=== PATIENT | male | born 1935 | race Caucasian/White ===

== ENCOUNTER 2016-03-08 18:01 | Inpatient (IN) | payer MEDICARE, OTHER ==
[~2016-03-08] VITALS: Ht 170.2 cm; Wt 86.7 kg
[~2016-03-08 18:01] MED LIST: CALC0.255 PO; PHE30 PO; PHEN300C2 PO; ZOC20 PO
--- NOTE | 2016-03-08 18:41 | RADRPT ---
PROCEDURE: XR Chest 1 View. CLINICAL INDICATION: Shortness of breath and sepsis TECHNIQUE: AP view of the chest were obtained. COMPARISON: September 27, 2014 FINDINGS: The heart size is within normal limits. Calcified atherosclerosis is noted in the aorta. Patchy inf iltrates are identified in the bilateral lower lungs. Osseous structures are osteopenic, but grossly intact. Degenerative changes are seen in the left shoulder. IMPRESSION: Calcified atherosclerosis in the aorta. Patchy infiltrates in the bilateral lower lungs. RPTAT: AA .Rubio Costello MD, MD Date Time Electronically viewed and signed by .Rubio Costello MD, on 03/08/2016 18:40 .P/
[2016-03-08 19:00] LABS: HEMATOCRIT 28.7 % (42.0-52.0); HEMOGLOBIN 9.4 g/dl (14.0-18.0); MEAN CORPUSCULAR HEMOGLOBIN 25.7 pg (29.0-33.0); MEAN CORPUSCULAR HGB CONC 32.6 g/dl (32.0-37.0); MEAN CORPUSCULAR VOLUME 78.8 fl (82.0-101.0); MEAN PLATELET VOLUME 7.6 fl (7.4-10.4); PLATELET COUNT 442 10^3/UL (140-440); RED BLOOD COUNT 3.65 10^6/ul (4.70-6.10); RED CELL DISTRIBUTION WIDTH 16.9 % (11.5-14.5)
[2016-03-08] MEDS ORDERED: SODIUM CHLORIDE 0.9% 1L BAG IV* STA (19:04)
[2016-03-08 19:08] LABS: CONDITION 1; LH ANALYZER COMMENTS 1
[2016-03-08 19:10] LABS: INR 1.16; PROTIME 14.8 Sec (12.2-14.2); PT RATIO 1.2
[2016-03-08 19:11] LABS: PARTIAL THROMBOPLASTIN TIME 27.1 Sec (25.0-35.0)
[2016-03-08 19:14] LABS: ALBUMIN 3.1 g/dl (3.3-4.9)
[2016-03-08 19:15] LABS: POTASSIUM 3.9 mmol/L (3.5-5.1)
[2016-03-08] MEDS ORDERED: ASPI-664 PO (19:15)
[2016-03-08 19:17] LABS: BILIRUBIN,INDIRECT 0.4 mg/dl (0-1.1); BILIRUBIN,TOTAL 0.4 mg/dl (0.2-1.3); CREATININE 1.13 mg/dl (0.61-1.24)
[2016-03-08 19:18] LABS: ALBUMIN/GLOBULIN RATIO 0.81; TOTAL PROTEIN 6.9 g/dl (6.1-8.1)
[2016-03-08 19:29] LABS: TROPONIN-I 0.013 ng/ml (0.00-0.12)
[2016-03-08 19:36] LABS: LYMPHOCYTES # 0.4 10^3/ul (0.8-2.9); MONOCYTE # 0.7 10^3/ul (0.3-0.9); NEUTROPHIL # 9.7 10^3/ul (1.6-7.5)
[2016-03-08] MEDS ORDERED: DILTIAZEM 25 MG INJ IV ONE ×2 (20:00→21:00)
[2016-03-08 20:16] LABS: ADD UMIC YES; URINE BILIRUBIN (Dip) 1+ (NEGATIVE); URINE BLOOD (Dip) 2+ (NEGATIVE); URINE COLOR YELLOW (YELLOW); URINE GLUCOSE (Dip) NEGATIVE (NEGATIVE); URINE KETONES (Dip) NEGATIVE (NEGATIVE); URINE LEUKOCYTE ESTERASE (Dip) NEGATIVE (NEGATIVE); URINE NITRITE (Dip) NEGATIVE (NEGATIVE); URINE TOTAL PROTEIN (Dip) 2+ (NEGATIVE); URINE UROBILINOGEN (Dip) 4.0 E.U./dL (0.1-1.0)
[2016-03-08 20:37] LABS: ICTOTEST NEGATIVE (NEGATIVE)
[2016-03-08 20:38] LABS: MUCUS,URINE MODERATE; SQUAMOUS EPITHELIAL CELL,UR FEW
[2016-03-08 20:39] LABS: BACTERIA,URINE OCCASIONAL
[2016-03-08] MEDS ORDERED: CEFEPIME 2GM/50 ML (PMX) 50 ML IVPB ONE (21:15)
[2016-03-08] MEDS ORDERED: VANCOMYCIN 1 GM (PMX) 250 ML IVPB ONE (21:15)
[2016-03-08] MEDS ORDERED: SOD CHLORIDE 0.9% 1,000 ML IV SCH (21:22)
[2016-03-08] MEDS ORDERED: DIGOXIN 0.125 MG TAB PO ONE (21:30)
[2016-03-08] MEDS ORDERED: ONDANSETRON 4 MG INJ IV PRN (21:30)
[2016-03-08] MEDS ORDERED: ACETAMINOPHEN 325 MG TAB PO PRN (21:30)
--- NOTE | 2016-03-08 21:31 | ERA ---
ER Documentation Chief Complaint Date/Time DATE: 03/08/16 TIME: 21:24 Chief Complaint BIB RA FROM HOME FOR EVAL OF DIFFICULTY BREATHING. NON REBREATHER ON ARRIVA HPI This is an 81-year-old male who presents to the emergency room after being brought in by ambulance for evaluation of difficulty in breathing, and congestion. This patient was coming from home and his family member called 911 because the patient was complaining of difficulty breathing. When the patient arrived he was on a nonrebreather, according to EMS this patient had a pulse ox of 91% on room air and did have a productive cough. When I evaluated this patient is complaining of mild shortness of breath however he states that with oxygen mask it has improved slightly. ROS All systems reviewed and are negative except as per history of present illness. Medications Home Meds Reported Medications Aspirin (Low Dose Aspirin) 81 Mg Tablet.dr, 81 MG PO DAILY, #30 TAB 03/08/16 Simvastatin (Simvastatin) 20 Mg Tablet, 20 MG PO HS, TAB 09/16/14 Calcitriol* (Rocaltrol*) 0.25 Mcg Capsule, 0.25 MCG PO QAM, CAP 09/16/14 Phenytoin* Sodium Extended (Dilantin*) 300 Mg Capsule, 300 MG PO BID, CAP 09/16/14 Phenobarbital* (Phenobarbital*) 32.4 Mg Tab, 64.8 MG PO BID, TAB 09/16/14 Allergies Allergies: Coded Allergies: No Known Allergy (Unverified , 03/08/16) PMhx/Soc History of Surgery: No Anesthesia Reaction: No Hx Neurological Disorder: Yes (hx of seizures) Hx Respiratory Disorders: No Hx Cardiac Disorders: Yes (syncope) Hx Psychiatric Problems: No Hx Miscellaneous Medical Probl: Yes Hx Alcohol Use: Yes (long time ago occasionally) Hx Substance Use: No Hx Tobacco Use: No Smoking Status: Never smoker Physical Exam Vitals Vital Signs Date Time Temp Pulse Resp B/P Pulse Ox O2 Delivery O2 Flow Rate FiO2 03/08/16 21:00 118 17 138/78 96 Nasal Cannula 2.0 03/08/16 20:05 99.5 110 27 138/78 98 Nasal Cannula 3.0 03/08/16 19:04 Nasal Cannula 2.0 03/08/16 18:50 101.4 147 35 134/76 97 Nasal Cannula 4.0 03/08/16 18:49 Nasal Cannula 4 1/5/17 18:19 101.1 141 22 112/66 100 Physical Exam INITIAL VITAL SIGNS: Reviewed by me GENERAL: The patient is well developed, pleasant affect, no acute distress HEENT: Pupils equal, round, and reactive to light. EOMI. There is no scleral icterus. NECK: C-spine is soft and supple, there is no meningismus. There is no cervical lymphadenopathy. LUNGS: Coarse breath sounds bilaterally with rales auscultated in the bilateral lower lobes HEART: Irregularly irregular rhythm, no murmurs, clicks, rubs or gallops. ABDOMEN: Soft, non-tender, non-distended. There are bowel sounds in all four quadrants. No rebound or guarding. EXTREMITIES: There is no peripheral cyanosis or edema. No focal swelling or erythema. NEUROLOGICAL: The patient moves all four extremities with 5/5 strength. Cranial nerves II - XII are intact. Normal gait. Alert and oriented SKIN: There is no apparent rash or petechiae. HEME/LYMPHATIC: There is no evidence of excessive bruising or lymphedema. PSYCHIATRIC: The patient does not appear anxious or depressed. Result Diagram: 03/08/16183903/08/161839 Results 24 hrs Laboratory Tests Test 03/08/16 18:40 03/08/16 20:00 Activated Partial Thromboplast Time 27.1Sec Alanine Aminotransferase (ALT/SGPT) 64IU/L Albumin 3.1g/dl Albumin/Globulin Ratio 0.81 Alkaline Phosphatase 124IU/L Anion Gap 18 Aspartate Amino Transf (AST/SGOT) 80IU/L Basophils # 10^3/ul Basophils % % Blood Morphology Comment Blood Urea Nitrogen 22mg/dl Calcium Level 8.0mg/dl Carbon Dioxide Level 26mmol/L Chloride Level 98mmol/L Creatinine 1.13mg/dl Direct Bilirubin 0.00mg/dl Eosinophils # 10^3/ul Eosinophils % % Globulin 3.80g/dl Glucose Level 139mg/dl Hematocrit 28.7% Hemoglobin 9.4g/dl INR International Normalized Ratio 1.16 Indirect Bilirubin 0.4mg/dl Lactic Acid Level 2.2mmol/L Lymphocytes # 0.410^3/ul Lymphocytes % 3.0% Mean Corpuscular Hemoglobin 25.7pg Mean Corpuscular Hemoglobin Concent 32.6g/dl Mean Corpuscular Volume 78.8fl Mean Platelet Volume 7.6fl Monocytes # 0.710^3/ul Monocytes % 5.0% Neutrophils # 9.710^3/ul Neutrophils % 69.0% Nucleated Red Blood Cells # 10^3/ul Nucleated Red Blood Cells % 0.0/100WBC Platelet Count 71243^3/UL Potassium Level 3.9mmol/L Prothrombin Time 14.8Sec Prothrombin Time Ratio 1.2 Red Blood Count 3.6510^6/ul Red Cell Distribution Width 16.9% Sodium Level 138mmol/L Total Bilirubin 0.4mg/dl Total Protein 6.9g/dl Troponin I 0.013ng/ml White Blood Count 14.010^3/ul Urine Amorphous Urates FEW Urine Bacteria OCCASIONAL Urine Bilirubin 1+ Urine Clarity SL HAZY Urine Color YELLOW Urine Glucose NEGATIVE% Urine Hemoglobin 2+ Urine Ictotest NEGATIVE Urine Ketones NEGATIVE Urine Leukocyte Esterase NEGATIVE Urine Microscopic RBC 2-5/HPF Urine Microscopic WBC NONE SEEN/HPF Urine Mucus MODERATE Urine Nitrite NEGATIVE Urine Specific [place] 1.020 Urine Squamous Epithelial Cells FEW Urine Total Protein 2+ Urine Urobilinogen 4.0 E.U./dL Urine pH 6.0 Current Medications Medications (Trade) Dose Ordered Sig/Steve Route PRN Reason Start Time Stop Time Status Last Admin Dose Admin Sodium Chloride (NS) 2,790 ml BOLUS OVER 2 HOURS STAT IV* 03/08/16 19:04 03/08/16 19:05 DC 03/08/16 19:06 Diltiazem HCl (Cardizem Iv) 10 mg ONCE ONCE IV 03/08/16 20:00 03/08/16 20:01 DC 03/08/16 19:50 Diltiazem HCl 10 mg 10 mg ONCE ONCE IV 03/08/16 21:00 03/08/16 21:01 DC 03/08/16 20:50 Vancomycin HCl 250 ml @ 125 mls/hr ONCE ONCE IVPB 03/08/16 21:15 03/08/16 23:14 Cefepime HCl (Maxipime 2gm/50 ml (Pmx)) 50 ml @ 100 mls/hr ONCE ONCE IVPB 03/08/16 21:15 03/08/16 21:44 Procedures/MDM EKG: Rate/Rhythm: A. fib with RVR QRS, ST, T-waves: [No changes consistent w/ acute ischemia] Impression: A. fib with RVR Chest X-ray 1V Interpreted by me: Soft Tissue: Bilateral lower lobe infiltrates Bones: No acute abnormalities Mediastinum/Cardiac Silhouette/Lungs: [No acute abnormalities] This is an 81-year-old male presents to the ER for evaluation of cough, and mild shortness of breath. When I evaluated this patient he was febrile, tachycardic, and did appear to be in atrial fibrillation with a rapid ventricular response. A sepsis workup was started on this patient, and he was given greater than 30 cc/kg of IV normal saline. This patient's heart rate remained elevated and he was given 10 mg of Cardizem with only mild relief of his uncontrolled tachycardia. A second 10 mg dose was given and this patient's heart rate is 108 bpm at this time. This patient was found to have bilateral infiltrates consistent with pneumonia. He does have a leukocytosis as well. He was started on vancomycin and cefepime for hospital-acquired coverage as I am unable to ascertain whether or not this patient has been admitted in the past 60 days. This patient does meet sepsis criteria however he does not need vasopressors as his mean arterial pressures greater than 65. I spoken with the admitting physician, Dr. Baird who is in agreement with the plan of care at this time for admission. He did recommend 0.125 mill grams of digoxin p.o. Cardiac Critical Care: Excluding all billable procedures Time: 46 minutes Treatments/Evaluations: Close monitoring for dangerous arrhythmia and cardiovascular collapse, while treating with advance cardiac medications and techniques, multiple bedside evaluations, administration of Cardizem.. Departure Diagnosis: Primary Impression: Sepsis Additional Impressions: Bilateral pneumonia Atrial fibrillation with RVR Microcytic anemia Condition: Stable JOSÉ MIGUEL BARDALES DO Mar 08, 2016 21:31
[2016-03-09] VITALS (9 sets, daily range): BP systolic 110–111; BP diastolic 56–59; PULSE 116–151; RESP 18–20; TEMP 99.5; Ht 170.2 cm; Wt 86.7 kg
[2016-03-09] MEDS ORDERED: ALBUTEROL 0.5% (NEB) 2.5 MG/0.5 ML AMP HHN PRN (13:00)
[2016-03-09] MEDS ORDERED: IPRATROPIUM (NEB) 0.5 MG/2.5 ML AMP HHN PRN (13:00)
[2016-03-09] MEDS ORDERED: ONDANSETRON 4 MG INJ IV PRN (14:00)
[2016-03-09] MEDS ORDERED: NACL 0.9% 3 ML SYG IV SCH (14:00)
[2016-03-09] MEDS: GUAIFENESIN/CODEINE 5ML CUP PO PRN (15:34)
[2016-03-09] MEDS: LEVOFLOXACIN 500MG/D5W (PMX) 100 ML IVPB SCH (15:35)
[2016-03-09] MEDS: ASPIRIN (EC) 81 MG TAB PO SCH (15:54)
[2016-03-09] MEDS: CALCITRIOL 0.25 MCG CAP PO SCH (15:55)
[2016-03-09] MEDS: SOD CHLORIDE 0.9% 1,000 ML IV SCH (16:13)
[2016-03-09] MEDS ORDERED: SOD CHLORIDE 0.9% 500 ML IV ONE (16:30)
[2016-03-09] MEDS: ALBUTEROL/IPRATROPIUM (NEB) 3 ML AMP HHN PRN (16:38)
--- NOTE | 2016-03-09 17:08 | CONS ---
Date/Time of Note Date/Time of Note DATE: 03/09/16 TIME: 16:54 Consult Date/Type/Reason Admit Date/Time Mar 08, 2016 at 21:23 Initial Consult Date Subjective SUBJECTIVE: Mr. Elias appears comfortable today. No nausea, no vomiting, no diarrhea, no chest pain, decreased cough, no productive sputum. He is alert and interactive at this time. PHYSICAL EXAMINATION: HEAD: Normocephalic, atraumatic. NECK: Supple, no JVD. LUNGS: Clear to auscultation. HEART: Has regular rate and rhythm. No murmurs, rubs, or gallops. ABDOMEN: Soft, nontender, nondistended. Positive bowel sounds. EXTREMITIES: Show no cyanosis, clubbing or edema. 1. Sepsis- likely pneumonia. cont abx. 2. Seizure disorder. Phenobarbital continues. Follow up per Neurology. 3. Atrial fibrillation, rapid rate. previously rate controlled on metoprolol. not a candidate for full anticoagulation at this time. cont with volume resuscitation. cards consult. 4. Hyperlipidemia continues on Lipitor. 5. History of syncope. 6. anemia. Hemoglobin decreased. iron stores and stool ob. Objective Vital Signs Date Time Temp Pulse Resp B/P Pulse Ox O2 Delivery O2 Flow Rate FiO2 03/09/16 16:45 93 3.0 03/09/16 16:43 126 20 Nasal Cannula 03/09/16 11:32 99.5 110/59 Intake and Output 03/08/16 03/08/16 03/09/16 15:00 23:00 07:00 Intake Total 50 ml 320 ml Output Total 300 ml Balance 50 ml 20 ml Results/Medications Result Diagram: 03/08/16 1840 03/08/16 1840 Results 24 hrs Laboratory Tests Test 03/08/16 18:40 03/08/16 20:00 03/08/16 20:50 03/08/16 21:15 Activated Partial Thromboplast Time 27.1 Alanine Aminotransferase (ALT/SGPT) 64 Albumin 3.1 L Albumin/Globulin Ratio 0.81 Alkaline Phosphatase 124 H Anion Gap 18 H Aspartate Amino Transf (AST/SGOT) 80 H Basophils # Basophils % Blood Morphology Comment Blood Urea Nitrogen 22 H Calcium Level 8.0 L Carbon Dioxide Level 26 Chloride Level 98 Creatinine 1.13 Direct Bilirubin 0.00 Eosinophils # Eosinophils % Globulin 3.80 H Glucose Level 139 Hematocrit 28.7 #L Hemoglobin 9.4 #L INR International Normalized Ratio 1.16 Indirect Bilirubin 0.4 Lactic Acid Level 2.2 1.6 Lymphocytes # 0.4 L Lymphocytes % 3.0 L Mean Corpuscular Hemoglobin 25.7 #L Mean Corpuscular Hemoglobin Concent 32.6 Mean Corpuscular Volume 78.8 L Mean Platelet Volume 7.6 Monocytes # 0.7 Monocytes % 5.0 Neutrophils # 9.7 H Neutrophils % 69.0 Nucleated Red Blood Cells # Nucleated Red Blood Cells % 0.0 Platelet Count 442 #H Potassium Level 3.9 Prothrombin Time 14.8 H Prothrombin Time Ratio 1.2 Red Blood Count 3.65 L Red Cell Distribution Width 16.9 #H Sodium Level 138 Total Bilirubin 0.4 Total Protein 6.9 Troponin I 0.013 White Blood Count 14.0 #H Urine Amorphous Urates FEW Urine Bacteria OCCASIONAL Urine Bilirubin 1+ H Urine Clarity SL HAZY Urine Color YELLOW Urine Glucose NEGATIVE Urine Hemoglobin 2+ H Urine Ictotest NEGATIVE Urine Ketones NEGATIVE Urine Leukocyte Esterase NEGATIVE Urine Microscopic RBC 2-5 Urine Microscopic WBC NONE SEEN Urine Mucus MODERATE Urine Nitrite NEGATIVE Urine Specific [place] 1.020 Urine Squamous Epithelial Cells FEW Urine Total Protein 2+ H Urine Urobilinogen 4.0 E.U./dL H Urine pH 6.0 Digoxin Level < 0.4 L Test 03/08/16 23:30 Lactic Acid Level 1.5 Medications Current Medications Levofloxacin/ Dextrose (Levaquin 500mg/ D5W 100 ml (Pmx)) 100 ml @ 100 mls/hr Q24H IVPB Last administered on 03/09/16 15:35; Admin Dose 100 MLS/HR; Start 03/09/16 at 13:00 Guaifenesin/ Codeine Phosphate (Robitussin Ac Liquid Cup) 5 ml Q6H PRN PO COUGH Last administered on 03/09/16 15:34; Admin Dose 5 ML; Start 03/09/16 at 13: 00 Ondansetron HCl (Zofran Inj) 4 mg Q6H PRN IV NAUSEA AND/OR VOMITING; Start 03/09 at 14:00 Aspirin (Halfprin) 81 mg DAILY PO Last administered on 03/09/16 15:54; Admin Dose 81 MG; Start 03/09/16 at 14:00 Calcitriol (Rocaltrol) 0.25 mcg QAM PO Last administered on 03/09/16 15:55; Admin Dose 0.25 MCG; Start 03/09/16 at 14:00 Phenobarbital (Luminal) 64.8 mg BID PO ; Start 03/09/16 at 21:00 Phenytoin (Dilantin) 300 mg BID PO ; Start 03/09/16 at 21:00 Atorvastatin Calcium 10 mg 10 mg DAILY@21 PO ; Start 03/09/16 at 21:00 Sodium Chloride 500 ml @ 500 mls/hr Q1H ONCE IV Last administered on 03/09/16 16:13; Admin Dose 500 MLS/HR; Start 03/09/16 at 16:30; Stop 03/09/16 at 17:29 Sodium Chloride (NS) 1,000 ml @ 75 mls/hr [id number] IV Last administered on 16:13; Admin Dose 75 MLS/HR; Start 03/09/16 at 16:30 ANTHONY MCDONALD MD Mar 09, 2016 17:05
--- NOTE | 2016-03-09 18:00 | CONS ---
DATE OF ADMISSION: 03/08/2016 DATE OF CONSULTATION: 03/08/2016 HISTORY OF PRESENT ILLNESS: The patient is an 81-year-old gentleman with past medical history of se izure disorder, atrial fibrillation. The patient presented after noticing shortness of breath. The patient was in a facility and other people with flu-like illness. This patient is having occasiona l cough, not too bad. No productive sputum. Denies dysuria, hematuria. ____ his medications. PAST MEDICAL HISTORY: Significant for seizure disorder, hyperlipidemia, atrial fibrillation, mild c ognitive impairment. MEDICATIONS: From home include: 1. Aspirin. 2. Zocor. 3. Rocaltrol. 4. Phenytoin. 5. Phenobarbital. ALLERGIES: THE PATIENT HAS NO KNOWN ALLERGIES. SOCIAL HISTORY: Does not smoke, drink, or use drugs. FAMILY HISTORY: ____ kidney disease. REVIEW OF SYSTEMS: A 14-point review of systems is attempted and negative unless stated. PHYSICAL EXAMINATION: VITAL SIGNS: Temperature 101.4, blood pressure 134/76. HEENT: Normocephalic, atraumatic. Pupils equal, round, reactive to light and accommodation. NECK: Supple. HEART: Irregularly irregular. LUNGS: Coarse breath sounds bilaterally with rales. ABDOMEN: Soft, nontender. Bowel sounds present. LABORATORY EVALUATION: White count 14, hemoglobin 9.4, hematocrit 29. Sodium 130, potassium 3.9, B UN 22, creatinine 1.1. UA is reviewed on microscopy. Chest x-ray was reviewed with radiologist. IMPRESSION: 1. Sepsis, likely pneumonia. Continue antibiotics. Infectious disease consultation will be obtain ed. 2. Atrial fibrillation with rapid ventricular rate, probably related to sepsis, possibly related to bronchodilator treatment. Continue metoprolol as outpatient. If blood pressure can tolerate, can manage it, we will try volume challenge first. 3. Seizure disorder. Continue phenobarbital and Dilantin and follow up with neurology if necessary . 4. Hyperlipidemia. Continue on statin. 5. Anemia. Hemoglobin has decreased. Will check iron stores and stool occult blood. 6. History of syncope. Medication optimized. Dictated By: ANTHONY MCDONALD MD DF/NTS Conf#: [id number] DID#: [id number] CC: JESSICA ZUNIGA DO;*EndCC*
--- NOTE | 2016-03-09 18:41 | CONS ---
DATE OF ADMISSION: 03/08/2016 DATE OF CONSULTATION: 03/09/2016 TYPE OF CONSULTATION: Infectious disease. REASON FOR CONSULTATION: Antibiotic management. HISTORY OF PRESENT ILLNESS: Rogelio Elias is an 81-year-old male who was brought into the emergency room with difficulty breathing and congestion. The patient called 911 and was placed on a nonbreath ing mask, according to EMS, with a pulse ox of 91%. The patient complained of a cough with shortnes s of breath. His past problems include: 1. Hyperlipidemia, I believe. 2. Hypocalcemia. 3. History of seizures. 4. Syncope. 5. History of alcohol abuse in the past. On admission, his white count was 14,000; H and H 9.4 and 28.7, platelet count 442,000. BUN and cre atinine 22/.13. PAST MEDICAL HISTORY: Operations as outlined. FAMILY HISTORY: Noncontributory. SOCIAL HISTORY: As outlined. He does not smoke. He drinks rarely. Does not abuse drugs. MEDICATIONS: Per chart. REVIEW OF SYSTEMS: Noncontributory. PHYSICAL EXAMINATION: GENERAL: The patient is a well-developed, well-nourished male who is alert, responsive, in no acute distress. VITAL SIGNS: Stable. He is afebrile. SKIN: Without generalized rash. HEENT: Within normal limits. NECK: Supple. LYMPH NODES: None palpable. CHEST: Decreased breath sounds at the bases with coarse rhonchi at the bases. HEART: Irregularly irregular rhythm without murmur or gallop. ABDOMEN: Soft, nontender without organosplenomegaly or masses. EXTREMITIES: Without cyanosis, clubbing, or edema. RECTAL AND GENITAL: Deferred. NEUROLOGIC: No focal neurological abnormalities. IMPRESSION AND PLAN: The patient was seen by Dr. Vargas. Urine culture was negative. Influe nza A and B was negative. The patient is on Levaquin. Chest x-ray shows patchy infiltrates in bila teral lower lungs. Dr. Vargas felt he was in sepsis, likely pneumonia. Continue antibiotic t herapy. He has seizure disorders, atrial fibrillation, hyperlipidemia, syncope, and so on. We will continue him on Levaquin for the time being. I will dictate my findings to Dr. Vargas. Dictated By: MIESHA NATARAJAN MD, JD/ZECHARIAH Conf#: [id number] DID#: [id number] CC: JESSICA ZUNIGA DO;*[place]*
[2016-03-09] MEDS ORDERED: NON-FORMULARY/PATIENT OWN MED (Simvastatin 20 MG) PO SCH (21:00)
[2016-03-09] MEDS: PHENYTOIN 100 MG CAP PO SCH (21:10)
[2016-03-09] MEDS: ATORVASTATIN 10 MG TAB PO SCH (21:10)
[2016-03-09] MEDS: PHENOBARBITAL 32.4 MG TAB PO SCH (21:10)
[2016-03-10] VITALS (12 sets, daily range): BP systolic 104–144; BP diastolic 55–77; PULSE 87–126; RESP 17–22
[2016-03-10] MEDS: SOD CHLORIDE 0.9% 1,000 ML IV SCH ×2 (01:30→21:00)
[2016-03-10 06:22] LABS: EOSINOPHILS # 0.2 10^3/ul (0.0-0.5); EOSINOPHILS % 1.2 % (0.0-7.0); HEMATOCRIT 25.4 % (42.0-52.0); HEMOGLOBIN 8.5 g/dl (14.0-18.0); LYMPHOCYTES # 1.2 10^3/ul (0.8-2.9); LYMPHOCYTES % 8.8 % (15.0-51.0); MEAN CORPUSCULAR HEMOGLOBIN 26.3 pg (29.0-33.0); MEAN CORPUSCULAR HGB CONC 33.4 g/dl (32.0-37.0); MEAN CORPUSCULAR VOLUME 78.8 fl (82.0-101.0); MEAN PLATELET VOLUME 7.3 fl (7.4-10.4); MONOCYTE # 0.9 10^3/ul (0.3-0.9); MONOCYTES % 6.8 % (0.0-11.0); NEUTROPHIL # 11.5 10^3/ul (1.6-7.5); NEUTROPHILS % 83.2 % (39.0-77.0); PLATELET COUNT 412 10^3/UL (140-440); RED BLOOD COUNT 3.22 10^6/ul (4.70-6.10); UNCORRECTED WBC 13.8 10^3/ul (4.8-10.8); WHITE BLOOD COUNT 13.8 10^3/ul (4.8-10.8)
--- NOTE | 2016-03-10 06:35 | CONS ---
Date/Time of Note Date/Time of Note DATE: 03/10/16 TIME: 06:32 Assessment/Plan Assessment/Plan Additional Assessment/Plan 1. Sepsis, likely pneumonia Continue antibiotics. Infectious disease involved 2. Atrial fibrillation with rapid ventricular rate, probably related to sepsis Resume metoprolol as bp stable (but on the low end) and rx digoxin if need be. No antiocagulation for now unless deemed safe for the patient 3. Seizure disorder. Continue phenobarbital and Dilantin and follow up with neurology if necessary. 4. Hyperlipidemia. Continue on statin. 5. Anemia. Consultation Date/Type/Reason Admit Date/Time Mar 08, 2016 at 21:23 Hx of Present Illness This is an 81-year-old male who presents to the emergency room after being brought in by ambulance for evaluation of difficulty in breathing, and congestion. This patient was coming from home and his family member called 911 because the patient was complaining of difficulty breathing. When the patient arrived he was on a nonrebreather, according to EMS this patient had a pulse ox of 91% on room air and did have a productive cough. When I evaluated this patient is complaining of mild shortness of breath however he states that with oxygen mask it has improved slightly. Social History Smoking Status: Never smoker Exam/Review of Systems Vital Signs Vitals Vital Signs Date Time Temp Pulse Resp B/P Pulse Ox O2 Delivery O2 Flow Rate FiO2 03/10/16 04:54 98.0 113 19 107/57 95 03/09/16 20:26 2.0 03/09/16 16:43 Nasal Cannula Intake and Output 03/09/16 03/09/16 03/10/16 15:00 23:00 07:00 Intake Total 720 ml 350 ml Output Total 600 ml Balance 120 ml 350 ml Results Result Diagram: 03/08/16 1840 03/08/16 1840 Medications Medications Current Medications Levofloxacin/ Dextrose (Levaquin 500mg/ D5W 100 ml (Pmx)) 100 ml @ 100 mls/hr Q24H IVPB Last administered on 03/09/16 15:35; Admin Dose 100 MLS/HR; Start 03/09/16 at 13:00 Guaifenesin/ Codeine Phosphate (Robitussin Ac Liquid Cup) 5 ml Q6H PRN PO COUGH Last administered on 03/09/16 15:34; Admin Dose 5 ML; Start 03/09/16 at 13: 00 Ondansetron HCl (Zofran Inj) 4 mg Q6H PRN IV NAUSEA AND/OR VOMITING; Start 03/09 at 14:00 Aspirin (Halfprin) 81 mg DAILY PO Last administered on 03/09/16 15:54; Admin Dose 81 MG; Start 03/09/16 at 14:00 Calcitriol (Rocaltrol) 0.25 mcg QAM PO Last administered on 03/09/16 15:55; Admin Dose 0.25 MCG; Start 03/09/16 at 14:00 Phenobarbital (Luminal) 64.8 mg BID PO Last administered on 03/09/16 21:10; Admin Dose 64.8 MG; Start 03/09/16 at 21:00 Phenytoin (Dilantin) 300 mg BID PO Last administered on 03/09/16 21:10; Admin Dose 300 MG; Start 03/09/16 at 21:00 Atorvastatin Calcium 10 mg 10 mg DAILY@21 PO Last administered on 03/09/16 21: 10; Admin Dose 10 MG; Start 03/09/16 at 21:00 Sodium Chloride (NS) 1,000 ml @ 75 mls/hr [id number] IV Last administered on 01:30; Admin Dose 75 MLS/HR; Start 03/09/16 at 16:30 HUSSAIN ALVAREZ MD Mar 10, 2016 06:35
[2016-03-10 06:37] LABS: CONDITION 1; LH ANALYZER COMMENTS 1
[2016-03-10 06:44] LABS: IRON 16 ug/dl (35-150)
[2016-03-10 06:46] LABS: ALBUMIN 2.3 g/dl (3.3-4.9)
[2016-03-10 06:47] LABS: POTASSIUM 3.6 mmol/L (3.5-5.1)
[2016-03-10 06:49] LABS: ALBUMIN/GLOBULIN RATIO 0.67; BILIRUBIN,INDIRECT 0.1 mg/dl (0-1.1); BILIRUBIN,TOTAL 0.1 mg/dl (0.2-1.3); CREATININE 0.78 mg/dl (0.61-1.24); PHOSPHORUS 3.1 mg/dl (2.5-4.9); TOTAL PROTEIN 5.7 g/dl (6.1-8.1)
[2016-03-10 06:50] LABS: CALCIUM 7.3 mg/dl (8.4-10.2); MAGNESIUM 1.8 mg/dl (1.7-2.5)
[2016-03-10 06:57] LABS: TOTAL IRON BINDING CAPACITY 185 ug/dl (241-421)
[2016-03-10] MEDS ORDERED: DIGOXIN 500 MCG INJ IV ONE (07:00)
[2016-03-10 07:02] LABS: T3 UPTAKE 50.9 % (23.5-40.5)
--- NOTE | 2016-03-10 08:05 | CONS ---
Date/Time of Note Date/Time of Note DATE: 03/10/16 TIME: 08:02 Consult Date/Type/Reason Admit Date/Time Mar 08, 2016 at 21:23 Subjective SUBJECTIVE: Mr. Elias appears comfortable today. No nausea, no vomiting, no diarrhea, no chest pain, decreased cough, no productive sputum. He is alert and interactive at this time. PHYSICAL EXAMINATION: HEAD: Normocephalic, atraumatic. NECK: Supple, no JVD. LUNGS: Clear to auscultation. HEART: Has regular rate and rhythm. No murmurs, rubs, or gallops. ABDOMEN: Soft, nontender, nondistended. Positive bowel sounds. EXTREMITIES: Show no cyanosis, clubbing or edema. Objective Vital Signs Date Time Temp Pulse Resp B/P Pulse Ox O2 Delivery O2 Flow Rate FiO2 03/10/16 04:54 98.0 113 19 107/57 95 03/09/16 20:26 2.0 03/09/16 16:43 Nasal Cannula Intake and Output 03/09/16 03/09/16 03/10/16 15:00 23:00 07:00 Intake Total 720 ml 350 ml Output Total 600 ml Balance 120 ml 350 ml Results/Medications Result Diagram: 03/10/16 0540 03/10/16 0545 Results 24 hrs Laboratory Tests Test 03/10/16 05:40 03/10/16 05:45 Basophils # 0.0 Basophils % 0.0 Blood Morphology Comment Eosinophils # 0.2 Eosinophils % 1.2 Hematocrit 25.4 L Hemoglobin 8.5 L Lymphocytes # 1.2 Lymphocytes % 8.8 L Mean Corpuscular Hemoglobin 26.3 L Mean Corpuscular Hemoglobin Concent 33.4 Mean Corpuscular Volume 78.8 L Mean Platelet Volume 7.3 L Monocytes # 0.9 Monocytes % 6.8 Neutrophils # 11.5 H Neutrophils % 83.2 H Nucleated Red Blood Cells # 0.0 Nucleated Red Blood Cells % 0.0 Platelet Count 412 Red Blood Count 3.22 L Red Cell Distribution Width 17.0 H White Blood Count 13.8 H Alanine Aminotransferase (ALT/SGPT) 64 Albumin 2.3 L Albumin/Globulin Ratio 0.67 Alkaline Phosphatase 104 Anion Gap 16 Aspartate Amino Transf (AST/SGOT) 99 H Blood Urea Nitrogen 20 Calcium Level 7.3 L Carbon Dioxide Level 23 Chloride Level 102 Creatinine 0.78 Direct Bilirubin 0.00 Free Thyroxine Index 3.21 Globulin 3.40 H Glucose Level 128 Indirect Bilirubin 0.1 Iron Level 16 L Magnesium Level 1.8 Percent Iron Saturation 9 L Phosphorus Level 3.1 Potassium Level 3.6 Sodium Level 137 Thyroxine (T4) 6.3 Total Bilirubin 0.1 L Total Iron Binding Capacity 185 L Total Protein 5.7 #L Triiodothyronine (T3) Uptake 50.9 H Medications Current Medications Levofloxacin/ Dextrose (Levaquin 500mg/ D5W 100 ml (Pmx)) 100 ml @ 100 mls/hr Q24H IVPB Last administered on 03/09/16 15:35; Admin Dose 100 MLS/HR; Start 03/09/16 at 13:00 Guaifenesin/ Codeine Phosphate (Robitussin Ac Liquid Cup) 5 ml Q6H PRN PO COUGH Last administered on 03/09/16 15:34; Admin Dose 5 ML; Start 03/09/16 at 13: 00 Ondansetron HCl (Zofran Inj) 4 mg Q6H PRN IV NAUSEA AND/OR VOMITING; Start 03/09 at 14:00 Aspirin (Halfprin) 81 mg DAILY PO Last administered on 03/09/16 15:54; Admin Dose 81 MG; Start 03/09/16 at 14:00 Calcitriol (Rocaltrol) 0.25 mcg QAM PO Last administered on 03/09/16 15:55; Admin Dose 0.25 MCG; Start 03/09/16 at 14:00 Phenobarbital (Luminal) 64.8 mg BID PO Last administered on 03/09/16 21:10; Admin Dose 64.8 MG; Start 03/09/16 at 21:00 Phenytoin (Dilantin) 300 mg BID PO Last administered on 03/09/16 21:10; Admin Dose 300 MG; Start 03/09/16 at 21:00 Atorvastatin Calcium 10 mg 10 mg DAILY@21 PO Last administered on 03/09/16 21: 10; Admin Dose 10 MG; Start 03/09/16 at 21:00 Sodium Chloride (NS) 1,000 ml @ 75 mls/hr [id number] IV Last administered on 01:30; Admin Dose 75 MLS/HR; Start 03/09/16 at 16:30 Metoprolol Tartrate (Lopressor) 25 mg BID PO ; Start 03/10/16 at 09:00 Digoxin (Digoxin) 0.125 mg DAILY@13 PO ; Start 03/10/16 at 13:00 Assessment/Plan Chief Complaint/Hosp Course 1. Sepsis- likely pneumonia. cont abx. 2. Seizure disorder. Phenobarbital continues. Follow up per Neurology. 3. Atrial fibrillation, rapid rate. previously rate controlled on metoprolol. not a candidate for full anticoagulation at this time. cont with volume resuscitation. cards consult noted. resuming metoprolol 4. Hyperlipidemia continues on Lipitor. 5. History of syncope. 6. anemia. Hemoglobin decreased further. iron stores suggest iron deficiency. pending stool ob. start with iron infusion. gi workup if ob pos. Problems: ANTHONY MCDONALD MD Mar 10, 2016 08:05
[2016-03-10] MEDS: METOPROLOL 25 MG TAB PO SCH ×2 (10:23→21:02)
[2016-03-10] MEDS: PHENYTOIN 100 MG CAP PO SCH ×2 (10:24→21:01)
[2016-03-10] MEDS: ASPIRIN (EC) 81 MG TAB PO SCH (10:24)
[2016-03-10] MEDS: CALCITRIOL 0.25 MCG CAP PO SCH (10:24)
[2016-03-10] MEDS: PHENOBARBITAL 32.4 MG TAB PO SCH ×2 (10:28→21:01)
[2016-03-10] MEDS: GUAIFENESIN/CODEINE 5ML CUP PO PRN (10:28)
[2016-03-10] MEDS: LEVOFLOXACIN 500MG/D5W (PMX) 100 ML IVPB SCH (14:13)
[2016-03-10] MEDS: DIGOXIN 0.125 MG TAB PO SCH (14:14)
[2016-03-10] MEDS ORDERED: PNEUMOCOCCAL VACCINE 0.5 ML INJ IM* ONE (16:00)
--- NOTE | 2016-03-10 19:09 | PN ---
DATE: 03/10/2016 SUBJECTIVE: Patient is alert, denies pain, discomfort. He has a productive greenish cough. He is in no distress. No shortness of breath. Temperature 99.4, pulse 115, respirations 20, blood pressu re 119/77, saturation 94 on 3 L. WBC 13.8, H and H 8.5 and 25.4, platelets 412, neutrophils 83.2, n o bands. BUN 20, creatinine 0.78. MICROBIOLOGY: Blood culture, urine culture negative. Influenza swab negative. ANTIMICROBIALS: The patient is on Levaquin. DIAGNOSTICS: Chest x-ray on admission revealed patchy infiltrates in bilateral lower lobes. PHYSICAL EXAMINATION GENERAL: Well-nourished, well-developed, elderly man who is alert, in no distress. HEENT: Head atraumatic, normocephalic. Sclerae are anicteric. Buccal mucosa pink. NECK: Supple, trachea midline. CHEST: Rise symmetrical. Breath sounds diminished to bases. HEART: S1, S2. ABDOMEN: Soft, bowel tones present. EXTREMITIES: Without cyanosis. Trace edema. ASSESSMENT 1. Community-acquired pneumonia, remains on Levaquin. 2. Atrial fibrillation status post rapid ventricular response. 3. Anemia 4. History of seizures. 5. History of EtOH in the past. PLAN: The patient remains stable on appropriate antimicrobials. No fevers. We are going to order sputum culture and swab his nares for MRSA. Follow chest x-ray in a.m. Follow cardiology recommend ations. Dictated By: STEPHANIE SMITH COLLET MAKER for MIESHA PUENTES/ZECHARIAH Conf#: [id number] DID#: [id number]
[2016-03-10] MEDS: ALBUTEROL/IPRATROPIUM (NEB) 3 ML AMP HHN PRN (20:39)
[2016-03-10] MEDS: ATORVASTATIN 10 MG TAB PO SCH (21:01)
[2016-03-11] VITALS (11 sets, daily range): BP systolic 102–131; BP diastolic 52–71; PULSE 96–122; RESP 16–20
[2016-03-11] MEDS: ALBUTEROL/IPRATROPIUM (NEB) 3 ML AMP HHN PRN (02:31)
[2016-03-11] MEDS ORDERED: ACETAMINOPHEN 325 MG TAB PO PRN (06:30)
[2016-03-11] MEDS: ASPIRIN (EC) 81 MG TAB PO SCH (08:21)
[2016-03-11] MEDS: PHENYTOIN 100 MG CAP PO SCH ×2 (08:21→20:13)
[2016-03-11] MEDS: CALCITRIOL 0.25 MCG CAP PO SCH (08:21)
[2016-03-11] MEDS: SOD CHLORIDE 0.9% 1,000 ML IV SCH ×2 (08:21→17:36)
[2016-03-11] MEDS: METOPROLOL 25 MG TAB PO SCH ×2 (08:22→20:16)
[2016-03-11] MEDS: PHENOBARBITAL 32.4 MG TAB PO SCH ×2 (08:22→20:14)
--- NOTE | 2016-03-11 10:42 | RADRPT ---
PROCEDURE: XR Chest 1 view. CLINICAL INDICATION: Shortness of breath, pneumonia TECHNIQUE: AP views of the chest were obtained. COMPARISON: August 06, 2016 FINDINGS: The heart is large. Calcified atherosclerosis is noted in the aorta. Bilateral mid and lower lung i nfiltrates have increased. Associated small to moderate pleural effusions have also increased. Oss eous structures are intact. IMPRESSION: Cardiomegaly with calcified atherosclerosis in the aorta. Interval increase in bilateral mid and lower lung infiltrates combined with small to moderate pleura l effusions. RPTAT: AA .Rubio Costello MD, Date Time Electronically viewed and signed by .Rubio Costello MD, MD on 03/11/2016 10:42 .P/
[2016-03-11] MEDS: LEVOFLOXACIN 500MG/D5W (PMX) 100 ML IVPB SCH (11:37)
[2016-03-11] MEDS: DIGOXIN 0.125 MG TAB PO SCH (11:37)
--- NOTE | 2016-03-11 12:30 | CONS ---
Date/Time of Note Date/Time of Note DATE: 03/11/16 TIME: 12:25 Consult Date/Type/Reason Admit Date/Time Mar 08, 2016 at 21:23 Subjective SUBJECTIVE: Mr. Elias appears comfortable today. No nausea, no vomiting, no diarrhea, no chest pain, decreased cough, no productive sputum. He is alert and interactive at this time. PHYSICAL EXAMINATION: HEAD: Normocephalic, atraumatic. NECK: Supple, no JVD. LUNGS: Clear to auscultation. HEART: Has regular rate and rhythm. No murmurs, rubs, or gallops. ABDOMEN: Soft, nontender, nondistended. Positive bowel sounds. EXTREMITIES: Show no cyanosis, clubbing or edema. Objective Vital Signs Date Time Temp Pulse Resp B/P Pulse Ox O2 Delivery O2 Flow Rate FiO2 03/11/16 12:20 Nasal Cannula 3.0 03/11/16 12:12 98.4 79 18 102/52 95 03/11/16 04:33 31 Intake and Output 03/10/16 03/10/16 03/11/16 14:59 22:59 06:59 Intake Total 1100 ml 350 ml Balance 1100 ml 350 ml Results/Medications Result Diagram: 03/10/16 0540 03/10/16 0545 Medications Current Medications Levofloxacin/ Dextrose (Levaquin 500mg/ D5W 100 ml (Pmx)) 100 ml @ 100 mls/hr Q24H IVPB Last administered on 03/11/16 11:37; Admin Dose 100 MLS/HR; Start 03/09/16 at 13:00 Guaifenesin/ Codeine Phosphate (Robitussin Ac Liquid Cup) 5 ml Q6H PRN PO COUGH Last administered on 03/10/16 10:28; Admin Dose 5 ML; Start 03/09/16 at 13: 00 Ondansetron HCl (Zofran Inj) 4 mg Q6H PRN IV NAUSEA AND/OR VOMITING; Start 03/09 at 14:00 Aspirin (Halfprin) 81 mg DAILY PO Last administered on 03/11/16 08:21; Admin Dose 81 MG; Start 03/09/16 at 14:00 Calcitriol (Rocaltrol) 0.25 mcg QAM PO Last administered on 03/11/16 08:21; Admin Dose 0.25 MCG; Start 03/09/16 at 14:00 Phenobarbital (Luminal) 64.8 mg BID PO Last administered on 03/11/16 08:22; Admin Dose 64.8 MG; Start 03/09/16 at 21:00 Phenytoin (Dilantin) 300 mg BID PO Last administered on 03/11/16 08:21; Admin Dose 300 MG; Start 03/09/16 at 21:00 Atorvastatin Calcium 10 mg 10 mg DAILY@21 PO Last administered on 03/10/16 21: 01; Admin Dose 10 MG; Start 03/09/16 at 21:00 Sodium Chloride (NS) 1,000 ml @ 75 mls/hr [id number] IV Last administered on 08:21; Admin Dose 75 MLS/HR; Start 03/09/16 at 16:30 Metoprolol Tartrate (Lopressor) 25 mg BID PO Last administered on 03/11/16 08: 22; Admin Dose 25 MG; Start 03/10/16 at 09:00 Digoxin (Digoxin) 0.125 mg DAILY@13 PO Last administered on 03/11/16 11:37; Admin Dose 0.125 MG; Start 03/10/16 at 13:00 Acetaminophen (Tylenol Tab) 650 mg Q4H PRN PO PAIN AND OR ELEVATED TEMP Last administered on 03/11/16 08:21; Admin Dose 650 MG; Start 03/11/16 at 06:30 Assessment/Plan Chief Complaint/Hosp Course 1. Sepsis- likely pneumonia. cont abx. 2. Seizure disorder. Phenobarbital continues. Follow up per Neurology. 3. Atrial fibrillation, rapid rate. previously rate controlled on metoprolol. not a candidate for full anticoagulation at this time. cont with volume resuscitation. cards consult noted. resuming metoprolol 4. Hyperlipidemia continues on Lipitor. 5. History of syncope. 6. anemia. Hemoglobin decreased further. iron stores suggest iron deficiency. pending stool ob. start with iron infusion. gi workup if ob pos. Problems: ANTHONY MCDONALD MD Mar 11, 2016 12:30
--- NOTE | 2016-03-11 14:18 | CONS ---
Date/Time of Note Date/Time of Note DATE: 03/11/16 TIME: 14:16 Consult Date/Type/Reason Admit Date/Time Mar 08, 2016 at 21:23 Initial Consult Date Type of Consultation: ID Ordering Provider: ANTHONY MCDONALD MD Subjective no events, awake, looks comfortable, no fevers Objective Vital Signs Date Time Temp Pulse Resp B/P Pulse Ox O2 Delivery O2 Flow Rate FiO2 03/11/16 12:26 96 03/11/16 12:20 Nasal Cannula 3.0 03/11/16 12:12 98.4 18 102/52 95 03/11/16 04:33 31 Intake and Output 03/10/16 03/10/16 03/11/16 15:00 23:00 07:00 Intake Total 1100 ml 350 ml Balance 1100 ml 350 ml Results/Medications Result Diagram: 03/10/16 0540 03/10/16 0545 Medications Current Medications Levofloxacin/ Dextrose (Levaquin 500mg/ D5W 100 ml (Pmx)) 100 ml @ 100 mls/hr Q24H IVPB Last administered on 03/11/16 11:37; Admin Dose 100 MLS/HR; Start 03/09/16 at 13:00 Guaifenesin/ Codeine Phosphate (Robitussin Ac Liquid Cup) 5 ml Q6H PRN PO COUGH Last administered on 03/10/16 10:28; Admin Dose 5 ML; Start 03/09/16 at 13: 00 Ondansetron HCl (Zofran Inj) 4 mg Q6H PRN IV NAUSEA AND/OR VOMITING; Start 03/09 at 14:00 Aspirin (Halfprin) 81 mg DAILY PO Last administered on 03/11/16 08:21; Admin Dose 81 MG; Start 03/09/16 at 14:00 Calcitriol (Rocaltrol) 0.25 mcg QAM PO Last administered on 03/11/16 08:21; Admin Dose 0.25 MCG; Start 03/09/16 at 14:00 Phenobarbital (Luminal) 64.8 mg BID PO Last administered on 03/11/16 08:22; Admin Dose 64.8 MG; Start 03/09/16 at 21:00 Phenytoin (Dilantin) 300 mg BID PO Last administered on 03/11/16 08:21; Admin Dose 300 MG; Start 03/09/16 at 21:00 Atorvastatin Calcium 10 mg 10 mg DAILY@21 PO Last administered on 03/10/16 21: 01; Admin Dose 10 MG; Start 03/09/16 at 21:00 Sodium Chloride (NS) 1,000 ml @ 75 mls/hr [id number] IV Last administered on 08:21; Admin Dose 75 MLS/HR; Start 03/09/16 at 16:30 Metoprolol Tartrate (Lopressor) 25 mg BID PO Last administered on 03/11/16 08: 22; Admin Dose 25 MG; Start 03/10/16 at 09:00 Digoxin (Digoxin) 0.125 mg DAILY@13 PO Last administered on 03/11/16 11:37; Admin Dose 0.125 MG; Start 03/10/16 at 13:00 Acetaminophen (Tylenol Tab) 650 mg Q4H PRN PO PAIN AND OR ELEVATED TEMP Last administered on 03/11/16 08:21; Admin Dose 650 MG; Start 03/11/16 at 06:30 Assessment/Plan Chief Complaint/Hosp Course MICROBIOLOGY: Blood culture, urine culture negative. Influenza swab negative. ANTIMICROBIALS: The patient is on Levaquin. DIAGNOSTICS: Chest x-ray + patchy infiltrates. Abx: Levaquin PHYSICAL EXAMINATION GENERAL: Well-nourished, well-developed, elderly man who is alert, in no distress. HEENT: Head atraumatic, normocephalic. Sclerae are anicteric. Buccal mucosa pink. NECK: Supple, trachea midline. CHEST: Rise symmetrical. Breath sounds diminished to bases. HEART: S1, S2. ABDOMEN: Soft, bowel tones present. EXTREMITIES: Without cyanosis. Trace edema. ASSESSMENT 1. Community-acquired pneumonia. 2. Atrial fibrillation status post rapid ventricular response. 3. Anemia 4. History of seizures. 5. History of EtOH in the past. PLAN: The patient remains stable, pending sputum cx, continue abx. Follow cardiology recommendations [facility] staff Problems: STEPHANIE SMITH NP Mar 11, 2016 14:18
[2016-03-11 14:27] LABS: BASOPHILS % 0.4 % (0.0-2.0); EOSINOPHILS # 0.2 10^3/ul (0.0-0.5); EOSINOPHILS % 1.9 % (0.0-7.0); HEMATOCRIT 27.9 % (42.0-52.0); HEMOGLOBIN 9.1 g/dl (14.0-18.0); LYMPHOCYTES # 1.2 10^3/ul (0.8-2.9); LYMPHOCYTES % 12.9 % (15.0-51.0); MEAN CORPUSCULAR HEMOGLOBIN 25.7 pg (29.0-33.0); MEAN CORPUSCULAR HGB CONC 32.5 g/dl (32.0-37.0); MEAN CORPUSCULAR VOLUME 79.3 fl (82.0-101.0); MEAN PLATELET VOLUME 7.2 fl (7.4-10.4); MONOCYTES % 10.2 % (0.0-11.0); NEUTROPHIL # 7.2 10^3/ul (1.6-7.5); NEUTROPHILS % 74.6 % (39.0-77.0); PLATELET COUNT 443 10^3/UL (140-440); RED BLOOD COUNT 3.52 10^6/ul (4.70-6.10); RED CELL DISTRIBUTION WIDTH 16.8 % (11.5-14.5); UNCORRECTED WBC 9.7 10^3/ul (4.8-10.8); WHITE BLOOD COUNT 9.7 10^3/ul (4.8-10.8)
[2016-03-11 14:33] LABS: CONDITION 1; LH ANALYZER COMMENTS 1
[2016-03-11 14:39] LABS: ALBUMIN 2.2 g/dl (3.3-4.9)
[2016-03-11 14:40] LABS: POTASSIUM 3.7 mmol/L (3.5-5.1)
[2016-03-11 14:42] LABS: ALBUMIN/GLOBULIN RATIO 0.62; BILIRUBIN,INDIRECT 0.1 mg/dl (0-1.1); BILIRUBIN,TOTAL 0.1 mg/dl (0.2-1.3); CREATININE 0.66 mg/dl (0.61-1.24); TOTAL PROTEIN 5.7 g/dl (6.1-8.1)
[2016-03-11 14:43] LABS: CALCIUM 7.5 mg/dl (8.4-10.2)
--- NOTE | 2016-03-11 15:44 | PN ---
DATE: 03/11/2016 ASSESSMENT: Sepsis with possible pneumonia, on antibiotics atrial fibrillation, rate control, impro jason, likely exacerbated by infection, consider anticoagulation after acute infection, improved. Seizure disorder. Continue current medications. OBJECTIVE: VITAL SIGNS: Temperature 100.1, pulse 103, blood pressure 116/65, oxygen saturation 95% on nasal ca nnula. CARDIAC: Irregular rhythm scattered rhonchi. ABDOMEN: Soft. EXTREMITIES: Reveal no edema. LABORATORY RESULTS: Reviewed. White count was improving yesterday, hematocrit 25.4. Labs from [facility] are pending. CURRENT MEDICATIONS: 1. Digoxin. 2. Metoprolol. 3. Lantus. 4. Lipitor. 5. Levaquin. We will continue current management at this time. Dictated By: DARI KESSLER/ZECHARIAH Conf#: [id number] DID#: [id number]
[2016-03-11] MEDS: ATORVASTATIN 10 MG TAB PO SCH (20:16)
[2016-03-12] VITALS (14 sets, daily range): BP systolic 101–123; BP diastolic 54–76; PULSE 97–118; RESP 18–20
[2016-03-12 06:32] LABS: BASOPHILS % 0.1 % (0.0-2.0); EOSINOPHILS # 0.1 10^3/ul (0.0-0.5); EOSINOPHILS % 1.2 % (0.0-7.0); HEMATOCRIT 29.5 % (42.0-52.0); HEMOGLOBIN 9.8 g/dl (14.0-18.0); LYMPHOCYTES # 1.3 10^3/ul (0.8-2.9); LYMPHOCYTES % 12.1 % (15.0-51.0); MEAN CORPUSCULAR HGB CONC 33.1 g/dl (32.0-37.0); MEAN CORPUSCULAR VOLUME 78.6 fl (82.0-101.0); MEAN PLATELET VOLUME 7.2 fl (7.4-10.4); MONOCYTE # 1.1 10^3/ul (0.3-0.9); MONOCYTES % 10.1 % (0.0-11.0); NEUTROPHIL # 8.1 10^3/ul (1.6-7.5); NEUTROPHILS % 76.5 % (39.0-77.0); PLATELET COUNT 475 10^3/UL (140-440); RED BLOOD COUNT 3.75 10^6/ul (4.70-6.10); RED CELL DISTRIBUTION WIDTH 16.8 % (11.5-14.5); UNCORRECTED WBC 10.6 10^3/ul (4.8-10.8); WHITE BLOOD COUNT 10.6 10^3/ul (4.8-10.8)
[2016-03-12 06:35] LABS: CONDITION 1; LH ANALYZER COMMENTS 1
[2016-03-12] MEDS: SOD CHLORIDE 0.9% 1,000 ML IV SCH (06:35)
[2016-03-12 06:37] LABS: ALBUMIN 2.3 g/dl (3.3-4.9); POTASSIUM 3.7 mmol/L (3.5-5.1)
[2016-03-12 06:39] LABS: CREATININE 0.67 mg/dl (0.61-1.24)
[2016-03-12 06:40] LABS: ALBUMIN/GLOBULIN RATIO 0.67; BILIRUBIN,INDIRECT 0.1 mg/dl (0-1.1); BILIRUBIN,TOTAL 0.1 mg/dl (0.2-1.3); CALCIUM 7.3 mg/dl (8.4-10.2); TOTAL PROTEIN 5.7 g/dl (6.1-8.1)
[2016-03-12 06:41] LABS: IRON 31 ug/dl (35-150)
[2016-03-12 06:51] LABS: TOTAL IRON BINDING CAPACITY 173 ug/dl (241-421)
[2016-03-12] MEDS: CALCITRIOL 0.25 MCG CAP PO SCH (08:52)
[2016-03-12] MEDS: ASPIRIN (EC) 81 MG TAB PO SCH (08:52)
[2016-03-12] MEDS: PHENYTOIN 100 MG CAP PO SCH (08:53)
[2016-03-12] MEDS: METOPROLOL 25 MG TAB PO SCH ×2 (08:53→21:47)
[2016-03-12] MEDS: ENOXAPARIN 30 MG/0.3 ML SYG SC SCH (08:57)
[2016-03-12] MEDS: PANTOPRAZOLE (EC) 40 MG TAB PO SCH (09:06)
[2016-03-12] MEDS: GUAIFENESIN/CODEINE 5ML CUP PO PRN (09:06)
[2016-03-12] MEDS: PHENOBARBITAL 32.4 MG TAB PO SCH ×2 (09:06→21:46)
[2016-03-12] MEDS: ALBUTEROL/IPRATROPIUM (NEB) 3 ML AMP HHN PRN (11:31)
--- NOTE | 2016-03-12 11:50 | PN ---
DATE: 03/12/2016 SUBJECTIVE: The patient is stable, no acute events overnight. No fevers, chills, nausea, vomiting. No shortness of breath. OBJECTIVE: VITAL SIGNS: Blood pressure 119/63, respirations 20, pulse 119, temperature 98.7. HEENT: Head is normocephalic. NECK: Supple. HEART: Irregularly irregular. LUNGS: Show diminished breath sounds at the base. Positive rhonchi. ABDOMEN: Soft, nontender to palpation. No rebound or guarding. EXTREMITIES: Negative for clubbing, cyanosis. No edema. DERMATOLOGIC: No rashes. MUSCULOSKELETAL: No joint effusions. NEUROLOGIC: No change in exam. MEDICATIONS: The patient's medications have been reviewed. LABORATORY DATA: Shows a BMP within normal limits. Iron saturation of 18. White count 10.6, hemogl obin 9.9, hematocrit 29.5, platelet count is 475. IMAGING: Chest x-ray has been reviewed. Patient's cultures have been negative. ASSESSMENT AND PLAN: 1. Sepsis secondary to healthcare-associated pneumonia. Continue current antibiotic regimen. Foll ow up with infectious disease. Cultures have been reviewed and negative. 2. Seizure disorder. The patient currently is on Dilantin and Phenobarbital. Dilantin levels were subtherapeutic. Dose has been increased to 300 mg b.i.d. We will follow up with neurology. 3. Atrial fibrillation with rapid rate. Rate remains elevated. Continue current medical managemen t with metoprolol and digoxin. We will follow up with Cardiology. The patient is not an anticoagul ation candidate due to high risk of fall. 4. Dyslipidemia. Continue Lipitor. 5. Syncope The patient is currently stable. 6. Anemia with iron deficiency. We will start the patient on IV iron. We will follow up stools fo r OB. 7. Gastrointestinal and deep venous thrombosis prophylaxis. Continue proton pump inhibitor, sequen tial leg squeezers, low dose Lovenox. 8. General debility. Place a PT evaluation for acute rehabilitation. Dictated By: JULISA DOSS/ZECHARIAH Conf#: [id number] DID#: [id number]
[2016-03-12] MEDS ORDERED: LEVALBUTEROL (NEB) 0.63 MG/3 ML AMP HHN PRN (12:00)
[2016-03-12] MEDS: SOD FERRIC GLUC COMPLX 125 MG in SOD CHLORIDE 0.9% 100 ML IVPB SCH (12:05)
[2016-03-12] MEDS: DIGOXIN 0.125 MG TAB PO SCH (13:32)
--- NOTE | 2016-03-12 13:53 | PN ---
DATE: 03/12/2016 INFECTIOUS DISEASE PROGRESS NOTE SUBJECTIVE: No changes overnight. The patient is awake, looks comfortable, denies pain, discomfort . He is on 5 liters nasal cannula, satting 93%. LABORATORY DATA: WBC today 10.6 with platelets 475, no shift, no bands. BUN 11, creatinine 0.67. MICROBIOLOGY: Sputum culture growing normal respiratory desi. Blood culture negative. Nares swab pending. ANTIMICROBIALS: The patient remains on Levaquin. PHYSICAL EXAMINATION: GENERAL: This is a fragile and well-nourished elderly man who is awake, in no distress. HEENT: Head atraumatic, normocephalic. Sclerae anicteric. Buccal mucosa dry. NECK: Supple, trachea midline. CHEST: Rise symmetrical. Breath sounds with scattered crackles. HEART: S1, S2. ABDOMEN: Soft, bowel tones present. EXTREMITIES: Without cyanosis. Bilateral lower extremities, trace edema. ASSESSMENT: 1. Sepsis secondary to healthcare-associated pneumonia. 2. Acute hypoxemic respiratory failure, patient remains on 5 liters nasal cannula. 3. Atrial fibrillation status post rapid ventricular response. 4. Anemia. 5. History of seizure disorder. PLAN: The patient remains stable, followed by cardiology. He is still on 5 liters nasal cannula. C hest x-ray from yesterday showed worsening infiltrates combined with small to moderate pleural effus ions. We will add cefepime to the regimen. Continue Levaquin. Consider pulmonary evaluation. Foll ow chest x-ray in a.m. Dictated By: STEPHANIE SMITH WATCH REPAIRER for MIESHA PUENTES/ZECHARIAH Conf#: [id number] DID#: [id number]
--- NOTE | 2016-03-12 15:13 | SP ---
DATE OF PROCEDURE: 03/12/2016 REFERRING PHYSICIAN: Dr. Gillis Thank you for asking me to see the patient with you. HISTORY OF PRESENT ILLNESS: The patient is an 81-year-old male. He has a past medical history of s eizure disorder. The patient was followed in my clinic last week and they called an ambulance for t he patient because he had difficulty with breathing. The patient upon admission shows infiltration of his lung with the possibility of underlying pneumonia for which the patient gets IV antibiotics. He is admitted for more evaluation and treatment in which I got a call about him for more evaluatio n for his seizure activity. CURRENT MEDICATIONS: Includes: 1. Levaquin 500 mg once a day. 2. Ceftriaxone every 12 hours as needed. 3. Cefepime q.12h. IV piggyback. 4. Protonix 40 mg once a day. 5. Tylenol 650 mg as needed. 6. Digoxin 0.125 mg once a day. 7. Metoprolol 25 mg once a day. 8. Phenobarbital 64 mg twice a day. 9. Dilantin 300 mg twice a day. 10. Lipitor 10 mg once a day. 11. Aspirin 81 mg once a day. PAST MEDICAL HISTORY: As above includes seizure disorder, hypertension, alcohol use in the past and hyperlipidemia. MEDICATIONS: Upon admission include: 1. Aspirin 81 mg once a day. 2. Zocor 40 mg once a day. 3. Phenobarbital 64 mg twice a day. 4. Dilantin as needed. SOCIAL HISTORY: Does not smoke, stopped drinking. Does not use any alcohol. On exam today, the pa tient is alert, awake, oriented for time, place, and person. Normal speech and normal language. CRANIAL NERVES: Cranial nerve: Pupils equal, round. Conjunctivae both sides, reactive to light. Cranial nerves III, IV and : Extraocular muscles. No nystagmus. Cranial nerve V: Equal sensati on to face. Cranial nerve VII: Symmetrical face. Cranial nerve VIII: Decreased hearing bilateral ly. Cranial nerve X-XI: Elevates shoulder 5/5. Cranial nerve XII: With straight tongue. MOTOR: Decreased right hand digital solutions architect, 4+/5. Sensation decreased for glove and sock area for light touc h and temperature. COORDINATION: [id number] test intact. HEART: Regular rate and rhythm. LUNGS: Equal breath sounds. ABDOMEN: Soft, relaxed, nondistended. No tenderness with some crepitation bilateral base of his fabiano ngs. ASSESSMENT AND PLAN: 1. The patient is an 81-year-old with underlying seizure disorder. I am going to change his Dilant in to fosphenytoin. The patient has a history of cardiac disease in which the fosphenytoin is less toxic. We will follow up the patient in outpatient clinic for more evaluation and treatment. Adju st his medication and to keep for now on phenobarbital 64 mg twice a day and follow up the patient w ith seizure precaution and aspiration precaution. 2. Status post pneumonia which could worsen his seizure. Patient already on IV antibiotics. Follow up the patient with chest x-ray. 3. History of atrial fibrillation in which the patient was in ventricular response. We will follow up the patient with elementary science teacher for more evaluation and treatment. Right now, we will keep him on aspirin and reevaluate for possibly anticoagulation as the patient does not have contraindication l josh[place] falls. 4. History of hyperlipidemia. Follow up the patient with his statin and maximize his dose. 5. History of syncope, probably secondary to #1 and #2. Again, thank you for asking me to see the patient with you. Dictated By: MARC METZ/ZECHARIAH Conf#: [id number] DID#: [id number]
[2016-03-12] MEDS: NS IV SCH (16:25)
[2016-03-12] MEDS: FOSPHENYTOIN IV SCH (16:25)
[2016-03-12] MEDS: LEVALBUTEROL (NEB) 0.63 MG/3 ML AMP HHN SCH ×2 (17:19→20:55)
--- NOTE | 2016-03-12 19:31 | PN ---
DATE: 03/12/2016 CARDIOLOGY FOLLOWUP SUBJECTIVE: Discussed with the staff. Strip was reviewed. The patient remains in atrial fibrillat ion. Heart rate has been on the high side. Denies any chest pain. His shortness of breath has sig nificantly improved. MEDICATIONS: Reviewed. PHYSICAL EXAMINATION: VITAL SIGNS: Temperature 98.1, heart rate of 104, blood pressure 102/58, respiration rate of 20, sa turating 94% to 95%. HEENT: Normocephalic, atraumatic. No acute distress. Pupils are equal. CARDIOVASCULAR: Irregularly irregular. PULMONARY: With no wheezes now. Mild rhonchi at the base. GASTROINTESTINAL: Soft, nontender. EXTREMITIES: Trivial edema. NEUROLOGIC: Awake, responds appropriately. PSYCHIATRIC: Appears to be calm and pleasant. LABORATORY: WBC of 10.6, hemoglobin 9.8, platelets of 475. Sodium 136, potassium 3.7, BUN of 11, c reatinine 0.67, glucose 120. ALT of 72. Albumin is 2.3. ASSESSMENT AND PLAN: 1. Atrial fibrillation, chronic. 2. Pneumonia and possible sepsis. 3. History of seizure disorder. 4. Dyslipidemia. 5. Mildly abnormal LFTs. 6. History of syncope. 7. Anemia. RECOMMENDATIONS: We will continue with the aspirin. The patient is not anticoagulated due to cesar rn about his seizures, anemia, and possible fall risk. Continue with the beta-orin and digoxin. Check a digoxin level and, if digoxin level is not elevated, we will give an additional digoxin as needed. Antibiotic as per internal medicine. Follow with neurology recommendations as well. Dictated By: CHARLOTTE ADAME/ZECHARIAH Conf#: [id number] DID#: [id number] CC: JESSICA ZUNIGA DO; JULISA CONN DO;*EndCC*
[2016-03-12] MEDS: ATORVASTATIN 10 MG TAB PO SCH (21:46)
[2016-03-12] MEDS: CEFEPIME 1GM/50 ML (PMX) 50 ML IVPB SCH (22:25)
[2016-03-13] VITALS (9 sets, daily range): BP systolic 109–123; BP diastolic 60–75; PULSE 86–117; RESP 16–20
[2016-03-13] MEDS: LEVALBUTEROL (NEB) 0.63 MG/3 ML AMP HHN SCH ×3 (01:58→14:57)
[2016-03-13] MEDS: NS IV SCH ×2 (02:26→15:09)
[2016-03-13] MEDS: FOSPHENYTOIN IV SCH ×2 (02:26→15:09)
[2016-03-13] MEDS: PANTOPRAZOLE (EC) 40 MG TAB PO SCH (05:42)
[2016-03-13] MEDS ORDERED: LEVOFLOXACIN 500 MG TAB NGT SCH (06:00)
[2016-03-13 06:55] LABS: BASOPHILS % 0.4 % (0.0-2.0); EOSINOPHILS # 0.2 10^3/ul (0.0-0.5); EOSINOPHILS % 1.7 % (0.0-7.0); HEMATOCRIT 29.3 % (42.0-52.0); HEMOGLOBIN 9.6 g/dl (14.0-18.0); LYMPHOCYTES # 1.6 10^3/ul (0.8-2.9); LYMPHOCYTES % 16.4 % (15.0-51.0); MEAN CORPUSCULAR HEMOGLOBIN 25.9 pg (29.0-33.0); MEAN CORPUSCULAR HGB CONC 32.9 g/dl (32.0-37.0); MEAN CORPUSCULAR VOLUME 78.8 fl (82.0-101.0); MEAN PLATELET VOLUME 7.3 fl (7.4-10.4); MONOCYTES % 10.9 % (0.0-11.0); NEUTROPHIL # 6.8 10^3/ul (1.6-7.5); NEUTROPHILS % 70.6 % (39.0-77.0); PLATELET COUNT 496 10^3/UL (140-440); RED BLOOD COUNT 3.71 10^6/ul (4.70-6.10); RED CELL DISTRIBUTION WIDTH 16.8 % (11.5-14.5); UNCORRECTED WBC 9.6 10^3/ul (4.8-10.8); WHITE BLOOD COUNT 9.6 10^3/ul (4.8-10.8)
[2016-03-13 06:57] LABS: CONDITION 1; LH ANALYZER COMMENTS 1
[2016-03-13 07:23] LABS: ALBUMIN 2.3 g/dl (3.3-4.9)
[2016-03-13 07:26] LABS: ALBUMIN/GLOBULIN RATIO 0.62; BILIRUBIN,INDIRECT 0.1 mg/dl (0-1.1); BILIRUBIN,TOTAL 0.1 mg/dl (0.2-1.3); CREATININE 0.68 mg/dl (0.61-1.24)
[2016-03-13 07:27] LABS: CALCIUM 7.6 mg/dl (8.4-10.2)
[2016-03-13 08:02] LABS: POTASSIUM 4.4 mmol/L (3.5-5.1)
[2016-03-13 08:05] LABS: CREATININE 0.66 mg/dl (0.61-1.24)
[2016-03-13 08:06] LABS: CALCIUM 7.6 mg/dl (8.4-10.2); MAGNESIUM 1.6 mg/dl (1.7-2.5); PHOSPHORUS 3.9 mg/dl (2.5-4.9)
[2016-03-13 08:50] LABS: THYROID STIMULATING HORMONE 2.96 MIU/L (0.465-4.680)
[2016-03-13] MEDS ORDERED: FOSPHENYTOIN 100 MG PE/2ML INJ IV SCH (09:00)
[2016-03-13] MEDS: ASPIRIN (EC) 81 MG TAB PO SCH (09:47)
[2016-03-13] MEDS: CALCITRIOL 0.25 MCG CAP PO SCH (09:47)
[2016-03-13] MEDS: METOPROLOL 25 MG TAB PO SCH (09:47)
[2016-03-13] MEDS: CEFEPIME 1GM/50 ML (PMX) 50 ML IVPB SCH (09:48)
[2016-03-13] MEDS: ENOXAPARIN 30 MG/0.3 ML SYG SC SCH (09:49)
[2016-03-13] MEDS: PHENOBARBITAL 32.4 MG TAB PO SCH (09:57)
--- NOTE | 2016-03-13 10:12 | RADRPT ---
Echocardiogram Report Patient Name: JAIME YOUNG Gender: Male Date: 1935 Study Date: 13-Mar-2016 Measurement Psychologist: Tanya Pozo [facility] Location: 510 Ref. Physician: CHARLOTTE EAST Quality: Adequate Procedures: Transthoracic echocardiogram with complete 2D, M-Mode, and doppler examination. Indications: Atrial Fibrillation. 2D/M Mode Doppler Measurement Value Normal Ranges Measurement Value Normal Ranges LVIDd 2D 4.1 3.5 - 5.6 cm AV Peak Elliott 1.3 m/sec LVIDs 2D 1.9 2.1 - 4.1 cm AV Peak PG 6.9 mmHg LVPWd 2D 0.8 0.6 - 1.1 cm LVOT Peak Elliott 1.0 m/sec IVSd 2D 1.0 0.6 - 1.1 cm LVOT Peak PG 3.7 mmHg AoR Diam 2D 2.7 2.0 - 3.7 cm TR Peak Elliott 2.7 m/sec EDV 2D 74.2 cm3 TR Peak PG 28.3 mmHg ESV 2D 7.2 cm3 RVSP 31.0 mmHg LA Dimen 2D 3.6 2.3 - 4.0 cm Findings Left Ventricle: Normal left ventricular systolic function. Normal left ventricular cavity size. Normal left ventricular wall thickness. Ejection fraction is visually estimated at 55 %. Tissue Doppler/Mitral Doppler indices are indeterminate in this study due to the presence of atrial fibrillation. Right Ventricle: Normal right ventricular size. Normal right ventricular systolic function. Left Atrium: The left atrium is normal in size. Right Atrium: The right atrium is normal in size. Mitral Valve: Normal appearance and function of the mitral valve with trace physiologic regurgitation. Aortic Valve: No significant aortic stenosis or insufficiency. Aortic cusps appear mildly calcified. Tricuspid Valve: Normal appearance of the tricuspid valve. Estimated peak PA systolic pressure 31 mmHg. There is trace tricuspid regurgitation. Pericardium: Normal pericardium with no significant pericardial effusion. Aorta: Normal aortic root. IVC: Normal size and normal respiratory collapse consistent with normal right atrial pressure. Conclusions 1.Normal left ventricular systolic function. Normal left ventricular cavity size. Normal left ventricular wall thickness. Ejection fraction is visually estimated at 55 %. Tissue Doppler/Mitral Doppler indices are indeterminate in this study due to the presence of atrial fibrillation. 2.The left atrium is normal in size. 3.Normal appearance and function of the mitral valve with trace physiologic regurgitation. 4.No significant aortic stenosis or insufficiency. Aortic cusps appear mildly calcified. 5.Normal appearance of the tricuspid valve. Estimated peak PA systolic pressure 31 mmHg. There is trace tricuspid regurgitation. 6.Normal size and normal respiratory collapse consistent with normal right atrial pressure. Electronically Signed By: Charlotte East 13-Mar-2016 10:12:01 -0800 Patient Name: JAIME YOUNG Study Date: 13-Mar-[id number]
[2016-03-13] MEDS: SOD FERRIC GLUC COMPLX 125 MG in SOD CHLORIDE 0.9% 100 ML IVPB SCH (12:51)
[2016-03-13] MEDS: DIGOXIN 0.125 MG TAB PO SCH (13:52)
--- NOTE | 2016-03-13 14:00 | PN ---
DATE: 03/13/2016 CARDIOLOGY FOLLOWUP NOTE: SUBJECTIVE: Discussed with the staff. Rhythm strip was reviewed. The patient remains in atrial fi brillation. Heart rate far too high. No chest pain or pressure. No palpitation. Breathing much bet ter. MEDICATIONS: Reviewed as per medication reconciliation, personally reviewed. PHYSICAL EXAMINATION: VITAL SIGNS: Temperature 97.9, heart rate of 98, blood pressure 109/65, respiratory rate of 20. HEENT: Normocephalic, atraumatic. Pupils are equal. CARDIOVASCULAR: Irregularly irregular. Systolic murmur. PULMONARY: With no wheezes now and no rhonchi. GASTROINTESTINAL: Soft, nontender. EXTREMITIES: With trivial edema. NEUROLOGIC: Awake and alert. PSYCHIATRIC: Calm, pleasant. LABORATORY: WBC of 9.6, hemoglobin 9.2, platelet 496. Sodium 138, potassium 4, BUN of 11, creatini ne 0.68, glucose of 109. Free T4 is 1.64. IMAGING: Echocardiogram was also personally reviewed, which showed normal LV size and systolic funct ion. ASSESSMENT AND PLAN: 1. Atrial fibrillation, chronic. 2. Pneumonia, possible sepsis, currently improved. 3. History of seizure disorder. 4. Dyslipidemia. 5. Mildly abnormal liver function tests. 6. History of syncope. 7. Anemia. RECOMMENDATIONS: Awaiting a digoxin level to come back. For now, we will continue with the metopro lol 25 b.i.d. as well as digoxin. Follow with neuro recommendations. tolerated will be maisha nued as well. Rehab evaluation is pending. Dictated By: CHARLOTTE ADAME/ZECHARIAH Conf#: [id number] DID#: [id number] CC: JULISA CONN DO;*EndCC*
[2016-03-13] MEDS ORDERED: MAGNESIUM HYDROXIDE 30ML CUP PO PRN (14:30)
[2016-03-13] MEDS ORDERED: DOCUSATE SODIUM 100 MG CAP PO SCH (14:30)
[2016-03-13] MEDS ORDERED: POLYETHYLENE GLYCOL 17 GM PACKET NGT SCH (14:30)
--- NOTE | 2016-03-13 16:36 | PN ---
DATE: SUBJECTIVE: The patient is doing better today. He is alert, awake, comfortable on 3 liters nasal c annula. No fevers. Denies pain. Denies nausea, vomiting, diarrhea. WBC today 9.6, no shift, no bands. BUN 11, creatinine 0.68. ANTIMICROBIALS: 1. Cefepime. 2. Levaquin. PHYSICAL EXAMINATION: GENERAL: This is a well-developed elderly man who is alert, in no distress. HEENT: Head atraumatic, normocephalic. Sclerae anicteric. Buccal mucosa pink. NECK: Supple. CHEST: Rise symmetrical. Breath sounds diminished at bases. HEART: S1, S2. ABDOMEN: Soft, bowel sounds present. EXTREMITIES: Without cyanosis. ASSESSMENT: 1. Resolving sepsis. 2. Status post rapid atrial fibrillation. 3. Pneumonia. 4. Anemia. 5. History of seizure disorder. PLAN: The patient remains stable, doing better today. We will continue him on current antimicrobia ls. Follow recommendations of consultants. Repeat chest x-ray in a.m. Dictated By: STEPHANIE SMITH COMPLAINTS COORDINATOR for MIESHA PUENTES/ZECHARIAH Conf#: [id number] DID#: [id number]
--- NOTE | 2016-03-13 17:47 | DS ---
DATE OF ADMISSION: 03/08/2016 DATE OF DISCHARGE: HOSPITAL COURSE: This is an 81-year-old male with a past medical history of seizure disorder, histo ry of dyslipidemia who presented to [facility] with shortness of breath. The you ent lives at assisted living facility and was noted to have flu-like symptoms over the past several days. As a result, came to the emergency room. Upon arrival, patient was diagnosed with sepsis sec ondary to pneumonia and AFib with rapid rate. The patient was admitted to telemetry, where he was p laced on IV antibiotic therapy. He was evaluated by infectious disease, Dr. Jaramillo. The patient hoffman s had good clinical response to antibiotics, although continues to have productive sputum. In terms of his AFib, the patient was seen by set staff fitter, ____. The patient was placed on digoxin and metoprolol. The patient's rate remains rapid, but improving clinically. The patient is not an ant icoagulation candidate and was not placed on long-term anticoagulation. The patient also was seen b y neurologist, Dr. Lemons, and the patient's seizure medications were adjusted, as he was placed on fosphenytoin and phenobarbital. The patient, otherwise, has been clinically stable. No other ac mariia events noted. At this point, will be transferred to [facility] acute rehab to continue physical therapy. FINAL DIAGNOSES: 1. Sepsis secondary to healthcare-associated pneumonia. 2. Seizure disorder. 3. Atrial fibrillation with rapid rate. 4. Dyslipidemia. 5. Syncope. 6. Anemia. 7. General debility. 8. Acute respiratory failure secondary to pneumonia. The patient is stable on nasal cannula. FINAL MEDICATIONS: See reconciliation list. At time of discharge, the patient is stable, in no acute distress. Please note I spent over 40 minutes of time preparing the patient's discharge. Dictated By: JULISA CONN DO NR/NTS Conf#: [id number] DID#: [id number] CC: JESSICA ZUNIGA DO;*EndCC*
== END 2016-03-13 17:56 | DRG 871 ==
LOC: E/R 18:01 → TEL 21:23
PROVIDERS: ADMIT Internal Medicine Nephrology; ATTEND Internal Medicine Nephrology
DX: A41.9 Sepsis, unspecified organism (principal); J18.9 Pneumonia, unspecified organism; J96.01 Acute respiratory failure with hypoxia; G40.909 Epilepsy, unspecified, not intractable, without status epilepticus; I48.2 Chronic atrial fibrillation; Y95 Nosocomial condition; E78.5 Hyperlipidemia, unspecified; R53.81 Other malaise; R94.5 Abnormal results of liver function studies; D50.9 Iron deficiency anemia, unspecified; Z86.59 Personal history of other mental and behavioral disorders
CPT/HCPCS: 36415; 71010; 80048; 80053; 80162; 80185; 81001; 81003; 82728; 83540; 83605; 83735; 84100; 84436; 84439; 84443; 84479; 84484; 85025; 85610; 85730; 87040; 87070; 87081; 87086; 87400; 90732; 93005; 93306; 94640; 96374; 96375; 96376; 97110; 97116; 97162; 97530; J0692; J1650; J1956; J2916; J3370; J7030; J7040; Q2009

== ENCOUNTER 2016-03-13 14:16 | Inpatient (IN) | payer MEDICARE, OTHER ==
[~2016-03-13] VITALS: Ht 170.2 cm; Wt 86.7 kg
[~2016-03-13 14:16] MED LIST changes: +ASPI-664 PO
[2016-03-13 18:25] VITALS: BP 133/61; PULSE 118; RESP 24
[2016-03-13] MEDS ORDERED: MAGNESIUM HYDROXIDE 30ML CUP PO PRN (19:00)
[2016-03-13] MEDS ORDERED: SOD CHLORIDE 0.9% 1,000 ML IV SCH (19:00)
[2016-03-13] MEDS ORDERED: ONDANSETRON 4 MG INJ IV PRN (19:00)
[2016-03-13] MEDS ORDERED: LEVALBUTEROL (NEB) 0.63 MG/3 ML AMP INH PRN (19:30)
[2016-03-13] MEDS ORDERED: GUAIFENESIN/CODEINE 5ML CUP PO PRN (19:30)
[2016-03-13] MEDS ORDERED: ACETAMINOPHEN 325 MG TAB PO PRN (20:00)
[2016-03-13] MEDS ORDERED: LEVALBUTEROL (NEB) 0.63 MG/3 ML AMP INH SCH (20:00)
[2016-03-13] MEDS ORDERED: FOSPHENYTOIN IV SCH (21:00)
[2016-03-13] MEDS ORDERED: PHENOBARBITAL 32.4 MG TAB PO SCH (21:00)
[2016-03-13] MEDS ORDERED: NS IV SCH (21:00)
[2016-03-13] MEDS ORDERED: METOPROLOL 25 MG TAB PO SCH (21:00)
[2016-03-13] MEDS ORDERED: ATORVASTATIN 10 MG TAB PO SCH (21:00)
[2016-03-13] MEDS ORDERED: NACL 0.9% 3 ML SYG IV SCH (22:00)
[2016-03-14] MEDS ORDERED: LEVOFLOXACIN 500 MG TAB NGT SCH (06:00)
[2016-03-14] MEDS ORDERED: PANTOPRAZOLE (EC) 40 MG TAB PO SCH (06:00)
[2016-03-14] MEDS ORDERED: ASPIRIN (EC) 81 MG TAB PO SCH (09:00)
[2016-03-14] MEDS ORDERED: POLYETHYLENE GLYCOL 17 GM PACKET PO SCH (09:00)
[2016-03-14] MEDS ORDERED: ENOXAPARIN 30 MG/0.3 ML SYG SC SCH (09:00)
[2016-03-14] MEDS ORDERED: DOCUSATE SODIUM 100 MG CAP PO SCH (09:00)
[2016-03-14] MEDS ORDERED: CALCITRIOL 0.25 MCG CAP PO SCH (09:00)
[2016-03-14] MEDS ORDERED: DIGOXIN 0.125 MG TAB PO SCH (13:00)
== END 2016-03-13 19:44 | disposition short-term general hospital (02) | DRG 948 ==
LOC: VRC 17:59
PROVIDERS: ADMIT Physical Medicine & Rehabilitation; ATTEND Internal Medicine Nephrology
DX: R53.81 Other malaise (principal)
CPT/HCPCS: J7030; Q2009

== ENCOUNTER 2016-03-13 19:50 | Inpatient (IN) | payer MEDICARE, OTHER ==
[~2016-03-13] VITALS: Ht 170.2 cm; Wt 84.6 kg
[2016-03-13 21:00] VITALS: BP 130/64; PULSE 110; RESP 16
[2016-03-13 21:02] VITALS: PULSE 121
[2016-03-13] MEDS ORDERED: FUROSEMIDE 40 MG INJ IV ONE (23:00)
[2016-03-13] MEDS ORDERED: ACETAMINOPHEN 325 MG TAB PO PRN (23:30)
[2016-03-13] MEDS ORDERED: LEVALBUTEROL (NEB) 0.63 MG/3 ML AMP HHN PRN (23:30)
[2016-03-13] MEDS: SOD FERRIC GLUC COMPLX 125 MG in SOD CHLORIDE 0.9% 100 ML IVPB SCH (23:30)
[2016-03-13] MEDS ORDERED: ONDANSETRON 4 MG INJ IV PRN (23:30)
[2016-03-13] MEDS ORDERED: GUAIFENESIN/CODEINE 5ML CUP PO PRN (23:30)
[2016-03-14] VITALS (14 sets, daily range): BP systolic 102–121; BP diastolic 56–63; PULSE 105–121; RESP 16–20
[2016-03-14] MEDS: LEVALBUTEROL (NEB) 0.63 MG/3 ML AMP HHN SCH ×4 (02:40→19:55)
[2016-03-14] MEDS: PANTOPRAZOLE (EC) 40 MG TAB PO SCH (06:50)
[2016-03-14] MEDS: LEVOFLOXACIN 500 MG TAB PO SCH (06:50)
[2016-03-14 06:52] LABS: BASOPHILS % 0.3 % (0.0-2.0); EOSINOPHILS # 0.1 10^3/ul (0.0-0.5); EOSINOPHILS % 1.1 % (0.0-7.0); HEMATOCRIT 30.7 % (42.0-52.0); HEMOGLOBIN 10.1 g/dl (14.0-18.0); LYMPHOCYTES # 1.1 10^3/ul (0.8-2.9); LYMPHOCYTES % 11.7 % (15.0-51.0); MEAN CORPUSCULAR HEMOGLOBIN 26.3 pg (29.0-33.0); MEAN CORPUSCULAR VOLUME 79.6 fl (82.0-101.0); MONOCYTE # 0.9 10^3/ul (0.3-0.9); MONOCYTES % 9.6 % (0.0-11.0); NEUTROPHIL # 7.4 10^3/ul (1.6-7.5); NEUTROPHILS % 77.3 % (39.0-77.0); PLATELET COUNT 524 10^3/UL (140-440); RED BLOOD COUNT 3.85 10^6/ul (4.70-6.10); RED CELL DISTRIBUTION WIDTH 17.5 % (11.5-14.5); UNCORRECTED WBC 9.6 10^3/ul (4.8-10.8); WHITE BLOOD COUNT 9.6 10^3/ul (4.8-10.8)
[2016-03-14 06:54] LABS: CONDITION 1; LH ANALYZER COMMENTS 1
[2016-03-14 07:11] LABS: POTASSIUM 4.1 mmol/L (3.5-5.1)
[2016-03-14 07:13] LABS: CREATININE 0.76 mg/dl (0.61-1.24)
[2016-03-14 07:14] LABS: CALCIUM 7.8 mg/dl (8.4-10.2)
[2016-03-14] MEDS: DOCUSATE SODIUM 100 MG CAP PO SCH (08:52)
[2016-03-14] MEDS: ASPIRIN 81 MG TAB PO SCH (08:52)
[2016-03-14] MEDS: CALCITRIOL 0.25 MCG CAP PO SCH (08:53)
[2016-03-14] MEDS: POLYETHYLENE GLYCOL 17 GM PACKET PO SCH (08:54)
[2016-03-14] MEDS: ENOXAPARIN 30 MG/0.3 ML SYG SC SCH (08:56)
[2016-03-14] MEDS: METOPROLOL 25 MG TAB PO SCH ×2 (08:58→20:48)
[2016-03-14] MEDS: PHENOBARBITAL 32.4 MG TAB PO SCH ×2 (09:00→23:05)
[2016-03-14] MEDS ORDERED: CEFEPIME 1GM/50 ML (PMX) 50 ML IVPB SCH (09:00)
[2016-03-14 09:14] LABS: ALBUMIN 2.6 g/dl (3.3-4.9)
[2016-03-14 09:16] LABS: BILIRUBIN,INDIRECT 0.1 mg/dl (0-1.1); BILIRUBIN,TOTAL 0.1 mg/dl (0.2-1.3)
[2016-03-14 09:17] LABS: TOTAL PROTEIN 6.5 g/dl (6.1-8.1)
[2016-03-14 09:53] LABS: AADO2 Arterial 292.1 mmHg (7.0-24.0); Allen Test ACCEPTAB; Arterial Base Excess 4.6 mmol/L (-3.0-3); Arterial COHb 0.3 % (0.0-3.0); Arterial HCO3 28.5 mmol/L (22.0-26.0); Arterial MetHb 0.1 % (0.0-1.5); Arterial Total Hemglobin 11.3 g/dl (12.0-18.0); MODE MASK - SIMPLE
[2016-03-14] MEDS: FUROSEMIDE 40 MG INJ IV SCH ×2 (09:53→18:59)
[2016-03-14] MEDS ORDERED: DIGOXIN 500 MCG INJ IV ONE (10:00)
[2016-03-14] MEDS: FOSPHENYTOIN (PE) 200 MG in SOD CHLORIDE 0.9% 50 ML IVPB SCH ×2 (11:37→20:48)
--- NOTE | 2016-03-14 11:45 | HP ---
DATE OF ADMISSION: 03/13/2016 CHIEF COMPLAINT: Respiratory failure. HISTORY OF PRESENT ILLNESS: This is an 81-year-old male with a past medical history of seizure disorder, history of dyslipidemia, who presented to [facility] with shortness of breath on 03/09/2016. The patient was initially admitted to telemetry, where he was diagnosed with pneumonia and atrial fibrillation with rapid rate. The patient was seen by infectious disease specialist, Dr. Jaramillo, was placed on IV antibiotics, also being followed by air quality engineer, Dr. East. The patient during the hospital course clinically improved. The patient was stabilized initially on about 3 liters nasal cannula and was subsequently transferred to [facility] for continued care and rehabilitation. The patient upon arriving to acute rehab, however, had a clinical decline, became more tachypneic, short of breath and was placed on a nonrebreather and transferred back to telemetry. While on telemetry, the patient has been placed on a face mask, is currently tachypneic but stable. There were no reports of hemoptysis, hematemesis or hematochezia noted. PAST MEDICAL HISTORY: As stated above, history of seizure disorder, syncope, dyslipidemia, history of atrial fibrillation. PAST SURGICAL HISTORY: None. ALLERGIES: NO KNOWN DRUG ALLERGIES. FAMILY HISTORY: No family history of kidney disease or heart disease. SOCIAL HISTORY: The patient lives at assisted living facility and does not drink, smoke or do drugs. MEDICATIONS: Patient medications have been reviewed and reconciled. REVIEW OF SYSTEMS: A 14-point review of systems was conducted. Pertinent positives stated in HPI, otherwise negative. PHYSICAL EXAMINATION: VITAL SIGNS: Blood pressure is currently 103/57, respirations 18, pulse 113, temperature 99.0. HEENT: Head is normocephalic. NECK: Supple. HEART: Irregularly irregular. LUNGS: Show diminished breath sounds at the base. Positive crackles. ABDOMEN: Soft, nontender to palpation. No rebound or guarding. EXTREMITIES: Negative for clubbing, cyanosis. Positive edema. DERMATOLOGIC: No rashes. MUSCULOSKELETAL: No joint effusions. NEUROLOGIC: No focal deficits. MEDICATION: Patient's medications have been reviewed. LABORATORY DATA: Shows sodium 136, potassium 4.1, BUN 14, creatinine 0.76. White count 9.6, hemoglobin 10.1, hematocrit 30.7, platelet count is 524. ASSESSMENT AND PLAN: This is an 81-year-old male who presents with: 1. Acute hypoxemic respiratory failure. Etiology is multifactorial secondary to probable congestive heart failure exacerbation and pneumonia. The patient is currently on a face mask at 15 liters. Plan is to check an ABG. We will start the patient on diuretic therapy, Lasix 40 mg IV b.i.d. We will also followup a chest x-ray. We will consult leak detector, Dr. Osman, and air quality engineer, Dr. East, for recommendations. The patient will be continued on IV antibiotic therapy to treat underlying pneumonia. We will monitor closely. 2. Acute diastolic possible systolic heart failure. Patient appears to decompensated on clinical exam. Plan is to continue diuretic therapy as stated above. We will follow up with Cardiology and monitor closely. 3. Atrial fibrillation with rapid rate. Continue current medical management with digoxin and metoprolol. The patient is not an anticoagulation candidate. We will monitor closely. 4. Sepsis secondary to pneumonia. The patient is completing antibiotic course. We will continue. Follow up with infectious disease. 5. Anemia with iron deficiency. Continue Ferrlecit. 6. Seizure disorder. The patient is currently on Cerebyx and phenobarbital. We will continue. Follow up with neurology. 7. Gastrointestinal and deep venous thrombosis prophylaxis. Continue proton pump inhibitor and Lovenox. 8. Encephalopathy etiology toxic/metabolic. Cont treatment plan, supportive care 8. General debility. Continue physical therapy. Dictated By: JULISA DOSS/ZECHARIAH Conf#: [id number] DID#: [id number] MTDAngel
--- NOTE | 2016-03-14 13:25 | PN ---
DATE: 03/14/2016 CARDIOLOGY FOLLOWUP PROGRESS NOTE Discussed with Dr. Gillis, discussed with the staff. Rhythm strip was reviewed. The patient becam e more and more hypoxemic and required to be transferred back to telemetry from the rehab. Denies a ny chest pain or pressure to me. Remains in atrial fibrillation. Heart rate has been elevated inter mittently. MEDICATIONS: Reviewed, which include: 1. Lipitor. 2. Digoxin 0.125. 3. Aspirin. 4. Colace. 5. Lovenox 30. 6. Lasix. 7. Levaquin. PHYSICAL EXAMINATION: VITAL SIGNS: Temperature 97.8, heart rate of 111, blood pressure 103/57, respiration rate of 24, sa turating 98%. HEENT: Normocephalic, atraumatic. Pupils are equal. CARDIOVASCULAR: Irregularly irregular. Tachycardic. PULMONARY: With mild rhonchi, diffuse. GASTROINTESTINAL: Soft, nontender. EXTREMITIES: With trivial edema. NEUROLOGIC: Awake, responds appropriately. LABORATORY: Shows was 0.4 yesterday, sodium 136, potassium 4.1, BUN of 14, creatinine 0.73, glucose 102. ASSESSMENT AND PLAN: 1. Hypoxemic respiratory failure. 2. Pneumonia. 3. Atrial fibrillation with rapid ventricular response. 4. Possible fluid overload, congestive heart failure. 5. History of seizure disorder. 6. Dyslipidemia. 7. Abnormal LFTs. 8. History of syncope in the past. 9. Anemia. RECOMMENDATIONS: I will give extra dose of digoxin today. We will continue the rest of his cardiac care. Electrolytes will be corrected and adjusted as needed, monitor on telemetry. Dictated By: CHARLOTTE ADAME/ZECHARIAH Conf#: [id number] DID#: [id number] CC: JULISA GILLIS DO;*EndCC*
[2016-03-14] MEDS: DIGOXIN 0.125 MG TAB PO SCH (13:34)
--- NOTE | 2016-03-14 13:38 | RADRPT ---
PROCEDURE: XR Chest. CLINICAL INDICATION: Shortness of breath. TECHNIQUE: Single frontal view. COMPARISON: 03/11/2016. FINDINGS: There is air space disease bilaterally in the mid and lower lung zones consistent with pulmonary dianna ma, slightly worse than seen previously. The heart is enlarged. There are moderate bilateral pleural effusions, larger than seen previously. There is no pneumothorax. IMPRESSION: 1. Worse appearance of the lungs and larger bilateral pleural effusions. RPTAT: QQ .Virgil Joseph MD, Date Time Electronically viewed and signed by .Virgil Joseph MD, on 03/14/2016 13:38 .R/
--- NOTE | 2016-03-14 16:00 | PN ---
DATE: 03/14/2016 INFECTIOUS DISEASE PROGRESS NOTE SUBJECTIVE: The patient was transferred from acute rehab center with tachypnea back to telemetry [facility], currently awake, getting breathing treatment. He does not have any fevers. Heart rate is 111. WBC 9.6, H and H 10.8 and 30.7, platelets 524, neutrophils 77.3. BUN 14, creatinine 0.76. ANTIMICROBIALS: The patient is on oral Levaquin status post cefepime. DIAGNOSTICS: No x-ray was done this morning. OBJECTIVE: GENERAL: This is a well-nourished, well-developed, fragile, elderly man who is awake, in no distres s. HEENT: Head atraumatic, normocephalic. Sclerae anicteric. Buccal mucosa dry. NECK: Supple. CHEST: Rise symmetrical. Breath sounds with scattered crackles. HEART: S1, S2. ABDOMEN: Soft. Bowel tones present. EXTREMITIES: With trace edema. ASSESSMENT: 1. Acute hypoxemic respiratory failure, likely combination of congestive heart failure and pneumoni a. The patient had been on antibiotics since 03/08/2015, day #7 today. 2. Atrial fibrillation status post rapid ventricular response. 3. Anemia 4. Seizure disorder. PLAN: The patient remains stable, afebrile, awake. We will continue him on current antimicrobials, follow chest x-ray, and follow cardiology recommendations. Dictated By: STEPHANIE SMITH SIMPLEX PRINTER INSTALLER for MIESHA PUENTES/NTS Conf#: [id number] DID#: [id number]
--- NOTE | 2016-03-14 18:03 | CONS ---
DATE OF ADMISSION: 03/13/2016 DATE OF CONSULTATION: 03/14/2016 TYPE OF CONSULTATION: Pulmonary. REASON FOR CONSULTATION: Shortness of breath. Thank you, Dr. Gillis, for this consultation. HISTORY OF PRESENT ILLNESS: This is a pleasant 81-year-old gentleman admitted with a several-day hi story of increased shortness of breath, orthopnea, PND, found to have moderate hypoxemia with atrial fibrillation, rapid ventricular rate, worsening shortness of breath over the past few days. The pa wilber is unable to give me further details, although he does communicate without evidence of respira tory distress. PAST MEDICAL HISTORY: Seizure disorder, syncope, atrial fibrillation. MEDICATIONS: Per chart. ALLERGIES: NONE. SOCIAL HISTORY: Nonsmoker. No alcohol. No history of drug use. FAMILY HISTORY: Noncontributory. SYSTEMS REVIEW: A 12-point review of systems negative other than that mentioned above. PHYSICAL EXAMINATION: GENERAL: Chronically ill-appearing gentleman, appears comfortable at rest. No acute distress. VITAL SIGNS: Currently afebrile, pulse is 108, blood pressure 109/61, O2 saturation 95% on 10 L [place] tim[place]. NECK: Supple. No JVD. CARDIAC: S1, S2. II/ systolic ejection murmur. CHEST: Diminished air entry, both lung bases. ABDOMEN: Soft, nontender. No guarding or rebound. EXTREMITIES: No cyanosis, clubbing, edema. NEUROLOGICAL: Generalized weakness. LABORATORY DATA: ABG: pH 7.47, pCO2 of 39, pO2 of 99 on simple mask. White count 9.6, hemoglobin 10.1, platelets of 526. BNP 898. IMAGING: Chest x-ray was reviewed, shows moderate bilateral pleural effusions. IMPRESSION AND PLAN: Hypoxemic respiratory failure, likely secondary to worsening congestive cardia c failure with increasing pleural effusions. The patient will require: 1. Increasing diuretics. 2. Supplemental O2. 3. Pulmonary toilet. 4. DVT and GI prophylaxis. 5. Aspiration precautions. Dictated By: ANTHONY CONNELLY/ZECHARIAH Conf#: [id number] DID#: [id number]
[2016-03-14] MEDS: MAGNESIUM HYDROXIDE 30ML CUP PO PRN (19:11)
[2016-03-14] MEDS: ATORVASTATIN 10 MG TAB PO SCH (20:48)
[2016-03-14] MEDS: SOD FERRIC GLUC COMPLX 125 MG in SOD CHLORIDE 0.9% 100 ML IVPB SCH (23:05)
[2016-03-14 23:53] LABS: ADD UMIC NO; URINE BILIRUBIN (Dip) NEGATIVE (NEGATIVE); URINE BLOOD (Dip) NEGATIVE (NEGATIVE); URINE COLOR LT. YELLOW (YELLOW); URINE GLUCOSE (Dip) NEGATIVE (NEGATIVE); URINE KETONES (Dip) NEGATIVE (NEGATIVE); URINE LEUKOCYTE ESTERASE (Dip) NEGATIVE (NEGATIVE); URINE NITRITE (Dip) NEGATIVE (NEGATIVE); URINE TOTAL PROTEIN (Dip) NEGATIVE (NEGATIVE); URINE UROBILINOGEN (Dip) 0.2 E.U./dL (0.1-1.0)
[2016-03-15] VITALS (11 sets, daily range): BP systolic 91–127; BP diastolic 51–60; PULSE 92–150; RESP 20–21
[2016-03-15] MEDS: LEVALBUTEROL (NEB) 0.63 MG/3 ML AMP HHN SCH ×4 (01:20→19:37)
[2016-03-15] MEDS: PANTOPRAZOLE (EC) 40 MG TAB PO SCH (05:43)
[2016-03-15] MEDS: LEVOFLOXACIN 500 MG TAB PO SCH (05:43)
[2016-03-15] MEDS: FUROSEMIDE 40 MG INJ IV SCH ×2 (05:44→16:41)
[2016-03-15 08:05] LABS: BASOPHILS % 0.3 % (0.0-2.0); EOSINOPHILS # 0.1 10^3/ul (0.0-0.5); EOSINOPHILS % 1.2 % (0.0-7.0); HEMATOCRIT 34.1 % (42.0-52.0); HEMOGLOBIN 11.1 g/dl (14.0-18.0); LYMPHOCYTES % 11.5 % (15.0-51.0); MEAN CORPUSCULAR HEMOGLOBIN 25.8 pg (29.0-33.0); MEAN CORPUSCULAR HGB CONC 32.4 g/dl (32.0-37.0); MEAN CORPUSCULAR VOLUME 79.6 fl (82.0-101.0); MEAN PLATELET VOLUME 7.1 fl (7.4-10.4); MONOCYTE # 0.9 10^3/ul (0.3-0.9); MONOCYTES % 9.8 % (0.0-11.0); NEUTROPHIL # 6.9 10^3/ul (1.6-7.5); NEUTROPHILS % 77.2 % (39.0-77.0); PLATELET COUNT 517 10^3/UL (140-440); RED BLOOD COUNT 4.28 10^6/ul (4.70-6.10); RED CELL DISTRIBUTION WIDTH 16.7 % (11.5-14.5)
[2016-03-15 08:10] LABS: ALBUMIN 2.8 g/dl (3.3-4.9)
[2016-03-15 08:12] LABS: CREATININE 0.83 mg/dl (0.61-1.24)
[2016-03-15 08:13] LABS: ALBUMIN/GLOBULIN RATIO 0.63; BILIRUBIN,INDIRECT 0.2 mg/dl (0-1.1); BILIRUBIN,TOTAL 0.2 mg/dl (0.2-1.3); CALCIUM 7.9 mg/dl (8.4-10.2); TOTAL PROTEIN 7.2 g/dl (6.1-8.1)
[2016-03-15 08:23] LABS: POTASSIUM 3.6 mmol/L (3.5-5.1)
[2016-03-15 08:28] LABS: CONDITION 1; LH ANALYZER COMMENTS 1
[2016-03-15] MEDS: CALCITRIOL 0.25 MCG CAP PO SCH (08:37)
[2016-03-15] MEDS: MAGNESIUM HYDROXIDE 30ML CUP PO PRN (08:37)
[2016-03-15] MEDS: POLYETHYLENE GLYCOL 17 GM PACKET PO SCH (08:37)
[2016-03-15] MEDS: ASPIRIN 81 MG TAB PO SCH (08:38)
[2016-03-15] MEDS: DOCUSATE SODIUM 100 MG CAP PO SCH (08:38)
[2016-03-15] MEDS: PHENOBARBITAL 32.4 MG TAB PO SCH ×2 (08:38→20:50)
[2016-03-15] MEDS: METOPROLOL 25 MG TAB PO SCH ×2 (08:38→20:50)
[2016-03-15 08:40] LABS: THYROID STIMULATING HORMONE 2.88 MIU/L (0.465-4.680)
[2016-03-15] MEDS: ENOXAPARIN 30 MG/0.3 ML SYG SC SCH (08:42)
[2016-03-15 08:56] LABS: MAGNESIUM 2.2 mg/dl (1.7-2.5); PHOSPHORUS 3.9 mg/dl (2.5-4.9)
[2016-03-15] MEDS: FOSPHENYTOIN (PE) 200 MG in SOD CHLORIDE 0.9% 50 ML IVPB SCH ×2 (10:26→20:59)
--- NOTE | 2016-03-15 10:40 | RADRPT ---
PROCEDURE: XR Chest. CLINICAL INDICATION: Shortness of breath TECHNIQUE: An AP view of the chest was obtained. COMPARISON: Chest x-ray dated 03/14/2016 FINDINGS: There is prominence of the interstitial and central pulmonary vascular markings. There are moderat e bilateral pleural effusions. No focal airspace opacification or pneumothorax is seen. The cardiom ediastinal silhouette is mildly enlarged . Calcifications are seen within the aortic arch. The oss eous structures demonstrate senescent changes. IMPRESSION: 1. Findings suggestive of pulmonary vascular congestion with moderate bilateral pleural effusions. Lung aeration is significantly improved when compared to the prior examination. 2. Mild cardiomegaly and aortic atherosclerosis. RPTAT: HH .Judy Forbes MD, MD Date Time Electronically viewed and signed by .Judy Forbes MD, on 03/15/2016 10:39 .G/
--- NOTE | 2016-03-15 11:36 | PN ---
DATE: 03/15/2016 SUBJECTIVE: The patient is stable, remains on simple facemask a 7 L. The patient, however, denies any chest pain, nausea, vomiting. OBJECTIVE: VITAL SIGNS: Blood pressure is 91/51, respirations 20, pulse was 104, temperature 97.6. HEENT: Head is normocephalic. NECK: Supple. HEART: Regular rate. LUNGS: Show diminished breath sounds at the base. ABDOMEN: Soft, nontender to palpation. No rebound or guarding. EXTREMITIES: Negative for clubbing, cyanosis. Trace edema. DERMATOLOGIC: No rashes. MUSCULOSKELETAL: No joint effusions. NEUROLOGIC: No change in exam. MEDICATIONS: Reviewed. LABORATORY DATA: White count 9.0, hemoglobin 11.1, hematocrit 34.1. Platelet count is 517. Sodium 138, potassium 3.6, chloride 93, bicarbonate 32, BUN 16, creatinine 0.83. ASSESSMENT AND PLAN: 1. Acute diastolic, possible systolic, congestive heart failure exacerbation. The patient remains decompensated, although clinically improving. Repeat chest x-ray shows decreased congestion. We will continue current diuretic regimen. Attempt to wean off the face mask. Follow up with cardiology closely and monitor. 2. Acute hypoxemic respiratory failure, etiology is multifactorial, secondary to congestive heart failure exacerbation and pneumonia. The patient is clinically improving. Continue current treatment plan. Appreciate corporate statistical financial analyst's evaluation. Will follow up recommendations. 3. Atrial fibrillation with rapid rate. Continue current medical management. Digoxin, metoprolol. The patient is not an anticoagulation candidate. 4. Sepsis secondary to pneumonia. The patient is completing antibiotic course. 5. Anemia of iron deficiency. Continue Prilosec. 6. Seizure disorder. Continue and phenobarbital. Follow up with neurology. 7. Gastrointestinal and deep venous thrombosis prophylaxis. Continue proton pump inhibitor and Lovenox. 8. encephalopathy, improving. Monitor 8. General debility. Continue physical therapy. Dictated By: JULISA DOSS/ZECHARIAH Conf#: [id number] DID#: [id number] MTDD
--- NOTE | 2016-03-15 12:29 | CONS ---
Date/Time of Note Date/Time of Note DATE: 03/15/16 TIME: 12:26 Consult Date/Type/Reason Admit Date/Time Mar 13, 2016 at 19:50 Initial Consult Date Type of Consultation: pulmonary Subjective Patient looks more alert today Comfortable at rest on facemask oxygen No respiratory distress Objective Vital Signs Date Time Temp Pulse Resp B/P Pulse Ox O2 Delivery O2 Flow Rate FiO2 03/15/16 09:58 Simple Mask 6.0 03/15/16 08:26 116 03/15/16 08:24 20 95 03/15/16 08:18 97.6 91/51 03/14/16 02:40 100 Intake and Output 03/14/16 03/14/16 03/15/16 15:00 23:00 07:00 Intake Total 300 ml 720 ml 420 ml Output Total 1900 ml 1600 ml 1800 ml Balance -1600 ml -880 ml -1380 ml PHYSICAL EXAMINATION: GENERAL: Chronically ill-appearing gentleman, appears comfortable at rest. No acute distress. VITAL SIGNS: NECK: Supple. No JVD. CARDIAC: S1, S2. II/ systolic ejection murmur. CHEST: Diminished air entry, both lung bases. ABDOMEN: Soft, nontender. No guarding or rebound. EXTREMITIES: No cyanosis, clubbing, edema. NEUROLOGICAL: Generalized weakness. Results/Medications Result Diagram: 03/15/1618 03/15/1618 Results 24 hrs Laboratory Tests Test 03/14/16 18:15 03/15/16 07:18 Urine Bilirubin NEGATIVE Urine Clarity CLEAR Urine Color LT. YELLOW Urine Glucose NEGATIVE Urine Hemoglobin NEGATIVE Urine Ketones NEGATIVE Urine Leukocyte Esterase NEGATIVE Urine Nitrite NEGATIVE Urine Random Creatinine 49.86 Urine Random Sodium 89 Urine Specific [place] 1.010 Urine Total Protein Urine Urobilinogen 0.2 E.U./dL Urine pH 7.0 Alanine Aminotransferase (ALT/SGPT) 60 Albumin 2.8 L Albumin/Globulin Ratio 0.63 Alkaline Phosphatase 138 H Anion Gap 17 H Aspartate Amino Transf (AST/SGOT) 77 H B-Type Natriuretic Peptide 567 H Basophils # 0.0 Basophils % 0.3 Blood Morphology Comment Blood Urea Nitrogen 16 Calcium Level 7.9 L Carbon Dioxide Level 32 H Chloride Level 93 L Creatinine 0.83 Digoxin Level 0.6 L Direct Bilirubin 0.00 Eosinophils # 0.1 Eosinophils % 1.2 Free Thyroxine 1.57 Globulin 4.40 H Glucose Level 111 Hematocrit 34.1 L Hemoglobin 11.1 L Indirect Bilirubin 0.2 Lymphocytes # 1.0 Lymphocytes % 11.5 L Magnesium Level 2.2 Mean Corpuscular Hemoglobin 25.8 L Mean Corpuscular Hemoglobin Concent 32.4 Mean Corpuscular Volume 79.6 L Mean Platelet Volume 7.1 L Monocytes # 0.9 Monocytes % 9.8 Neutrophils # 6.9 Neutrophils % 77.2 H Nucleated Red Blood Cells # 0.0 Nucleated Red Blood Cells % 0.0 Phosphorus Level 3.9 Platelet Count 517 H Potassium Level 3.6 Red Blood Count 4.28 L Red Cell Distribution Width 16.7 H Sodium Level 138 Thyroid Stimulating Hormone (TSH) 2.880 Total Bilirubin 0.2 Total Protein 7.2 White Blood Count 9.0 Medications Current Medications Fosphenytoin Sodium 200 mg/ Sodium Chloride 54 ml @ 210.667 mls/hr Q12 IVPB Last administered on 03/15/16 10:26; Admin Dose 210.667 MLS/HR; Start 03/14/16 at 09:00 Ferric Sodium Gluconate Complex/ Sodium Chloride (Ferrlecit/NS) 110 ml @ 100 mls/hr Q24H IVPB Last administered on 03/14/16 23:05; Admin Dose 100 MLS/HR; Start 03/13/16 at 23:30; Stop 03/16/16 at 00:35 Acetaminophen (Tylenol Tab) 650 mg Q4H PRN PO PAIN AND OR ELEVATED TEMP; Start 03/13/16 at 23:30 Aspirin (Aspirin) 81 mg DAILY PO Last administered on 03/15/16 08:38; Admin Dose 81 MG; Start 03/14/16 at 09:00 Atorvastatin Calcium (Lipitor) 10 mg HS PO Last administered on 03/14/16 20:48 ; Admin Dose 10 MG; Start 03/14/16 at 21:00 Calcitriol (Rocaltrol) 0.25 mcg QAM PO Last administered on 03/15/16 08:37; Admin Dose 0.25 MCG; Start 03/14/16 at 09:00 Digoxin (Digoxin) 0.125 mg DAILY@13 PO Last administered on 03/14/16 13:34; Admin Dose 0.125 MG; Start 03/14/16 at 13:00 Docusate Sodium (Colace) 100 mg DAILY PO Last administered on 03/15/16 08:38; Admin Dose 100 MG; Start 03/14/16 at 09:00 Enoxaparin Sodium (Lovenox) 30 mg DAILY SC Last administered on 03/15/16 08:42 ; Admin Dose 30 MG; Start 03/14/16 at 09:00 Guaifenesin/ Codeine Phosphate (Robitussin Ac Liquid Cup) 5 ml Q6 PRN PO Cough ; Start 03/13/16 at 23:30 Levofloxacin (Levaquin) 500 mg DAILY@06 PO Last administered on 03/15/16 05:43 ; Admin Dose 500 MG; Start 03/14/16 at 06:00 Magnesium Hydroxide (Milk Of Mag) 30 ml BID PRN PO CONSTIPATION Last administered on 03/15/16 08:37; Admin Dose 30 ML; Start 03/13/16 at 23:30 Metoprolol Tartrate (Lopressor) 25 mg BID PO Last administered on 03/15/16 08: 38; Admin Dose 25 MG; Start 03/14/16 at 09:00 Ondansetron HCl (Zofran Inj) 4 mg Q6H PRN IV NAUSEA AND/OR VOMITING; Start 12/18 at 23:30 Pantoprazole (Protonix Tab) 40 mg DAILY@06 PO Last administered on 03/15/16 05 :43; Admin Dose 40 MG; Start 03/14/16 at 06:00 Phenobarbital (Luminal) 64.8 mg BID PO Last administered on 03/15/16 08:38; Admin Dose 64.8 MG; Start 03/14/16 at 09:00 Polyethylene Glycol (Miralax) 17 gm DAILY PO Last administered on 03/15/16 08: 37; Admin Dose 17 GM; Start 03/14/16 at 09:00 Assessment/Plan Chief Complaint/Hosp Course Impression 1. Hypoxemic respiratory failure 2. Congestive cardiac failure 3. Possible component of aspiration pneumonia Recommendations 1. Diuretics 2. Supplemental O2. 3. Pulmonary toilet. 4. DVT and GI prophylaxis. 5. Aspiration precautions. Problems: ANTHONY BARGER MD, [facility] Mar 15, 2016 12:29
[2016-03-15] MEDS: DIGOXIN 0.125 MG TAB PO SCH (13:34)
--- NOTE | 2016-03-15 15:35 | CONS ---
Date/Time of Note Date/Time of Note DATE: 03/15/16 TIME: 15:33 Consult Date/Type/Reason Admit Date/Time Mar 13, 2016 at 19:50 Initial Consult Date Type of Consultation: ID Subjective no fevers, comfortable on nc Objective Vital Signs Date Time Temp Pulse Resp B/P Pulse Ox O2 Delivery O2 Flow Rate FiO2 03/15/16 14:48 96 20 94 Nasal Cannula 4.0 03/15/16 08:18 97.6 91/51 03/14/16 02:40 100 Intake and Output 03/14/16 03/14/16 03/15/16 15:00 23:00 07:00 Intake Total 300 ml 720 ml 420 ml Output Total 1900 ml 1600 ml 1800 ml Balance -1600 ml -880 ml -1380 ml Results/Medications Result Diagram: 03/15/1618 03/15/1618 Results 24 hrs Laboratory Tests Test 03/14/16 18:15 03/15/16 07:18 Urine Bilirubin NEGATIVE Urine Clarity CLEAR Urine Color LT. YELLOW Urine Glucose NEGATIVE Urine Hemoglobin NEGATIVE Urine Ketones NEGATIVE Urine Leukocyte Esterase NEGATIVE Urine Nitrite NEGATIVE Urine Random Creatinine 49.86 Urine Random Sodium 89 Urine Specific [place] 1.010 Urine Total Protein Urine Urobilinogen 0.2 E.U./dL Urine pH 7.0 Alanine Aminotransferase (ALT/SGPT) 60 Albumin 2.8 L Albumin/Globulin Ratio 0.63 Alkaline Phosphatase 138 H Anion Gap 17 H Aspartate Amino Transf (AST/SGOT) 77 H B-Type Natriuretic Peptide 567 H Basophils # 0.0 Basophils % 0.3 Blood Morphology Comment Blood Urea Nitrogen 16 Calcium Level 7.9 L Carbon Dioxide Level 32 H Chloride Level 93 L Creatinine 0.83 Digoxin Level 0.6 L Direct Bilirubin 0.00 Eosinophils # 0.1 Eosinophils % 1.2 Free Thyroxine 1.57 Globulin 4.40 H Glucose Level 111 Hematocrit 34.1 L Hemoglobin 11.1 L Indirect Bilirubin 0.2 Lymphocytes # 1.0 Lymphocytes % 11.5 L Magnesium Level 2.2 Mean Corpuscular Hemoglobin 25.8 L Mean Corpuscular Hemoglobin Concent 32.4 Mean Corpuscular Volume 79.6 L Mean Platelet Volume 7.1 L Monocytes # 0.9 Monocytes % 9.8 Neutrophils # 6.9 Neutrophils % 77.2 H Nucleated Red Blood Cells # 0.0 Nucleated Red Blood Cells % 0.0 Phosphorus Level 3.9 Platelet Count 517 H Potassium Level 3.6 Red Blood Count 4.28 L Red Cell Distribution Width 16.7 H Sodium Level 138 Thyroid Stimulating Hormone (TSH) 2.880 Total Bilirubin 0.2 Total Protein 7.2 White Blood Count 9.0 Medications Current Medications Fosphenytoin Sodium 200 mg/ Sodium Chloride 54 ml @ 210.667 mls/hr Q12 IVPB Last administered on 03/15/16 10:26; Admin Dose 210.667 MLS/HR; Start 03/14/16 at 09:00 Ferric Sodium Gluconate Complex/ Sodium Chloride (Ferrlecit/NS) 110 ml @ 100 mls/hr Q24H IVPB Last administered on 03/14/16 23:05; Admin Dose 100 MLS/HR; Start 03/13/16 at 23:30; Stop 03/16/16 at 00:35 Acetaminophen (Tylenol Tab) 650 mg Q4H PRN PO PAIN AND OR ELEVATED TEMP; Start 03/13/16 at 23:30 Aspirin (Aspirin) 81 mg DAILY PO Last administered on 03/15/16 08:38; Admin Dose 81 MG; Start 03/14/16 at 09:00 Atorvastatin Calcium (Lipitor) 10 mg HS PO Last administered on 03/14/16 20:48 ; Admin Dose 10 MG; Start 03/14/16 at 21:00 Calcitriol (Rocaltrol) 0.25 mcg QAM PO Last administered on 03/15/16 08:37; Admin Dose 0.25 MCG; Start 03/14/16 at 09:00 Digoxin (Digoxin) 0.125 mg DAILY@13 PO Last administered on 03/15/16 13:34; Admin Dose 0.125 MG; Start 03/14/16 at 13:00 Docusate Sodium (Colace) 100 mg DAILY PO Last administered on 03/15/16 08:38; Admin Dose 100 MG; Start 03/14/16 at 09:00 Enoxaparin Sodium (Lovenox) 30 mg DAILY SC Last administered on 03/15/16 08:42 ; Admin Dose 30 MG; Start 03/14/16 at 09:00 Guaifenesin/ Codeine Phosphate (Robitussin Ac Liquid Cup) 5 ml Q6 PRN PO Cough ; Start 03/13/16 at 23:30 Levofloxacin (Levaquin) 500 mg DAILY@06 PO Last administered on 03/15/16 05:43 ; Admin Dose 500 MG; Start 03/14/16 at 06:00 Magnesium Hydroxide (Milk Of Mag) 30 ml BID PRN PO CONSTIPATION Last administered on 03/15/16 08:37; Admin Dose 30 ML; Start 03/13/16 at 23:30 Metoprolol Tartrate (Lopressor) 25 mg BID PO Last administered on 03/15/16 08: 38; Admin Dose 25 MG; Start 03/14/16 at 09:00 Ondansetron HCl (Zofran Inj) 4 mg Q6H PRN IV NAUSEA AND/OR VOMITING; Start 12/18 at 23:30 Pantoprazole (Protonix Tab) 40 mg DAILY@06 PO Last administered on 03/15/16 05 :43; Admin Dose 40 MG; Start 03/14/16 at 06:00 Phenobarbital (Luminal) 64.8 mg BID PO Last administered on 03/15/16 08:38; Admin Dose 64.8 MG; Start 03/14/16 at 09:00 Polyethylene Glycol (Miralax) 17 gm DAILY PO Last administered on 03/15/16 08: 37; Admin Dose 17 GM; Start 03/14/16 at 09:00 Assessment/Plan Chief Complaint/Hosp Course ANTIMICROBIALS: Levaquin #8. OBJECTIVE: GENERAL: This is a well-nourished, well-developed, fragile, elderly man who is awake, in no distress. HEENT: Head atraumatic, normocephalic. Sclerae anicteric. Buccal mucosa dry. NECK: Supple. CHEST: Rise symmetrical. Breath sounds with scattered crackles. HEART: S1, S2. ABDOMEN: Soft. Bowel tones present. EXTREMITIES: With trace edema. ASSESSMENT: 1. Acute hypoxemic respiratory failure, likely combination of congestive heart failure and pneumonia. The patient had been on antibiotics since 03/08/2015, day #8 today. 2. Atrial fibrillation status post rapid ventricular response. 3. Anemia 4. Seizure disorder. PLAN: The patient remains stable, afebrile, continue abx for couple more days, cardiology/pulmonary recommendations. [facility] staff Problems: STEPHANIE SMITH NP Mar 15, 2016 15:35
[2016-03-15] MEDS: ATORVASTATIN 10 MG TAB PO SCH (20:50)
[2016-03-15] MEDS ORDERED: DIGOXIN 500 MCG INJ IV ONE (21:30)
--- NOTE | 2016-03-15 21:30 | PN ---
DATE: 03/15/2016 CARDIOLOGY FOLLOWUP SUBJECTIVE: The patient had adequate urine output. His breathing has improved. He is still on 4 liters oxygen though, but satting much better. He has remained in atrial fibrillat ion and still intermittently with rapid ventricular response. No chest pain or pressure. No palpit ation reported. MEDICATIONS: Reviewed as per medication reconciliation, personally reviewed. PHYSICAL EXAMINATION: VITAL SIGNS: Temperature 98.3, heart rate of 110 to 120, blood pressure 127/60, respiration rate of 24, saturating 94% on 4 liters. HEENT: Normocephalic, atraumatic. No acute distress. Pupils are equal. CARDIOVASCULAR: Regular rate and rhythm. Systolic murmur. PULMONARY: With mild rhonchi, diffuse. GASTROINTESTINAL: Soft, nontender. EXTREMITIES: With positive edema. NEUROLOGIC: Awake, responds appropriately. PSYCHIATRIC: Appeared to be calm and pleasant. DIAGNOSTIC DATA: Chest x-ray shows findings suggestive of pulmonary vascular congestion with modera te bilateral pleural effusions, ____ is significantly improved, though. Lungs cardiomegaly. LABORATORY: Shows digoxin level was 0.6 this morning. Sodium 138, potassium 3.6, BUN of 16, creati nine of 0.83, glucose of 111, ALT of 60, AST of 77. TSH 2.88. ASSESSMENT AND PLAN: 1. Congestive heart failure/fluid overload. 2. Hypoxemic respiratory failure. 3. Pneumonia. 4. Atrial fibrillation with rapid ventricular response. 5. History of seizure disorder. 6. Dyslipidemia. 7. Abnormal LFTs. 8. History of syncope in the past. 9. Anemia. RECOMMENDATIONS: I will give extra dose of IV digoxin now, again. We will continue with aspirin. His p.o. digoxin will be continued. Beta-orin as tolerated. We will continue with the pulmonary care as per Dr. Gillis. Diuresis will be continued as well. Continue to monitor on telemetry. Dictated By: CHARLOTTE SCHUMACHER MD AV/ZECHARIAH Conf#: [id number] DID#: [id number] CC: JULISA GILLIS DO; NINFA MONTELONGO MD;*EndCC*
[2016-03-15] MEDS: SOD FERRIC GLUC COMPLX 125 MG in SOD CHLORIDE 0.9% 100 ML IVPB SCH (23:03)
[2016-03-16] VITALS (12 sets, daily range): BP systolic 98–114; BP diastolic 52–58; PULSE 88–98; RESP 16–19
[2016-03-16] MEDS: LEVALBUTEROL (NEB) 0.63 MG/3 ML AMP HHN SCH ×4 (02:09→20:28)
[2016-03-16] MEDS: LEVOFLOXACIN 500 MG TAB PO SCH (05:43)
[2016-03-16] MEDS: PANTOPRAZOLE (EC) 40 MG TAB PO SCH (05:43)
[2016-03-16] MEDS: FUROSEMIDE 40 MG INJ IV SCH (05:43)
[2016-03-16 08:07] LABS: BASOPHIL # 0.1 10^3/ul (0.0-0.1); BASOPHILS % 0.6 % (0.0-2.0); EOSINOPHILS # 0.1 10^3/ul (0.0-0.5); EOSINOPHILS % 0.9 % (0.0-7.0); HEMATOCRIT 35.3 % (42.0-52.0); HEMOGLOBIN 11.5 g/dl (14.0-18.0); LYMPHOCYTES # 1.5 10^3/ul (0.8-2.9); MEAN CORPUSCULAR HEMOGLOBIN 26.4 pg (29.0-33.0); MEAN CORPUSCULAR HGB CONC 32.6 g/dl (32.0-37.0); MEAN CORPUSCULAR VOLUME 80.9 fl (82.0-101.0); MEAN PLATELET VOLUME 7.3 fl (7.4-10.4); MONOCYTE # 0.9 10^3/ul (0.3-0.9); MONOCYTES % 9.7 % (0.0-11.0); NEUTROPHIL # 6.8 10^3/ul (1.6-7.5); NEUTROPHILS % 72.8 % (39.0-77.0); PLATELET COUNT 526 10^3/UL (140-440); RED BLOOD COUNT 4.36 10^6/ul (4.70-6.10); RED CELL DISTRIBUTION WIDTH 17.6 % (11.5-14.5); UNCORRECTED WBC 9.4 10^3/ul (4.8-10.8); WHITE BLOOD COUNT 9.4 10^3/ul (4.8-10.8)
[2016-03-16 08:15] LABS: POTASSIUM 3.8 mmol/L (3.5-5.1)
[2016-03-16 08:17] LABS: CREATININE 1.04 mg/dl (0.61-1.24)
[2016-03-16 08:18] LABS: CALCIUM 7.9 mg/dl (8.4-10.2); MAGNESIUM 2.7 mg/dl (1.7-2.5); PHOSPHORUS 3.2 mg/dl (2.5-4.9)
[2016-03-16 08:19] LABS: CONDITION 1; LH ANALYZER COMMENTS 1
[2016-03-16] MEDS: POLYETHYLENE GLYCOL 17 GM PACKET PO SCH (10:20)
[2016-03-16] MEDS: CALCITRIOL 0.25 MCG CAP PO SCH (10:21)
[2016-03-16] MEDS: FOSPHENYTOIN (PE) 200 MG in SOD CHLORIDE 0.9% 50 ML IVPB SCH ×2 (10:21→21:10)
[2016-03-16] MEDS: DOCUSATE SODIUM 100 MG CAP PO SCH (10:22)
[2016-03-16] MEDS: METOPROLOL 25 MG TAB PO SCH ×2 (10:22→21:00)
[2016-03-16] MEDS: ASPIRIN 81 MG TAB PO SCH (10:22)
[2016-03-16] MEDS: PHENOBARBITAL 32.4 MG TAB PO SCH ×2 (10:23→21:11)
[2016-03-16] MEDS: ENOXAPARIN 30 MG/0.3 ML SYG SC SCH (10:24)
--- NOTE | 2016-03-16 12:04 | PN ---
DATE: 03/16/2016 SUBJECTIVE: The patient is stable, no acute events overnight. No fevers, chills, nausea, vomiting. The patient is more comfortable, currently on nasal cannula 4 L. No other events noted. OBJECTIVE: VITAL SIGNS: Blood pressure is 154, respirations 18, pulse 100, temperature 98.4. HEENT: Head is normocephalic. NECK: Supple. HEART: Regular rate. LUNGS: Show diminished breath sounds at the base. ABDOMEN: Soft, nontender to palpation. No rebound or guarding. EXTREMITIES: Negative for clubbing, cyanosis, or edema. DERMATOLOGIC: No rashes. MUSCULOSKELETAL: No joint effusions. NEUROLOGIC: No change in exam. MEDICATIONS: The patient's medications have been reviewed. LABORATORY DATA: Shows a white count 9.4, hemoglobin 11.5, hematocrit 35.3, platelet count is 526. Sodium 136, potassium 3.8, chloride 93, bicarbonate 35, BUN 21, creatinine 1.04, magnesium 2.7. IMAGING: Chest x-ray from January 13 shows improved aeration, bilateral pleural effusions. ASSESSMENT AND PLAN: 1. Acute systolic heart failure. The patient is clinically improving. Continue diuretic therapy. Will Lasix 20 mg b.i.d. 2. Acute hypoxemic respiratory failure secondary to congestive heart failure, pneumonia. The patie nt is clinically improving, currently on 4 liters nasal cannula. Continue current treatment plan. Follow up with cardiology, pulmonary. 3. Atrial fibrillation with rapid rate. Heart rate is better controlled. Continue current treatme nt medications with digoxin and metoprolol. The patient is not an anticoagulation candidate. 4. Sepsis secondary to pneumonia. Continue current antibiotic course. 5. Anemia with iron deficiency. Continue Ferrlecit. 6. Seizure disorder. Continue phenobarbital. Follow up with neurology. 7. Gastrointestinal and deep venous thrombosis prophylaxis. Continue proton pump inhibitor and Lisa enox. 8. General debility. Continue physical therapy. Dictated By: JULISA DOSS/ZECHARIAH Conf#: [id number] DID#: [id number]
--- NOTE | 2016-03-16 13:09 | CONS ---
Date/Time of Note Date/Time of Note DATE: 03/16/16 TIME: 13:07 Consult Date/Type/Reason Admit Date/Time Mar 13, 2016 at 19:50 Type of Consultation: ID Subjective awake, looks comfortable on nc, no fevers Objective Vital Signs Date Time Temp Pulse Resp B/P Pulse Ox O2 Delivery O2 Flow Rate FiO2 03/16/16 12:13 97.7 107 18 113/56 98 03/16/16 08:05 Nasal Cannula 4.0 03/14/16 02:40 100 Intake and Output 03/15/16 03/15/16 03/16/16 15:00 23:00 07:00 Intake Total 700 ml 500 ml Output Total 1250 ml 1100 ml Balance -550 ml -600 ml Results/Medications Result Diagram: 03/16/16 0545 03/16/16 0545 Results 24 hrs Laboratory Tests Test 03/16/16 05:45 Anion Gap 13 Basophils # 0.1 Basophils % 0.6 Blood Morphology Comment Blood Urea Nitrogen 21 H Calcium Level 7.9 L Carbon Dioxide Level 35 H Chloride Level 93 L Creatinine 1.04 Digoxin Level 1.2 # Eosinophils # 0.1 Eosinophils % 0.9 Glucose Level 110 Hematocrit 35.3 L Hemoglobin 11.5 L Lymphocytes # 1.5 Lymphocytes % 16.0 Magnesium Level 2.7 H Mean Corpuscular Hemoglobin 26.4 L Mean Corpuscular Hemoglobin Concent 32.6 Mean Corpuscular Volume 80.9 L Mean Platelet Volume 7.3 L Monocytes # 0.9 Monocytes % 9.7 Neutrophils # 6.8 Neutrophils % 72.8 Nucleated Red Blood Cells # 0.0 Nucleated Red Blood Cells % 0.0 Phosphorus Level 3.2 Platelet Count 526 H Potassium Level 3.8 Red Blood Count 4.36 L Red Cell Distribution Width 17.6 H Sodium Level 137 White Blood Count 9.4 Medications Current Medications Fosphenytoin Sodium/Sodium Chloride (Cerebyx/NS) 54 ml @ 210.667 mls/hr Q12 IVPB Last administered on 03/16/16 10:21; Admin Dose 210.667 MLS/HR; Start 01/18 at 09:00 Acetaminophen (Tylenol Tab) 650 mg Q4H PRN PO PAIN AND OR ELEVATED TEMP; Start 03/13/16 at 23:30 Aspirin (Aspirin) 81 mg DAILY PO Last administered on 03/16/16 10:22; Admin Dose 81 MG; Start 03/14/16 at 09:00 Atorvastatin Calcium (Lipitor) 10 mg HS PO Last administered on 03/15/16 20:50 ; Admin Dose 10 MG; Start 03/14/16 at 21:00 Calcitriol (Rocaltrol) 0.25 mcg QAM PO Last administered on 03/16/16 10:21; Admin Dose 0.25 MCG; Start 03/14/16 at 09:00 Digoxin (Digoxin) 0.125 mg DAILY@13 PO Last administered on 03/15/16 13:34; Admin Dose 0.125 MG; Start 03/14/16 at 13:00 Docusate Sodium (Colace) 100 mg DAILY PO Last administered on 03/16/16 10:22; Admin Dose 100 MG; Start 03/14/16 at 09:00 Enoxaparin Sodium (Lovenox) 30 mg DAILY SC Last administered on 03/16/16 10:24 ; Admin Dose 30 MG; Start 03/14/16 at 09:00 Guaifenesin/ Codeine Phosphate (Robitussin Ac Liquid Cup) 5 ml Q6 PRN PO Cough ; Start 03/13/16 at 23:30 Levofloxacin (Levaquin) 500 mg DAILY@06 PO Last administered on 03/16/16 05:43 ; Admin Dose 500 MG; Start 03/14/16 at 06:00 Magnesium Hydroxide (Milk Of Mag) 30 ml BID PRN PO CONSTIPATION Last administered on 03/15/16 08:37; Admin Dose 30 ML; Start 03/13/16 at 23:30 Metoprolol Tartrate (Lopressor) 25 mg BID PO Last administered on 03/16/16 10: 22; Admin Dose 25 MG; Start 03/14/16 at 09:00 Ondansetron HCl (Zofran Inj) 4 mg Q6H PRN IV NAUSEA AND/OR VOMITING; Start 12/18 at 23:30 Pantoprazole (Protonix Tab) 40 mg DAILY@06 PO Last administered on 03/16/16 05 :43; Admin Dose 40 MG; Start 03/14/16 at 06:00 Phenobarbital (Luminal) 64.8 mg BID PO Last administered on 03/16/16 10:23; Admin Dose 64.8 MG; Start 03/14/16 at 09:00 Polyethylene Glycol (Miralax) 17 gm DAILY PO Last administered on 03/16/16t 10: 20; Admin Dose 17 GM; Start 03/14/16 at 09:00 Assessment/Plan Chief Complaint/Hosp Course ANTIMICROBIALS: Levaquin #9. OBJECTIVE: GENERAL: This is a well-nourished, well-developed, fragile, elderly man who is awake, in no distress. HEENT: Head atraumatic, normocephalic. Sclerae anicteric. Buccal mucosa dry. NECK: Supple. CHEST: Rise symmetrical. Breath sounds with scattered crackles. HEART: S1, S2. ABDOMEN: Soft. Bowel tones present. EXTREMITIES: With trace edema. ASSESSMENT: 1. Acute hypoxemic respiratory failure, likely combination of congestive heart failure and pneumonia. The patient had been on antibiotics since 03/08/2015, day #8 today. 2. Atrial fibrillation status post rapid ventricular response. 3. Anemia 4. Seizure disorder. PLAN: The patient remains stable, cardiology/pulmonary recommendations noted, dc abx in am. [facility] staff Problems: STEPHANIE SMITH NP Mar 16, 2016 13:08
[2016-03-16] MEDS: DIGOXIN 0.125 MG TAB PO SCH (14:55)
--- NOTE | 2016-03-16 16:43 | PN ---
DATE: 03/16/2016 REASON FOR FOLLOWUP: Hypoxemia. SUBJECTIVE: Patient remains relatively stable this morning. No new events. PHYSICAL EXAMINATION: VITAL SIGNS: Temperature 98, pulse is 82, blood pressure 113/56, O2 saturation 98% on 4 L nasal can nula. NECK: Supple, no JVD or lymphadenopathy. CARDIAC: S1, S2, no added sounds or murmurs. CHEST: Diminished air entry bilaterally. ABDOMEN: Soft, nontender. No guarding or rebound. EXTREMITIES: No cyanosis, clubbing, edema. NEUROLOGIC: Generalized weakness. LABORATORY DATA: White count 9.4, hemoglobin 11.5, platelets of 526. BUN 21, creatinine 1.02. IMAGING: Chest x-ray as of yesterday showed ongoing vascular congestion, small bilateral pleural ef fusions. IMPRESSION AND PLAN: 1. Congestive cardiac failure. 2. Hypoxemia with respiratory failure. 3. Bilateral pleural effusions. 4. Atrial fibrillation with rapid ventricular response. PLAN: Patient will need: 1. Continue diuresis. 2. Continue rate control. 3. Continue supplemental O2. 4. Repeat chest x-ray and labs in a.m. Dictated By: ANTHONY CONNELLY/ZECHARIAH Conf#: [id number] DID#: [id number]
[2016-03-16 17:18] LABS: CREATININE, RANDOM URINE 56 mg/dL (20-370); MICROALBUMIN <0.2 mg/dL; MICROALBUMIN/CREATININE RATIO NOTE (<30)
[2016-03-16] MEDS: FUROSEMIDE 20 MG INJ IV SCH (18:36)
--- NOTE | 2016-03-16 18:53 | PN ---
DATE: 03/16/2016 CARDIOLOGY FOLLOWUP SUBJECTIVE: The patient remains in atrial fibrillation. Heart rate is better controlled. Remains in sinus rhythm. No chest pain or pressure. No palpitation. He is still on oxygen, but improved. MEDICATIONS: Reviewed. PHYSICAL EXAMINATION: VITAL SIGNS: Temperature 98.2, heart rate of 89, blood pressure 90/50, respiratory rate of 90. HEENT: Normocephalic, atraumatic. Pupils are equal. CARDIOVASCULAR: Irregularly irregular. Systolic murmur. PULMONARY: With mild rhonchi. GASTROINTESTINAL: Soft, nontender. EXTREMITIES: Positive edema. NEUROLOGIC: Awake, responds appropriately. LABORATORY: WBC of 9.4, hemoglobin 11.5, platelets of 526, sodium 137, potassium 3.8, BUN of 21, cr eatinine 1.04, glucose 110. I's and O's shows 1200 in and 2350 out. ASSESSMENT AND PLAN: 1. Hypoxemic respiratory failure. 2. Atrial fibrillation. 3. Congestive heart failure, acute on chronic, possibly secondary to diastolic dysfunction. 4. Status post sepsis and pneumonia. 5. Pneumonia. 6. Anemia. 7. Seizure disorder. RECOMMENDATIONS: We will continue with the aspirin. Diuresis as per renal. Heart rate is currentl y under better control. We will continue with the IV____ and p.o. digoxin as well. We will check t he digoxin level intermittently and adjust the dosage of digoxin as needed. Dictated By: CHARLOTTE ADAME/ZECHARIAH Conf#: [id number] DID#: [id number] CC: JULISA CONN DO;*End*
[2016-03-16] MEDS: ATORVASTATIN 10 MG TAB PO SCH (21:10)
[2016-03-17] VITALS (11 sets, daily range): BP systolic 97–109; BP diastolic 50–59; PULSE 77–108; RESP 18–22
[2016-03-17] MEDS: LEVALBUTEROL (NEB) 0.63 MG/3 ML AMP HHN SCH ×4 (01:26→21:35)
[2016-03-17] MEDS: LEVOFLOXACIN 500 MG TAB PO SCH (06:46)
[2016-03-17] MEDS: PANTOPRAZOLE (EC) 40 MG TAB PO SCH (06:46)
[2016-03-17] MEDS: FUROSEMIDE 20 MG INJ IV SCH ×2 (06:46→18:28)
[2016-03-17 08:19] LABS: BASOPHILS % 0.4 % (0.0-2.0); EOSINOPHILS # 0.1 10^3/ul (0.0-0.5); EOSINOPHILS % 1.7 % (0.0-7.0); HEMATOCRIT 33.5 % (42.0-52.0); LYMPHOCYTES # 1.2 10^3/ul (0.8-2.9); LYMPHOCYTES % 15.2 % (15.0-51.0); MEAN CORPUSCULAR HEMOGLOBIN 26.5 pg (29.0-33.0); MEAN CORPUSCULAR HGB CONC 32.9 g/dl (32.0-37.0); MEAN CORPUSCULAR VOLUME 80.7 fl (82.0-101.0); MEAN PLATELET VOLUME 7.3 fl (7.4-10.4); MONOCYTE # 0.9 10^3/ul (0.3-0.9); MONOCYTES % 10.6 % (0.0-11.0); NEUTROPHIL # 5.9 10^3/ul (1.6-7.5); NEUTROPHILS % 72.1 % (39.0-77.0); PLATELET COUNT 485 10^3/UL (140-440); RED BLOOD COUNT 4.15 10^6/ul (4.70-6.10); RED CELL DISTRIBUTION WIDTH 17.5 % (11.5-14.5); UNCORRECTED WBC 8.1 10^3/ul (4.8-10.8); WHITE BLOOD COUNT 8.1 10^3/ul (4.8-10.8)
[2016-03-17 08:25] LABS: CONDITION 1; LH ANALYZER COMMENTS 1; SUSPECT 1
[2016-03-17 08:34] LABS: POTASSIUM 4.1 mmol/L (3.5-5.1)
[2016-03-17 08:37] LABS: CREATININE 0.9 mg/dl (0.61-1.24); PHOSPHORUS 3.8 mg/dl (2.5-4.9)
[2016-03-17 08:38] LABS: CALCIUM 7.9 mg/dl (8.4-10.2); MAGNESIUM 2.4 mg/dl (1.7-2.5)
[2016-03-17] MEDS: POLYETHYLENE GLYCOL 17 GM PACKET PO SCH (09:00)
[2016-03-17] MEDS: ASPIRIN 81 MG TAB PO SCH (09:39)
[2016-03-17] MEDS: CALCITRIOL 0.25 MCG CAP PO SCH (09:39)
[2016-03-17] MEDS: DOCUSATE SODIUM 100 MG CAP PO SCH (09:40)
[2016-03-17] MEDS: METOPROLOL 25 MG TAB PO SCH ×2 (09:40→21:18)
[2016-03-17] MEDS: PHENOBARBITAL 32.4 MG TAB PO SCH ×2 (09:40→21:17)
--- NOTE | 2016-03-17 09:50 | PN ---
DATE: 03/17/2016 SUBJECTIVE: The patient is stable. No acute events overnight. No fevers, chills, nausea or vomiti ng. OBJECTIVE: VITAL SIGNS: Blood pressure is 107/59, respirations 18, pulse 108, temperature 98.4. HEENT: Head is normocephalic. NECK: Supple. HEART: Irregular rhythm. LUNGS: Showed diminished breath sounds at the base. ABDOMEN: Soft, nontender to palpation. No rebound or guarding. EXTREMITIES: Negative for clubbing or cyanosis. No edema. DERMATOLOGIC: No rashes. MUSCULOSKELETAL: Have no joint effusion. NEUROLOGIC: No change in exam. MEDICATIONS: The patient's medication were reviewed. LABORATORY DATA: CBC shows a white count of 8.1, hemoglobin 9.0, hematocrit 33.5, platelet count is 485. BMP is currently pending. ASSESSMENT AND PLAN: 1. Acute systolic heart failure. The patient is clinically improving. Continue the current diuret ic regimen. Will anticipate changing from IV to p.o. Lasix in the next 24 hours. 2. Acute hypoxemic respiratory failure secondary to congestive heart failure and pneumonia. The pa tient is clinically improving. Will continue to titrate down nasal cannula. 3. Atrial fibrillation. Heart rate is better controlled. Continue the current medical management. Follow up with cardiology. 4. Sepsis secondary to pneumonia. The patient is completing an antibiotic course. 5. Anemia with iron deficiency. The patient is completing a course of Ferrlecit. 6. Seizure disorder. Continue phenobarbital and follow up with neurology. 7. General debility. Continue physical therapy. 8. Gastrointestinal and deep venous thrombosis prophylaxis. Continue proton pump inhibitor and Lisa enox. Dictated By: JULISA DOSS/ZECHARIAH Conf#: [id number] DID#: [id number]
[2016-03-17] MEDS: ENOXAPARIN 30 MG/0.3 ML SYG SC SCH (09:57)
--- NOTE | 2016-03-17 10:20 | RADRPT ---
PROCEDURE: XR Chest. CLINICAL INDICATION: Shortness of breath. TECHNIQUE: Single frontal view. COMPARISON: 03/15/2016. FINDINGS: There is air space disease at both lung bases consistent with atelectasis, unchanged. Mild pulmonar y edema is slightly improved. The heart size is normal. There are small bilateral pleural effusions. There is no pneumothorax. IMPRESSION: 1. Slightly improved pulmonary edema. 2. No other change from 03/15/2016. RPTAT: QQ .Virgil Joseph MD, MD Date Time Electronically viewed and signed by .Virgil Joseph MD, MD on 03/17/2016 10:19 .R/
[2016-03-17] MEDS: FOSPHENYTOIN (PE) 200 MG in SOD CHLORIDE 0.9% 50 ML IVPB SCH ×2 (12:21→21:18)
[2016-03-17] MEDS: DIGOXIN 0.125 MG TAB PO SCH (13:28)
[2016-03-17] MEDS: ATORVASTATIN 10 MG TAB PO SCH (21:18)
[2016-03-18] VITALS (10 sets, daily range): BP systolic 90–118; BP diastolic 54–59; PULSE 76–100; RESP 18–20
[2016-03-18] MEDS: LEVALBUTEROL (NEB) 0.63 MG/3 ML AMP HHN SCH ×4 (01:00→20:23)
[2016-03-18] MEDS: PANTOPRAZOLE (EC) 40 MG TAB PO SCH (05:44)
[2016-03-18] MEDS: FUROSEMIDE 20 MG INJ IV SCH ×2 (05:44→17:54)
[2016-03-18 07:49] LABS: BASOPHILS % 0.6 % (0.0-2.0); EOSINOPHILS # 0.1 10^3/ul (0.0-0.5); EOSINOPHILS % 1.8 % (0.0-7.0); HEMATOCRIT 33.7 % (42.0-52.0); LYMPHOCYTES # 1.2 10^3/ul (0.8-2.9); LYMPHOCYTES % 15.2 % (15.0-51.0); MEAN CORPUSCULAR HEMOGLOBIN 26.6 pg (29.0-33.0); MEAN CORPUSCULAR HGB CONC 32.7 g/dl (32.0-37.0); MEAN CORPUSCULAR VOLUME 81.1 fl (82.0-101.0); MEAN PLATELET VOLUME 7.5 fl (7.4-10.4); MONOCYTE # 0.8 10^3/ul (0.3-0.9); MONOCYTES % 10.4 % (0.0-11.0); NEUTROPHIL # 5.6 10^3/ul (1.6-7.5); PLATELET COUNT 451 10^3/UL (140-440); RED BLOOD COUNT 4.15 10^6/ul (4.70-6.10); RED CELL DISTRIBUTION WIDTH 18.2 % (11.5-14.5); UNCORRECTED WBC 7.7 10^3/ul (4.8-10.8); WHITE BLOOD COUNT 7.7 10^3/ul (4.8-10.8)
[2016-03-18 07:57] LABS: POTASSIUM 3.8 mmol/L (3.5-5.1)
[2016-03-18 07:59] LABS: CONDITION 1; CREATININE 0.82 mg/dl (0.61-1.24); LH ANALYZER COMMENTS 1
[2016-03-18 08:00] LABS: CALCIUM 7.8 mg/dl (8.4-10.2); PHOSPHORUS 3.9 mg/dl (2.5-4.9)
[2016-03-18 08:01] LABS: MAGNESIUM 2.4 mg/dl (1.7-2.5)
[2016-03-18] MEDS: POLYETHYLENE GLYCOL 17 GM PACKET PO SCH (09:01)
[2016-03-18] MEDS: CALCITRIOL 0.25 MCG CAP PO SCH (09:01)
[2016-03-18] MEDS: PHENOBARBITAL 32.4 MG TAB PO SCH ×2 (09:01→21:48)
[2016-03-18] MEDS: DOCUSATE SODIUM 100 MG CAP PO SCH (09:01)
[2016-03-18] MEDS: ASPIRIN 81 MG TAB PO SCH (09:02)
[2016-03-18] MEDS: METOPROLOL 25 MG TAB PO SCH ×2 (09:02→21:47)
[2016-03-18] MEDS: ENOXAPARIN 30 MG/0.3 ML SYG SC SCH (09:09)
[2016-03-18] MEDS: FOSPHENYTOIN (PE) 200 MG in SOD CHLORIDE 0.9% 50 ML IVPB SCH ×2 (09:10→21:54)
[2016-03-18] MEDS: DIGOXIN 0.125 MG TAB PO SCH (13:11)
--- NOTE | 2016-03-18 16:12 | PN ---
DATE: 03/18/2016 SUBJECTIVE: The patient is clinically improving. No acute events overnight. No hemoptysis, hemate mesis, or hematochezia. OBJECTIVE: VITAL SIGNS: Blood pressure 99/55, respirations 18, pulse 72, temperature is 98.7. HEENT: Head is normocephalic. NECK: Supple. HEART: Regular rate. LUNGS: Show diminished breath sounds at base. ABDOMEN: Soft, nontender to palpation. No rebound or guarding. EXTREMITIES: Negative for clubbing, cyanosis, edema. DERMATOLOGIC: No rashes. MUSCULOSKELETAL: No joint effusions. NEUROLOGIC: No change in exam. MEDICATIONS: The patient's medications have been reviewed. LABORATORY DATA: Shows sodium 133, potassium 2.8, BUN 16, creatinine 0.82. White count 7.7, hemogl obin 11.0, hematocrit 33.7, platelet count is 450. ASSESSMENT AND PLAN: 1. Acute diastolic heart failure. The patient is clinically improving. Continue current medical m anagement. Continue diuretic therapy. Follow up with cardiology for further recommendations. 2. Acute hypoxemic respiratory failure secondary to congestive heart failure exacerbation and pneum onia. The patient is clinically improving. Continue current medical management. 3. Atrial fibrillation, currently rate controlled. Continue current treatment plan. Follow crdiol ogy recommendations. 4. Sepsis secondary to pneumonia, improving. Continue current antibiotic course. Follow up with i nfectious disease. 5. Anemia. Hemoglobin levels are improving. The patient is status post IV Ferrlecit. 6. Seizure disorder. Continue current medical management. Follow up with neurology. 7. General debility. Continue physical therapy. 8. Gastrointestinal and deep venous thrombosis prophylaxis. Continue proton pump inhibitor and Lisa enox. Dictated By: JULISA DOSS/ZECHARIAH Conf#: [id number] DID#: [id number]
--- NOTE | 2016-03-18 18:47 | PN ---
DATE: REASON FOR FOLLOWUP: Respiratory failure. The patient Mr. Elias continues to slowly improve with diuretics. VITAL SIGNS: Temperature 98, pulse 85, blood pressure 107/55, O2 saturation 96% on 2 L nasal cannul a. NECK: Supple. No JVD or lymphadenopathy. CARDIAC: S1, S2, no added sounds or murmurs. CHEST: Diminished air entry bilaterally with rhonchi. ABDOMEN: Soft, nontender. No guarding or rebound. EXTREMITIES: No cyanosis, clubbing, edema. NEUROLOGIC: Grossly intact. No focal deficits. LABORATORY DATA: White count 7.7, hemoglobin 11, platelets 451. BUN 16, creatinine 0.86. IMPRESSION AND PLAN: 1. Congestive cardiac failure with acute systolic dysfunction, improved with diuretics. 2. Hypoxemic respiratory failure secondary to pneumonia and pulmonary edema, improved. 3. Atrial fibrillation, rate controlled. 4. Seizure disorder, currently stable. From pulmonary standpoint the patient can likely go home julita n. Will initiate discharge planning. Dictated By: ANTHONY CONNELLY/ZECHARIAH Conf#: [id number] DID#: [id number]
[2016-03-18] MEDS: ATORVASTATIN 10 MG TAB PO SCH (21:47)
[2016-03-19] VITALS (11 sets, daily range): BP systolic 91–128; BP diastolic 50–68; PULSE 80–100; RESP 17–20
[2016-03-19] MEDS: LEVALBUTEROL (NEB) 0.63 MG/3 ML AMP HHN SCH ×5 (01:28→20:31)
[2016-03-19] MEDS: FUROSEMIDE 20 MG INJ IV SCH ×2 (06:24→17:36)
[2016-03-19] MEDS: PANTOPRAZOLE (EC) 40 MG TAB PO SCH (06:24)
[2016-03-19 07:33] LABS: POTASSIUM 4.1 mmol/L (3.5-5.1)
[2016-03-19 07:35] LABS: CREATININE 0.78 mg/dl (0.61-1.24)
[2016-03-19 07:36] LABS: CALCIUM 7.8 mg/dl (8.4-10.2)
[2016-03-19 07:37] LABS: MAGNESIUM 2.4 mg/dl (1.7-2.5)
[2016-03-19] MEDS: PHENOBARBITAL 32.4 MG TAB PO SCH ×2 (08:20→21:32)
[2016-03-19] MEDS: ASPIRIN 81 MG TAB PO SCH (08:20)
[2016-03-19] MEDS: DOCUSATE SODIUM 100 MG CAP PO SCH (08:20)
[2016-03-19] MEDS: CALCITRIOL 0.25 MCG CAP PO SCH (08:20)
[2016-03-19] MEDS: POLYETHYLENE GLYCOL 17 GM PACKET PO SCH (08:21)
[2016-03-19] MEDS: FOSPHENYTOIN (PE) 200 MG in SOD CHLORIDE 0.9% 50 ML IVPB SCH (08:21)
[2016-03-19] MEDS: METOPROLOL 25 MG TAB PO SCH ×2 (08:21→21:38)
[2016-03-19] MEDS: ENOXAPARIN 30 MG/0.3 ML SYG SC SCH (08:22)
[2016-03-19] MEDS: DIGOXIN 0.125 MG TAB PO SCH (12:44)
--- NOTE | 2016-03-19 13:57 | PN ---
DATE: SUBJECTIVE: The patient is stable, no acute events overnight. No fevers, chills, nausea, no shortness of breath. OBJECTIVE: VITAL SIGNS: Blood pressure 105/53, respiration 18, pulse 88, temperature 98.3. I'S AND O'S: The patient had 1.2 liters in, 2.7 liters out. HEENT: Head is normocephalic. NECK: Supple. HEART: Regular rate. LUNGS: Show diminished breath sounds at the base. ABDOMEN: Soft, nontender to palpation. No rebound, guarding. EXTREMITIES: Negative for clubbing, cyanosis, no edema. DERMATOLOGIC: No rashes. MUSCULOSKELETAL: No joint effusions. NEUROLOGIC: No change in exam. MEDICATIONS: Reviewed. LABORATORY DATA: Shows a white count 7.7, hemoglobin 11.0, hematocrit 33.7, platelet count 451. Sodium 136, potassium 4.1, chloride 96, BUN 17, creatinine 0.78. ASSESSMENT AND PLAN 1. Acute diastolic heart failure. The patient is clinically improving. Continue medical management and follow up with cardiology. 2. Acute hypoxemic respiratory failure secondary to CHF, pneumonia, clinically improving. Continue current treatment plan. 3. Atrial fibrillation, rate control. Current medical management. 4. Sepsis secondary to pneumonia. Continue current treatment plan. Continue current antibiotic course. 5. Anemia. Continue to monitor hemoglobin and hematocrit levels. 6. Seizure disorder. Continue current medical management. 7. General debility. Continue physical therapy. 8. Encephalopathy. Improving, continue to monitor 8. GI and deep vein thrombosis prophylaxis. Continue proton pump inhibitor and Lovenox. Dictated By: JULISA DOSS/ZECHARIAH Conf#: [id number] DID#: [id number] MTDD
[2016-03-19] MEDS: LEVETIRACETAM 500 MG TAB PO SCH (21:32)
[2016-03-19] MEDS: ATORVASTATIN 10 MG TAB PO SCH (21:32)
--- NOTE | 2016-03-19 22:28 | PN ---
DATE: 03/19/2016 CARDIOLOGY FOLLOWUP SUBJECTIVE: The patient ____ still on oxygen, but ____ chest pain or pressure. No palpitation. Rh ythm strip was reviewed. He remains in atrial fibrillation. Heart rate under good control now. MEDICATIONS: Reviewed as per medication reconciliation, personally reviewed. PHYSICAL EXAMINATION: VITAL SIGNS: Temperature 98.9, heart rate of 86, blood pressure 106/69, respiratory rate of 17, sat urating 96%. HEENT: Normocephalic, atraumatic. No acute distress. Pupils are equal. CARDIOVASCULAR: Irregularly irregular. Systolic murmur. PULMONARY: With mild rhonchi. GASTROINTESTINAL: Soft, nontender. EXTREMITIES: Positive lower extremity edema. NEUROLOGIC: Awake and alert. Responds appropriately. PSYCHIATRIC: Appears to be calm and pleasant. LABORATORY: I and O show 1288 in and 2750 out. Laboratory showed digoxin level is 2.9. Sodium 136 , potassium 4.1, BUN of 17, creatinine 0.78, glucose of 100. ASSESSMENT AND PLAN: 1. Atrial fibrillation, chronic. Heart rate controlled. On aspirin. 2. Hypoxemic respiratory failure. 3. Congestive heart failure, acute on chronic, possibly secondary to systolic dysfunction. 4. Status post sepsis and pneumonia. 5. Anemia. 6. Seizure disorder. RECOMMENDATIONS: I will continue with the current cardiac care. Aspirin will be continued. Lasix will be continued. Digoxin will continue at the current dose and adjust it as needed. Beta-orin will be continued with the metoprolol for now. Dictated By: CHARLOTTE SCHUMACHER MD AV/ZECHARIAH Conf#: [id number] DID#: [id number] CC: NINFA MONTELONGO MD;*EndCC*
[2016-03-20] VITALS (13 sets, daily range): BP systolic 89–128; BP diastolic 50–79; PULSE 67–100; RESP 17–20
[2016-03-20] MEDS: LEVALBUTEROL (NEB) 0.63 MG/3 ML AMP HHN SCH ×4 (01:20→19:45)
[2016-03-20] MEDS: FUROSEMIDE 20 MG INJ IV SCH ×2 (05:00→17:26)
[2016-03-20] MEDS: PANTOPRAZOLE (EC) 40 MG TAB PO SCH (05:00)
[2016-03-20 07:24] LABS: POTASSIUM 3.9 mmol/L (3.5-5.1)
[2016-03-20 07:26] LABS: CREATININE 0.81 mg/dl (0.61-1.24)
[2016-03-20 07:27] LABS: CALCIUM 7.9 mg/dl (8.4-10.2)
[2016-03-20] MEDS: ASPIRIN 81 MG TAB PO SCH (09:01)
[2016-03-20] MEDS: DOCUSATE SODIUM 100 MG CAP PO SCH (09:02)
[2016-03-20] MEDS: LEVETIRACETAM 500 MG TAB PO SCH ×2 (09:02→21:27)
[2016-03-20] MEDS: PHENOBARBITAL 32.4 MG TAB PO SCH ×2 (09:02→21:28)
[2016-03-20] MEDS: CALCITRIOL 0.25 MCG CAP PO SCH (09:02)
[2016-03-20] MEDS: POLYETHYLENE GLYCOL 17 GM PACKET PO SCH (09:03)
[2016-03-20] MEDS: ENOXAPARIN 30 MG/0.3 ML SYG SC SCH (09:06)
[2016-03-20] MEDS: METOPROLOL 25 MG TAB PO SCH ×2 (09:12→21:28)
--- NOTE | 2016-03-20 10:58 | PN ---
DATE: 03/20/2016 SUBJECTIVE: The patient is stable, no acute events overnight. No fevers, chills, nausea, vomiting, no shortness of breath. OBJECTIVE: VITAL SIGNS: Blood pressure is 89/51, respiration 18, pulse 100, temperature 98.4. HEENT: Head is normocephalic. NECK: Supple. HEART: Regular rate. LUNGS: Show diminished breath sounds at base. ABDOMEN: Soft, nontender to palpation. No rebound or guarding. EXTREMITIES: Negative for clubbing, cyanosis, no edema. DERMATOLOGIC: No rashes. MUSCULOSKELETAL: No joint effusions. NEUROLOGIC: No change in exam. MEDICATIONS: The patient's medications have been reviewed. LABORATORY DATA: Shows a sodium of 136, potassium 3.9, BUN 18, creatinine 0.81. CBC was reviewed. ASSESSMENT AND PLAN 1. Acute diastolic heart failure. The patient clinically improving. Continue current medical management. Continue diuretic regimen. 2. Acute hypoxemic respiratory failure secondary to congestive heart failure, pneumonia. The patient is clinically improving. Continue current treatment plan. 3. Atrial fibrillation, rate controlled. Continue medical management. 4. Sepsis secondary to pneumonia. Patient is completing antibiotic course. 5. Anemia. Hemoglobin level stable, continue to monitor. 6. Seizure disorder. Continue current medical management. 7. General debility. Continue physical therapy. 8. Encephalopathy, improving. Monitor 9. Gastrointestinal and deep venous thrombosis prophylaxis. Continue proton pump inhibitor and Lovenox. Dictated By: JULISA DOSS/ZECHARIAH Conf#: [id number] DID#: [id number] MTDAngel
[2016-03-20] MEDS: DIGOXIN 0.125 MG TAB PO SCH (12:31)
--- NOTE | 2016-03-20 15:03 | PN ---
DATE: 03/20/2016 CARDIOLOGY FOLLOWUP PROGRESS NOTE SUBJECTIVE: Discussed with the staff . Heart rate has remained stable, mostly around the 80s. He is still on oxygen, but saturation has been stable overall. No history of reported chest pain or pressure. MEDICATIONS: Reviewed. PHYSICAL EXAMINATION: VITAL SIGNS: Temperature 97.4, heart rate of 80, blood pressure 106/52, respiratory rate of 17. Sa turating 93% on 2 L. HEENT: Normocephalic, atraumatic. Pupils are equal. CARDIOVASCULAR: Regular rate, rhythm. No systolic murmur. PULMONARY: With no wheezes, minimal rhonchi at the base. GASTROINTESTINAL: Soft, nontender. EXTREMITIES: With trivial edema. NEUROLOGIC: Comfortably sleeping. LABORATORY: Sodium 136, potassium 3.9, BUN of 18, creatinine 0.81, glucose of 118. ASSESSMENT AND PLAN: 1. Atrial fibrillation, chronic. Heart rate under good control. Continue with aspirin. 2. congestive heart failure, acute on chronic, secondary to systolic and diastolic dysfunctio n. 3. Status post sepsis and pneumonia. 4. Anemia. 5. History of seizure disorder. RECOMMENDATIONS: Continue with the Lasix and digoxin. Aspirin will be continued. Beta orin as tolerated will be continued as well. Will repeat a chest x-ray today. Dictated By: CHARLOTTE ADAME/ZECHARIAH Conf#: [id number] DID#: [id number] CC: JULISA CONN DO;*EndCC*
--- NOTE | 2016-03-20 17:54 | RADRPT ---
PROCEDURE: XR Chest. CLINICAL INDICATION: Shortness of breath. TECHNIQUE: Single frontal view. COMPARISON: 03/17/2016. FINDINGS: There is air space disease at the lung bases consistent with atelectasis, unchanged. Mild pulmonary edema is also unchanged. The heart size is normal. There are small bilateral pleural effusions. There is no pneumothorax. IMPRESSION: 1. Mild atelectasis at the lung bases. 2. Mild pulmonary edema. 3. Small bilateral pleural effusions. 4. Otherwise normal chest x-ray. 5. No change from 03/17/2016. RPTAT: QQ .Virgil Joseph MD, MD Date Time Electronically viewed and signed by .Virgil Joseph MD, MD on 03/20/2016 17:54 .R/
[2016-03-20] MEDS: ATORVASTATIN 10 MG TAB PO SCH (21:28)
[2016-03-21] VITALS (9 sets, daily range): BP systolic 93–103; BP diastolic 51–56; PULSE 83–92; RESP 17–19
[2016-03-21] MEDS: LEVALBUTEROL (NEB) 0.63 MG/3 ML AMP HHN SCH ×3 (01:40→14:11)
[2016-03-21] MEDS: PANTOPRAZOLE (EC) 40 MG TAB PO SCH (05:35)
[2016-03-21] MEDS: FUROSEMIDE 20 MG INJ IV SCH (05:58)
[2016-03-21 08:27] LABS: BASOPHILS % 0.3 % (0.0-2.0); EOSINOPHILS # 0.4 10^3/ul (0.0-0.5); EOSINOPHILS % 5.5 % (0.0-7.0); HEMATOCRIT 33.7 % (42.0-52.0); HEMOGLOBIN 10.9 g/dl (14.0-18.0); LYMPHOCYTES # 1.3 10^3/ul (0.8-2.9); LYMPHOCYTES % 17.8 % (15.0-51.0); MEAN CORPUSCULAR HEMOGLOBIN 26.7 pg (29.0-33.0); MEAN CORPUSCULAR HGB CONC 32.4 g/dl (32.0-37.0); MEAN CORPUSCULAR VOLUME 82.5 fl (82.0-101.0); MEAN PLATELET VOLUME 7.7 fl (7.4-10.4); MONOCYTE # 0.7 10^3/ul (0.3-0.9); MONOCYTES % 9.1 % (0.0-11.0); NEUTROPHIL # 5.1 10^3/ul (1.6-7.5); NEUTROPHILS % 67.3 % (39.0-77.0); PLATELET COUNT 438 10^3/UL (140-440); RED BLOOD COUNT 4.09 10^6/ul (4.70-6.10); UNCORRECTED WBC 7.6 10^3/ul (4.8-10.8); WHITE BLOOD COUNT 7.6 10^3/ul (4.8-10.8)
[2016-03-21 08:28] LABS: POTASSIUM 3.7 mmol/L (3.5-5.1)
[2016-03-21 08:31] LABS: CREATININE 0.81 mg/dl (0.61-1.24)
[2016-03-21] MEDS: METOPROLOL 25 MG TAB PO SCH (09:00)
[2016-03-21] MEDS: ASPIRIN 81 MG TAB PO SCH (09:02)
[2016-03-21] MEDS: CALCITRIOL 0.25 MCG CAP PO SCH (09:02)
[2016-03-21] MEDS: DOCUSATE SODIUM 100 MG CAP PO SCH (09:03)
[2016-03-21] MEDS: PHENOBARBITAL 32.4 MG TAB PO SCH (09:03)
[2016-03-21] MEDS: POLYETHYLENE GLYCOL 17 GM PACKET PO SCH (09:03)
[2016-03-21] MEDS: LEVETIRACETAM 500 MG TAB PO SCH (09:03)
[2016-03-21] MEDS: ENOXAPARIN 30 MG/0.3 ML SYG SC SCH (09:04)
[2016-03-21 09:08] LABS: CONDITION 1; LH ANALYZER COMMENTS 1
[2016-03-21] MEDS: DIGOXIN 0.125 MG TAB PO SCH (13:07)
--- NOTE | 2016-03-21 14:04 | PN ---
DATE: 03/21/2016 CARDIOLOGY FOLLOWUP SUBJECTIVE: Discussed with the staff. The patient denies chest pain or pressure to me. Denies any palpitations to me. Rhythm strip was reviewed. He has remained in atrial fibrillation, however, o verall has been stable. He is still on oxygen though. MEDICATIONS: Reviewed as per medication reconciliation, personally reviewed. PHYSICAL EXAMINATION: VITAL SIGNS: Temperature 98, heart rate of 92, blood pressure 96/56, respiration rate of 19, satura ting 96%. HEENT: Normocephalic, atraumatic Elderly gentleman. Pupils are equal. CARDIOVASCULAR: Irregularly irregular. Systolic murmur. PULMONARY: Anteriorly with no wheezes, minimal rhonchi at the base. GASTROINTESTINAL: Soft, nontender. EXTREMITIES: With trivial edema. NEUROLOGIC: Awake, responds appropriately. PSYCHIATRIC: Appears to be calm. Chest x-ray shows mild atelectasis at the lung base, mild pulmonary edema, small otherwise nor mal chest x-ray. I's and O's show in, output has not been well recorded. ASSESSMENT AND PLAN: 1. Hypoxic respiratory failure. 2. Congestive heart failure secondary to fluid overload/ diastolic dysfunction. 3. Status post sepsis and pneumonia. 4. Anemia. 5. History of seizure disorder. 6. Atrial fibrillation. Heart rate is currently under good control. RECOMMENDATIONS: We will continue with the current care. Antibiotic as per internal medicine recom mendations. We will continue with digoxin. Lasix will be continued. Can be switched probably to p .o. at this point. Physical therapy will be continued. Dictated By: CHARLOTTE ADAME/ZECHARIAH Conf#: [id number] DID#: [id number] CC: JULISA CONN DO;*EndCC*
--- NOTE | 2016-03-21 22:08 | DS ---
DATE OF ADMISSION: 03/13/2016 DATE OF DISCHARGE: 03/21/2016 HOSPITAL COURSE: This is an 81-year-old male with past medical history of seizure disorder, dyslipi demia, who initially presented to [facility] on 03/09/2016. The patient at that t devora was diagnosed with pneumonia and CHF. He was seen by Dr. Riley and Dr. East. The patient was on antibiotic therapy and diuretic therapy. The patient clinically improved as he was stabilized o n 3 liters nasal cannula. He was subsequently transferred to [facility] acute rehab, [facility], the patient had an acute decompensation and was transferred back to telemetry. While on telemet ry, the patient was diagnosed noted to have worsening respiratory failure due to acute exacerbation of CHF from underlying atrial fibrillation. Patient was also noted to have acute encephalopathy. T he patient was placed on an aggressive diuretic therapy and diuresed over 9 liters during the hospit al course. The patient was weaned and titrated off the simple face mask to nasal cannula and he has been stable on 2 liters during the hospital course. The patient's acute encephalopathy was also cli nically improved during the hospital course. The patient's other medical problems including anemia and seizure disorder have been stable. The patient has completed his course of antibiotics for his underlying sepsis. The patient also was seen by neurologist, Dr. Lemons and patient's seizure me dications were adjusted as he is now on Keppra and phenobarbital. There have been no seizures during the hospital course. Currently at this time, the patient will be discharged to [facility] acute rehab for continued care. At the time of transfer, the patient is stable, in no acute distre ss. FINAL DIAGNOSES 1. Acute hypoxemic respiratory failure. 2. Acute diastolic heart failure, clinically improving. 3. Atrial fibrillation. 4. Sepsis secondary to pneumonia. 5. Encephalopathy. Etiology is toxic metabolic, improving. 6. Anemia. 7. Seizure disorder. 8. General debility. 9. Hypertension. At time of discharge, the patient is stable, in no acute distress. FINAL MEDICATIONS: See reconciliation list. Dictated By: JULISA DOSS/NTS Conf#: [id number] DID#: [id number]
== END 2016-03-21 15:27 | DRG 871 ==
LOC: MS4 19:50
PROVIDERS: ADMIT Internal Medicine; ATTEND Internal Medicine
DX: A41.9 Sepsis, unspecified organism (principal); J96.01 Acute respiratory failure with hypoxia; I50.43 Acute on chronic combined systolic (congestive) and diastolic (congestive) heart failure; J18.9 Pneumonia, unspecified organism; G92 Toxic encephalopathy; I48.91 Unspecified atrial fibrillation; G40.909 Epilepsy, unspecified, not intractable, without status epilepticus; I11.0 Hypertensive heart disease with heart failure; D50.9 Iron deficiency anemia, unspecified; Z66 Do not resuscitate
CPT/HCPCS: 36600; 71010; 80048; 80053; 80076; 80162; 81003; 82043; 82803; 83735; 83880; 84100; 84155; 84300; 84439; 84443; 85025; 94640; 94664; 97116; 97163; 97530; J1940; J0692; J1650; J2916; Q2009

== ENCOUNTER 2016-03-21 10:00 | Inpatient (IN) | payer MEDICARE, OTHER ==
[~2016-03-21] VITALS: Ht 170.2 cm; Wt 84.6 kg
[2016-03-21 15:28] VITALS: BP 99/58; PULSE 86; RESP 18
[2016-03-21] MEDS ORDERED: ACETAMINOPHEN 325 MG TAB PO PRN (16:00)
[2016-03-21] MEDS ORDERED: LEVALBUTEROL (NEB) 0.63 MG/3 ML AMP HHN PRN (16:00)
[2016-03-21] MEDS ORDERED: MAGNESIUM HYDROXIDE 30ML CUP PO PRN (16:00)
[2016-03-21] MEDS ORDERED: GUAIFENESIN/CODEINE 5ML CUP PO PRN (16:00)
[2016-03-21] MEDS ORDERED: ONDANSETRON 4 MG INJ IV PRN (16:30)
[2016-03-21] MEDS ORDERED: BISACODYL 10 MG SUPP PR PRN (17:30)
[2016-03-21] MEDS ORDERED: LACTULOSE 30ML CUP PO PRN (17:30)
[2016-03-21] MEDS: FUROSEMIDE 20 MG INJ IV SCH (17:47)
[2016-03-21 18:22] LABS: ADD UMIC YES; URINE BILIRUBIN (Dip) NEGATIVE (NEGATIVE); URINE BLOOD (Dip) TRACE (NEGATIVE); URINE COLOR LT. YELLOW (YELLOW); URINE GLUCOSE (Dip) NEGATIVE (NEGATIVE); URINE KETONES (Dip) NEGATIVE (NEGATIVE); URINE LEUKOCYTE ESTERASE (Dip) NEGATIVE (NEGATIVE); URINE NITRITE (Dip) NEGATIVE (NEGATIVE); URINE TOTAL PROTEIN (Dip) NEGATIVE (NEGATIVE); URINE UROBILINOGEN (Dip) 0.2 E.U./dL (0.1-1.0)
[2016-03-21 18:29] LABS: URINE RBCS 0-2 /HPF (0)
[2016-03-21 19:30] VITALS: BP 95/52; PULSE 84; RESP 18
[2016-03-21] MEDS: SENNA TAB PO SCH (20:30)
[2016-03-21] MEDS: LEVETIRACETAM 500 MG TAB PO SCH (20:30)
[2016-03-21] MEDS: ATORVASTATIN 10 MG TAB PO SCH (20:30)
[2016-03-21] MEDS: METOPROLOL 25 MG TAB PO SCH (20:31)
[2016-03-21] MEDS: LEVALBUTEROL (NEB) 0.63 MG/3 ML AMP HHN SCH (20:39)
[2016-03-21] MEDS: PHENOBARBITAL 32.4 MG TAB PO SCH (21:52)
[2016-03-21 22:11] VITALS: BP 99/59; RESP 18
[2016-03-22] MEDS: LEVALBUTEROL (NEB) 0.63 MG/3 ML AMP HHN SCH ×4 (01:43→20:50)
[2016-03-22] MEDS: FUROSEMIDE 20 MG INJ IV SCH ×2 (06:05→17:27)
[2016-03-22] MEDS: PANTOPRAZOLE (EC) 40 MG TAB PO SCH (06:05)
[2016-03-22 07:44] LABS: ALBUMIN 2.9 g/dl (3.3-4.9); POTASSIUM 3.9 mmol/L (3.5-5.1)
[2016-03-22 07:46] LABS: BILIRUBIN,INDIRECT 0.1 mg/dl (0-1.1); BILIRUBIN,TOTAL 0.1 mg/dl (0.2-1.3); CREATININE 0.78 mg/dl (0.61-1.24)
[2016-03-22 07:47] LABS: ALBUMIN/GLOBULIN RATIO 0.64; TOTAL PROTEIN 7.4 g/dl (6.1-8.1)
[2016-03-22 07:48] LABS: BASOPHIL # 0.1 10^3/ul (0.0-0.1); BASOPHILS % 0.9 % (0.0-2.0); CONDITION 1; EOSINOPHILS # 0.5 10^3/ul (0.0-0.5); EOSINOPHILS % 7.2 % (0.0-7.0); HEMATOCRIT 33.9 % (42.0-52.0); HEMOGLOBIN 11.1 g/dl (14.0-18.0); LH ANALYZER COMMENTS 1; LYMPHOCYTES # 1.2 10^3/ul (0.8-2.9); LYMPHOCYTES % 17.8 % (15.0-51.0); MEAN CORPUSCULAR HEMOGLOBIN 26.9 pg (29.0-33.0); MEAN CORPUSCULAR HGB CONC 32.8 g/dl (32.0-37.0); MEAN CORPUSCULAR VOLUME 81.9 fl (82.0-101.0); MEAN PLATELET VOLUME 7.6 fl (7.4-10.4); MONOCYTE # 0.5 10^3/ul (0.3-0.9); NEUTROPHIL # 4.6 10^3/ul (1.6-7.5); NEUTROPHILS % 67.1 % (39.0-77.0); PLATELET COUNT 457 10^3/UL (140-440); RED BLOOD COUNT 4.14 10^6/ul (4.70-6.10); RED CELL DISTRIBUTION WIDTH 21.9 % (11.5-14.5); UNCORRECTED WBC 6.9 10^3/ul (4.8-10.8); WHITE BLOOD COUNT 6.9 10^3/ul (4.8-10.8)
[2016-03-22 08:00] VITALS: BP 99/55; PULSE 93; RESP 18
[2016-03-22 09:00] VITALS: BP 110/60; RESP 18
[2016-03-22] MEDS: METOPROLOL 25 MG TAB PO SCH ×2 (09:00→20:50)
[2016-03-22 09:03] VITALS: BP 95/52; RESP 20
--- NOTE | 2016-03-22 09:10 | PN ---
DATE: 03/22/2016 CARDIOLOGY FOLLOWUP SUBJECTIVE: Patient has been sent to rehabilitation. No reported chest pain or pressure. MEDICATIONS: Pain medication was reviewed. PHYSICAL EXAMINATION: VITAL SIGNS: Temperature 98, heart rate of 91, blood pressure /59, respiratory rate of 22. HEENT: Normocephalic, atraumatic. Pupils are equal. CARDIOVASCULAR: Irregularly irregular. PULMONARY: No wheezes. GASTROINTESTINAL: Soft, nontender. NEUROLOGIC: He is awake. ASSESSMENT AND PLAN: 1. Congestive heart failure secondary to fluid overload/diastolic dysfunction. 2. Atrial fibrillation. 3. Pneumonia. 4. Debility. RECOMMENDATIONS: Will continue with the current cardiac care. Digoxin and aspirin will be continue d. Physical therapy as tolerated. Beta orin as tolerated. Dictated By: CHARLOTTE SCHUMACHER MD AV/ZECHARIAH Conf#: [id number] DID#: [id number] CC: JULISA CONN DO;*EndCC*
[2016-03-22] MEDS: ASPIRIN 81 MG TAB PO SCH (09:41)
[2016-03-22] MEDS: POLYETHYLENE GLYCOL 17 GM PACKET PO SCH (09:41)
[2016-03-22] MEDS: PHENOBARBITAL 32.4 MG TAB PO SCH ×2 (09:41→20:47)
[2016-03-22] MEDS: LEVETIRACETAM 500 MG TAB PO SCH ×2 (09:41→20:47)
[2016-03-22] MEDS: CALCITRIOL 0.25 MCG CAP PO SCH (09:41)
[2016-03-22] MEDS: DOCUSATE SODIUM 100 MG CAP PO SCH (09:41)
[2016-03-22] MEDS: ENOXAPARIN 30 MG/0.3 ML SYG SC SCH (09:44)
--- NOTE | 2016-03-22 12:13 | HP ---
DATE OF ADMISSION: 03/21/2016 CHIEF COMPLAINT: Respiratory failure, debility. HISTORY OF PRESENT ILLNESS: This is an 81-year-old male with a past medical history of seizure diso rder, dyslipidemia who initially presented to [facility] on 03/09/2016 at that damon e with a diagnosis of pneumonia and congestive heart failure. The patient was admitted to the [facility] floor was seen by specialist, Dr. Jaramillo and Dr. East. The patient was on antibiotic therapy and IV diuretic therapy. During his hospital course, the patient showed initial clinical improvemen t; however, he went into atrial fibrillation with rapid rate and was decompensated again and went in to worsening congestive heart failure. The patient's diuretic therapy was augmented with clinical i mprovement. The patient was also seen by yarn sizer, Dr. Osman for his acute respiratory failu re. The patient after being stabilized, was transferred over to [facility] acute rehab for continued care. Upon my evaluation of the patient at this time, he is currently stable. Denies any nausea, vomiting , any fevers, chills. The patient is not complaining of any shortness of breath. No other events n oted. PAST MEDICAL HISTORY: As stated above, history of seizure disorder, dyslipidemia, AFib, debility, h istory of syncope. PAST SURGICAL HISTORY: None. ALLERGIES: NO KNOWN DRUG ALLERGIES. FAMILY HISTORY: No family history of kidney disease, heart disease. SOCIAL HISTORY: The patient lives at an assisted living facility. MEDICATIONS: Have been reviewed and reconciled. REVIEW OF SYSTEMS: A 14-point review of systems was conducted. Pertinent positives as stated in HP I, otherwise negative. PHYSICAL EXAMINATION: VITAL SIGNS: Blood pressure is 92/52, respirations 20, pulse 99, temperature 98.2. HEENT: Head is normocephalic. NECK: Supple. HEART: irregular. LUNGS: Show diminished breath sounds at base. ABDOMEN: Soft, nontender to palpation. No rebound or guarding. EXTREMITIES: Negative for clubbing, cyanosis, no edema. DERMATOLOGIC: No rashes. MUSCULOSKELETAL: No joint effusions. NEUROLOGIC: No change in exam. MEDICATIONS: The patient's medications have been reviewed. LABORATORY DATA: Sodium 137, potassium 3.9, chloride 96, bicarbonate 32, BUN 17, creatinine 0.08. White count 6.9, hemoglobin 11.1, hematocrit 33.9, platelet count is 457. ASSESSMENT AND PLAN: 1. Acute diastolic heart failure. The patient is clinically improving. Continue current medical m anagement. Continue diuretic therapy. 2. Acute hypoxemic respiratory failure secondary to congestive heart failure, pneumonia. The patie nt is clinically improving, is stable on 2 liters nasal cannula. Continue current diuretic regimen. The patient has completed an antibiotic course. 3. Atrial fibrillation, is rate controlled. Continue current treatment plan. 4. Sepsis secondary to pneumonia, the patient has improved. 5. Acute encephalopathy secondary to sepsis, heart failure. The patient's mental status has return ed to baseline. Continue to monitor. 6. Seizure disorder. Continue current medical management. 7. Anemia, monitor H and H levels. 8. General debility, continue PT, OT. 9. Gastrointestinal and deep venous thrombosis prophylaxis. Continue proton pump inhibitor and Lisa enox. Dictated By: JULISA DOSS/ZECHARIAH Conf#: [id number] DID#: [id number]
--- NOTE | 2016-03-22 13:32 | CONS ---
DATE OF ADMISSION: 03/21/2016 DATE OF CONSULTATION: 03/22/2016 REHABILITATION IMPAIRMENT CATEGORY: Pulmonary debility secondary to acute respiratory failure. ACTIVE COMORBIDITIES: 1. Toxic metabolic encephalopathy. 2. Seizure disorder. 3. Congestive heart failure. 4. Atrial fibrillation. 5. Status post sepsis. 6. Status post pneumonia. 7. Hypertension. 8. Anemia. 9. Impairments in self-care, mobility and cognition. HISTORY OF PRESENT ILLNESS: The patient is a pleasant 81-year-old right-handed gentleman with a his tory of multiple medical comorbidities, who was admitted to [facility] with signif icant increased shortness of breath. The patient was noted to have pneumonia and atrial fibrillatio n and ultimately respiratory failure. The patient's hospital course was also complicated by toxic m etabolic encephalopathy. The patient's pulmonary status gradually improved. The patient has now be en cleared to transfer to the rehabilitation unit for comprehensive interdisciplinary rehab care. FUNCTIONAL HISTORY: Prior to recent events, he was independent in self-care tasks and mobility. Cu rrently, he requires moderate assist for self-care and mobility tasks. I have reviewed the preadmission screen and the patient's current functional status is consistent wi th the preadmission screen. SOCIAL HISTORY: The patient lives at home and hopes to return home upon discharge. PAST MEDICAL HISTORY: 1. Seizure disorder. 2. Dyslipidemia. 3. Syncope. 4. Atrial fibrillation. 5. Hypertension. CURRENT MEDICATIONS: 1. Lasix 20 mg daily. 2. Levalbuterol inhaler. 3. Keppra 500 mg b.i.d. 4. Lopressor 25 b.i.d. 5. Protonix 40 mg p.o. daily. 6. Aspirin 81 mg p.o. daily. 7. Lipitor 10 mg p.o. at bedtime. 8. Rocaltrol 0.25 mcg p.o. q.a.m. 9. Digoxin 0.125 mg p.o. daily. 10. Colace 100 mg daily. 11. Lovenox 30 mg subcutaneous daily. 12. Luminal 64.8 mg p.o. b.i.d. 13. MiraLax p.r.n. ALLERGIES: THE PATIENT WITH NO KNOWN DRUG ALLERGIES. PHYSICAL EXAMINATION: VITAL SIGNS: The patient is currently afebrile with stable vital signs. HEENT: The extraocular motions are intact. Oropharynx clear. NECK: Supple. LUNGS: Clear anteriorly. CARDIAC: S1, S2. ABDOMEN: Soft, nontender, positive bowel sounds. NEUROLOGIC: He is awake and alert. He has a notable delayed thought processing speed, but can foll ow simple 1-step commands. He demonstrates antigravity strength in bilateral upper extremities and lower extremities. He has impaired dynamic balance. PLAN: The patient has been admitted for comprehensive interdisciplinary acute rehab and is anticipa cl to tolerate 3 hours of daily therapy in divided doses for at least 5/7 days a week. The treatme nt plan will include: 1. Physical therapy to focus on bed mobility, transfers, and household ambulation with the goal of having the patient reach a standby assist level. 2. Occupational therapy to focus on hygiene, grooming, dressing, bathing, and toileting activities with the goal of having the patient reach a standby assist level. 3. Speech therapy for full cognitive assessment and retraining with the goal of having the patient return to baseline cognition. 4. Rehabilitation nursing for carryover of therapeutic interventions, the goal of continent of [place] l and bladder, and the goal of the patient and family education with regards to the aforementioned i ssues. REHABILITATION BARRIER: Cognition. INTERVENTION FOR BARRIER: Speech therapy. ESTIMATED LENGTH OF STAY: 14 days. DISPOSITION GOAL: Home. I acknowledge that I have performed a full physical examination on this patient within 24 hours of a dmission to the rehabilitation unit. I believe the patient is a good candidate for comprehensive in terdisciplinary rehab care and is anticipated to make reasonable goals in a reasonable period of damon e as outlined above. Dictated By: MONISHA FALK/ZECHARIAH Conf#: [id number] DID#: [id number]
[2016-03-22] MEDS: DIGOXIN 0.125 MG TAB PO SCH (13:35)
[2016-03-22 19:32] VITALS: BP 106/60; RESP 19
[2016-03-22] MEDS: SENNA TAB PO SCH (20:47)
[2016-03-22] MEDS: ATORVASTATIN 10 MG TAB PO SCH (20:48)
[2016-03-23] MEDS: LEVALBUTEROL (NEB) 0.63 MG/3 ML AMP HHN SCH ×4 (02:05→20:41)
[2016-03-23] MEDS: FUROSEMIDE 20 MG INJ IV SCH (06:00)
[2016-03-23] MEDS: PANTOPRAZOLE (EC) 40 MG TAB PO SCH (06:21)
[2016-03-23 06:59] LABS: BASOPHILS % 0.6 % (0.0-2.0); EOSINOPHILS # 0.6 10^3/ul (0.0-0.5); EOSINOPHILS % 7.5 % (0.0-7.0); HEMATOCRIT 32.5 % (42.0-52.0); HEMOGLOBIN 10.7 g/dl (14.0-18.0); LYMPHOCYTES # 1.2 10^3/ul (0.8-2.9); LYMPHOCYTES % 15.4 % (15.0-51.0); MEAN CORPUSCULAR HGB CONC 32.8 g/dl (32.0-37.0); MEAN CORPUSCULAR VOLUME 82.2 fl (82.0-101.0); MEAN PLATELET VOLUME 7.6 fl (7.4-10.4); MONOCYTE # 0.6 10^3/ul (0.3-0.9); MONOCYTES % 7.5 % (0.0-11.0); NEUTROPHIL # 5.3 10^3/ul (1.6-7.5); PLATELET COUNT 430 10^3/UL (140-440); RED BLOOD COUNT 3.96 10^6/ul (4.70-6.10); RED CELL DISTRIBUTION WIDTH 21.9 % (11.5-14.5); UNCORRECTED WBC 7.7 10^3/ul (4.8-10.8); WHITE BLOOD COUNT 7.7 10^3/ul (4.8-10.8)
[2016-03-23 07:08] LABS: CREATININE 0.7 mg/dl (0.61-1.24)
[2016-03-23 07:09] LABS: MAGNESIUM 2.3 mg/dl (1.7-2.5); PHOSPHORUS 3.8 mg/dl (2.5-4.9)
[2016-03-23 07:18] LABS: CONDITION 1; LH ANALYZER COMMENTS 1; SUSPECT 1
[2016-03-23 07:30] VITALS: BP 103/53; RESP 20
[2016-03-23] MEDS: DOCUSATE SODIUM 100 MG CAP PO SCH (08:19)
[2016-03-23] MEDS: ASPIRIN 81 MG TAB PO SCH (08:19)
[2016-03-23] MEDS: POLYETHYLENE GLYCOL 17 GM PACKET PO SCH (08:19)
[2016-03-23] MEDS: LEVETIRACETAM 500 MG TAB PO SCH ×2 (08:19→21:18)
[2016-03-23] MEDS: METOPROLOL 25 MG TAB PO SCH ×2 (08:20→21:19)
[2016-03-23] MEDS: CALCITRIOL 0.25 MCG CAP PO SCH (08:20)
[2016-03-23] MEDS: PHENOBARBITAL 32.4 MG TAB PO SCH ×2 (08:20→21:19)
[2016-03-23] MEDS: ENOXAPARIN 30 MG/0.3 ML SYG SC SCH (08:22)
--- NOTE | 2016-03-23 10:12 | PN ---
DATE: 03/23/2016 CARDIOLOGY FOLLOWUP SUBJECTIVE: Rhythm strip discussed with the staff. The patient is in rehabilitation. No chest armando n or pressure. Her breathing has remained stable. He is still on low oxygen though. Denies any ch est pain or pressure to me. His cough has improved. MEDICATIONS: Reviewed as per medication reconciliation, personally reviewed. PHYSICAL EXAMINATION: VITAL SIGNS: Temperature 98.3, heart rate of 90, blood pressure 106/60, respiration rate of 20, sat urating 92% on 3 liter. HEENT: Normocephalic, atraumatic, no acute distress. Pupils are equal. CARDIOVASCULAR: Irregularly irregular. Systolic murmur. PULMONARY: Mild rhonchi, diffuse. GASTROINTESTINAL: Soft, nontender. EXTREMITIES: With trivial edema. NEUROLOGIC: Awake, responds appropriately. LABORATORY: WBC of 7.7, hemoglobin 10.7, platelets 430. Sodium 135, potassium 4, BUN of 16, creati nine 0.7, glucose 110. Albumin is 2.9. ASSESSMENT AND PLAN: 1. Congestive heart failure. 2. Fluid overload and diastolic dysfunction, currently has improved. 3. Atrial fibrillation, heart rate control. 4. Pneumonia, status post antibiotic treatment. 5. Debility. 6. History of seizure disorder. 7. Status post sepsis and pneumonia, currently improved. 8. Encephalopathy. 9. Anemia. RECOMMENDATIONS: I will change the Lasix to p.o. We will check electrolytes again tomorrow, w ill be checked tomorrow as well. For now, we will continue with aspirin, digoxin and beta orin a s tolerated. Dictated By: CHARLOTTE ADAME/ZECHARIAH Conf#: [id number] DID#: [id number] CC: JULISA CONN DO;*EndCC*
--- NOTE | 2016-03-23 11:12 | PN ---
DATE: 03/23/2016 SUBJECTIVE: The patient is stable, no acute events overnight. The patient was lethargic, sleeping this morning, but arousable. No other events noted. No hemoptysis, hematemesis or hematochezia. OBJECTIVE: VITAL SIGNS: Blood pressure 103/53, respirations 20, pulse 71, temperature 98.6. HEENT: Head is normocephalic. NECK: Supple. HEART: Regular rate. LUNGS: Show diminished breath sounds at base. ABDOMEN: Soft, nontender to palpation. No rebound or guarding. EXTREMITIES: Negative for clubbing, cyanosis, no edema. DERMATOLOGIC: No rashes. MUSCULOSKELETAL: No joint effusions. NEUROLOGIC: No change in exam. MEDICATIONS: The patient's medications have been reviewed. LABORATORY DATA: Showed sodium 135, potassium 4.0, chloride 95, BUN 16, creatinine 0.70. White cou nt 7.7, hemoglobin 10.7, hematocrit 32.5, platelet count is 430. ASSESSMENT AND PLAN 1. Acute diastolic heart failure. The patient is clinically improving. Continue medical managemen t. Continue diuretic therapy. 2. Acute hypoxemic respiratory failure secondary to congestive heart failure pneumonia. The patien t is currently stable on 2 to 3 liters nasal cannula and will continue current diuretic regimen. 3. Atrial fibrillation, rate controlled. Continue current medical management. The patient is not an anticoagulation candidate due to fall risk. 4. Sepsis secondary to pneumonia. The patient is completing antibiotic course. Continue to monito r. 5. Acute encephalopathy, improving. The patient returned to baseline. 6. Seizure disorder. Continue phenobarbital. Continue Keppra. 7. Anemia. Continue to monitor hemoglobin and hematocrit levels. 8. General debility. Continue PT, OT. 9. Gastrointestinal and deep venous thrombosis prophylaxis. Continue proton pump inhibitor and Lisa enox. Dictated By: JULISA DOSS/ZECHARIAH Conf#: [id number] DID#: [id number]
[2016-03-23] MEDS: DIGOXIN 0.125 MG TAB PO SCH (12:16)
--- NOTE | 2016-03-23 12:27 | CONS ---
Date/Time of Note Date/Time of Note DATE: 03/23/16 TIME: 12:26 Consult Date/Type/Reason Admit Date/Time Mar 21, 2016 at 15:05 Initial Consult Date Subjective Up for activities Objective mod assist 10 feet Vital Signs Date Time Temp Pulse Resp B/P Pulse Ox O2 Delivery O2 Flow Rate FiO2 03/23/16 09:34 3.0 03/23/16 09:31 92 20 93 Nasal Cannula 03/23/16 07:30 98.6 103/53 03/22/16 01:47 28 Intake and Output 03/22/16 03/22/16 03/23/16 15:00 23:00 07:00 Intake Total 340 ml 100 ml 260 ml Output Total 300 ml 300 ml 1150 ml Balance 40 ml -200 ml -890 ml Results/Medications Result Diagram: 03/23/16 0605 03/23/16 0605 Results 24 hrs Laboratory Tests Test 03/23/16 06:05 Anion Gap 13 Basophils # 0.0 Basophils % 0.6 Blood Morphology Comment Blood Urea Nitrogen 16 Calcium Level 8.0 L Carbon Dioxide Level 31 Chloride Level 95 L Creatinine 0.70 Digoxin Level 0.7 L Eosinophils # 0.6 H Eosinophils % 7.5 H Glucose Level 110 Hematocrit 32.5 L Hemoglobin 10.7 L Lymphocytes # 1.2 Lymphocytes % 15.4 Magnesium Level 2.3 Mean Corpuscular Hemoglobin 27.0 L Mean Corpuscular Hemoglobin Concent 32.8 Mean Corpuscular Volume 82.2 Mean Platelet Volume 7.6 Monocytes # 0.6 Monocytes % 7.5 Neutrophils # 5.3 Neutrophils % 69.0 Nucleated Red Blood Cells # 0.0 Nucleated Red Blood Cells % 0.0 Phosphorus Level 3.8 Platelet Count 430 Potassium Level 4.0 Red Blood Count 3.96 L Red Cell Distribution Width 21.9 H Sodium Level 135 White Blood Count 7.7 Medications Current Medications Acetaminophen (Tylenol Tab) 650 mg Q4H PRN PO PAIN AND OR ELEVATED TEMP; Start 03/21/16 at 16:00 Aspirin (Aspirin) 81 mg DAILY PO Last administered on 03/23/16 08:19; Admin Dose 81 MG; Start 03/22/16 at 09:00 Atorvastatin Calcium (Lipitor) 10 mg HS PO Last administered on 03/22/16 20:48 ; Admin Dose 10 MG; Start 03/21/16 at 21:00 Calcitriol (Rocaltrol) 0.25 mcg QAM PO Last administered on 03/23/16 08:20; Admin Dose 0.25 MCG; Start 03/22/16 at 09:00 Digoxin (Digoxin) 0.125 mg DAILY@13 PO Last administered on 03/23/16 12:16; Admin Dose 0.125 MG; Start 03/22/16 at 13:00 Docusate Sodium (Colace) 100 mg DAILY PO Last administered on 03/23/16 08:19; Admin Dose 100 MG; Start 03/22/16 at 09:00 Enoxaparin Sodium (Lovenox) 30 mg DAILY SC Last administered on 03/23/16 08:22 ; Admin Dose 30 MG; Start 03/22/16 at 09:00 Guaifenesin/ Codeine Phosphate (Robitussin Ac Liquid Cup) 5 ml Q6H PRN PO Cough ; Start 03/21/16 at 16:00 Levetiracetam (Keppra) 500 mg BID PO Last administered on 03/23/16 08:19; Admin Dose 500 MG; Start 03/21/16 at 21:00 Magnesium Hydroxide (Milk Of Mag) 30 ml BID PRN PO CONSTIPATION Last administered on 03/22/16 06:28; Admin Dose 30 ML; Start 03/21/16 at 16:00 Metoprolol Tartrate (Lopressor) 25 mg BID PO Last administered on 03/22/16 20: 50; Admin Dose 25 MG; Start 03/21/16 at 21:00 Ondansetron HCl (Zofran Inj) 4 mg Q6H PRN IV NAUSEA AND/OR VOMITING; Start at 16:30 Pantoprazole (Protonix Tab) 40 mg DAILY@06 PO Last administered on 03/23/16 06 :21; Admin Dose 40 MG; Start 03/22/16 at 06:00 Phenobarbital (Luminal) 64.8 mg BID PO Last administered on 03/23/16 08:20; Admin Dose 64.8 MG; Start 03/21/16 at 21:00 Polyethylene Glycol (Miralax) 17 gm DAILY PO Last administered on 03/23/16 08: 19; Admin Dose 17 GM; Start 03/22/16 at 09:00 Senna (Senokot) 1 tab HS PO Last administered on 03/22/16t 20:47; Admin Dose 1 TAB; Start 03/21/16 at 21:00 Bisacodyl (Dulcolax Supp) 10 mg DAILY PRN [place] CONSTIPATION; Start 03/21/16 at 17 :30 Lactulose (Enulose) 20 gm DAILY PRN PO CONSTIPATION; Start 03/21/16 at 17:30 Assessment/Plan Additional Assessment/Plan Rehab- Pulmonary debility secondary to acute respiratory failure. Continue treatment Toxic metabolic encephalopathy. Seizure disorder. Congestive heart failure. Atrial fibrillation. Status post sepsis. Status post pneumonia. Hypertension. Anemia. MONISHA GALVIN MD Mar 23, 2016 12:27
[2016-03-23] MEDS: FUROSEMIDE 40 MG TAB PO SCH (17:30)
[2016-03-23 20:43] VITALS: BP 107/57; RESP 18
[2016-03-23] MEDS: SENNA TAB PO SCH (21:18)
[2016-03-23] MEDS: ATORVASTATIN 10 MG TAB PO SCH (21:18)
[2016-03-24] MEDS: LEVALBUTEROL (NEB) 0.63 MG/3 ML AMP HHN SCH ×4 (01:46→21:04)
[2016-03-24] MEDS: FUROSEMIDE 40 MG TAB PO SCH ×2 (06:00→17:39)
[2016-03-24] MEDS: PANTOPRAZOLE (EC) 40 MG TAB PO SCH (06:11)
[2016-03-24 08:14] LABS: BASOPHILS % 0.6 % (0.0-2.0); EOSINOPHILS # 0.6 10^3/ul (0.0-0.5); EOSINOPHILS % 10.5 % (0.0-7.0); HEMOGLOBIN 10.4 g/dl (14.0-18.0); LYMPHOCYTES # 1.4 10^3/ul (0.8-2.9); LYMPHOCYTES % 23.7 % (15.0-51.0); MEAN CORPUSCULAR HEMOGLOBIN 27.1 pg (29.0-33.0); MEAN CORPUSCULAR HGB CONC 32.4 g/dl (32.0-37.0); MEAN CORPUSCULAR VOLUME 83.4 fl (82.0-101.0); MEAN PLATELET VOLUME 7.8 fl (7.4-10.4); MONOCYTE # 0.6 10^3/ul (0.3-0.9); MONOCYTES % 9.9 % (0.0-11.0); NEUTROPHIL # 3.2 10^3/ul (1.6-7.5); NEUTROPHILS % 55.3 % (39.0-77.0); PLATELET COUNT 385 10^3/UL (140-440); RED BLOOD COUNT 3.84 10^6/ul (4.70-6.10); RED CELL DISTRIBUTION WIDTH 24.7 % (11.5-14.5); UNCORRECTED WBC 5.8 10^3/ul (4.8-10.8); WHITE BLOOD COUNT 5.8 10^3/ul (4.8-10.8)
[2016-03-24 08:25] LABS: ALBUMIN 2.8 g/dl (3.3-4.9); POTASSIUM 3.9 mmol/L (3.5-5.1)
[2016-03-24 08:27] LABS: CREATININE 0.69 mg/dl (0.61-1.24)
[2016-03-24 08:28] LABS: ALBUMIN/GLOBULIN RATIO 0.7; MAGNESIUM 2.3 mg/dl (1.7-2.5); TOTAL PROTEIN 6.8 g/dl (6.1-8.1)
[2016-03-24 08:35] LABS: CONDITION 1; LH ANALYZER COMMENTS 1
[2016-03-24] MEDS: LEVETIRACETAM 500 MG TAB PO SCH ×2 (08:36→20:39)
[2016-03-24] MEDS: POLYETHYLENE GLYCOL 17 GM PACKET PO SCH (08:36)
[2016-03-24] MEDS: CALCITRIOL 0.25 MCG CAP PO SCH (08:36)
[2016-03-24] MEDS: ENOXAPARIN 30 MG/0.3 ML SYG SC SCH (08:36)
[2016-03-24] MEDS: PHENOBARBITAL 32.4 MG TAB PO SCH ×2 (08:37→20:40)
[2016-03-24] MEDS: ASPIRIN 81 MG TAB PO SCH (08:37)
[2016-03-24] MEDS: DOCUSATE SODIUM 100 MG CAP PO SCH (08:37)
[2016-03-24] MEDS: METOPROLOL 25 MG TAB PO SCH ×2 (08:38→20:40)
[2016-03-24 08:58] VITALS: BP 98/57; RESP 18
[2016-03-24 09:00] VITALS: BP 98/52; PULSE 71; RESP 18
--- NOTE | 2016-03-24 09:40 | CONS ---
Date/Time of Note Date/Time of Note DATE: 03/24/16 TIME: 09:40 Consult Date/Type/Reason Admit Date/Time Mar 21, 2016 at 15:05 Initial Consult Date Subjective no new c/o d/w rn. Objective Vital Signs Date Time Temp Pulse Resp B/P Pulse Ox O2 Delivery O2 Flow Rate FiO2 03/24/16 08:58 98.0 71 18 98/57 97 03/24/16 01:47 3.0 03/24/16 01:47 Nasal Cannula 03/22/16 01:47 28 Intake and Output 03/23/16 03/23/16 03/24/16 15:00 23:00 07:00 Intake Total 240 ml 660 ml Output Total 1050 ml 1230 ml Balance -810 ml -570 ml HEENT: Head is normocephalic. NECK: Supple. HEART: Regular rate. LUNGS: Show diminished breath sounds at base. ABDOMEN: Soft, nontender to palpation. No rebound or guarding. EXTREMITIES: Negative for clubbing, cyanosis, no edema. DERMATOLOGIC: No rashes. MUSCULOSKELETAL: No joint effusions. NEUROLOGIC: No change in exam. Results/Medications Result Diagram: 03/24/16 0550 03/24/16 0550 Results 24 hrs Laboratory Tests Test 03/24/16 05:50 Alanine Aminotransferase (ALT/SGPT) 58 Albumin 2.8 L Albumin/Globulin Ratio 0.70 Alkaline Phosphatase 111 Anion Gap 12 Aspartate Amino Transf (AST/SGOT) 59 H B-Type Natriuretic Peptide 741 H Basophils # 0.0 Basophils % 0.6 Blood Morphology Comment Blood Urea Nitrogen 11 Calcium Level 8.0 L Carbon Dioxide Level 32 H Chloride Level 96 L Creatinine 0.69 Direct Bilirubin 0.00 Eosinophils # 0.6 H Eosinophils % 10.5 H Globulin 4.00 H Glucose Level 97 Hematocrit 32.0 L Hemoglobin 10.4 L Indirect Bilirubin 0.0 Lymphocytes # 1.4 Lymphocytes % 23.7 Magnesium Level 2.3 Mean Corpuscular Hemoglobin 27.1 L Mean Corpuscular Hemoglobin Concent 32.4 Mean Corpuscular Volume 83.4 Mean Platelet Volume 7.8 Monocytes # 0.6 Monocytes % 9.9 Neutrophils # 3.2 Neutrophils % 55.3 Nucleated Red Blood Cells # 0.0 Nucleated Red Blood Cells % 0.0 Platelet Count 385 Potassium Level 3.9 Red Blood Count 3.84 L Red Cell Distribution Width 24.7 H Sodium Level 136 Total Bilirubin 0.0 L Total Protein 6.8 White Blood Count 5.8 # Medications Current Medications Acetaminophen (Tylenol Tab) 650 mg Q4H PRN PO PAIN AND OR ELEVATED TEMP; Start 03/21/16 at 16:00 Aspirin (Aspirin) 81 mg DAILY PO Last administered on 03/24/16 08:37; Admin Dose 81 MG; Start 03/22/16 at 09:00 Atorvastatin Calcium (Lipitor) 10 mg HS PO Last administered on 03/23/16 21:18 ; Admin Dose 10 MG; Start 03/21/16 at 21:00 Calcitriol (Rocaltrol) 0.25 mcg QAM PO Last administered on 03/24/16 08:36; Admin Dose 0.25 MCG; Start 03/22/16 at 09:00 Digoxin (Digoxin) 0.125 mg DAILY@13 PO Last administered on 03/23/16 12:16; Admin Dose 0.125 MG; Start 03/22/16 at 13:00 Docusate Sodium (Colace) 100 mg DAILY PO Last administered on 03/24/16 08:37; Admin Dose 100 MG; Start 03/22/16 at 09:00 Enoxaparin Sodium (Lovenox) 30 mg DAILY SC Last administered on 03/24/16 08:36 ; Admin Dose 30 MG; Start 03/22/16 at 09:00 Guaifenesin/ Codeine Phosphate (Robitussin Ac Liquid Cup) 5 ml Q6H PRN PO Cough ; Start 03/21/16 at 16:00 Levetiracetam (Keppra) 500 mg BID PO Last administered on 03/24/16 08:36; Admin Dose 500 MG; Start 03/21/16 at 21:00 Magnesium Hydroxide (Milk Of Mag) 30 ml BID PRN PO CONSTIPATION Last administered on 03/22/16 06:28; Admin Dose 30 ML; Start 03/21/16 at 16:00 Metoprolol Tartrate (Lopressor) 25 mg BID PO Last administered on 03/23/16 21: 19; Admin Dose 25 MG; Start 03/21/16 at 21:00 Ondansetron HCl (Zofran Inj) 4 mg Q6H PRN IV NAUSEA AND/OR VOMITING; Start at 16:30 Pantoprazole (Protonix Tab) 40 mg DAILY@06 PO Last administered on 03/24/16 06 :11; Admin Dose 40 MG; Start 03/22/16 at 06:00 Phenobarbital (Luminal) 64.8 mg BID PO Last administered on 03/24/16 08:37; Admin Dose 64.8 MG; Start 03/21/16 at 21:00 Polyethylene Glycol (Miralax) 17 gm DAILY PO Last administered on 03/24/16 08: 36; Admin Dose 17 GM; Start 03/22/16 at 09:00 Senna (Senokot) 1 tab HS PO Last administered on 03/23/16 21:18; Admin Dose 1 TAB; Start 03/21/16 at 21:00 Bisacodyl (Dulcolax Supp) 10 mg DAILY PRN [place] CONSTIPATION; Start 03/21/16 at 17 :30 Lactulose (Enulose) 20 gm DAILY PRN PO CONSTIPATION; Start 03/21/16 at 17:30 Assessment/Plan Chief Complaint/Hosp Course 1. Acute diastolic heart failure. The patient is clinically improving. Continue medical management. Continue diuretic therapy. 2. Acute hypoxemic respiratory failure secondary to congestive heart failure pneumonia. The patient is currently stable on 2 to 3 liters nasal cannula and will continue current diuretic regimen. 3. Atrial fibrillation, rate controlled. Continue current medical management. The patient is not an anticoagulation candidate due to fall risk. 4. Sepsis secondary to pneumonia. The patient is completing antibiotic course. Continue to monitor. 5. Acute encephalopathy, improving. The patient returned to baseline. 6. Seizure disorder. Continue phenobarbital. Continue Keppra. 7. Anemia. Continue to monitor hemoglobin and hematocrit levels. 8. General debility. Continue PT, OT. 9. Gastrointestinal and deep venous thrombosis prophylaxis. Continue proton pump inhibitor and Lovenox. Problems: NINFA MONTELONGO MD Mar 24, 2016 09:40
--- NOTE | 2016-03-24 10:13 | CONS ---
Date/Time of Note Date/Time of Note DATE: 03/24/16 TIME: 10:13 Consult Date/Type/Reason Admit Date/Time Mar 21, 2016 at 15:05 Subjective No New complaints Objective pulm-cta mod assist 50 feet Vital Signs Date Time Temp Pulse Resp B/P Pulse Ox O2 Delivery O2 Flow Rate FiO2 03/24/16 09:30 80 17 94 Nasal Cannula 4.0 03/24/16 08:58 98.0 98/57 03/22/16 01:47 28 Intake and Output 03/23/16 03/23/16 03/24/16 15:00 23:00 07:00 Intake Total 240 ml 660 ml Output Total 1050 ml 1230 ml Balance -810 ml -570 ml Results/Medications Result Diagram: 03/24/16 0550 03/24/16 0550 Results 24 hrs Laboratory Tests Test 03/24/16 05:50 Alanine Aminotransferase (ALT/SGPT) 58 Albumin 2.8 L Albumin/Globulin Ratio 0.70 Alkaline Phosphatase 111 Anion Gap 12 Aspartate Amino Transf (AST/SGOT) 59 H B-Type Natriuretic Peptide 741 H Basophils # 0.0 Basophils % 0.6 Blood Morphology Comment Blood Urea Nitrogen 11 Calcium Level 8.0 L Carbon Dioxide Level 32 H Chloride Level 96 L Creatinine 0.69 Direct Bilirubin 0.00 Eosinophils # 0.6 H Eosinophils % 10.5 H Globulin 4.00 H Glucose Level 97 Hematocrit 32.0 L Hemoglobin 10.4 L Indirect Bilirubin 0.0 Lymphocytes # 1.4 Lymphocytes % 23.7 Magnesium Level 2.3 Mean Corpuscular Hemoglobin 27.1 L Mean Corpuscular Hemoglobin Concent 32.4 Mean Corpuscular Volume 83.4 Mean Platelet Volume 7.8 Monocytes # 0.6 Monocytes % 9.9 Neutrophils # 3.2 Neutrophils % 55.3 Nucleated Red Blood Cells # 0.0 Nucleated Red Blood Cells % 0.0 Platelet Count 385 Potassium Level 3.9 Red Blood Count 3.84 L Red Cell Distribution Width 24.7 H Sodium Level 136 Total Bilirubin 0.0 L Total Protein 6.8 White Blood Count 5.8 # Medications Current Medications Acetaminophen (Tylenol Tab) 650 mg Q4H PRN PO PAIN AND OR ELEVATED TEMP; Start 03/21/16 at 16:00 Aspirin (Aspirin) 81 mg DAILY PO Last administered on 03/24/16t 08:37; Admin Dose 81 MG; Start 03/22/16 at 09:00 Atorvastatin Calcium (Lipitor) 10 mg HS PO Last administered on 03/23/16 21:18 ; Admin Dose 10 MG; Start 03/21/16 at 21:00 Calcitriol (Rocaltrol) 0.25 mcg QAM PO Last administered on 03/24/16 08:36; Admin Dose 0.25 MCG; Start 03/22/16 at 09:00 Digoxin (Digoxin) 0.125 mg DAILY@13 PO Last administered on 03/23/16 12:16; Admin Dose 0.125 MG; Start 03/22/16 at 13:00 Docusate Sodium (Colace) 100 mg DAILY PO Last administered on 03/24/16 08:37; Admin Dose 100 MG; Start 03/22/16 at 09:00 Enoxaparin Sodium (Lovenox) 30 mg DAILY SC Last administered on 03/24/16 08:36 ; Admin Dose 30 MG; Start 03/22/16 at 09:00 Guaifenesin/ Codeine Phosphate (Robitussin Ac Liquid Cup) 5 ml Q6H PRN PO Cough ; Start 03/21/16 at 16:00 Levetiracetam (Keppra) 500 mg BID PO Last administered on 03/24/16 08:36; Admin Dose 500 MG; Start 03/21/16 at 21:00 Magnesium Hydroxide (Milk Of Mag) 30 ml BID PRN PO CONSTIPATION Last administered on 03/22/16 06:28; Admin Dose 30 ML; Start 03/21/16 at 16:00 Metoprolol Tartrate (Lopressor) 25 mg BID PO Last administered on 03/23/16 21: 19; Admin Dose 25 MG; Start 03/21/16 at 21:00 Ondansetron HCl (Zofran Inj) 4 mg Q6H PRN IV NAUSEA AND/OR VOMITING; Start at 16:30 Pantoprazole (Protonix Tab) 40 mg DAILY@06 PO Last administered on 03/24/16 06 :11; Admin Dose 40 MG; Start 03/22/16 at 06:00 Phenobarbital (Luminal) 64.8 mg BID PO Last administered on 03/24/16 08:37; Admin Dose 64.8 MG; Start 1/18/17 at 21:00 Polyethylene Glycol (Miralax) 17 gm DAILY PO Last administered on 03/24/16 08: 36; Admin Dose 17 GM; Start 03/22/16 at 09:00 Senna (Senokot) 1 tab HS PO Last administered on 03/23/16 21:18; Admin Dose 1 TAB; Start 03/21/16 at 21:00 Bisacodyl (Dulcolax Supp) 10 mg DAILY PRN [place] CONSTIPATION; Start 03/21/16 at 17 :30 Lactulose (Enulose) 20 gm DAILY PRN PO CONSTIPATION; Start 03/21/16 at 17:30 Assessment/Plan Additional Assessment/Plan Rehab- Pulmonary debility secondary to acute respiratory failure. Continue rehab program Toxic metabolic encephalopathy. Seizure disorder. Congestive heart failure. Atrial fibrillation. Status post sepsis. Status post pneumonia. Hypertension. Anemia. MONISHA GALVIN MD Mar 24, 2016 10:13
[2016-03-24] MEDS: DIGOXIN 0.125 MG TAB PO SCH (12:56)
[2016-03-24 20:33] VITALS: BP 98/50; RESP 18
[2016-03-24] MEDS: ATORVASTATIN 10 MG TAB PO SCH (20:39)
[2016-03-24] MEDS: SENNA TAB PO SCH (21:00)
[2016-03-25] MEDS: LEVALBUTEROL (NEB) 0.63 MG/3 ML AMP HHN SCH ×4 (01:57→20:05)
[2016-03-25] MEDS: FUROSEMIDE 40 MG TAB PO SCH ×2 (05:49→17:07)
[2016-03-25] MEDS: PANTOPRAZOLE (EC) 40 MG TAB PO SCH (05:50)
[2016-03-25 07:30] VITALS: BP 102/57; RESP 20
[2016-03-25] MEDS: METOPROLOL 25 MG TAB PO SCH ×2 (09:00→20:27)
[2016-03-25] MEDS: POLYETHYLENE GLYCOL 17 GM PACKET PO SCH (09:03)
[2016-03-25] MEDS: ENOXAPARIN 30 MG/0.3 ML SYG SC SCH (09:03)
[2016-03-25] MEDS: PHENOBARBITAL 32.4 MG TAB PO SCH ×2 (09:04→20:26)
[2016-03-25] MEDS: ASPIRIN 81 MG TAB PO SCH (09:04)
[2016-03-25] MEDS: CALCITRIOL 0.25 MCG CAP PO SCH (09:04)
[2016-03-25] MEDS: LEVETIRACETAM 500 MG TAB PO SCH ×2 (09:06→20:26)
[2016-03-25] MEDS: DOCUSATE SODIUM 100 MG CAP PO SCH (09:06)
--- NOTE | 2016-03-25 10:09 | CONS ---
Date/Time of Note Date/Time of Note DATE: 03/25/16 TIME: 10:08 Consult Date/Type/Reason Admit Date/Time Mar 21, 2016 at 15:05 Type of Consultation: nephrology Subjective all noted d/w rn no cp/sob/n/v/f/c. Objective Vital Signs Date Time Temp Pulse Resp B/P Pulse Ox O2 Delivery O2 Flow Rate FiO2 03/25/16 09:00 80 17 96 Nasal Cannula 3.0 03/24/16 20:33 98.4 98/50 03/22/16 01:47 28 Intake and Output 03/24/16 03/24/16 03/25/16 15:00 23:00 07:00 Intake Total 600 ml 840 ml 300 ml Output Total 100 ml 800 ml 1650 ml Balance 500 ml 40 ml -1350 ml HEENT: Head is normocephalic. NECK: Supple. HEART: Regular rate. LUNGS: Show diminished breath sounds at base. ABDOMEN: Soft, nontender to palpation. No rebound or guarding. EXTREMITIES: Negative for clubbing, cyanosis, no edema. DERMATOLOGIC: No rashes. MUSCULOSKELETAL: No joint effusions. NEUROLOGIC: No change in exam. Results/Medications Result Diagram: 03/24/16 0550 03/24/16 0550 Medications Current Medications Acetaminophen (Tylenol Tab) 650 mg Q4H PRN PO PAIN AND OR ELEVATED TEMP; Start 03/21/16 at 16:00 Aspirin (Aspirin) 81 mg DAILY PO Last administered on 03/25/16 09:04; Admin Dose 81 MG; Start 03/22/16 at 09:00 Atorvastatin Calcium (Lipitor) 10 mg HS PO Last administered on 03/24/16 20:39 ; Admin Dose 10 MG; Start 03/21/16 at 21:00 Calcitriol (Rocaltrol) 0.25 mcg QAM PO Last administered on 03/25/16 09:04; Admin Dose 0.25 MCG; Start 03/22/16 at 09:00 Digoxin (Digoxin) 0.125 mg DAILY@13 PO Last administered on 03/24/16 12:56; Admin Dose 0.125 MG; Start 03/22/16 at 13:00 Docusate Sodium (Colace) 100 mg DAILY PO Last administered on 03/25/16 09:06; Admin Dose 100 MG; Start 03/22/16 at 09:00 Enoxaparin Sodium (Lovenox) 30 mg DAILY SC Last administered on 03/25/16 09:03 ; Admin Dose 30 MG; Start 03/22/16 at 09:00 Guaifenesin/ Codeine Phosphate (Robitussin Ac Liquid Cup) 5 ml Q6H PRN PO Cough ; Start 03/21/16 at 16:00 Levetiracetam (Keppra) 500 mg BID PO Last administered on 03/25/16 09:06; Admin Dose 500 MG; Start 03/21/16 at 21:00 Magnesium Hydroxide (Milk Of Mag) 30 ml BID PRN PO CONSTIPATION Last administered on 03/22/16 06:28; Admin Dose 30 ML; Start 03/21/16 at 16:00 Metoprolol Tartrate (Lopressor) 25 mg BID PO Last administered on 03/23/16 21: 19; Admin Dose 25 MG; Start 03/21/16 at 21:00 Ondansetron HCl (Zofran Inj) 4 mg Q6H PRN IV NAUSEA AND/OR VOMITING; Start at 16:30 Pantoprazole (Protonix Tab) 40 mg DAILY@06 PO Last administered on 03/25/16 05 :50; Admin Dose 40 MG; Start 03/22/16 at 06:00 Phenobarbital (Luminal) 64.8 mg BID PO Last administered on 03/25/16 09:04; Admin Dose 64.8 MG; Start 03/21/16 at 21:00 Polyethylene Glycol (Miralax) 17 gm DAILY PO Last administered on 03/25/16 09: 03; Admin Dose 17 GM; Start 03/22/16 at 09:00 Senna (Senokot) 1 tab HS PO Last administered on 03/23/16 21:18; Admin Dose 1 TAB; Start 03/21/16 at 21:00 Bisacodyl (Dulcolax Supp) 10 mg DAILY PRN [place] CONSTIPATION; Start 03/21/16 at 17 :30 Lactulose (Enulose) 20 gm DAILY PRN PO CONSTIPATION; Start 03/21/16 at 17:30 Assessment/Plan Chief Complaint/Hosp Course 1. Acute diastolic heart failure. The patient is clinically improving. Continue medical management. Continue diuretic therapy. 2. Acute hypoxemic respiratory failure secondary to congestive heart failure pneumonia. The patient is currently stable on 2 to 3 liters nasal cannula and will continue current diuretic regimen. 3. Atrial fibrillation, rate controlled. Continue current medical management. The patient is not an anticoagulation candidate due to fall risk. 4. Sepsis secondary to pneumonia. The patient is completing antibiotic course. Continue to monitor. 5. Acute encephalopathy, improving. The patient returned to baseline. 6. Seizure disorder. Continue phenobarbital. Continue Keppra. 7. Anemia. Continue to monitor hemoglobin and hematocrit levels. 8. General debility. Continue PT, OT. 9. Gastrointestinal and deep venous thrombosis prophylaxis. Continue proton pump inhibitor and Lovenox. Problems: NINFA MONTELONGO MD Mar 25, 2016 10:09
[2016-03-25] MEDS: DIGOXIN 0.125 MG TAB PO SCH (12:42)
--- NOTE | 2016-03-25 18:40 | PN ---
DATE: 03/25/2016 CARDIOLOGY FOLLOWUP SUBJECTIVE: Discussed with the staff. ____ cardiac event. The patient with no chest pain or press ure. Still on oxygen, but remains stable. Heart rate has remained stable. MEDICATIONS: Reviewed. PHYSICAL EXAMINATION: VITAL SIGNS: Temperature 98.4, heart rate of 83, blood pressure 98/50, respiratory rate of 17. Sat urating 96%. HEENT: Normocephalic, atraumatic. Pupils are equal. CARDIOVASCULAR: Irregularly irregular. Systolic murmur. PULMONARY: With no wheezes. Now mild rhonchi at the base. GASTROINTESTINAL: Soft, nontender. EXTREMITIES: No edema. NEUROLOGIC: Awake, responds appropriately. LABORATORY: Not done today. ASSESSMENT AND PLAN: 1. Congestive heart failure. 2. Atrial fibrillation. 3. Pneumonia. 4. Debility. 5. History of seizure disorder. RECOMMENDATIONS: We will continue with the current cardiac care. Continue physical therapy and sabra abilitation. Dictated By: CHARLOTTE SCHUMACHER MD AV/NTS Conf#: [id number] DID#: [id number] CC: MONISHA GALVIN MD; NINFA MONTELONGO MD;*EndCC*
[2016-03-25 20:00] VITALS: BP 98/56; PULSE 96
[2016-03-25] MEDS: SENNA TAB PO SCH (20:26)
[2016-03-25] MEDS: ATORVASTATIN 10 MG TAB PO SCH (20:26)
[2016-03-25 22:06] VITALS: BP 106/51; RESP 20
[2016-03-26] MEDS: LEVALBUTEROL (NEB) 0.63 MG/3 ML AMP HHN SCH ×4 (02:00→19:37)
[2016-03-26] MEDS: PANTOPRAZOLE (EC) 40 MG TAB PO SCH (05:56)
[2016-03-26] MEDS: FUROSEMIDE 40 MG TAB PO SCH ×2 (05:57→17:34)
[2016-03-26 07:30] VITALS: BP 115/58; RESP 20
[2016-03-26 08:00] VITALS: BP 115/58; PULSE 75
[2016-03-26 08:03] LABS: POTASSIUM 4.1 mmol/L (3.5-5.1)
[2016-03-26 08:06] LABS: CREATININE 0.71 mg/dl (0.61-1.24)
[2016-03-26 08:07] LABS: CALCIUM 8.2 mg/dl (8.4-10.2); MAGNESIUM 2.2 mg/dl (1.7-2.5); PHOSPHORUS 3.9 mg/dl (2.5-4.9)
[2016-03-26 08:13] LABS: BASOPHILS % 0.6 % (0.0-2.0); EOSINOPHILS # 0.7 10^3/ul (0.0-0.5); EOSINOPHILS % 10.4 % (0.0-7.0); HEMATOCRIT 32.9 % (42.0-52.0); HEMOGLOBIN 10.8 g/dl (14.0-18.0); LYMPHOCYTES # 1.3 10^3/ul (0.8-2.9); LYMPHOCYTES % 18.4 % (15.0-51.0); MEAN CORPUSCULAR HEMOGLOBIN 27.6 pg (29.0-33.0); MEAN CORPUSCULAR HGB CONC 32.9 g/dl (32.0-37.0); MEAN CORPUSCULAR VOLUME 83.9 fl (82.0-101.0); MEAN PLATELET VOLUME 7.8 fl (7.4-10.4); MONOCYTE # 0.6 10^3/ul (0.3-0.9); MONOCYTES % 8.6 % (0.0-11.0); NEUTROPHIL # 4.3 10^3/ul (1.6-7.5); PLATELET COUNT 416 10^3/UL (140-440); RED BLOOD COUNT 3.92 10^6/ul (4.70-6.10); RED CELL DISTRIBUTION WIDTH 23.9 % (11.5-14.5)
[2016-03-26 08:28] LABS: CONDITION 1; LH ANALYZER COMMENTS 1
[2016-03-26] MEDS: POLYETHYLENE GLYCOL 17 GM PACKET PO SCH (08:38)
[2016-03-26] MEDS: ASPIRIN 81 MG TAB PO SCH (08:38)
[2016-03-26] MEDS: PHENOBARBITAL 32.4 MG TAB PO SCH ×2 (08:39→20:39)
[2016-03-26] MEDS: METOPROLOL 25 MG TAB PO SCH ×2 (08:39→20:39)
[2016-03-26] MEDS: CALCITRIOL 0.25 MCG CAP PO SCH (08:39)
[2016-03-26] MEDS: LEVETIRACETAM 500 MG TAB PO SCH ×2 (08:39→20:38)
[2016-03-26] MEDS: DOCUSATE SODIUM 100 MG CAP PO SCH (08:40)
[2016-03-26] MEDS: ENOXAPARIN 30 MG/0.3 ML SYG SC SCH (08:45)
--- NOTE | 2016-03-26 10:11 | PN ---
DATE: 03/26/2016 SUBJECTIVE: The patient is stable, no acute events overnight. No fevers, chills, nausea or vomitin g. No shortness of breath. OBJECTIVE: VITAL SIGNS: Blood pressure 106/51, respirations 20, pulse 80, temperature 98.1, the patient is sat urating 98% on 3 liters nasal cannula. HEENT: Head is normocephalic. HEART: Irregularly irregular. LUNGS: Show diminished breath sounds at base. ABDOMEN: Soft, nontender to palpation without rebound or guarding. EXTREMITIES: Negative for clubbing, cyanosis, edema. DERMATOLOGIC: No rashes. MUSCULOSKELETAL: No joint effusions. NEUROLOGIC: No change in exam. MEDICATIONS: Reviewed. LABORATORY DATA: Shows sodium 137, potassium 4.0, bicarbonate 35, BUN 11, creatinine 0.71. White c ount 7.0, hemoglobin 10.8, hematocrit 32.9, platelet count is 416. ASSESSMENT AND PLAN 1. Acute diastolic heart failure. The patient clinically improving. Continue medical management. Continue diuretic regimen. Follow up with Cardiology. 2. Acute hypoxemic respiratory failure, secondary to CHF, pneumonia. The patient is clinically imp roving. Continue to wean off oxygen. Continue medical management. 3. Atrial fibrillation, rate controlled. Continue current treatment plan. 4. Sepsis secondary to pneumonia. The patient has completed course. 5. Acute encephalopathy, improving. 6. Seizure disorder. Continue phenobarbital and Keppra 7. Anemia. Continue to monitor hemoglobin and hematocrit levels. 8. General debility. Continue PT, OT. 9. Gastrointestinal and deep venous thrombosis prophylaxis. Continue proton pump inhibitor and Lisa enox. 10. Alkalosis, likely from diuretic therapy and chloride deficiency. Will repeat a BMP. If alkalo sis worsens, consider given Diamox or deescalating Lasix. Dictated By: JULISA DOSS/ZECHARIAH Conf#: [id number] DID#: [id number]
--- NOTE | 2016-03-26 12:19 | CONS ---
Date/Time of Note Date/Time of Note DATE: 03/26/16 TIME: 12:18 Consult Date/Type/Reason Admit Date/Time Mar 21, 2016 at 15:05 Type of Consultation: nephrology Subjective Patient without new complaints Objective Vital Signs Date Time Temp Pulse Resp B/P Pulse Ox O2 Delivery O2 Flow Rate FiO2 03/26/16 08:43 88 18 98 Nasal Cannula 3.0 03/26/16 08:00 97.9 115/58 Intake and Output 03/25/16 03/25/16 03/26/16 15:00 23:00 07:00 Intake Total 1640 ml Output Total 1620 ml Balance 20 ml INTERDISCIPLINARY TEAM CONFERENCE BOWEL- Cont BLADDER-Cont, occasional incont SKIN- intact OT- DRESSING-min/mod BATHING-min/mod TOILETING-mod PT- BED MOBILITY-min TRANSFERS-min AMBULATION-min 80 feet SPEECH- COGNITION-min A/P- Interdisciplinary team conference held today. Please see interdisciplinary sheet. Working toward d.c. on 03/28 with post discharge follow up of physical therapy, occupational therapy. Results/Medications Result Diagram: 03/26/16 0629 03/26/16 0629 Results 24 hrs Laboratory Tests Test 03/26/16 06:29 Anion Gap 10 Basophils # 0.0 Basophils % 0.6 Blood Morphology Comment Blood Urea Nitrogen 11 Calcium Level 8.2 L Carbon Dioxide Level 35 H Chloride Level 96 L Creatinine 0.71 Eosinophils # 0.7 H Eosinophils % 10.4 H Glucose Level 107 Hematocrit 32.9 L Hemoglobin 10.8 L Lymphocytes # 1.3 Lymphocytes % 18.4 Magnesium Level 2.2 Mean Corpuscular Hemoglobin 27.6 L Mean Corpuscular Hemoglobin Concent 32.9 Mean Corpuscular Volume 83.9 Mean Platelet Volume 7.8 Monocytes # 0.6 Monocytes % 8.6 Neutrophils # 4.3 Neutrophils % 62.0 Nucleated Red Blood Cells # 0.0 Nucleated Red Blood Cells % 0.0 Phosphorus Level 3.9 Platelet Count 416 Potassium Level 4.1 Red Blood Count 3.92 L Red Cell Distribution Width 23.9 H Sodium Level 137 White Blood Count 7.0 # Medications Current Medications Acetaminophen (Tylenol Tab) 650 mg Q4H PRN PO PAIN AND OR ELEVATED TEMP; Start 03/21/16 at 16:00 Aspirin (Aspirin) 81 mg DAILY PO Last administered on 03/26/16 08:38; Admin Dose 81 MG; Start 03/22/16 at 09:00 Atorvastatin Calcium (Lipitor) 10 mg HS PO Last administered on 03/25/16 20:26 ; Admin Dose 10 MG; Start 03/21/16 at 21:00 Calcitriol (Rocaltrol) 0.25 mcg QAM PO Last administered on 03/26/16 08:39; Admin Dose 0.25 MCG; Start 03/22/16 at 09:00 Digoxin (Digoxin) 0.125 mg DAILY@13 PO Last administered on 03/25/16 12:42; Admin Dose 0.125 MG; Start 03/22/16 at 13:00 Docusate Sodium (Colace) 100 mg DAILY PO Last administered on 03/26/16 08:40; Admin Dose 100 MG; Start 03/22/16 at 09:00 Enoxaparin Sodium (Lovenox) 30 mg DAILY SC Last administered on 03/26/16 08:45 ; Admin Dose 30 MG; Start 03/22/16 at 09:00 Guaifenesin/ Codeine Phosphate (Robitussin Ac Liquid Cup) 5 ml Q6H PRN PO Cough ; Start 03/21/16 at 16:00 Levetiracetam (Keppra) 500 mg BID PO Last administered on 03/26/16 08:39; Admin Dose 500 MG; Start 03/21/16 at 21:00 Magnesium Hydroxide (Milk Of Mag) 30 ml BID PRN PO CONSTIPATION Last administered on 03/22/16 06:28; Admin Dose 30 ML; Start 03/21/16 at 16:00 Metoprolol Tartrate (Lopressor) 25 mg BID PO Last administered on 03/26/16 08: 39; Admin Dose 25 MG; Start 03/21/16 at 21:00 Ondansetron HCl (Zofran Inj) 4 mg Q6H PRN IV NAUSEA AND/OR VOMITING; Start at 16:30 Pantoprazole (Protonix Tab) 40 mg DAILY@06 PO Last administered on 03/26/16 05 :56; Admin Dose 40 MG; Start 03/22/16 at 06:00 Phenobarbital (Luminal) 64.8 mg BID PO Last administered on 03/26/16 08:39; Admin Dose 64.8 MG; Start 03/21/16 at 21:00 Polyethylene Glycol (Miralax) 17 gm DAILY PO Last administered on 03/26/16 08: 38; Admin Dose 17 GM; Start 03/22/16 at 09:00 Senna (Senokot) 1 tab HS PO Last administered on 03/25/16 20:26; Admin Dose 1 TAB; Start 03/21/16 at 21:00 Bisacodyl (Dulcolax Supp) 10 mg DAILY PRN [place] CONSTIPATION; Start 03/21/16 at 17 :30 Lactulose (Enulose) 20 gm DAILY PRN PO CONSTIPATION; Start 03/21/16 at 17:30 MONISHA GALVIN MD Mar 26, 2016 12:19
[2016-03-26] MEDS: DIGOXIN 0.125 MG TAB PO SCH (13:00)
[2016-03-26 20:00] VITALS: BP 118/60; RESP 20
[2016-03-26] MEDS: ATORVASTATIN 10 MG TAB PO SCH (20:38)
[2016-03-26] MEDS: SENNA TAB PO SCH (20:39)
[2016-03-27] MEDS: LEVALBUTEROL (NEB) 0.63 MG/3 ML AMP HHN SCH ×4 (01:21→19:27)
--- NOTE | 2016-03-27 03:27 | PN ---
DATE: 03/26/2016 CARDIOLOGY FOLLOWUP SUBJECTIVE: No new cardiac event. No chest pain or pressure. No palpitations. Discussed with the staff. MEDICATIONS: Reviewed. OBJECTIVE: VITAL SIGNS: Temperature 97.9, heart rate 85, blood pressure 115/58, respiration rate of 20, satura ting 95%. HEENT: Normocephalic, atraumatic. Elderly gentleman. Pupils are equal. CARDIOVASCULAR: Regular. PULMONARY: With no wheezes anteriorly, mild rhonchi. GASTROINTESTINAL: Soft, nontender. EXTREMITIES: Trivial edema. NEUROLOGIC: Awake, responds appropriately. LABORATORY: WBC of 7, hemoglobin 10.8, platelets of 416. Sodium 137, potassium 4.1, BUN of 11, cre atinine 0.71, glucose 107. ASSESSMENT AND PLAN: 1. Atrial fibrillation, chronic. 2. Congestive heart failure. 3. Pneumonia. 4. Debility 5. History of seizure disorder. RECOMMENDATIONS: We will continue with physical therapy and rehabilitation. Continue the Lasix at the current dose. Digoxin will be continued. Aspirin will be continued. The patient concern about the fall risk as well as seizures. Statin will be continued as well. Beta orin as tolera cl will be continued. Dictated By: CHARLOTTE ADAME/ZECHARIAH Conf#: [id number] DID#: [id number]
[2016-03-27] MEDS: FUROSEMIDE 40 MG TAB PO SCH ×2 (06:39→17:09)
[2016-03-27] MEDS: PANTOPRAZOLE (EC) 40 MG TAB PO SCH (06:39)
[2016-03-27] MEDS: POLYETHYLENE GLYCOL 17 GM PACKET PO SCH (08:17)
--- NOTE | 2016-03-27 08:17 | PN ---
DATE: 03/24/2016 CARDIOLOGY FOLLOWUP SUBJECTIVE: The patient was discussed with the staff. Rhythm strip was reviewed. No new cardiac e vent. No chest pain or pressure. Shortness of breath has remained stable. Denies any palpitations to me. MEDICATIONS: Reviewed as per medication reconciliation, personally reviewed. OBJECTIVE: VITAL SIGNS: Temperature 98.4, heart rate of 86, blood pressure of 98/50, respiration rate of 18, s aturating 95%. HEENT: Normocephalic, atraumatic. Pupils are equal. CARDIOVASCULAR: Irregularly irregular, systolic murmur. PULMONARY: Minimal rhonchi. GASTROINTESTINAL: Soft, nontender. EXTREMITIES: Positive lower extremity edema, trace to mild. NEUROLOGIC: Awake, responds appropriately. PSYCHIATRIC: Appears to be calm and pleasant. SKIN: Multiple ecchymoses. LABORATORY: WBC of 5.8, hemoglobin 10.4, platelets 385. Sodium 136, potassium 3.9, BUN of 11, crea tinine 0.69, glucose of 97. Digoxin level is 0.7. ASSESSMENT AND PLAN: 1. Congestive heart failure, currently stable. 2. . 3. Atrial fibrillation. 4. Status post pneumonia. 5. Debility. 6. History of seizure disorder. 7. . 8. Anemia. RECOMMENDATIONS: We will continue with the current cardiac care. Continue with the p.o. Lasix. C ontinue with physical therapy and rehabilitation. Continue with digoxin at the current level, curre ntly at a good therapeutic level. Dictated By: CHARLOTTE ADAME/ZECHARIAH Conf#: [id number] DID#: [id number] CC: JULISA CONN DO;*EndCC*
[2016-03-27] MEDS: ENOXAPARIN 30 MG/0.3 ML SYG SC SCH (08:18)
[2016-03-27] MEDS: LEVETIRACETAM 500 MG TAB PO SCH ×2 (08:18→20:29)
[2016-03-27] MEDS: METOPROLOL 25 MG TAB PO SCH ×2 (08:18→20:29)
[2016-03-27] MEDS: DOCUSATE SODIUM 100 MG CAP PO SCH (08:18)
[2016-03-27] MEDS: CALCITRIOL 0.25 MCG CAP PO SCH (08:18)
[2016-03-27] MEDS: PHENOBARBITAL 32.4 MG TAB PO SCH ×2 (08:19→20:29)
[2016-03-27] MEDS: ASPIRIN 81 MG TAB PO SCH (08:19)
[2016-03-27 08:28] VITALS: BP 110/60; RESP 18
[2016-03-27 08:54] LABS: POTASSIUM 3.8 mmol/L (3.5-5.1)
[2016-03-27 08:57] LABS: CREATININE 0.78 mg/dl (0.61-1.24); PHOSPHORUS 4.5 mg/dl (2.5-4.9)
[2016-03-27 08:58] LABS: CALCIUM 8.2 mg/dl (8.4-10.2); MAGNESIUM 2.2 mg/dl (1.7-2.5)
--- NOTE | 2016-03-27 11:00 | PN ---
DATE: 03/27/2016 SUBJECTIVE: The patient is stable, no acute events overnight. No fevers, chills, nausea, vomiting or shortness of breath. OBJECTIVE: VITAL SIGNS: Blood pressure is 110/60, respiration 18, pulse 78, temperature 97.9. HEENT: Head is normocephalic. NECK: Supple. HEART: Regular rate. LUNGS: Show diminished breath sounds at base. ABDOMEN: Soft, nontender to palpation. No rebound or guarding. EXTREMITIES: Negative for clubbing, cyanosis, edema. DERMATOLOGIC: No rashes. MUSCULOSKELETAL: No joint effusions. NEUROLOGIC: No change in exam. MEDICATIONS: The patient's medications have been reviewed. LABORATORY DATA: Shows sodium 138, potassium 3.8, chloride 96, BUN 13, creatinine 0.78. White coun t 7.9, hemoglobin 10.8, hematocrit 32.9, platelet count is 416. ASSESSMENT AND PLAN 1. Acute diastolic heart failure. The patient clinically improving. Continue current treatment pl an. Continue current diuretic regimen and monitor. 2. Acute hypoxemic respiratory failure secondary to CHF, pneumonia. The patient is clinically impr oving. Continue to wean off oxygen. 3. Atrial fibrillation, rate controlled. Continue current treatment plan. 4. Sepsis secondary to pneumonia. Patient completed antibiotic course. 5. Acute encephalopathy, improved. 6. Seizure disorder. Continue phenobarbital and Keppra. 7. Anemia. Continue to monitor hemoglobin and hematocrit levels. 8. General debility. Continue PT, OT. 9. Gastrointestinal and deep venous thrombosis prophylaxis. Continue proton pump inhibitor and Lisa enox. 10. Alkalosis, likely from diuretic therapy and chloride deficiency. Bicarbonate levels have impro ving. Continue to monitor. Dictated By: JULISA DOSS/ZECHARIAH Conf#: [id number] DID#: [id number]
--- NOTE | 2016-03-27 12:14 | CONS ---
Date/Time of Note Date/Time of Note DATE: 03/27/16 TIME: 12:09 Consult Date/Type/Reason Admit Date/Time Mar 21, 2016 at 15:05 Type of Consultation: nephrology Subjective comfortable Objective Vital Signs Date Time Temp Pulse Resp B/P Pulse Ox O2 Delivery O2 Flow Rate FiO2 03/27/16 08:28 97.9 78 18 110/60 99 03/27/16 08:24 Nasal Cannula 2.0 Intake and Output 03/26/16 03/26/16 03/27/16 14:59 22:59 06:59 Intake Total 620 ml 850 ml Output Total 1220 ml 400 ml Balance -600 ml 450 ml pulm- cta sba ambulation Results/Medications Result Diagram: 03/26/16 0629 03/27/16 0711 Results 24 hrs Laboratory Tests Test 03/27/16 07:11 Anion Gap 13 Blood Urea Nitrogen 13 Calcium Level 8.2 L Carbon Dioxide Level 33 H Chloride Level 96 L Creatinine 0.78 Glucose Level 95 Magnesium Level 2.2 Phosphorus Level 4.5 Potassium Level 3.8 Sodium Level 138 Medications Current Medications Acetaminophen (Tylenol Tab) 650 mg Q4H PRN PO PAIN AND OR ELEVATED TEMP; Start 03/21/16 at 16:00 Aspirin (Aspirin) 81 mg DAILY PO Last administered on 03/27/16 08:19; Admin Dose 81 MG; Start 03/22/16 at 09:00 Atorvastatin Calcium (Lipitor) 10 mg HS PO Last administered on 03/26/16 20:38 ; Admin Dose 10 MG; Start 03/21/16 at 21:00 Calcitriol (Rocaltrol) 0.25 mcg QAM PO Last administered on 03/27/16 08:18; Admin Dose 0.25 MCG; Start 03/22/16 at 09:00 Digoxin (Digoxin) 0.125 mg DAILY@13 PO Last administered on 03/26/16 13:00; Admin Dose 0.125 MG; Start 03/22/16 at 13:00 Docusate Sodium (Colace) 100 mg DAILY PO Last administered on 03/27/16 08:18; Admin Dose 100 MG; Start 03/22/16 at 09:00 Enoxaparin Sodium (Lovenox) 30 mg DAILY SC Last administered on 03/27/16 08:18 ; Admin Dose 30 MG; Start 03/22/16 at 09:00 Guaifenesin/ Codeine Phosphate (Robitussin Ac Liquid Cup) 5 ml Q6H PRN PO Cough ; Start 03/21/16 at 16:00 Levetiracetam (Keppra) 500 mg BID PO Last administered on 03/27/16 08:18; Admin Dose 500 MG; Start 03/21/16 at 21:00 Magnesium Hydroxide (Milk Of Mag) 30 ml BID PRN PO CONSTIPATION Last administered on 03/22/16 06:28; Admin Dose 30 ML; Start 03/21/16 at 16:00 Metoprolol Tartrate (Lopressor) 25 mg BID PO Last administered on 03/27/16 08: 18; Admin Dose 25 MG; Start 03/21/16 at 21:00 Ondansetron HCl (Zofran Inj) 4 mg Q6H PRN IV NAUSEA AND/OR VOMITING; Start at 16:30 Pantoprazole (Protonix Tab) 40 mg DAILY@06 PO Last administered on 03/27/16 06 :39; Admin Dose 40 MG; Start 03/22/16 at 06:00 Phenobarbital (Luminal) 64.8 mg BID PO Last administered on 03/27/16 08:19; Admin Dose 64.8 MG; Start 03/21/16 at 21:00 Polyethylene Glycol (Miralax) 17 gm DAILY PO Last administered on 03/27/16 08: 17; Admin Dose 17 GM; Start 03/22/16 at 09:00 Senna (Senokot) 1 tab HS PO Last administered on 03/26/16 20:39; Admin Dose 1 TAB; Start 03/21/16 at 21:00 Bisacodyl (Dulcolax Supp) 10 mg DAILY PRN [place] CONSTIPATION; Start 03/21/16 at 17 :30 Lactulose (Enulose) 20 gm DAILY PRN PO CONSTIPATION; Start 03/21/16 at 17:30 Assessment/Plan Additional Assessment/Plan Rehab- Pulmonary debility secondary to acute respiratory failure. Continue rehab activites, dc planning in place Toxic metabolic encephalopathy. Seizure disorder. Congestive heart failure. Atrial fibrillation. Status post sepsis. Status post pneumonia. Hypertension. Anemia. MONISHA GALVIN MD Mar 27, 2016 12:13
[2016-03-27] MEDS: DIGOXIN 0.125 MG TAB PO SCH (12:57)
--- NOTE | 2016-03-27 16:00 | PN ---
DATE: 03/27/2016 CARDIOLOGY FOLLOWUP SUBJECTIVE: Discussed with the staff. The patient with no chest pain or pressure. Shortness of br eath remains stable. Still on low oxygen. No palpitation. MEDICATIONS: Reviewed. PHYSICAL EXAMINATION: VITAL SIGNS: Temperature 97.9, heart rate of 78, blood pressure 110/60, respiration rate of 18. HEENT: Normocephalic, atraumatic. Pupils are equal. CARDIOVASCULAR: Irregularly irregular. PULMONARY: Anteriorly with no wheezes, minimal rhonchi at the base. GASTROINTESTINAL: Soft, nontender. EXTREMITIES: No significant lower extremity edema. NEUROLOGIC: Awake, responds appropriately. LABORATORY: Sodium 138, potassium 3.8, BUN of 13, creatinine 0.78, glucose of 95. Magnesium is 2.2 . ASSESSMENT AND PLAN: 1. Atrial fibrillation. 2. Congestive heart failure secondary to diastolic dysfunction. 3. Status post pneumonia, respiratory failure. 4. Debility associated with seizure disorder. 5. Anemia. 6. History of hypertension. RECOMMENDATIONS: We will continue with the current cardiac care. Lasix will be continued. Digoxin will be continued. We will continue with the aspirin. Beta orin as tolerated will be given as well. Continue with physical therapy and rehabilitation. Dictated By: CHARLOTTE SCHUMACHER MD AV/ZECHARIAH Conf#: [id number] DID#: [id number] CC: JULISA CONN DO;*EndCC*
[2016-03-27 19:42] VITALS: BP 112/61; RESP 21
[2016-03-27] MEDS: ATORVASTATIN 10 MG TAB PO SCH (20:29)
[2016-03-27] MEDS: SENNA TAB PO SCH (20:29)
[2016-03-28] MEDS: LEVALBUTEROL (NEB) 0.63 MG/3 ML AMP HHN SCH ×2 (03:00→08:00)
[2016-03-28] MEDS: PANTOPRAZOLE (EC) 40 MG TAB PO SCH (06:44)
[2016-03-28] MEDS: FUROSEMIDE 40 MG TAB PO SCH (06:44)
[2016-03-28 07:42] VITALS: BP 121/53; RESP 18
[2016-03-28 08:00] VITALS: BP 121/53; PULSE 84
[2016-03-28] MEDS: POLYETHYLENE GLYCOL 17 GM PACKET PO SCH (09:27)
[2016-03-28] MEDS: CALCITRIOL 0.25 MCG CAP PO SCH (09:27)
[2016-03-28] MEDS: ASPIRIN 81 MG TAB PO SCH (09:27)
[2016-03-28] MEDS: LEVETIRACETAM 500 MG TAB PO SCH (09:28)
[2016-03-28] MEDS: PHENOBARBITAL 32.4 MG TAB PO SCH (09:28)
[2016-03-28] MEDS: METOPROLOL 25 MG TAB PO SCH (09:28)
[2016-03-28] MEDS: DOCUSATE SODIUM 100 MG CAP PO SCH (09:28)
[2016-03-28] MEDS: ENOXAPARIN 30 MG/0.3 ML SYG SC SCH (09:30)
--- NOTE | 2016-03-28 10:38 | PN ---
DATE: 03/28/2016 CARDIOLOGY FOLLOWUP SUBJECTIVE: No chest pain or pressure. Breathing has remained stable. MEDICATIONS: Reviewed. PHYSICAL EXAMINATION: VITAL SIGNS: Temperature 97.9, heart rate of 84, blood pressure 121/____, respiration rate 18, satu rating 96%. HEENT: Normocephalic, atraumatic. Pupils are equal. CARDIOVASCULAR: Irregularly irregular. PULMONARY: With mild rhonchi. GASTROINTESTINAL: Soft, nontender. EXTREMITIES: Trivial edema. NEUROLOGIC: Awake, responds appropriately. ASSESSMENT AND PLAN: 1. Atrial fibrillation. 2. Fluid overload secondary to congestive heart failure, currently stable. 3. Status post pneumonia. 4. Debility. 5. Anemia. 6. Hypertension. RECOMMENDATIONS: We will continue with the current cardiac care. Continue physical therapy and sabra abilitation. Code status is DNR. Dictated By: CHARLOTTE SCHUMACHER MD AV/ZECHARIAH Conf#: [id number] DID#: [id number] CC: JULISA CONN DO;*EndCC*
--- NOTE | 2016-03-28 10:43 | PN ---
DATE: 03/28/2016 SUBJECTIVE: The patient is stable, no acute events, no fevers, chills, nausea, vomiting. OBJECTIVE: VITAL SIGNS: Blood pressure 121/53, respiration 18, pulse 74, temperature 97.9. HEENT: Head is normocephalic. NECK: Supple. HEART: Regular rate. LUNGS: Show diminished breath sounds at the base. ABDOMEN: Soft, nontender to palpation without rebound or guarding. EXTREMITIES: Negative for clubbing, cyanosis. No edema. DERMATOLOGIC: No rashes. MUSCULOSKELETAL: No joint effusions. NEUROLOGIC: No change in exam. MEDICATIONS: Patient's medications have been reviewed. LABORATORY DATA: Has been reviewed. No new labs. ASSESSMENT AND PLAN 1. Acute diastolic heart failure, clinically improving. Continue current treatment plan. 2. Acute hypoxemic respiratory failure secondary to congestive heart failure, pneumonia. The patie nt is clinically improving. Continue to wean off oxygen as tolerated. 3. Atrial fibrillation, rate controlled. Continue medical management. 4. Sepsis secondary to pneumonia. The patient has completed antibiotics. 5. Encephalopathy, improving. 6. Seizure disorder. Continue phenobarbital and Keppra. 7. Anemia. Continue to monitor hemoglobin and hematocrit levels. 8. General debility. Continue PT, OT. 9. Gastrointestinal and deep venous thrombosis prophylaxis. Continue proton pump inhibitor and Lisa enox. 10. Alkalosis secondary to diuretic therapy. Continue to monitor. Dictated By: JULISA DOSS/ZECHARIAH Conf#: [id number] DID#: [id number]
== END 2016-03-28 11:37 | DRG 871 ==
LOC: EDSTATUS 10:00 → VRC 15:05
PROVIDERS: ADMIT Physical Medicine & Rehabilitation; ATTEND Internal Medicine
DX: A41.9 Sepsis, unspecified organism (principal); J18.9 Pneumonia, unspecified organism; J96.01 Acute respiratory failure with hypoxia; I50.31 Acute diastolic (congestive) heart failure; E87.3 Alkalosis; G92 Toxic encephalopathy; G40.909 Epilepsy, unspecified, not intractable, without status epilepticus; D64.9 Anemia, unspecified; I48.2 Chronic atrial fibrillation; F09 Unspecified mental disorder due to known physiological condition; Z66 Do not resuscitate
CPT/HCPCS: 80048; 80053; 80162; 81001; 81003; 83735; 83880; 84100; 85025; 87081; 87086; 92507; 92523; 92526; 94640; 94664; 95852; 97110; 97112; 97116; 97150; 97163; 97167; 97530; 97535; 97542; J1940; J1650

== ENCOUNTER 2016-11-10 11:03 | Emergency (ER) | payer MEDICARE, OTHER ==
[~2016-11-10] VITALS: Ht 177.8 cm; Wt 76.0 kg
[~2016-11-10 11:03] MED LIST changes: +SIMV20TA2 PO; -ZOC20 PO
[2016-11-10 11:05] VITALS: Ht 177.8 cm; Wt 76.0 kg
[2016-11-10] MEDS ORDERED: LIDOCAINE 2%/EPI MPF (SDV) 20 ML VIAL INJ ONE (11:30)
[2016-11-10] MEDS ORDERED: LIDOCAINE 2% (MDV) 20 ML INJ INJ ONE (11:30)
--- NOTE | 2016-11-10 14:12 | RADRPT ---
PROCEDURE: XR Right Elbow. CLINICAL INDICATION: laceration with glass TECHNIQUE: AP, lateral and oblique views of the right elbow performed. COMPARISON: None. FINDINGS: The soft tissues and bony elements are normal. The joint spaces are normal. No foreign body is ident ified. IMPRESSION: 1. Normal left elbow. 2. No foreign body such as glass is identified. RPTAT:AAJJ Physician Dottie Date Time Electronically viewed and signed by Douglas Flood Physician on 11/10/2016 14:11 ALON/
--- NOTE | 2016-11-10 14:13 | RADRPT ---
PROCEDURE: Left humerus x-ray CLINICAL INDICATION: Laceration with glass. TECHNIQUE: AP and lateral views of the humerus were obtained. COMPARISON: No. FINDINGS: There is subcutaneous emphysema suggestive of a laceration over the mid medial aspect of the right a rm. The bony elements and soft tissues are otherwise normal. The joint spaces are normal. IMPRESSION: 1. No radiopaque foreign body is identified adjacent to the right humerus. 2. The humerus is intact. 3. Probable soft tissue laceration over the medial mid right arm area. RPTAT:AAJJ Physician Dottie Date Time Electronically viewed and signed by Physician Dottie on 11/10/2016 14:13 /
[2016-11-10] MEDS ORDERED: CEPH-443 PO (14:19)
[2016-11-10] MEDS ORDERED: IBUP-1542 PO (14:20)
[2016-11-10 14:30] VITALS: BP 113/66; PULSE 97; RESP 16; TEMP 97.8
--- NOTE | 2016-11-10 14:30 | ERD ---
ER Documentation Chief Complaint Date/Time DATE: 11/10/16 TIME: 14:24 Chief Complaint pt bib caregiver with lac to right elbow s/p fall , unk tetnes status HPI This is an 81-year-old male presents to the ER brought in by caregiver after he fell and hit his right elbow and upper arm against a glass window. Glass window broke creating many lacerations to the patient's upper extremity. Patient did not have any chest pain or shortness of breath, he denies feeling dizzy or weak. He denies any loss of consciousness, nausea, vomiting. Patient did not hit his head. She states that he felt completely fine, however he lost his balance and fell over. Per caregiver patient does lose his balance quite often and it is not the first time he is fallen. Patient has a past medical history of epilepsy and is compliant with his medications. ROS 12 point review of systems was done, all negative except per HPI. Medications Home Meds Active Scripts Ibuprofen* (Motrin*) 600 Mg Tab, 600 MG PO Q6, #30 TAB Prov:CARLINE HERNANDEZ 11/10/16 Cephalexin* (Keflex*) 500 Mg Capsule, 500 MG PO BID for 7 Days, CAP Prov:CARLINE HERNANDEZ 11/10/16 Reported Medications Aspirin (Low Dose Aspirin) 81 Mg Tablet.dr, 81 MG PO DAILY, #30 TAB 03/08/16 Simvastatin (Simvastatin) 20 Mg Tablet, 20 MG PO HS, TAB 09/16/14 Calcitriol* (Rocaltrol*) 0.25 Mcg Capsule, 0.25 MCG PO QAM, CAP 09/16/14 Phenytoin* Sodium Extended (Dilantin*) 300 Mg Capsule, 300 MG PO BID, CAP 09/16/14 Phenobarbital* (Phenobarbital*) 32.4 Mg Tab, 64.8 MG PO BID, TAB 09/16/14 Allergies Allergies: Coded Allergies: No Known Allergy (Unverified , 03/08/16) PMhx/Soc History of Surgery: Yes (L hip surgery) Anesthesia Reaction: No Hx Neurological Disorder: Yes (seizure disorder) Hx Respiratory Disorders: Yes (resp failure hx, pna) Hx Cardiac Disorders: Yes (afib, htn) Hx Psychiatric Problems: No Hx Miscellaneous Medical Probl: Yes (encephalopathy, A-fib, sepsis, pneumonia, seizure) Hx Alcohol Use: No Hx Substance Use: No Hx Tobacco Use: No Smoking Status: Never smoker Physical Exam Vitals Vital Signs Date Time Temp Pulse Resp B/P Pulse Ox O2 Delivery O2 Flow Rate FiO2 11/10/16 11:05 97.7 97 16 122/68 99 Physical Exam GENERAL: The patient is well developed and appropriate for usual state of health , in no apparent distress. HEENT: Atraumatic. Conjunctivae are pink. Pupils equal, round, and reactive to light. Extraocular muscles are grossly intact. CHEST: Clear to auscultation bilaterally. There are no rales, wheezes or rhonchi. HEART: Regular rate and rhythm. No murmurs, clicks, rubs or gallops.. EXTREMITIES: Patient has full range of motion of his elbow., He is not tender to palpation along the elbow or the humerus. No shoulder pain or wrist pain is noted with range of motion or palpation. NEURO: Alert and oriented. Cranial nerves II through XII are intact. Motor strength in all 4 extremities with 5/5 strength. Sensation grossly intact. Normal speech and gait. SKIN: There are a total of 5 lacerations. There are 4 lacerations to the posterior upper arm and each about 4-5 cm in length. There is one laceration directly over the elbow about 3 cm in length. Results 24 hrs Current Medications Medications (Trade) Dose Ordered Sig/Steve Route PRN Reason Start Time Stop Time Status Last Admin Dose Admin Lidocaine (Xylocaine 2% (Mdv) 20 ml) 20 ml ONCE ONCE INJ 11/10/16 11:30 11/10/16 11:30 DC Lidocaine/ Epinephrine (Xylocaine 2%/ Epi Mpf(Sdv)) 20 ml ONCE ONCE INJ 11/10/16 11:30 11/10/16 11:31 DC Procedures/MDM Laceration Repair by me: Anesthesia: 1% lidocaine locally Location: Right posterior elbow posterior upper arm Tendon/Joint/Nerves: No injury Foreign body: None detected after copious irrigation and exploration Technique: A total of 42 4'0 Ethilon simple Interrupted Sutures were placed for repair of 5 lacerations. One figure of 8 suture was also put in place secondary to bleeding. Bleeding was controlled after the suture was placed. Complexity: No subcutaneous sutures/mucosal repair/ edge excision Post Closure Length: Multiple lacerations to the posterior elbow and upper arm all 4- 5 cm in length. One laceration over the posterior elbow was about 3 cm. Patient's bleeding was easily controlled in the department and there is no indication of anemia. No evidence of compartment syndrome, neurologic injury, vascular injury, open joint, tendon laceration, or foreign body. Patient will be sent home with Keflex. Patient is appropriate for outpatient follow up. 48 hour wound check. Scar minimization instructions given. Departure Diagnosis: Primary Impression: Laceration Condition: Stable Patient Instructions: Laceration, All Referrals: ANTHONY MCDONALD MD (PCP) Additional Instructions: Return to this facility in 2 DAYS for a follow-up exam.Return sooner if your condition worsens. CARLINE HERNANDEZ Nov 10, 2016 14:30
== END 2016-11-10 14:30 | disposition home or self-care (01) ==
LOC: FTE 11:03
DX: S51.011A Laceration without foreign body of right elbow, initial encounter (principal); S41.111A Laceration without foreign body of right upper arm, initial encounter; I10 Essential (primary) hypertension; W25.XXXA Contact with sharp glass, initial encounter; Y92.9 Unspecified place or not applicable; Z79.82 Long term (current) use of aspirin

== ENCOUNTER 2016-11-12 15:25 | Emergency (ER) | payer MEDICARE, OTHER ==
[~2016-11-12] VITALS: Ht 182.9 cm; Wt 78.5 kg
[~2016-11-12 15:25] MED LIST changes: +CEPH-443 PO; +IBUP-1542 PO
[2016-11-12 15:28] VITALS: Ht 182.9 cm; Wt 78.5 kg
[2016-11-12] MEDS ORDERED: BACITRACIN 0.9 GM OINT TOP ONE (16:30)
--- NOTE | 2016-11-12 16:51 | ERD ---
ER Documentation Chief Complaint Date/Time DATE: 11/12/16 TIME: 16:46 Chief Complaint 2 DAY RECHECK WOUND ON RIGHT UPPER ARM HPI This is a 81-year-old male that presents to the ER for wound check. He got sutures put in on Saturday, and has not had any pain, redness, swelling or discharge from the area. He denies any fevers or chills. He presents with his 2 caregivers who have been taking care of him and ensuring that he takes his antibiotics as directed. ROS 12 point review of systems was done, all negative except per HPI. Medications Home Meds Active Scripts Ibuprofen* (Motrin*) 600 Mg Tab, 600 MG PO Q6, #30 TAB Prov:CARLINE HERNANDEZ 11/10/16 Cephalexin* (Keflex*) 500 Mg Capsule, 500 MG PO BID for 7 Days, CAP Prov:CARLINE HERNANDEZ 11/10/16 Reported Medications Aspirin (Low Dose Aspirin) 81 Mg Tablet.dr, 81 MG PO DAILY, #30 TAB 03/08/16 Simvastatin (Simvastatin) 20 Mg Tablet, 20 MG PO HS, TAB 09/16/14 Calcitriol* (Rocaltrol*) 0.25 Mcg Capsule, 0.25 MCG PO QAM, CAP 09/16/14 Phenytoin* Sodium Extended (Dilantin*) 300 Mg Capsule, 300 MG PO BID, CAP 09/16/14 Phenobarbital* (Phenobarbital*) 32.4 Mg Tab, 64.8 MG PO BID, TAB 09/16/14 Allergies Allergies: Coded Allergies: No Known Allergy (Unverified , 03/08/16) PMhx/Soc History of Surgery: Yes (L hip surgery) Anesthesia Reaction: No Hx Neurological Disorder: Yes (seizure disorder) Hx Respiratory Disorders: Yes (resp failure hx, pna) Hx Cardiac Disorders: Yes (afib, htn) Hx Psychiatric Problems: No Hx Miscellaneous Medical Probl: Yes (encephalopathy, A-fib, sepsis, pneumonia, seizure) Hx Alcohol Use: No Hx Substance Use: No Hx Tobacco Use: No Smoking Status: Never smoker Physical Exam Vitals Vital Signs Date Time Temp Pulse Resp B/P Pulse Ox O2 Delivery O2 Flow Rate FiO2 11/12/16 15:28 99.2 80 18 115/57 98 Physical Exam GENERAL: The patient is well developed and appropriate for usual state of health , in no apparent distress. HEENT: Atraumatic. CHEST: Clear to auscultation bilaterally. There are no rales, wheezes or rhonchi. EXTREMITIES: Right Elbow: Patient has full and nonpainful range of motion of the right elbow. There is no tenderness to the olecranon for or radial/ulnar styloids. NEURO: Alert and oriented. SKIN: Healing lacerations with sutures in place. No wound discharge, redness, swelling, dehiscence Results 24 hrs Current Medications Medications (Trade) Dose Ordered Sig/Steve Route PRN Reason Start Time Stop Time Status Last Admin Dose Admin Bacitracin (Bacitracin Oint (Ud)) 1 applic ONCE ONCE TOP 11/12/16 16:30 11/12/16 16:31 DC 11/12/16 16:36 Procedures/MDM This is an 81-year-old male that presents to the ER for a wound recheck . laceration appears to be healing well with no signs or symptoms of infection. Patient has Full and nonpainful range of motion of his upper extremity is neurovascularly intact. He is to return to ER in 5 days for suture removal. He also needs to follow-up with his primary care doctor within 1-2 days return to ER sooner if symptoms worsen. My medical decision making shared with the patient he understands and agrees with plan. Departure Diagnosis: Primary Impression: Visit for wound check Condition: Stable Patient Instructions: Wound Check, Lac F/U (No Infection) Additional Instructions: Call your primary care doctor TOMORROW for an appointment during the next 1-2 days.See the doctor sooner or return here if your condition worsens before your appointment time. RETURN TO ER ON SATURDAY FOR SUTURE REMOVAL! OR SOONER IF SYMPTOMS WORSEN. CARLINE HERNANDEZ Nov 12, 2016 16:51
== END 2016-11-12 16:40 | disposition home or self-care (01) ==
LOC: FTE 15:25
DX: Z48.01 Encounter for change or removal of surgical wound dressing (principal); I10 Essential (primary) hypertension; Z79.82 Long term (current) use of aspirin
CPT/HCPCS: 99281

== ENCOUNTER 2016-11-17 10:46 | Emergency (ER) | payer MEDICARE, OTHER ==
[~2016-11-17] VITALS: Ht 177.8 cm; Wt 78.1 kg
[2016-11-17 10:50] VITALS: Ht 177.8 cm; Wt 78.1 kg
[2016-11-17] MEDS ORDERED: NEOM1PAC TP (13:11)
--- NOTE | 2016-11-17 17:53 | ERD ---
ER Documentation Chief Complaint Date/Time DATE: 11/17/16 TIME: 17:33 Chief Complaint suture removal to the upper right arm; no signs of infection HPI This is an 81-year-old male who presents emergency department today with his caregiver for suture removal. Denies any fevers or chills, pain. ROS All systems reviewed and are negative except as per history of present illness. Medications Home Meds Active Scripts Neomycin Fischer/Bacitrac Zn/Poly (Triple Antibiotic Ointment) 1 Each Oint.pack, 1 EACH TP BID for 7 Days Prov:JUAN SALAZAR PA-C 11/17/16 Ibuprofen* (Motrin*) 600 Mg Tab, 600 MG PO Q6, #30 TAB Prov:CARLINE HERNANDEZ 11/10/16 Cephalexin* (Keflex*) 500 Mg Capsule, 500 MG PO BID for 7 Days, CAP Prov:CARLINE HERNANDEZ 11/10/16 Reported Medications Aspirin (Low Dose Aspirin) 81 Mg Tablet.dr, 81 MG PO DAILY, #30 TAB 03/08/16 Simvastatin (Simvastatin) 20 Mg Tablet, 20 MG PO HS, TAB 09/16/14 Calcitriol* (Rocaltrol*) 0.25 Mcg Capsule, 0.25 MCG PO QAM, CAP 09/16/14 Phenytoin* Sodium Extended (Dilantin*) 300 Mg Capsule, 300 MG PO BID, CAP 09/16/14 Phenobarbital* (Phenobarbital*) 32.4 Mg Tab, 64.8 MG PO BID, TAB 09/16/14 Allergies Allergies: Coded Allergies: No Known Allergy (Unverified , 03/08/16) PMhx/Soc History of Surgery: Yes (L hip surgery) Anesthesia Reaction: No Hx Neurological Disorder: Yes (seizure disorder) Hx Respiratory Disorders: Yes (resp failure hx, pna) Hx Cardiac Disorders: Yes (afib, htn) Hx Psychiatric Problems: No Hx Miscellaneous Medical Probl: No Hx Alcohol Use: No Hx Substance Use: No Hx Tobacco Use: No Smoking Status: Unknown if ever smoked Physical Exam Vitals Vital Signs Date Time Temp Pulse Resp B/P Pulse Ox O2 Delivery O2 Flow Rate FiO2 11/17/16 10:50 97.8 56 18 110/57 98 Physical Exam Const: NAD Head: Atraumatic Eyes: Normal Conjunctiva ENT: Normal External Ears, Nose and Mouth. Neck: Full range of motion..~ No meningismus. Resp: Clear to auscultation bilaterally Cardio: Regular rate and rhythm, no murmurs Skin: Right posterior aspect elbow with evidence of multiple sutures placed. Localized erythema. No purulent drainage or warmth. Back: No midline or flank tenderness Ext: Right arm with evidence of multiple sutures placed. Full active range of motion of elbow. Pulses 2+. Distal neurovascularly intact. Neur: Awake and alert Psych: Normal Mood and Affect Procedures/MDM This is a 81-year-old male who presents the emergency department today with his caregiver for suture removal. On physical exam patient had evidence of multiple sutures placed. Per review of patient's medical records patient was seen here on November 10 after sustaining a fall and cutting the back of his right arm in multiple areas with glass. Record reports that 42 sutures were placed over 5 separate lacerations. Patient is afebrile and otherwise well- appearing. He has full active range of motion of his elbow. There was some localized erythema however there is no purulent drainage. There was also a small amount of wound dehiscence however sutures were starting to become embedded in the skin and scabbed over and therefore I did remove all 42 sutures. Patient had initially indicated that he did not take any antibiotics however he later stated that he did. Upon review of patient's medical records he was given a prescription for Keflex. The provider that performed the procedure saw the patient 2 days later and was reassured by patient's caregiver that he was taking his antibiotics as prescribed. Upon further questioning this caregiver indicated that there is one other person who takes care of the patient and she herself was not there at those appointments and he may have in fact taken the antibiotics without her knowledge. Steristrips were place in a couple of areas and patient was given a prescription for triple antibiotic ointment. I do have low suspicion for cellulitis or deep space tracking infection however given his localized erythema I did request that the patient return in 48 hours for a wound check. I do not feel he requires further workup or imaging at this time. Caregiver understood. At this time the patient is stable for discharge and outpatient management. Patient should follow up with their PCP in the next 1-2 days. They may return to the emergency department sooner for any persistent or worsening of symptoms. Caregiver understood and agreed with the plan. Departure Diagnosis: Primary Impression: Encounter for removal of sutures Condition: Fair Patient Instructions: Suture Removal, No Complication Referrals: ANTHONY MCDONALD MD (PCP) Additional Instructions: Call your primary care doctor TOMORROW for an appointment during the next 1-2 days.See the doctor sooner or return here if your condition worsens before your appointment time. Wound check in 48 hours Use triple antibiotic cream as prescribed JUAN SALAZAR PA-C Nov 17, 2016 17:43
== END 2016-11-17 13:35 | disposition home or self-care (01) ==
LOC: FTE 10:46
DX: L53.9 Erythematous condition, unspecified (principal); I10 Essential (primary) hypertension; Z79.82 Long term (current) use of aspirin
CPT/HCPCS: 99283

== ENCOUNTER 2016-11-19 14:21 | Emergency (ER) | payer MEDICARE, OTHER ==
[~2016-11-19] VITALS: Ht 167.6 cm; Wt 78.9 kg
[~2016-11-19 14:21] MED LIST changes: +NEOM1PAC TP
[2016-11-19 14:29] VITALS: Ht 167.6 cm; Wt 78.9 kg
--- NOTE | 2016-11-19 14:55 | ERA ---
ER Documentation Chief Complaint Date/Time DATE: 11/19/16 TIME: 14:54 Chief Complaint right upper arm wound check HPI . The patient is an 81-year-old male, presenting for wound check of the right elbow, he had a laceration about 9 days ago, it was repaired and the sutures were removed for a few days ago. He denies fever, discharge, pain, neck pain, chest pain ROS All systems reviewed and are negative except as per history of present illness. Medications Home Meds Active Scripts Neomycin Fischer/Bacitrac Zn/Poly (Triple Antibiotic Ointment) 1 Each Oint.pack, 1 EACH TP BID for 7 Days Prov:JUAN SALAZAR PA-C 11/17/16 Ibuprofen* (Motrin*) 600 Mg Tab, 600 MG PO Q6, #30 TAB Prov:CARLINE HERNANDEZ 11/10/16 Cephalexin* (Keflex*) 500 Mg Capsule, 500 MG PO BID for 7 Days, CAP Prov:CARLINE HERNANDEZ 11/10/16 Reported Medications Aspirin (Low Dose Aspirin) 81 Mg Tablet.dr, 81 MG PO DAILY, #30 TAB 03/08/16 Simvastatin (Simvastatin) 20 Mg Tablet, 20 MG PO HS, TAB 09/16/14 Calcitriol* (Rocaltrol*) 0.25 Mcg Capsule, 0.25 MCG PO QAM, CAP 09/16/14 Phenytoin* Sodium Extended (Dilantin*) 300 Mg Capsule, 300 MG PO BID, CAP 09/16/14 Phenobarbital* (Phenobarbital*) 32.4 Mg Tab, 64.8 MG PO BID, TAB 09/16/14 Allergies Allergies: Coded Allergies: No Known Allergy (Unverified , 03/08/16) PMhx/Soc History of Surgery: Yes (L hip surgery) Anesthesia Reaction: No Hx Neurological Disorder: Yes (seizure disorder) Hx Respiratory Disorders: Yes (resp failure hx, pna) Hx Cardiac Disorders: Yes (afib, htn) Hx Psychiatric Problems: No Hx Miscellaneous Medical Probl: No Hx Alcohol Use: No Hx Substance Use: No Hx Tobacco Use: No Physical Exam Vitals Vital Signs Date Time Temp Pulse Resp B/P Pulse Ox O2 Delivery O2 Flow Rate FiO2 11/19/16 14:29 98.2 70 20 110/54 99 Physical Exam Const: No acute distress. Head: Atraumatic. Eyes: Normal Conjunctiva. ENT: Normal External Ears, Nose and Mouth. Neck: Full range of motion. No meningismus. Resp: Clear to auscultation bilaterally. Cardio: Regular rate and rhythm. Abd: Soft, non distended, normal bowel sounds, non tender. Skin: No petechiae or rashes. Back: No midline or flank tenderness. Ext: The right elbow lacerations are healing well, no discharge, no erythema, full range of motion Departure Diagnosis: Primary Impression: Encounter for wound re-check Condition: Good Comments I discussed the findings with the patient. I advised the patient to follow-up with the primary physician in about 1-2 days, sooner if needed and return if any concern. WHITNEY AVENDAÑO MD Nov 19, 2016 14:55
== END 2016-11-19 15:10 | disposition home or self-care (01) ==
LOC: E/R 14:21
DX: Z48.01 Encounter for change or removal of surgical wound dressing (principal); I10 Essential (primary) hypertension; Z79.82 Long term (current) use of aspirin
CPT/HCPCS: 99281

== ENCOUNTER 2017-08-30 12:35 | Emergency (ER) | END 2017-08-30 14:45 | disposition home or self-care (01) ==

== ENCOUNTER 2017-11-02 14:20 | Emergency (ER) | END 2017-11-02 17:35 | disposition home or self-care (01) ==

== ENCOUNTER 2017-11-03 09:52 | Emergency (ER) | END 2017-11-03 11:34 | disposition home or self-care (01) ==

== ENCOUNTER 2018-04-23 14:28 | Emergency (ER) | payer MEDICARE, OTHER ==
[~2018-04-23] VITALS: Wt 76.2 kg
[~2018-04-23 14:28] MED LIST changes: -ASPI-664 PO; +ASPI81TA52 PO; +IBUP-1561 PO
[2018-04-23] MEDS ORDERED: PHENYTOIN 100 MG CAP PO STA (16:16)
--- NOTE | 2018-04-23 16:16 | ERD ---
ER Documentation Chief Complaint Chief Complaint BIB RA FROM HOME FOR SEIZURE, X 2 MIN, WITNESSED, NO FALL, HX OF SEIZ HPI 83-year-old male presenting with ambulance for seizure that lasted about 3 minutes while he was at home sitting on the couch. This was witnessed by his caregiver. He initially started to have heavy breathing that his eyes rolled back and he started shaking all over. He does have a history of seizure disord er on phenobarbital, Dilantin, and Keppra at baseline. About 2 weeks ago, his morning dose of Dilantin was discontinued as he had not had seizures for a long time. His caregiver thinks that this may be the cause. He has had no other recent illness or complaints. He was recently seen by his doctor yesterday for a checkup. Currently the patient is back to his normal mental status. He was postictal prior to arrival. He denies any headache, chest pain, shortness breath, abdominal pain, dysuria, fever or chills. ROS All systems reviewed and are negative except as per history of present illness. Medications Home Meds Active Scripts Ibuprofen* (Motrin*) 400 Mg Tab, 400 MG PO Q8 PRN for PAIN AND/OR INFLAMMATION, #30 TAB Prov:SHANDRA LAMAR MD 08/30/17 Neomycin Fischer/Bacitrac Zn/Poly (Triple Antibiotic Ointment) 1 Each Oint.pack, 1 EACH TP BID for 7 Days Prov:JUAN SALAZAR PA-C 11/17/16 Ibuprofen* (Motrin*) 600 Mg Tab, 600 MG PO Q6, #30 TAB Prov:CARLINE HERNANDEZ 11/10/16 Cephalexin* (Keflex*) 500 Mg Capsule, 500 MG PO BID for 7 Days, CAP Prov:CARLINE HERNANDEZ 11/10/16 Reported Medications Aspirin (Low Dose Aspirin) 81 Mg Tablet., 81 MG PO DAILY, #30 TAB 03/08/16 Simvastatin (Simvastatin) 20 Mg Tablet, 20 MG PO HS, TAB 09/16/14 Calcitriol* (Rocaltrol*) 0.25 Mcg Capsule, 0.25 MCG PO QAM, CAP 09/16/14 Phenytoin* Sodium Extended (Dilantin*) 300 Mg Capsule, 300 MG PO BID, CAP 09/16/14 Phenobarbital* (Phenobarbital*) 32.4 Mg Tab, 64.8 MG PO BID, TAB 09/16/14 Allergies Allergies: Coded Allergies: No Known Allergy (Unverified , 03/08/16) PMhx/Soc History of Surgery: Yes (L hip surgery) Anesthesia Reaction: No Hx Neurological Disorder: Yes (seizure disorder) Hx Respiratory Disorders: Yes (resp failure hx, pna) Hx Cardiac Disorders: Yes (afib, htn) Hx Psychiatric Problems: No Hx Miscellaneous Medical Probl: No Hx Alcohol Use: No Hx Substance Use: No Hx Tobacco Use: No Smoking Status: Never smoker FmHx Family History: No diabetes Physical Exam Vitals Vital Signs Date Temp Pulse Resp B/P (MAP) Pulse Ox O2 O2 Flow FiO2 Time Delivery Rate 04/23/18 97.3 66 16 110/65 99 18:14 (80) 04/23/18 62 13 116/51 94 Nasal 16:30 (72) Cannula 04/23/18 98.3 69 19 159/79 98 14:32 (105) Physical Exam Const: No acute distress, well-appearing Head: Atraumatic Eyes: Normal Conjunctiva ENT: Normal External Ears, Nose and Mouth. No evidence of intraoral injury Neck: Full range of motion. No meningismus. Resp: Clear to auscultation bilaterally Cardio: Regular rate and rhythm, no murmurs Abd: Soft, non tender, non distended. Normal bowel sounds Skin: No petechiae or rashes Back: No midline or flank tenderness Ext: No cyanosis, or edema Neur: Awake and alert, no facial asymmetry, normal speech, moving all extremities Psych: Normal Mood and Affect Result Diagram: 04/23/18 1520 04/23/18 1520 Results 24 hrs Laboratory Tests Test 04/23/18 15:20 04/23/18 15:25 04/23/18 16:55 White Blood Count 3.7 10^3/ul Red Blood Count 3.34 10^6/ul Hemoglobin 10.5 g/dl Hematocrit 32.2 % Mean Corpuscular Volume 96.4 fl Mean Corpuscular Hemoglobin 31.4 pg Mean Corpuscular 32.6 g/dl Hemoglobin Concent Red Cell Distribution Width 11.9 % Platelet Count 183 10^3/UL Mean Platelet Volume 9.6 fl Immature Granulocytes % 0.300 % Neutrophils % 58.0 % Lymphocytes % 27.0 % Monocytes % 11.8 % Eosinophils % 2.4 % Basophils % 0.5 % Nucleated Red Blood Cells % 0.0 /100WBC Immature Granulocytes # 0.010 10^3/ul Neutrophils # 2.2 10^3/ul Lymphocytes # 1.0 10^3/ul Monocytes # 0.4 10^3/ul Eosinophils # 0.1 10^3/ul Basophils # 0.0 10^3/ul Nucleated Red Blood Cells # 0.0 10^3/ul Sodium Level 134 mmol/L Potassium Level 4.6 mmol/L Chloride Level 94 mmol/L Carbon Dioxide Level 34 mmol/L Anion Gap 6 Blood Urea Nitrogen 28 mg/dl Creatinine 1.12 mg/dl Est Glomerular Filtrat mL/min Rate mL/min Glucose Level 112 mg/dl Calcium Level 8.5 mg/dl Phenytoin (Dilantin) Level 5.3 ug/ml Bedside Glucose 121 mg/dL Urine Color STRAW Urine Clarity CLEAR Urine pH 7.0 Urine Specific [place] 1.009 Urine Ketones NEGATIVE mg/dL Urine Nitrite NEGATIVE mg/dL Urine Bilirubin NEGATIVE mg/dL Urine Urobilinogen NEGATIVE mg/dL Urine Leukocyte Esterase NEGATIVE Vipul/ul Urine Hemoglobin NEGATIVE mg/dL Urine Glucose NEGATIVE mg/dL Urine Total Protein NEGATIVE mg/dl Current Medications Medications Dose Sig/Steve Start Time Status Last (Trade) Ordered Route PRN Stop Time Admin Dose Reason Admin Phenytoin 500 mg ONCE STAT 04/23/18 DC 04/23/18 (Dilantin) PO 16:16 16:32 04/23/18 16:17 Procedures/MDM EMERGENT LABS AND DIAGNOSTIC STUDIES: Lab Results above were reviewed and interpreted by me. CBC: Mild leukopenia, mild anemia CMP: Elevated BUN, may be secondary to dehydration. No evidence of electrolyte abnormality, renal failure, hypoglycemia, liver failure, or biliary obstruction Dilantin level low, subtherapeutic UA: no evidence of infection 12-lead EKG was interpreted by Johanna Santacruz MD: Sinus rhythm with first-degree AV block at 69 bpm Left axis deviation Normal intervals No acute ST or T wave changes suggestive of acute ischemia or STEMI. Initial Nursing notes reviewed. Previous Medical Records requested via the Electronic Health Record. EMERGENCY DEPARTMENT COURSE / MEDICAL DECISION MAKING: Patient is presenting with a breakthrough seizure, likely secondary to his Dilantin being decreased. His vitals are stable and he is mentating normally, neurovascularly intact. I doubt meningitis, stroke, or intracranial hemorrhage. I doubt acute bacterial infection. His Dilantin level was subtherapeutic. I think this may have been the cause of his breakthrough seizure. He was given an oral loading dose of Dilantin here. Phenobarbital level was sent but is pending as this is a send out test. Patient is back to his baseline and is stable for discharge. He has an appointment with his neurologist tomorrow to discuss any medication changes. Return precautions were discussed. Patient's blood pressure was elevated (>120/80) but appears stable without evidence of hypertensive emergency or urgency. The patient was counseled about the risks of hypertension and urged to pursue outpatient monitoring and therapy within a week with their primary care physician. Departure Diagnosis: Primary Impression: Seizure Additional Impression: Subtherapeutic phenytoin level Condition: Stable YANELI SANTACRUZ MD Apr 23, 2018 16:16
[2018-04-23 18:14] VITALS: BP 110/65; PULSE 66; RESP 16
== END 2018-04-23 18:24 | disposition home or self-care (01) ==
LOC: E/R 14:28
DX: G40.909 Epilepsy, unspecified, not intractable, without status epilepticus (principal); I10 Essential (primary) hypertension; R89.2 Abnormal level of other drugs, medicaments and biological substances in specimens from other organs, systems and tissues; R40.2142 Coma scale, eyes open, spontaneous, at arrival to emergency department; R40.2362 Coma scale, best motor response, obeys commands, at arrival to emergency department; R40.2252 Coma scale, best verbal response, oriented, at arrival to emergency department; Z79.82 Long term (current) use of aspirin
CPT/HCPCS: 36415; 80048; 80184; 80185; 81003; 82962; 85025; 93005

== ENCOUNTER 2018-05-31 15:08 | Emergency (ER) | payer MEDICARE, OTHER ==
[~2018-05-31] VITALS: Ht 172.7 cm; Wt 81.0 kg
[2018-05-31 15:13] VITALS: Ht 172.7 cm; Wt 81.0 kg
[2018-05-31 19:13] VITALS: BP 107/38; PULSE 63; RESP 16
--- NOTE | 2018-05-31 23:39 | ERD ---
ER Documentation Chief Complaint Chief Complaint pt bib caregiver with c/o trip and fall while using his walker, lac to head HPI 83-year-old male with a history of seizure disorder brought in by his caregivers after he lost his balance and fell while using his walker. Reportedly he fell onto his buttocks but hit the back of his head on the ground as well. No loss of consciousness. No complaints of headache, nausea, vomiting. Denies any neck or back pain. No hip pain. 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 Per his caregiver, his gabapentin was recently discontinued as he had been very sleepy while taking this medication. However she thinks that it may have made his neuropathy worse, causing him to fall. ROS All systems reviewed and are negative except as per history of present illness. Medications Home Meds Active Scripts Ibuprofen* (Motrin*) 400 Mg Tab, 400 MG PO Q8 PRN for PAIN AND/OR INFLAMMATION, #30 TAB Prov:SHANDRA LAMAR MD 08/30/17 Neomycin Fischer/Bacitrac Zn/Poly (Triple Antibiotic Ointment) 1 Each Oint.pack, 1 EACH TP BID for 7 Days Prov:JUAN SALAZAR PA-C 11/17/16 Ibuprofen* (Motrin*) 600 Mg Tab, 600 MG PO Q6, #30 TAB Prov:CARLNIE HERNANDEZ 11/10/16 Cephalexin* (Keflex*) 500 Mg Capsule, 500 MG PO BID for 7 Days, CAP Prov:CARLINE HERNANDEZ 11/10/16 Reported Medications Aspirin (Low Dose Aspirin) 81 Mg Tablet., 81 MG PO DAILY, #30 TAB 03/08/16 Simvastatin (Simvastatin) 20 Mg Tablet, 20 MG PO HS, TAB 09/16/14 Calcitriol* (Rocaltrol*) 0.25 Mcg Capsule, 0.25 MCG PO QAM, CAP 09/16/14 Phenytoin* Sodium Extended (Dilantin*) 300 Mg Capsule, 300 MG PO BID, CAP 09/16/14 Phenobarbital* (Phenobarbital*) 32.4 Mg Tab, 64.8 MG PO BID, TAB 09/16/14 Allergies Allergies: Coded Allergies: No Known Allergy (Unverified , 03/08/16) PMhx/Soc History of Surgery: Yes (L hip surgery) Anesthesia Reaction: No Hx Neurological Disorder: Yes (seizure disorder) Hx Respiratory Disorders: Yes (resp failure hx, pna) Hx Cardiac Disorders: Yes (afib, htn) Hx Psychiatric Problems: No Hx Miscellaneous Medical Probl: No Hx Alcohol Use: No Hx Substance Use: No Hx Tobacco Use: No Smoking Status: Never smoker FmHx Family History: No diabetes Physical Exam Vitals Vital Signs Date Temp Pulse Resp B/P (MAP) Pulse Ox O2 O2 Flow FiO2 Time Delivery Rate 05/31/18 63 16 107/38 100 Room Air 19:13 (61) 05/31/18 98.9 64 18 124/56 98 15:13 (78) Physical Exam Const: No acute distress Head: Small contusion and abrasion to the back of the head without laceration or skull depression Eyes: Normal Conjunctiva, PERRLA, EOMI ENT: Normal External Ears, Nose and Mouth. Neck: Full range of motion. No meningismus. No C-spine tenderness. Resp: Clear to auscultation bilaterally Cardio: Regular rate and rhythm, no murmurs Abd: Soft, non tender, non distended. Normal bowel sounds Skin: No petechiae or rashes Back: No midline or flank tenderness Ext: No cyanosis, or edema Neur: Awake and alert, oriented, normal speech, no facial asymmetry, cranial nerves intact, strength and sensations intact in all 4 extremities. Psych: Normal Mood and Affect Procedures/MDM EMERGENT LABS AND DIAGNOSTIC STUDIES: Radiology Results as interpreted by Radiology below were reviewed by Ileana hairston MD: CT head shows no acute traumatic abnormalities CT C-spine shows no acute traumatic abnormalities Initial Nursing notes reviewed. Previous Medical Records requested via the Electronic Health Record. EMERGENCY DEPARTMENT COURSE / MEDICAL DECISION MAKING: Patient is presenting after a ground-level fall with evidence of head injury. Given his age, CT of the head was ordered and did not show any evidence of intracranial hemorrhage or skull fracture. He is mentating normally. It is possible that he fell from his neuropathy but per his caregivers, he does have chronically poor balance and is very bad about using his walker. They feel comfortable taking him home at this time. Recommended continued outpatient follow-up and discussion with PCP regarding restarting his gabapentin. His wound was cleaned and dressed. Return precautions were discussed. Patient's blood pressure was elevated (>120/80) but appears stable without evidence of hypertensive emergency or urgency. The patient was counseled about the risks of hypertension and urged to pursue outpatient monitoring and therapy within a week with their primary care physician. Departure Diagnosis: Primary Impression: Fall Encounter type: initial encounter Qualified Codes: W19.XXXA - Unspecified fall, initial encounter Additional Impressions: Scalp contusion Encounter type: initial encounter Qualified Codes: S00.03XA - Contusion of scalp, initial encounter Head injury Encounter type: initial encounter Qualified Codes: S09.90XA - Unspecified injury of head, initial encounter Condition: Stable Patient Instructions: Fall, Mechanical, HEAD INJURY, No Wake-Up (Adult) YANELI HALEY MD May 31, 2018 23:39
== END 2018-05-31 19:22 | disposition home or self-care (01) ==
LOC: E/R 15:08
DX: S00.03XA Contusion of scalp, initial encounter (principal); I10 Essential (primary) hypertension; W01.198A Fall on same level from slipping, tripping and stumbling with subsequent striking against other object, initial encounter; Y92.9 Unspecified place or not applicable; Z79.82 Long term (current) use of aspirin
CPT/HCPCS: 70450; 72125

== ENCOUNTER 2018-06-06 11:56 | Inpatient (IN) | payer MEDICARE, OTHER ==
[~2018-06-06] VITALS: Ht 172.7 cm; Wt 68.2 kg
[2018-06-06 11:57] VITALS: Ht 172.7 cm; Wt 68.2 kg
[2018-06-06] MEDS ORDERED: DIGO250T PO (13:29)
[2018-06-06] MEDS ORDERED: PHEN15TA PO (13:29)
[2018-06-06] MEDS ORDERED: FURO40TA4 PO (13:29)
[2018-06-06] MEDS ORDERED: LEVE500T8 PO (13:30)
[2018-06-06] MEDS ORDERED: TAMS0.4C2 PO (13:30)
[2018-06-06] MEDS ORDERED: METO-429 PO (13:31)
[2018-06-06] MEDS ORDERED: ASPI-817 PO (13:31)
[2018-06-06] MEDS ORDERED: DONE5TAB7 PO (13:32)
[2018-06-06] MEDS ORDERED: DOCU-144 PO (13:32)
[2018-06-06] MEDS ORDERED: ATOR10TA65 PO (13:32)
[2018-06-06] MEDS ORDERED: PHEN100C PO (13:33)
--- NOTE | 2018-06-06 14:09 | ERD ---
ER Documentation Chief Complaint Chief Complaint fall hit head about 30mins ago, caregiver denies ko. HPI 83-year-old gentleman who had a mechanical fall approximately 1 hour prior to arrival. The patient states that he was walking with his walker and felt his feet were clumsy and fell to the ground hitting his occipital head with associated hematoma no laceration. Patient takes aspirin but no other anticoagulants. The patient has had frequent falls recently over the last several weeks and was seen here recently for similar. The patient's pavilion cutter states that he is having increasing difficulty ambulating. He does not have 24- hour care and his pavilion cutter feels that this is necessary. Patient himself otherwise has no complaints. He denies any neck pain chest pain or shortness of breath. Patient denies any injuries to his extremities. ROS All systems reviewed and are negative except as per history of present illness. Medications Home Meds Reported Medications Phenytoin* Sodium Extended (Dilantin*) 100 Mg Capsule, 100 MG PO BID, CAP 06/06/18 Atorvastatin Calcium (Atorvastatin Calcium) 10 Mg Tablet, 10 MG PO QHS, #30 TAB 06/06/18 Donepezil* (Donepezil*) 5 Mg Tablet, 5 MG PO DAILY, #30 TAB 06/06/18 Docusate Sodium* (Colace*) 100 Mg Capsule, 100 MG PO DAILY, #30 CAP 06/06/18 Aspirin* (Aspirin* EC) 81 Mg Tablet.dr, 81 MG PO DAILY, TAB 06/06/18 Metoprolol Tartrate* (Lopressor*) 50 Mg Tab, 50 MG PO BID, #60 TAB 06/06/18 Levetiracetam* (Levetiracetam*) 500 Mg Tablet, 500 MG PO BID, TAB 06/06/18 Tamsulosin Hcl* (Tamsulosin Hcl*) 0.4 Mg Cap.er.24h, 0.4 MG PO HS, CAP 06/06/18 Furosemide* (Furosemide*) 40 Mg Tablet, 40 MG PO BID, TAB 06/06/18 Phenobarbital* (Phenobarbital*) 15 Mg Tablet, 15 MG PO BID, TAB 06/06/18 Digoxin* (Digitek*) 250 Mcg Tablet, 0.25 MG PO DAILY, TAB 06/06/18 Discontinued Reported Medications Aspirin (Low Dose Aspirin) 81 Mg Tablet.dr, 81 MG PO DAILY, #30 TAB 1/5/17 Simvastatin (Simvastatin) 20 Mg Tablet, 20 MG PO HS, TAB 09/16/14 Calcitriol* (Rocaltrol*) 0.25 Mcg Capsule, 0.25 MCG PO QAM, CAP 09/16/14 Phenytoin* Sodium Extended (Dilantin*) 300 Mg Capsule, 300 MG PO BID, CAP 09/16/14 Phenobarbital* (Phenobarbital*) 32.4 Mg Tab, 64.8 MG PO BID, TAB 09/16/14 Discontinued Scripts Ibuprofen* (Motrin*) 400 Mg Tab, 400 MG PO Q8 PRN for PAIN AND/OR INFLAMMATION, #30 TAB Prov:SHANDRA LAMAR MD 08/30/17 Neomycin Fischer/Bacitrac Zn/Poly (Triple Antibiotic Ointment) 1 Each Oint.pack, 1 EACH TP BID for 7 Days Prov:JUAN SALAZAR PA-C 11/17/16 Ibuprofen* (Motrin*) 600 Mg Tab, 600 MG PO Q6, #30 TAB Prov:CARLINE HERNANDEZ 11/10/16 Cephalexin* (Keflex*) 500 Mg Capsule, 500 MG PO BID for 7 Days, CAP Prov:CARLINE HERNANDEZ C 11/10/16 Allergies Allergies: Coded Allergies: No Known Allergy (Unverified , 06/06/18) PMhx/Soc History of Surgery: Yes Anesthesia Reaction: No Hx Neurological Disorder: Yes (SEIZURE DISORDER, PERIPHERAL NEUROPATHY) Hx Respiratory Disorders: No Hx Cardiac Disorders: Yes (HYPERLIPIDEMIA, heart failure, htn) Hx Psychiatric Problems: Yes (OCD) Hx Miscellaneous Medical Probl: No Hx Alcohol Use: No Hx Substance Use: No Hx Tobacco Use: No Smoking Status: Never smoker FmHx Family History: No diabetes Physical Exam Vitals Vital Signs Date Temp Pulse Resp B/P (MAP) Pulse Ox O2 O2 Flow FiO2 Time Delivery Rate 06/06/18 47 18 122/49 100 Room Air 13:18 (73) 06/06/18 97.9 54 18 108/53 98 11:57 (71) Physical Exam Airway is intact Bilateral breath sounds Strong distal pulses No obvious deficits General: Well developed, well nourished, no acute distress Head: Normocephalic, atraumatic other than a very small subcentimeter occipital hematoma on the left side Eyes: Pupils equally reactive, EOM intact ENT: Moist mucous membranes Neck: Supple, no lymphadenopathy, No midline tenderness, deformities, step-offs to the cervical spine, full active and passive range of motion without midline pain. Respiratory: Lungs clear bilaterally, no distress, no chest wall tenderness, no crepitus Cardiovascular: RRR, no murmurs, rubs, or gallops Abdominal: Soft, non-tender, non-distended, no peritoneal signs, pelvis is stable : Deferred MSK: No edema, no unilateral swelling, no midline tenderness deformities or step-offs to the thoracolumbar spine Neurologic: Alert and oriented, moving all extremities, normal speech, no focal weakness, no cerebellar signs Skin: No ecchymoses or bruising to the chest or abdomen Psych: Normal mood Result Diagram: 06/06/18 1245 06/06/18 1245 Results 24 hrs Laboratory Tests Test 06/06/18 12:45 White Blood Count 5.1 10^3/ul Red Blood Count 3.26 10^6/ul Hemoglobin 10.2 g/dl Hematocrit 31.7 % Mean Corpuscular Volume 97.2 fl Mean Corpuscular Hemoglobin 31.3 pg Mean Corpuscular Hemoglobin Concent 32.2 g/dl Red Cell Distribution Width 12.0 % Platelet Count 202 10^3/UL Mean Platelet Volume 9.2 fl Immature Granulocytes % 0.200 % Neutrophils % 67.8 % Lymphocytes % 18.6 % Monocytes % 11.2 % Eosinophils % 1.6 % Basophils % 0.6 % Nucleated Red Blood Cells % 0.0 /100WBC Immature Granulocytes # 0.010 10^3/ul Neutrophils # 3.5 10^3/ul Lymphocytes # 1.0 10^3/ul Monocytes # 0.6 10^3/ul Eosinophils # 0.1 10^3/ul Basophils # 0.0 10^3/ul Nucleated Red Blood Cells # 0.0 10^3/ul Prothrombin Time 14.0 Sec Prothrombin Time Ratio 1.1 INR International Normalized Ratio 1.07 Activated Partial Thromboplast Time 28.3 Sec Sodium Level 137 mmol/L Potassium Level 4.1 mmol/L Chloride Level 97 mmol/L Carbon Dioxide Level 30 mmol/L Anion Gap 10 Blood Urea Nitrogen 27 mg/dl Creatinine 1.07 mg/dl Est Glomerular Filtrat Rate mL/min mL/min Glucose Level 96 mg/dl Calcium Level 8.3 mg/dl Total Bilirubin 0.1 mg/dl Direct Bilirubin 0.00 mg/dl Indirect Bilirubin 0.1 mg/dl Aspartate Amino Transf (AST/SGOT) 21 IU/L Alanine Aminotransferase (ALT/SGPT) 19 IU/L Alkaline Phosphatase 93 IU/L Troponin I < 0.012 ng/ml Total Protein 6.7 g/dl Albumin 3.9 g/dl Globulin 2.80 g/dl Albumin/Globulin Ratio 1.39 Procedures/MDM EKG, MONITORS, & DIAGNOSTIC IMAGING: CT brain IMPRESSION: 1. No intracranial hemorrhage, mass effect or midline shift. 2. Mild generalized atrophy. Mild microangiopathic ischemic change. 3. 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 4. Intracranial atherosclerosis. CXR IMPRESSION: Mild bibasilar partial atelectasis or scarring. Old right-sided rib fractures. RPTAT: XX EKG: I reviewed and interpreted a 12-lead EKG. Rhythm: Sinus bradycardia ST Changes: No contiguous ST segment elevations T waves: No contiguous T wave inversions Impression: No evidence of acute cardiac ischemia LAB INTERPRETATION: I reviewed the laboratory testing and it shows no evidence of acute process MEDICAL DECISION MAKING: The patient presents to the emergency room with a frequency of falls at home. It is clear that the patient's level of assistance at home is insufficient. The patient is having increasing falls and is at increased risk of mortality and morbidity related to these falls. Patient has a sinus bradycardia with h emodynamic stability. This is possibly age-related. I do not believe this is related to the patient's falls he is not experiencing what appears to be syncope or arrhythmia. I believe the patient would benefit from hospitalization for further evaluation, PT and OT and potentially placement. Patient has an occipital hematoma that warrant CT imaging of the head. The patient does not meet high-risk criteria and based on NEXUS cervical spine criteria there is no indication for cervical spine imaging at this time. ER COURSE: * Offered pain medication but refused. Pain-free currently. Laboratory testing reassuring. * Patient to be admitted for further management. CONSULTATION: None DISPOSITION PLAN: Accepting care team and consultations: I discussed the current laboratory data, diagnostic imaging and emergency care provided. Admitting team: KLEBER Martinez Admitting team indication: Insurance directed Departure Diagnosis: Primary Impression: Closed head injury Encounter type: initial encounter Qualified Codes: S09.90XA - Unspecified injury of head, initial encounter Additional Impressions: Frequent falls Generalized weakness Condition: Stable REYNALDO JARAMILLO MD Jun 06, 2018 14:09
[2018-06-06] MEDS ORDERED: ONDANSETRON 4 MG INJ IV PRN (14:30)
[2018-06-06] MEDS ORDERED: ACETAMINOPHEN 325 MG TAB PO PRN (14:30)
[2018-06-06 17:00] VITALS: BP 124/59; PULSE 53; RESP 18
[2018-06-06] MEDS ORDERED: ASCO500C7 PO (17:16)
[2018-06-06] MEDS ORDERED: [UNRECOGNIZED DRUG - CODE] MC (17:16)
[2018-06-06 20:00] VITALS: BP 135/61; PULSE 56; RESP 18
[2018-06-06] MEDS: FUROSEMIDE 40 MG TAB PO SCH (21:00)
[2018-06-06] MEDS: FAMOTIDINE 20 MG TAB PO SCH (21:00)
[2018-06-06] MEDS: TAMSULOSIN (SR) 0.4 MG CAP PO SCH (21:00)
[2018-06-06] MEDS: METOPROLOL 50 MG TAB PO SCH (21:00)
[2018-06-06] MEDS: LEVETIRACETAM 500 MG TAB PO SCH (21:00)
[2018-06-06] MEDS: ATORVASTATIN 10 MG TAB PO SCH (21:00)
[2018-06-07 02:00] VITALS: BP 131/61; PULSE 53; RESP 18
--- NOTE | 2018-06-07 04:00 | HP ---
DATE OF ADMISSION: 06/06/2018 CHIEF COMPLAINT: Weakness. HISTORY OF PRESENT ILLNESS: This is an 83-year-old male with a past medical history of seizure disorder, history of dyslipidemia, history of peripheral neuropathy, history of heart failure, hypertension who presents to the [facility] Emergency Room after a mechanical fall. The patient states that he was walking with his walker when he fell clumsily fell to the ground, hitting the back of his head. The patient as a result was brought into the emergency room. Upon arrival, the patient had a CT scan of the brain, which showed no intracranial pathology, small areas of chronic infarcts. Mild generalized atrophy. The patient also had a chest x-ray, which showed bibasilar atelectasis. The patient in the emergency room had other laboratory data drawn showed a white count of 5.1, BUN 27, creatinine 1.07. In the emergency room, the patient was given Tylenol, Zofran and admitted to med/surg for evaluation. Upon my evaluation of the patient at this time, he is currently stable. He is describing having difficulty ambulating due to numbness of his lower extremities. The patient does take Neurontin and medications were being adjusted by primary. The patient denies any back pain, denies any hemoptysis, hematemesis, or hematochezia. PAST MEDICAL HISTORY: History of hypertension, history of neuropathy, history of seizure disorder, dyslipidemia. FAMILY HISTORY: No family history of kidney disease. SOCIAL HISTORY: He does not drink, smoke or do drugs. MEDICATIONS: The patient's medication have been reviewed. ALLERGIES: NONE. REVIEW OF SYSTEMS: A 14-point review of systems was conducted. Pertinent positives stated in HPI, otherwise negative. PHYSICAL EXAMINATION: VITAL SIGNS: Blood pressure is 124/59, respirations 18, pulse 83, temperature 96.1. HEENT: Head is normocephalic. The patient has a noted hematoma in the occipital region. NECK: Supple. HEART: Regular rate. LUNGS: Show diminished breath sounds at the base. ABDOMEN: Soft, nontender to palpation without rebound or guarding. EXTREMITIES: Negative for clubbing, cyanosis, no edema. DERMATOLOGIC: No rashes. MUSCULOSKELETAL: No joint effusion. NEUROLOGIC: No focal deficits. LABORATORY DATA: Has been reviewed. The patient's sodium 137, BUN 27, creatinine 1.07. White count 5.1, hemoglobin 10.2, platelet count is 202. ASSESSMENT AND PLAN: This is an 83-year-old male who presents with: 1. Mechanical fall with occipital hematoma. The patient is status post CT scan of the brain that shows no intracranial pathology. Plan is to monitor the patient. We will continue neuro checks. 2. Peripheral neuropathy with gait imbalance. Etiology possible multifactorial, dilantin toxicity, questionable neurontin use. Plan to hold dilantin. Consider neurology evaluation. We will get PT evaluation. . Monitor closely. 3. Hypertension. Continue current blood pressure regimen. 4. Seizure disorder. Continue Keppra, hold dilantin, adjust levels. Consider neurology evaluation. 5. History of congestive heart failure. Continue Lasix. Continue medical management. 6. Benign prostatic hypertrophy. Continue Flomax. 7. History of cognitive decline. Continue donepezil. 8. History of arrhythmia. Continue digoxin. 9. Mild anemia. Monitor hemoglobin and hematocrit levels. 10. Gastrointestinal and deep vein thrombosis prophylaxis. Continue proton pump inhibitor and sequential leg squeezers. Please note I spent an additional 30 minutes of [id number] time with the patient, discussing advanced directives and code status. The patient is FULL CODE. Dictated By: JULISA CONN DO NR/NTS Conf#: [id number] DID#: [id number] CC: JULISA CONN DO;*EndCC* MTDD
[2018-06-07 08:00] VITALS: BP 125/60; PULSE 56; RESP 18
[2018-06-07] MEDS: ASPIRIN (EC) 81 MG TAB PO SCH (09:00)
[2018-06-07] MEDS: METOPROLOL 50 MG TAB PO SCH ×2 (09:00→20:02)
[2018-06-07] MEDS: ASCORBIC ACID 500 MG TAB PO SCH (09:07)
[2018-06-07] MEDS: LEVETIRACETAM 500 MG TAB PO SCH ×2 (09:08→20:02)
[2018-06-07] MEDS: DOCUSATE SODIUM 100 MG CAP PO SCH (09:08)
[2018-06-07] MEDS: FAMOTIDINE 20 MG TAB PO SCH ×2 (09:09→20:02)
[2018-06-07] MEDS: DONEPEZIL 5 MG TAB PO SCH (09:09)
[2018-06-07] MEDS: FUROSEMIDE 40 MG TAB PO SCH ×2 (09:09→20:03)
--- NOTE | 2018-06-07 12:44 | PN ---
Date/Time of Note Date/Time of Note DATE: 06/07/18 TIME: 12:42 Assessment/Plan VTE Prophylaxis Risk score (from Ns)>0 risk: 4 SCD applied [place]from [facility] [place] Yes Pharmacological prophylaxis: NA/contraindicated Pharm contraindication: bleeding Lines/Catheters IV [facility]from [facility] [place] Urinary Cath still in place: No Assessment/Plan Assessment/Plan 1. Mechanical fall with occipital hematoma. The patient is status post CT scan of the brain that shows no intracranial pathology. Plan is to monitor the patient. continue neuro checks. 2. Peripheral neuropathy with gait imbalance. Etiology possible multifactorial, dilantin toxicity, questionable neurontin use. Plan to hold dilantin. Consider neurology evaluation. We will get PT evaluation. . M onitor closely. 3. Hypertension. Continue current blood pressure regimen. 4. Seizure disorder. Continue Keppra, hold dilantin, adjust levels. Consider neurology evaluation. 5. History of congestive heart failure. Continue Lasix. Continue medical management. 6. Benign prostatic hypertrophy. Continue Flomax. 7. History of cognitive decline. Continue donepezil. 8. History of arrhythmia. Continue digoxin. 9. Mild anemia. Monitor hemoglobin and hematocrit levels. 10. Gastrointestinal and deep vein thrombosis prophylaxis. Continue proton pump inhibitor and sequential leg squeezers. Result Diagram: 06/07/18 0544 06/07/18 0544 Results 24hrs Laboratory Tests Test 06/06/18 12:45 06/06/18 22:30 06/07/18 05:44 White Blood Count 5.1 # 4.6 L Red Blood Count 3.26 L 3.39 L Hemoglobin 10.2 L 10.6 L Hematocrit 31.7 L 32.5 L Mean Corpuscular Volume 97.2 95.9 Mean Corpuscular Hemoglobin 31.3 31.3 Mean Corpuscular Hemoglobin Concent 32.2 32.6 Red Cell Distribution Width 12.0 12.1 Platelet Count 202 222 Mean Platelet Volume 9.2 9.6 Immature Granulocytes % 0.200 0.200 Neutrophils % 67.8 55.5 Lymphocytes % 18.6 31.3 Monocytes % 11.2 H 10.4 Eosinophils % 1.6 2.2 Basophils % 0.6 0.4 Nucleated Red Blood Cells % 0.0 0.0 Immature Granulocytes # 0.010 0.010 Neutrophils # 3.5 2.6 Lymphocytes # 1.0 1.4 Monocytes # 0.6 0.5 Eosinophils # 0.1 0.1 Basophils # 0.0 0.0 Nucleated Red Blood Cells # 0.0 0.0 Prothrombin Time 14.0 Prothrombin Time Ratio 1.1 INR International Normalized Ratio 1.07 Activated Partial Thromboplast Time 28.3 Sodium Level 137 138 Potassium Level 4.1 3.9 Chloride Level 97 99 Carbon Dioxide Level 30 32 H Anion Gap 10 7 Blood Urea Nitrogen 27 H 29 H Creatinine 1.07 1.08 Est Glomerular Filtrat Rate mL/min Glucose Level 96 95 Calcium Level 8.3 L 8.3 L Total Bilirubin 0.1 L Direct Bilirubin 0.00 Indirect Bilirubin 0.1 Aspartate Amino Transf (AST/SGOT) 21 Alanine Aminotransferase (ALT/SGPT) 19 Alkaline Phosphatase 93 Troponin I < 0.012 Total Protein 6.7 Albumin 3.9 Globulin 2.80 Albumin/Globulin Ratio 1.39 Phenytoin (Dilantin) Level 34.4 *H Urine Color STRAW Urine Clarity CLEAR Urine pH 8.0 Urine Specific [place] 1.006 Urine Ketones NEGATIVE Urine Nitrite NEGATIVE Urine Bilirubin NEGATIVE Urine Urobilinogen NEGATIVE Urine Leukocyte Esterase NEGATIVE Urine Hemoglobin NEGATIVE Urine Random Creatinine 24.71 Urine Random Sodium 50 Urine Glucose NEGATIVE Urine Total Protein 16.0 H Phosphorus Level 4.2 Magnesium Level 2.4 Subjective 24 Hr Interval Summary Free Text/Dictation overnight events reviewed denies shortness of breath, n/v or chest pain pt eating well. seen with caregiver at bedside gen nad cv rrr pulm ctab abd soft, nd, nt +bs ext: no edema Exam/Review of Systems Exam Vitals Vital Signs Date Temp Pulse Resp B/P (MAP) Pulse Ox O2 O2 Flow FiO2 Time Delivery Rate 06/07/18 97.8 56 18 125/60 97 Room Air 08:00 (81) Intake and Output 06/06/18 06/06/18 06/07/18 1515:00 23:00 07:00 IntakeIntake Total 400 ml OutputOutput Total 930 ml 850 ml BalanceBalance -930 ml -450 ml Results Results 24hrs Laboratory Tests Test 06/06/18 12:45 06/06/18 22:30 06/07/18 05:44 White Blood Count 5.1 # 4.6 L Red Blood Count 3.26 L 3.39 L Hemoglobin 10.2 L 10.6 L Hematocrit 31.7 L 32.5 L Mean Corpuscular Volume 97.2 95.9 Mean Corpuscular Hemoglobin 31.3 31.3 Mean Corpuscular Hemoglobin Concent 32.2 32.6 Red Cell Distribution Width 12.0 12.1 Platelet Count 202 222 Mean Platelet Volume 9.2 9.6 Immature Granulocytes % 0.200 0.200 Neutrophils % 67.8 55.5 Lymphocytes % 18.6 31.3 Monocytes % 11.2 H 10.4 Eosinophils % 1.6 2.2 Basophils % 0.6 0.4 Nucleated Red Blood Cells % 0.0 0.0 Immature Granulocytes # 0.010 0.010 Neutrophils # 3.5 2.6 Lymphocytes # 1.0 1.4 Monocytes # 0.6 0.5 Eosinophils # 0.1 0.1 Basophils # 0.0 0.0 Nucleated Red Blood Cells # 0.0 0.0 Prothrombin Time 14.0 Prothrombin Time Ratio 1.1 INR International Normalized Ratio 1.07 Activated Partial Thromboplast Time 28.3 Sodium Level 137 138 Potassium Level 4.1 3.9 Chloride Level 97 99 Carbon Dioxide Level 30 32 H Anion Gap 10 7 Blood Urea Nitrogen 27 H 29 H Creatinine 1.07 1.08 Est Glomerular Filtrat Rate mL/min Glucose Level 96 95 Calcium Level 8.3 L 8.3 L Total Bilirubin 0.1 L Direct Bilirubin 0.00 Indirect Bilirubin 0.1 Aspartate Amino Transf (AST/SGOT) 21 Alanine Aminotransferase (ALT/SGPT) 19 Alkaline Phosphatase 93 Troponin I < 0.012 Total Protein 6.7 Albumin 3.9 Globulin 2.80 Albumin/Globulin Ratio 1.39 Phenytoin (Dilantin) Level 34.4 *H Urine Color STRAW Urine Clarity CLEAR Urine pH 8.0 Urine Specific [place] 1.006 Urine Ketones NEGATIVE Urine Nitrite NEGATIVE Urine Bilirubin NEGATIVE Urine Urobilinogen NEGATIVE Urine Leukocyte Esterase NEGATIVE Urine Hemoglobin NEGATIVE Urine Random Creatinine 24.71 Urine Random Sodium 50 Urine Glucose NEGATIVE Urine Total Protein 16.0 H Phosphorus Level 4.2 Magnesium Level 2.4 Medications Medication Current Medications Ondansetron HCl (Zofran Inj) 4 mg BRIDGE ORDER PRN IV NAUSEA/VOMITING; Start 06/06/18 at 14:30; Stop 06/07/18 at 14:29 Acetaminophen (Tylenol Tab) 650 mg ER BRIDGE PRN PO .MILD PAIN 1-3 OR TEMP; Start 06/06/18 at 14:30; Stop 06/07/18 at 14:29 Ascorbic Acid (Vitamin C) 500 mg DAILY PO Last administered on 06/07/18at 09:07; Admin Dose 500 MG; Start 06/07/18 at 09:00 Aspirin (Halfprin) 81 mg DAILY PO ; Start 06/07/18 at 09:00 Atorvastatin Calcium (Lipitor) 10 mg QHS PO Last administered on 06/06/18at 21:00; Admin Dose 10 MG; Start 06/06/18 at 21:00 Digoxin (Digoxin) 0.25 mg DAILY@1300 PO ; Start 06/07/18 at 13:00 Docusate Sodium (Colace) 100 mg DAILY PO Last administered on 06/07/18 09:08; Admin Dose 100 MG; Start 06/07/18 at 09:00 Donepezil HCl (Aricept) 5 mg DAILY PO Last administered on 06/07/18at 09:09; Admin Dose 5 MG; Start 06/07/18 at 09:00 Furosemide (Lasix) 40 mg BID PO Last administered on 06/07/18at 09:09; Admin Dose 40 MG; Start 06/06/18 at 21:00 Levetiracetam (Keppra) 500 mg BID PO Last administered on 06/07/18 09:08; Admin Dose 500 MG; Start 06/06/18 at 21:00 Metoprolol Tartrate (Lopressor) 50 mg BID PO ; Start 06/06/18 at 21:00 Tamsulosin HCl (Flomax) 0.4 mg HS PO Last administered on 06/06/18at 21:00; Admin Dose 0.4 MG; Start 06/06/18 at 21:00 Famotidine (Pepcid) 20 mg BID PO Last administered on 06/07/18 09:09; Admin Dose 20 MG; Start 06/06/18 at 21:00 MARY ROMERO MD Jun 07, 2018 12:44
[2018-06-07] MEDS: DIGOXIN 0.125 MG TAB PO SCH (13:37)
[2018-06-07 14:52] VITALS: BP 117/56; PULSE 65; RESP 17
[2018-06-07 20:00] VITALS: BP 123/59; PULSE 63; RESP 18
[2018-06-07] MEDS: TAMSULOSIN (SR) 0.4 MG CAP PO SCH (20:02)
[2018-06-07] MEDS: ATORVASTATIN 10 MG TAB PO SCH (20:03)
[2018-06-08] VITALS (8 sets, daily range): BP systolic 113–156; BP diastolic 52–71; PULSE 51–65; RESP 17–18
[2018-06-08] MEDS: METOPROLOL 50 MG TAB PO SCH ×2 (09:00→21:24)
[2018-06-08] MEDS: FAMOTIDINE 20 MG TAB PO SCH ×2 (09:04→21:23)
[2018-06-08] MEDS: DOCUSATE SODIUM 100 MG CAP PO SCH (09:04)
[2018-06-08] MEDS: ASCORBIC ACID 500 MG TAB PO SCH (09:04)
[2018-06-08] MEDS: LEVETIRACETAM 500 MG TAB PO SCH ×2 (09:04→21:23)
[2018-06-08] MEDS: ASPIRIN (EC) 81 MG TAB PO SCH (09:04)
[2018-06-08] MEDS: DONEPEZIL 5 MG TAB PO SCH (09:04)
[2018-06-08] MEDS: FUROSEMIDE 40 MG TAB PO SCH ×2 (09:05→21:23)
--- NOTE | 2018-06-08 09:56 | CONS ---
Assessment/Plan Assessment/Plan Hospital Course 83 M c/ Hx of epilepsy and other comorbidities, who presents for evaluation following a fall. His Dilantin level was noted to be supratherapeutic, for which neurology is consulted.. Head CT was without obvious acute intracranial pathology...though notable for chronic infarcts. P: Consider a transition to telemetry, given the known associated between dilantin toxicity and cardiac dysrhythmia. Hold Dilantin for now; Repeat Dilantin level daily; may resume Dilantin at lower dose of 50mg bid once Dilantin level < 20 Continue Keppra 500mg bid for now Ativan iv prn prolonged seizure of cluster Agree w/ asa daily for secondary stroke prevention.... w/ statin daily, only as necessary toward LDL goal of < 70 PT/OT as tolerated Other management and supportive care per primary Will follow clinically Consultation Date/Type/Reason Admit Date/Time Jun 06, 2018 at 14:17 Type of Consult Neurology Reason for Consultation dilantin management Requesting Provider: MARY ROMERO MD Date/Time of Note DATE: 06/08/18 TIME: 09:48 Hx of Present Illness This is an 83-year-old male with a past medical history of seizure disorder, history of dyslipidemia, history of peripheral neuropathy, history of heart failure, hypertension who presents to the [facility] Emergency Room after a mechanical fall. The patient states that he was walking with his walker when he fell clumsily fell to the ground, hitting the back of his head. The patient as a result was brought into the emergency room. Upon arrival, the patient had a CT scan of the brain, which showed no intracranial pathology, small areas of chronic infarcts. Mild generalized atrophy. The patient also hoffman d a chest x-ray, which showed bibasilar atelectasis. The patient in the emergency room had other laboratory data drawn showed a white count of 5.1, BUN 27, creatinine 1.07. In the emergency room, the patient was given Tylenol, Zofran and admitted to med/surg for evaluation He notes b/l foot weakness...but is without other acute complaints. 12 PT ROS ow neg Exam/Review of Systems Exam Vitals Vital Signs Date Temp Pulse Resp B/P (MAP) Pulse Ox O2 O2 Flow FiO2 Time Delivery Rate 06/08/18 97.6 56 18 129/60 99 Room Air 08:15 (83) Intake and Output 06/07/18 06/07/18 06/08/18 1515:00 23:00 07:00 IntakeIntake Total 1200 ml OutputOutput Total 125 ml 1200 ml 250 ml BalanceBalance -125 ml 0 ml -250 ml Exam PE: Gen Appearance: No Apparent Distress HEENT: Normocephalic Cardiovascular: Regular rate Abdomen: Soft Extremities: Dry NE: The patient was alert and oriented. Language was normal. Fund of knowledge was adequate. Pupils were equal and reactive to light. There was no afferent pupillary defect. Visual moncada were normal. Funduscopic examination was limited. Extra-ocular movements were full. Ptosis was absent. There was no nystagmus. Facial sensation was normal. Face was symmetric with normal strength. Hearing was intact. Palate movements were normal. Neck strength was normal. There was normal tongue bulk and speed of movement. Tone was normal. Muscle bulk was normal. I did not see fasciculations. Arms and legs were symmetric. Vibration sensation was reduced distally. Temperature and pinprick sensation was normal. Rapid alternating movements were normal. There was no dysmetria. There was no intention tremor. Gait was deferred due to bedrest. Arm and leg reflexes were symmetric. Pérez's sign was absent. Plantar responses were flexor. Results Result Diagram: 06/07/18 0544 06/08/18 0531 Results 24hrs Laboratory Tests Test 06/07/18 18:42 06/08/18 05:31 Phenytoin (Dilantin) Level 30.4 *H 25.2 *H Sodium Level 139 Potassium Level 4.3 Chloride Level 99 Carbon Dioxide Level 30 Anion Gap 10 Blood Urea Nitrogen 29 H Creatinine 1.02 Est Glomerular Filtrat Rate mL/min Glucose Level 94 Calcium Level 8.5 Phosphorus Level 4.3 Magnesium Level 2.3 Medications Medication Current Medications Ascorbic Acid (Vitamin C) 500 mg DAILY PO Last administered on 06/08/18at 09:04; Admin Dose 500 MG; Start 06/07/18 at 09:00 Aspirin (Halfprin) 81 mg DAILY PO Last administered on 06/08/18at 09:04; Admin Dose 81 MG; Start 06/07/18 at 09:00 Atorvastatin Calcium (Lipitor) 10 mg QHS PO Last administered on 06/07/18at 20:03; Admin Dose 10 MG; Start 06/06/18 at 21:00 Digoxin (Digoxin) 0.25 mg DAILY@1300 PO Last administered on 06/07/18at 13:37; Admin Dose 0.25 MG; Start 06/07/18 at 13:00 Docusate Sodium (Colace) 100 mg DAILY PO Last administered on 06/08/18 09:04; Admin Dose 100 MG; Start 06/07/18 at 09:00 Donepezil HCl (Aricept) 5 mg DAILY PO Last administered on 06/08/18 09:04; Admin Dose 5 MG; Start 06/07/18 at 09:00 Furosemide (Lasix) 40 mg BID PO Last administered on 06/08/18 09:05; Admin Dose 40 MG; Start 06/06/18 at 21:00 Levetiracetam (Keppra) 500 mg BID PO Last administered on 06/08/18 09:04; Admin Dose 500 MG; Start 06/06/18 at 21:00 Metoprolol Tartrate (Lopressor) 50 mg BID PO Last administered on 06/07/18 20:02; Admin Dose 50 MG; Start 06/06/18 at 21:00 Tamsulosin HCl (Flomax) 0.4 mg HS PO Last administered on 06/07/18 20:02; Admin Dose 0.4 MG; Start 06/06/18 at 21:00 Famotidine (Pepcid) 20 mg BID PO Last administered on 06/08/18 09:04; Admin Dose 20 MG; Start 06/06/18 at 21:00 Past Medical History reviewed Home Meds Reported Medications Ascorbic Acid* (Vitamin C*) 500 Mg Capsule.sa, 500 MG PO DAILY, CAP 06/06/18 Gabapentin (Gabapentin) 1,000 Gm Powder, 300 GM MC 06/06/18 Phenytoin* Sodium Extended (Dilantin*) 100 Mg Capsule, 100 MG PO BID, CAP 06/06/18 Atorvastatin Calcium (Atorvastatin Calcium) 10 Mg Tablet, 10 MG PO QHS, #30 TAB 06/06/18 Donepezil* (Donepezil*) 5 Mg Tablet, 5 MG PO DAILY, #30 TAB 06/06/18 Docusate Sodium* (Colace*) 100 Mg Capsule, 100 MG PO DAILY, #30 CAP 06/06/18 Aspirin* (Aspirin* EC) 81 Mg Tablet.dr, 81 MG PO DAILY, TAB 06/06/18 Metoprolol Tartrate* (Lopressor*) 50 Mg Tab, 50 MG PO BID, #60 TAB 06/06/18 Levetiracetam* (Levetiracetam*) 500 Mg Tablet, 500 MG PO BID, TAB 06/06/18 Tamsulosin Hcl* (Tamsulosin Hcl*) 0.4 Mg Cap.er.24h, 0.4 MG PO HS, CAP 06/06/18 Furosemide* (Furosemide*) 40 Mg Tablet, 40 MG PO BID, TAB 06/06/18 Phenobarbital* (Phenobarbital*) 15 Mg Tablet, 15 MG PO BID, TAB 06/06/18 Digoxin* (Digitek*) 250 Mcg Tablet, 0.25 MG PO DAILY, TAB 06/06/18 Discontinued Reported Medications Aspirin (Low Dose Aspirin) 81 Mg Tablet.dr, 81 MG PO DAILY, #30 TAB 03/08/16 Simvastatin (Simvastatin) 20 Mg Tablet, 20 MG PO HS, TAB 09/16/14 Calcitriol* (Rocaltrol*) 0.25 Mcg Capsule, 0.25 MCG PO QAM, CAP 09/16/14 Phenytoin* Sodium Extended (Dilantin*) 300 Mg Capsule, 300 MG PO BID, CAP 09/16/14 Phenobarbital* (Phenobarbital*) 32.4 Mg Tab, 64.8 MG PO BID, TAB 09/16/14 Discontinued Scripts Ibuprofen* (Motrin*) 400 Mg Tab, 400 MG PO Q8 PRN for PAIN AND/OR INFLAMMATION, #30 TAB Prov:SHANDRA LAMAR MD 08/30/17 Neomycin Fischer/Bacitrac Zn/Poly (Triple Antibiotic Ointment) 1 Each Oint.pack, 1 EACH TP BID for 7 Days Prov:JUAN SALAZAR PA-C 11/17/16 Ibuprofen* (Motrin*) 600 Mg Tab, 600 MG PO Q6, #30 TAB Prov:CARLINE HERNANDEZ 11/10/16 Cephalexin* (Keflex*) 500 Mg Capsule, 500 MG PO BID for 7 Days, CAP Prov:CARLINE HERNANDEZ 11/10/16 Medications Current Medications Ascorbic Acid (Vitamin C) 500 mg DAILY PO Last administered on 06/08/18at 09:04; Admin Dose 500 MG; Start 4/6/19 at 09:00 Aspirin (Halfprin) 81 mg DAILY PO Last administered on 06/08/18 09:04; Admin Dose 81 MG; Start 06/07/18 at 09:00 Atorvastatin Calcium (Lipitor) 10 mg QHS PO Last administered on 06/07/18 20:03; Admin Dose 10 MG; Start 06/06/18 at 21:00 Digoxin (Digoxin) 0.25 mg DAILY@1300 PO Last administered on 06/07/18 13:37; Admin Dose 0.25 MG; Start 06/07/18 at 13:00 Docusate Sodium (Colace) 100 mg DAILY PO Last administered on 06/08/18 09:04; Admin Dose 100 MG; Start 06/07/18 at 09:00 Donepezil HCl (Aricept) 5 mg DAILY PO Last administered on 06/08/18 09:04; Admin Dose 5 MG; Start 06/07/18 at 09:00 Furosemide (Lasix) 40 mg BID PO Last administered on 06/08/18 09:05; Admin Dose 40 MG; Start 06/06/18 at 21:00 Levetiracetam (Keppra) 500 mg BID PO Last administered on 06/08/18 09:04; Admin Dose 500 MG; Start 06/06/18 at 21:00 Metoprolol Tartrate (Lopressor) 50 mg BID PO Last administered on 06/07/18 20:02; Admin Dose 50 MG; Start 06/06/18 at 21:00 Tamsulosin HCl (Flomax) 0.4 mg HS PO Last administered on 06/07/18 20:02; Admin Dose 0.4 MG; Start 06/06/18 at 21:00 Famotidine (Pepcid) 20 mg BID PO Last administered on 06/08/18 09:04; Admin Dose 20 MG; Start 06/06/18 at 21:00 Allergies: Coded Allergies: No Known Allergy (Unverified , 06/06/18) Past Surgical History reviewed Social History Smoking Status: Never smoker CHRISTA ARCHER Jun 08, 2018 09:55
[2018-06-08] MEDS: DIGOXIN 0.125 MG TAB PO SCH (12:43)
--- NOTE | 2018-06-08 13:22 | CONS ---
Assessment/Plan Assessment/Plan Assessment/Plan (Daily) 1. Mechanical fall with occipital hematoma. The patient is status post CT scan of the brain that shows no intracranial pathology. Plan is to monitor the patient. continue neuro checks. 2. Peripheral neuropathy with gait imbalance. Etiology possible multifactorial, dilantin toxicity, questionable neurontin use. cont to hold dilantin. neuro following. We will get PT evaluation. . Monitor closely. 3. Hypertension. Continue current blood pressure regimen. 4. Seizure disorder. Continue Keppra, hold dilantin, adjust levels. neuro following 5. History of congestive heart failure. Continue Lasix. Continue medical management. 6. Benign prostatic hypertrophy. Continue Flomax. 7. History of cognitive decline. Continue donepezil. 8. History of arrhythmia. Continue digoxin. 9. Mild anemia. Monitor hemoglobin and hematocrit levels. 10. Gastrointestinal and deep vein thrombosis prophylaxis. Continue proton pump inhibitor and sequential leg squeezers. 11. elevated dilantin levels: IVF, tx to tele to monitor for arrhythmia. cont to monitor dilantin levels Consultation Date/Type/Reason Admit Date/Time Jun 06, 2018 at 14:17 Initial Consult Date Requesting Provider: MARY ROMERO MD Date/Time of Note DATE: 06/08/18 TIME: 13:20 24 HR Interval Summary Free Text/Dictation denies shortness of breath, dizziness, chest pain or n/v d/w rn gen nad cv rrr pulm ctab abd soft, nd, nt +bs ext: no edema Exam/Review of Systems Exam Vitals Vital Signs Date Temp Pulse Resp B/P (MAP) Pulse Ox O2 O2 Flow FiO2 Time Delivery Rate 06/08/18 97.6 56 18 129/60 99 Room Air 08:15 (83) Intake and Output 06/07/18 06/07/18 06/08/18 1515:00 23:00 07:00 IntakeIntake Total 1200 ml OutputOutput Total 125 ml 1200 ml 250 ml BalanceBalance -125 ml 0 ml -250 ml Results Result Diagram: 06/07/18 0544 06/08/18 0531 Results 24hrs Laboratory Tests Test 06/07/18 18:42 06/08/18 05:31 Phenytoin (Dilantin) Level 30.4 *H 25.2 *H Sodium Level 139 Potassium Level 4.3 Chloride Level 99 Carbon Dioxide Level 30 Anion Gap 10 Blood Urea Nitrogen 29 H Creatinine 1.02 Est Glomerular Filtrat Rate mL/min Glucose Level 94 Calcium Level 8.5 Phosphorus Level 4.3 Magnesium Level 2.3 Medications Medication Current Medications Ascorbic Acid (Vitamin C) 500 mg DAILY PO Last administered on 06/08/18 09:04; Admin Dose 500 MG; Start 06/07/18 at 09:00 Aspirin (Halfprin) 81 mg DAILY PO Last administered on 06/08/18 09:04; Admin Dose 81 MG; Start 06/07/18 at 09:00 Atorvastatin Calcium (Lipitor) 10 mg QHS PO Last administered on 06/07/18 20:03; Admin Dose 10 MG; Start 06/06/18 at 21:00 Digoxin (Digoxin) 0.25 mg DAILY@1300 PO Last administered on 06/08/18 12:43; Admin Dose 0.25 MG; Start 06/07/18 at 13:00 Docusate Sodium (Colace) 100 mg DAILY PO Last administered on 06/08/18 09:04; Admin Dose 100 MG; Start 06/07/18 at 09:00 Donepezil HCl (Aricept) 5 mg DAILY PO Last administered on 06/08/18 09:04; Admin Dose 5 MG; Start 06/07/18 at 09:00 Furosemide (Lasix) 40 mg BID PO Last administered on 06/08/18 09:05; Admin Dose 40 MG; Start 06/06/18 at 21:00 Levetiracetam (Keppra) 500 mg BID PO Last administered on 06/08/18 09:04; Admin Dose 500 MG; Start 06/06/18 at 21:00 Metoprolol Tartrate (Lopressor) 50 mg BID PO Last administered on 06/07/18 20:02; Admin Dose 50 MG; Start 06/06/18 at 21:00 Tamsulosin HCl (Flomax) 0.4 mg HS PO Last administered on 06/07/18 20:02; Admin Dose 0.4 MG; Start 06/06/18 at 21:00 Famotidine (Pepcid) 20 mg BID PO Last administered on 06/08/18 09:04; Admin Dose 20 MG; Start 06/06/18 at 21:00 Sodium Chloride 1,000 ml @ 75 mls/hr [id number] IV ; Start 06/08/18 at 13:30 MARY ROMERO MD Jun 08, 2018 13:22
[2018-06-08] MEDS: SOD CHLORIDE 0.9% 1,000 ML IV SCH (16:18)
[2018-06-08] MEDS: ATORVASTATIN 10 MG TAB PO SCH (21:21)
[2018-06-08] MEDS: TAMSULOSIN (SR) 0.4 MG CAP PO SCH (21:23)
[2018-06-09] VITALS (12 sets, daily range): BP systolic 104–128; BP diastolic 51–62; PULSE 44–74; RESP 16–18
[2018-06-09] MEDS: SOD CHLORIDE 0.9% 1,000 ML IV SCH (05:30)
[2018-06-09] MEDS: FAMOTIDINE 20 MG TAB PO SCH ×2 (08:51→21:04)
[2018-06-09] MEDS: ASCORBIC ACID 500 MG TAB PO SCH (08:51)
[2018-06-09] MEDS: DOCUSATE SODIUM 100 MG CAP PO SCH (08:52)
[2018-06-09] MEDS: LEVETIRACETAM 500 MG TAB PO SCH ×2 (08:52→21:03)
[2018-06-09] MEDS: ASPIRIN (EC) 81 MG TAB PO SCH (08:52)
[2018-06-09] MEDS: METOPROLOL 50 MG TAB PO SCH (08:53)
[2018-06-09] MEDS: DONEPEZIL 5 MG TAB PO SCH (08:54)
--- NOTE | 2018-06-09 08:57 | PN ---
DATE: 06/09/2018 SUBJECTIVE: The patient is stable, no events overnight. No fevers, chills, nausea, vomiting. OBJECTIVE: VITAL SIGNS: Blood pressure is 118/56, respirations 17, pulse 54, temperature 98.2. HEENT: Head is normocephalic. NECK: Supple. HEART: Regular rate. LUNGS: Show diminished breath sounds at the base. ABDOMEN: Soft, nontender to palpation without rebound or guarding. EXTREMITIES: Negative for clubbing, cyanosis, no edema. DERMATOLOGIC: No rashes. MUSCULOSKELETAL: No joint effusion. NEUROLOGIC: No change in exam. MEDICATIONS: The patient's medications have been reviewed. LABORATORY DATA: Laboratory data from 06/09 was reviewed. The patient's Dilantin levels for 06/08 w as reviewed. ASSESSMENT AND PLAN: 1. Mechanical fall with occipital hematoma. Etiology may have been secondary to Dilantin toxicity. The patient is status post CT scan that showed no evidence of intracranial pathology. Continue to m onitor. Follow up with neurology. 2. Dilantin toxicity. The patient's Dilantin level has been on hold. We will continue to follow le vels. Continue to monitor. 3. Peripheral neuropathy with gait imbalance. Etiology may be multifactorial secondary to Dilantin toxicity, neuropathy. Continue to monitor. Continue physical therapy. 4. Hypertension. Continue current blood pressure regimen. 5. Seizure disorder. Continue Keppra. Continue to hold Dilantin at this time. 6. Congestive heart failure. Continue medical management. 7. Benign prostatic hypertrophy. Continue Flomax. 8. History of cognitive decline. Continue donepezil. 9. History of arrhythmia. The patient is bradycardic, remains on digoxin. Will place a cardiology c onsult for evaluation. 10. Anemia. Monitor hemoglobin and hematocrit levels. 11. Gastrointestinal and deep venous thrombosis prophylaxis. DISPOSITION: We will discuss with patient's family about placement. Dictated By: JULISA DOSS/ZECHARIAH Conf#: [id number] DID#: [id number]
[2018-06-09] MEDS: FUROSEMIDE 20 MG TAB PO SCH ×2 (09:00→17:59)
--- NOTE | 2018-06-09 12:36 | CONS ---
Assessment/Plan Assessment/Plan Hospital Course 83 M c/ Hx of epilepsy and other comorbidities, who presents for evaluation following a fall. His Dilantin level was noted to be supratherapeutic, for which neurology is consulted.. Head CT was without obvious acute intracranial pathology...though notable for chronic infarcts. P: Consider a transition to telemetry, given the known associated between dilantin toxicity and cardiac dysrhythmia. Hold Dilantin for now; Repeat Dilantin level daily; may resume Dilantin at lower dose of 50mg bid once Dilantin level < 20 Continue Keppra 500mg bid for now Ativan iv prn prolonged seizure of cluster Agree w/ asa daily for secondary stroke prevention.... w/ statin daily, only as necessary toward LDL goal of < 70 PT/OT as tolerated Other management and supportive care per primary Will follow clinically Consultation Date/Type/Reason Admit Date/Time Jun 06, 2018 at 14:17 Type of Consult Neurology Requesting Provider: MARY ROMERO MD Date/Time of Note DATE: 06/09/18 TIME: 12:36 Exam Vital Signs Vitals Vital Signs Date Temp Pulse Resp B/P (MAP) Pulse Ox O2 O2 Flow FiO2 Time Delivery Rate 06/09/18 97.8 61 16 128/59 97 11:04 (82) 06/08/18 Room Air 16:02 Intake and Output 06/08/18 06/08/18 06/09/18 1515:00 23:00 07:00 IntakeIntake Total 360 ml 1200 ml OutputOutput Total 450 ml 1250 ml 800 ml BalanceBalance -90 ml -1250 ml 400 ml QUOC MENDEZ NP Jun 09, 2018 12:36
[2018-06-09] MEDS: DIGOXIN 0.125 MG TAB PO SCH (13:05)
--- NOTE | 2018-06-09 13:36 | CONS ---
Assessment/Plan Assessment/Plan Hospital Course 83 M c/ Hx of epilepsy and other comorbidities, who presents for evaluation following a fall. His Dilantin level was noted to be supratherapeutic, for which neurology is consulted.. Head CT was without obvious acute intracranial pathology...though notable for chronic infarcts. P: Hold Dilantin for now; Repeat Dilantin level daily; may resume Dilantin at lower dose of 50mg bid once Dilantin level < 20 Continue Keppra 500mg bid for now Ativan iv prn prolonged seizure of cluster Agree w/ asa daily for secondary stroke prevention.... w/ statin daily, only as necessary toward LDL goal of < 70 PT/OT as tolerated Other management and supportive care per primary Will follow clinically Consultation Date/Type/Reason Admit Date/Time Jun 06, 2018 at 14:17 Type of Consult Neurology Reason for Consultation dilantin management Requesting Provider: MARY ROMERO MD Date/Time of Note DATE: 06/09/18 TIME: 13:34 24 HR Interval Summary Free Text/Dictation continues acute care Exam Vital Signs Vitals Vital Signs Date Temp Pulse Resp B/P (MAP) Pulse Ox O2 O2 Flow FiO2 Time Delivery Rate 06/09/18 74 12:01 06/09/18 97.8 16 128/59 97 11:04 (82) 06/08/18 Room Air 16:02 Intake and Output 06/08/18 06/08/18 06/09/18 1515:00 23:00 07:00 IntakeIntake Total 360 ml 1200 ml OutputOutput Total 450 ml 1250 ml 800 ml BalanceBalance -90 ml -1250 ml 400 ml Exam PE: Gen Appearance: No Apparent Distress HEENT: Normocephalic Cardiovascular: Regular rate Abdomen: Soft Extremities: Dry NE: The patient was alert and oriented. Language was normal. Fund of knowledge was adequate. Pupils were equal and reactive to light. There was no afferent pupillary defect. Visual moncada were normal. Funduscopic examination was limited. Extra-ocular movements were full. Ptosis was absent. There was no nystagmus. Facial sensation was normal. Face was symmetric with normal strength. Hearing was intact. Palate movements were normal. Neck strength was normal. There was normal tongue bulk and speed of movement. Tone was normal. Muscle bulk was normal. I did not see fasciculations. Arms and legs were symmetric. Vibration sensation was reduced distally. Temperature and pinprick sensation was normal. Rapid alternating movements were normal. There was no dysmetria. There was no intention tremor. Gait was deferred due to bedrest. Arm and leg reflexes were symmetric. Pérez's sign was absent. Plantar responses were flexor. CHRISTA ARCHER Jun 09, 2018 13:36 QUOC MENDEZ NP Jun 09, 2018 14:33
--- NOTE | 2018-06-09 16:22 | CONS ---
Assessment/Plan Assessment/Plan Hospital Course (Demo Recall) 1. Status post fall: Clinically does not appear to be related to syncope 2. Bradycardia with first-degree AV block on high dose of digoxin 3. History of congestive heart failure: Currently appears to be euvolemic 4. History of Parkinson disease and poor by 5. History of hypertension 6. dyslipidemia on statin Recommendations: I will hold the digoxin and check digoxin level We will decrease the metoprolol given his marked bradycardic episodes Statin to be continued and adjusted as needed We will monitor on the telemetry for now We will check echocardiogram to evaluate for LV function. Lasix will be continued for now and adjusted as needed basis Thank you for his referral. We will continue to follow along with you CHARLOTTE SCHUMACHER MD [facility] Consultation Date/Type/Reason Admit Date/Time Jun 06, 2018 at 14:17 Date of Consultation: Jun 09, 2018 Type of Consult Cardiology Reason for Consultation r/o syncope Requesting Provider: JULISA CONN DO Date/Time of Note DATE: 06/09/18 TIME: 16:14 Hx of Present Illness Interventional cardiology consultation note Chief complaint: Status post fall Reason for consult: Rule out syncope. History of congestive heart failure. History of present illness: Thank you for this referral. History was from the patient discussion with staff and physician review of the chart. This is a very pleasant 83-year-old male with a past medical history of seizure disorder, history of dyslipidemia, history of peripheral neuropathy, history of heart failure, hypertension who presents to the [facility] Emergency Room after a fall. The patient states that he was walking with his walker when he fell clumsily fell to the ground, hitting the back of his head. He denies any syncope or presyncope to me. The patient as a result was brought into the emergency room. Upon arrival, the patient had a CT scan of the brain, which showed no intracranial pathology, small areas of chronic infarcts. Mild generalized atrophy. The patient also had a chest x-ray, which showed bibasilar atelectasis. Patient admitted to telemetry for evaluation. PAST MEDICAL HISTORY: History of hypertension, history of neuropathy, history of seizure disorder, dyslipidemia. FAMILY HISTORY: No family history of early coronary artery disease SOCIAL HISTORY: He does not drink, smoke or do drugs. ALLERGIES: NONE. Medications were reviewed as per medical reconciliation sheet Review of system: Patient denies all others except for above-mentioned Past Medical History Home Meds Reported Medications Ascorbic Acid* (Vitamin C*) 500 Mg Capsule.sa, 500 MG PO DAILY, CAP 06/06/18 Gabapentin (Gabapentin) 1,000 Gm Powder, 300 GM MC 06/06/18 Phenytoin* Sodium Extended (Dilantin*) 100 Mg Capsule, 100 MG PO BID, CAP 06/06/18 Atorvastatin Calcium (Atorvastatin Calcium) 10 Mg Tablet, 10 MG PO QHS, #30 TAB 06/06/18 Donepezil* (Donepezil*) 5 Mg Tablet, 5 MG PO DAILY, #30 TAB 06/06/18 Docusate Sodium* (Colace*) 100 Mg Capsule, 100 MG PO DAILY, #30 CAP 06/06/18 Aspirin* (Aspirin* EC) 81 Mg Tablet.dr, 81 MG PO DAILY, TAB 06/06/18 Metoprolol Tartrate* (Lopressor*) 50 Mg Tab, 50 MG PO BID, #60 TAB 06/06/18 Levetiracetam* (Levetiracetam*) 500 Mg Tablet, 500 MG PO BID, TAB 06/06/18 Tamsulosin Hcl* (Tamsulosin Hcl*) 0.4 Mg Cap.er.24h, 0.4 MG PO HS, CAP 06/06/18 Furosemide* (Furosemide*) 40 Mg Tablet, 40 MG PO BID, TAB 06/06/18 Phenobarbital* (Phenobarbital*) 15 Mg Tablet, 15 MG PO BID, TAB 06/06/18 Digoxin* (Digitek*) 250 Mcg Tablet, 0.25 MG PO DAILY, TAB 06/06/18 Discontinued Reported Medications Aspirin (Low Dose Aspirin) 81 Mg Tablet.dr, 81 MG PO DAILY, #30 TAB 03/08/16 Simvastatin (Simvastatin) 20 Mg Tablet, 20 MG PO HS, TAB 09/16/14 Calcitriol* (Rocaltrol*) 0.25 Mcg Capsule, 0.25 MCG PO QAM, CAP 09/16/14 Phenytoin* Sodium Extended (Dilantin*) 300 Mg Capsule, 300 MG PO BID, CAP 09/16/14 Phenobarbital* (Phenobarbital*) 32.4 Mg Tab, 64.8 MG PO BID, TAB 09/16/14 Discontinued Scripts Ibuprofen* (Motrin*) 400 Mg Tab, 400 MG PO Q8 PRN for PAIN AND/OR INFLAMMATION, #30 TAB Prov:SHANDRA LAMAR MD 08/30/17 Neomycin Fischer/Bacitrac Zn/Poly (Triple Antibiotic Ointment) 1 Each Oint.pack, 1 EACH TP BID for 7 Days Prov:JUAN SALAZAR PA-C 11/17/16 Ibuprofen* (Motrin*) 600 Mg Tab, 600 MG PO Q6, #30 TAB Prov:CARLINE HERNANDEZ 11/10/16 Cephalexin* (Keflex*) 500 Mg Capsule, 500 MG PO BID for 7 Days, CAP Prov:CARLINE HERNANDEZ 11/10/16 Medications Current Medications Ascorbic Acid (Vitamin C) 500 mg DAILY PO Last administered on 06/09/18 08:51; Admin Dose 500 MG; Start 06/07/18 at 09:00 Aspirin (Halfprin) 81 mg DAILY PO Last administered on 06/09/18 08:52; Admin Dose 81 MG; Start 06/07/18 at 09:00 Atorvastatin Calcium (Lipitor) 10 mg QHS PO Last administered on 06/08/18 21:21; Admin Dose 10 MG; Start 06/06/18 at 21:00 Digoxin (Digoxin) 0.25 mg DAILY@1300 PO Last administered on 06/09/18 13:05; Admin Dose 0.25 MG; Start 06/07/18 at 13:00 Docusate Sodium (Colace) 100 mg DAILY PO Last administered on 06/09/18 08:52; Admin Dose 100 MG; Start 06/07/18 at 09:00 Donepezil HCl (Aricept) 5 mg DAILY PO Last administered on 06/09/18 08:54; Admin Dose 5 MG; Start 06/07/18 at 09:00 Levetiracetam (Keppra) 500 mg BID PO Last administered on 06/09/18 08:52; Admin Dose 500 MG; Start 06/06/18 at 21:00 Metoprolol Tartrate (Lopressor) 50 mg BID PO Last administered on 06/08/18 21:24; Admin Dose 50 MG; Start 06/06/18 at 21:00 Tamsulosin HCl (Flomax) 0.4 mg HS PO Last administered on 06/08/18 21:23; Admin Dose 0.4 MG; Start 06/06/18 at 21:00 Famotidine (Pepcid) 20 mg BID PO Last administered on 06/09/18at 08:51; Admin Dose 20 MG; Start 06/06/18 at 21:00 Furosemide (Lasix) 20 mg BID DIURETICS PO Last administered on 06/09/18at 09:00; Admin Dose 20 MG; Start 06/09/18 at 09:00 Allergies: Coded Allergies: No Known Allergy (Unverified , 06/06/18) Social History Smoking Status: Never smoker Exam/Review of Systems Vital Signs Vitals Vital Signs Date Temp Pulse Resp B/P (MAP) Pulse Ox O2 O2 Flow FiO2 Time Delivery Rate 06/09/18 98.3 70 16 104/51 97 15:17 (68) 06/08/18 Room Air 16:02 Intake and Output 06/08/18 06/08/18 06/09/18 1515:00 23:00 07:00 IntakeIntake Total 360 ml 1200 ml OutputOutput Total 450 ml 1250 ml 800 ml BalanceBalance -90 ml -1250 ml 400 ml Exam Exam General: no acute distress HEENT: NC/AT. pupils are equal. round. NECK: NO JVD. no stridor. CV: RRR. systolic murmur; no gallop or rubs. PULM: no wheezing or rhonchi. GI: SOFT, NT, ND, no rebound or guarding Extremity: trace B/L LE edema. no clubbing. neuro: awake and alert, OX3. Psych: calm and pleasant rectal: deferred : normal male. EKG done in the emergency room shows normal sinus rhythm with first-degree AV block Chest x-ray done shows: Mild bibasilar partial atelectasis or scarring. Old right-sided rib fractures. Labs Result Diagram: 06/09/18 0455 06/09/18 0455 Results 24hrs Laboratory Tests Test 06/09/18 04:55 06/09/18 13:48 White Blood Count 4.8 Red Blood Count 3.47 L Hemoglobin 11.0 L Hematocrit 33.5 L Mean Corpuscular Volume 96.5 Mean Corpuscular Hemoglobin 31.7 Mean Corpuscular Hemoglobin Concent 32.8 Red Cell Distribution Width 12.0 Platelet Count 234 Mean Platelet Volume 9.7 Immature Granulocytes % 0.200 Neutrophils % 57.0 Lymphocytes % 28.5 Monocytes % 11.2 H Eosinophils % 2.5 Basophils % 0.6 Nucleated Red Blood Cells % 0.0 Immature Granulocytes # 0.010 Neutrophils # 2.8 Lymphocytes # 1.4 Monocytes # 0.5 Eosinophils # 0.1 Basophils # 0.0 Nucleated Red Blood Cells # 0.0 Sodium Level 140 Potassium Level 4.9 Chloride Level 101 Carbon Dioxide Level 32 H Anion Gap 7 Blood Urea Nitrogen 25 H Creatinine 1.02 Est Glomerular Filtrat Rate mL/min Glucose Level 97 Calcium Level 8.6 Phosphorus Level 4.4 Magnesium Level 2.3 Phenytoin (Dilantin) Level 17.6 Medications Medications Current Medications Ascorbic Acid (Vitamin C) 500 mg DAILY PO Last administered on 06/09/18 08:51; Admin Dose 500 MG; Start 06/07/18 at 09:00 Aspirin (Halfprin) 81 mg DAILY PO Last administered on 06/09/18 08:52; Admin Dose 81 MG; Start 06/07/18 at 09:00 Atorvastatin Calcium (Lipitor) 10 mg QHS PO Last administered on 06/08/18 21:21; Admin Dose 10 MG; Start 06/06/18 at 21:00 Digoxin (Digoxin) 0.25 mg DAILY@1300 PO Last administered on 06/09/18 13:05; Admin Dose 0.25 MG; Start 06/07/18 at 13:00 Docusate Sodium (Colace) 100 mg DAILY PO Last administered on 06/09/18 08:52; Admin Dose 100 MG; Start 06/07/18 at 09:00 Donepezil HCl (Aricept) 5 mg DAILY PO Last administered on 06/09/18 08:54; Admin Dose 5 MG; Start 06/07/18 at 09:00 Levetiracetam (Keppra) 500 mg BID PO Last administered on 06/09/18 08:52; Admin Dose 500 MG; Start 06/06/18 at 21:00 Metoprolol Tartrate (Lopressor) 50 mg BID PO Last administered on 06/08/18 21:24; Admin Dose 50 MG; Start 06/06/18 at 21:00 Tamsulosin HCl (Flomax) 0.4 mg HS PO Last administered on 06/08/18 21:23; Admin Dose 0.4 MG; Start 06/06/18 at 21:00 Famotidine (Pepcid) 20 mg BID PO Last administered on 06/09/18at 08:51; Admin Dose 20 MG; Start 06/06/18 at 21:00 Furosemide (Lasix) 20 mg BID DIURETICS PO Last administered on 06/09/18at 09:00; Admin Dose 20 MG; Start 06/09/18 at 09:00 CHARLOTTE SCHUMACHER MD Jun 09, 2018 16:22
[2018-06-09] MEDS: ATORVASTATIN 10 MG TAB PO SCH (21:03)
[2018-06-09] MEDS: TAMSULOSIN (SR) 0.4 MG CAP PO SCH (21:04)
[2018-06-09] MEDS: METOPROLOL 25 MG TAB PO SCH (21:06)
[2018-06-10] VITALS (12 sets, daily range): BP systolic 99–141; BP diastolic 50–65; PULSE 52–71; RESP 16–18
[2018-06-10] MEDS: FUROSEMIDE 20 MG TAB PO SCH ×2 (06:24→17:59)
[2018-06-10] MEDS: DOCUSATE SODIUM 100 MG CAP PO SCH (08:22)
[2018-06-10] MEDS: ASPIRIN (EC) 81 MG TAB PO SCH (08:22)
[2018-06-10] MEDS: ASCORBIC ACID 500 MG TAB PO SCH (08:22)
[2018-06-10] MEDS: FAMOTIDINE 20 MG TAB PO SCH ×2 (08:22→21:04)
[2018-06-10] MEDS: LEVETIRACETAM 500 MG TAB PO SCH ×2 (08:22→21:03)
[2018-06-10] MEDS: DONEPEZIL 5 MG TAB PO SCH (08:23)
[2018-06-10] MEDS: METOPROLOL 25 MG TAB PO SCH ×2 (08:24→21:05)
[2018-06-10] MEDS ORDERED: PHENYTOIN 50 MG CHEW PO SCH (09:00)
[2018-06-10] MEDS ORDERED: PHENYTOIN 100 MG CAP PO SCH (09:00)
--- NOTE | 2018-06-10 09:06 | PN ---
DATE: 06/10/2018 SUBJECTIVE: The patient is stable, no events overnight. No fevers, chills, nausea or vomiting. Ple ase note I spoke with the patient's [id number] yesterday discussing the overall plan of care. The patient may require a assisted facility placement. No other events noted. OBJECTIVE: VITAL SIGNS: Blood pressure is 109/54, respiration 18, pulse 85, temperature 97.9. HEENT: Head is normocephalic. NECK: Supple. HEART: Regular rate. LUNGS: Show diminished breath sounds at base. ABDOMEN: Soft, nontender to palpation without rebound or guarding. EXTREMITIES: Negative for clubbing, cyanosis, no edema. DERMATOLOGIC: No rashes. MUSCULOSKELETAL: No joint effusion. NEUROLOGIC: No change in exam. MEDICATIONS: Reviewed. LABORATORY DATA: On 06/10/2018 was reviewed. ASSESSMENT AND PLAN: 1. Mechanical fall with possible hematoma. Etiology may have been secondary to neuropathy versus Di lantin toxicity. The patient's CT scan showed no evidence of intracranial bleed. Continue to monito r. 2. Dilantin toxicity, resolved. 3. Resume Dilantin at a lower level. We will continue to monitor. 4. Peripheral neuropathy with gait imbalance. Etiology may be multifactorial secondary to neuropath y, questionable Dilantin toxicity. Continue to monitor. Get physical therapy. 5. Hypertension. Continue current blood pressure regimen. 6. Seizure disorder. Continue Keppra and resume Dilantin. Monitor levels. 7. Congestive heart failure. Continue medical management. 8. Benign prostatic hypertrophy. Continue Flomax. 9. History of cognitive decline. Continue Donepezil. 10. History of arrhythmia. Continue medical management. 11. Anemia. Monitor hemoglobin and hematocrit levels. 12. Gastrointestinal and deep venous thrombosis prophylaxis. DISPOSITION: We will discuss with patient's family about overall placement. Dictated By: JULISA CONN DO NR/NTS Conf#: [id number] DID#: [id number] CC: JULISA CONN DO;*EndCC*
--- NOTE | 2018-06-10 10:26 | CONS ---
Consult Date/Type/Reason Admit Date/Time Jun 06, 2018 at 14:17 Initial Consult Date 06/09/18 Type of Consultation: cv Requesting Provider: JULISA CONN DO Date/Time of Note DATE: 06/10/18 TIME: 10:25 Subjective Cardiology follow-up progress note Objective: Discussed with the staff and telemetry was reviewed patient remained sinus rhythm sinus bradycardia. No chest pain or pressure no palpitation feeling better no falls Denies any active bleeding to me Objective: General: no acute distress HEENT: NC/AT. pupils are equal. round. NECK: NO JVD. no stridor. CV: RRR. systolic murmur; no gallop or rubs. PULM: no wheezing or rhonchi. GI: SOFT, NT, ND, no rebound or guarding Extremity: trace B/L LE edema. no clubbing. neuro: awake and alert, OX3. Psych: calm and pleasant rectal: deferred : normal male. EKG done in the emergency room shows normal sinus rhythm with first-degree AV block Chest x-ray done shows: Mild bibasilar partial atelectasis or scarring. Old right-sided rib fractures. Objective Vitals Vital Signs Date Temp Pulse Resp B/P (MAP) Pulse Ox O2 O2 Flow FiO2 Time Delivery Rate 06/10/18 62 08:24 06/10/18 97.9 16 109/54 98 07:09 (72) 06/08/18 Room Air 16:02 Intake and Output 06/09/18 06/09/18 06/10/18 1515:00 23:00 07:00 IntakeIntake Total 950 ml 350 ml OutputOutput Total 1100 ml 1525 ml BalanceBalance -150 ml -1175 ml Results/Medications Result Diagram: 06/10/18 0440 06/10/18 0440 Results 24 hrs Laboratory Tests Test 06/09/18 13:48 06/10/18 04:40 Phenytoin (Dilantin) Level 17.6 14.4 White Blood Count 4.6 L Red Blood Count 3.32 L Hemoglobin 10.4 L Hematocrit 32.2 L Mean Corpuscular Volume 97.0 Mean Corpuscular Hemoglobin 31.3 Mean Corpuscular Hemoglobin Concent 32.3 Red Cell Distribution Width 12.2 Platelet Count 227 Mean Platelet Volume 9.7 Immature Granulocytes % 0.000 L Neutrophils % 52.1 Lymphocytes % 32.3 Monocytes % 11.9 H Eosinophils % 3.0 Basophils % 0.7 Nucleated Red Blood Cells % 0.0 Immature Granulocytes # 0.000 Neutrophils # 2.4 Lymphocytes # 1.5 Monocytes # 0.6 Eosinophils # 0.1 Basophils # 0.0 Nucleated Red Blood Cells # 0.0 Sodium Level 139 Potassium Level 3.8 Chloride Level 101 Carbon Dioxide Level 30 Anion Gap 8 Blood Urea Nitrogen 25 H Creatinine 1.06 Est Glomerular Filtrat Rate mL/min Glucose Level 101 Calcium Level 8.4 Phosphorus Level 4.3 Magnesium Level 2.3 Total Bilirubin 0.1 L Direct Bilirubin 0.00 Indirect Bilirubin 0.1 Aspartate Amino Transf (AST/SGOT) 20 Alanine Aminotransferase (ALT/SGPT) 18 Alkaline Phosphatase 97 B-Type Natriuretic Peptide 271 Total Protein 6.2 Albumin 3.4 Globulin 2.80 Albumin/Globulin Ratio 1.21 Triglycerides Level 30 Cholesterol Level 142 LDL Cholesterol, Calculated 54 HDL Cholesterol 82 H Cholesterol/HDL Ratio 1.7 Thyroid Stimulating Hormone (TSH) 3.880 Free Thyroxine 0.94 Digoxin Level 1.1 Home Meds Reported Medications Ascorbic Acid* (Vitamin C*) 500 Mg Capsule.sa, 500 MG PO DAILY, CAP 06/06/18 Gabapentin (Gabapentin) 1,000 Gm Powder, 300 GM MC 06/06/18 Phenytoin* Sodium Extended (Dilantin*) 100 Mg Capsule, 100 MG PO BID, CAP 06/06/18 Atorvastatin Calcium (Atorvastatin Calcium) 10 Mg Tablet, 10 MG PO QHS, #30 TAB 06/06/18 Donepezil* (Donepezil*) 5 Mg Tablet, 5 MG PO DAILY, #30 TAB 06/06/18 Docusate Sodium* (Colace*) 100 Mg Capsule, 100 MG PO DAILY, #30 CAP 06/06/18 Aspirin* (Aspirin* EC) 81 Mg Tablet.dr, 81 MG PO DAILY, TAB 06/06/18 Metoprolol Tartrate* (Lopressor*) 50 Mg Tab, 50 MG PO BID, #60 TAB 06/06/18 Levetiracetam* (Levetiracetam*) 500 Mg Tablet, 500 MG PO BID, TAB 06/06/18 Tamsulosin Hcl* (Tamsulosin Hcl*) 0.4 Mg Cap.er.24h, 0.4 MG PO HS, CAP 06/06/18 Furosemide* (Furosemide*) 40 Mg Tablet, 40 MG PO BID, TAB 06/06/18 Phenobarbital* (Phenobarbital*) 15 Mg Tablet, 15 MG PO BID, TAB 06/06/18 Digoxin* (Digitek*) 250 Mcg Tablet, 0.25 MG PO DAILY, TAB 06/06/18 Discontinued Reported Medications Aspirin (Low Dose Aspirin) 81 Mg Tablet.dr, 81 MG PO DAILY, #30 TAB 03/08/16 Simvastatin (Simvastatin) 20 Mg Tablet, 20 MG PO HS, TAB 09/16/14 Calcitriol* (Rocaltrol*) 0.25 Mcg Capsule, 0.25 MCG PO QAM, CAP 09/16/14 Phenytoin* Sodium Extended (Dilantin*) 300 Mg Capsule, 300 MG PO BID, CAP 09/16/14 Phenobarbital* (Phenobarbital*) 32.4 Mg Tab, 64.8 MG PO BID, TAB 09/16/14 Discontinued Scripts Ibuprofen* (Motrin*) 400 Mg Tab, 400 MG PO Q8 PRN for PAIN AND/OR INFLAMMATION, #30 TAB Prov:SHANDRA LAMAR MD 08/30/17 Neomycin Fischer/Bacitrac Zn/Poly (Triple Antibiotic Ointment) 1 Each Oint.pack, 1 EACH TP BID for 7 Days Prov:JUAN SALAZAR PA-C 11/17/16 Ibuprofen* (Motrin*) 600 Mg Tab, 600 MG PO Q6, #30 TAB Prov:CARLINE HERNANDEZ 11/10/16 Cephalexin* (Keflex*) 500 Mg Capsule, 500 MG PO BID for 7 Days, CAP Prov:CARLINE HERNANDEZ 11/10/16 Medications Current Medications Ascorbic Acid (Vitamin C) 500 mg DAILY PO Last administered on 06/10/18at 08:22; Admin Dose 500 MG; Start 06/07/18 at 09:00 Aspirin (Halfprin) 81 mg DAILY PO Last administered on 06/10/18at 08:22; Admin Dose 81 MG; Start 06/07/18 at 09:00 Atorvastatin Calcium (Lipitor) 10 mg QHS PO Last administered on 06/09/18at 21:03; Admin Dose 10 MG; Start 06/06/18 at 21:00 Digoxin (Digoxin) 0.25 mg DAILY@1300 PO Last administered on 4/8/19at 13:05; Admin Dose 0.25 MG; Start 06/07/18 at 13:00; Status Hold Docusate Sodium (Colace) 100 mg DAILY PO Last administered on 06/10/18 08:22; Admin Dose 100 MG; Start 06/07/18 at 09:00 Donepezil HCl (Aricept) 5 mg DAILY PO Last administered on 06/10/18 08:23; Admin Dose 5 MG; Start 06/07/18 at 09:00 Levetiracetam (Keppra) 500 mg BID PO Last administered on 06/10/18 08:22; Admin Dose 500 MG; Start 06/06/18 at 21:00 Tamsulosin HCl (Flomax) 0.4 mg HS PO Last administered on 06/09/18 21:04; Admin Dose 0.4 MG; Start 06/06/18 at 21:00 Famotidine (Pepcid) 20 mg BID PO Last administered on 06/10/18 08:22; Admin Dose 20 MG; Start 06/06/18 at 21:00 Furosemide (Lasix) 20 mg BID DIURETICS PO Last administered on 06/10/18 06:24; Admin Dose 20 MG; Start 06/09/18 at 09:00 Metoprolol Tartrate (Lopressor) 25 mg BID PO Last administered on 06/10/18 08:24; Admin Dose 25 MG; Start 06/09/18 at 21:00 Phenytoin (Dilantin Susp Cup) 50 mg BID PO ; Start 06/10/18 at 11:30 Assessment/Plan Hospital Course (Demo Recall) 1. Status post fall: Clinically does not appear to be related to syncope. 4 no significant arrhythmia is noted on the telemetry 2. Bradycardia with first-degree AV block on high dose of digoxin 3. History of congestive heart failure: Currently appears to be euvolemic 4. History of Parkinson disease and poor by 5. History of hypertension 6. dyslipidemia on statin Recommendations: I will decrease the digoxin dose We will decrease the metoprolol given his marked bradycardic episodes Statin to be continued and adjusted as needed We will monitor on the telemetry for now We will check echocardiogram to evaluate for LV function. Lasix will be continued for now and adjusted as needed basis Thank you for his referral. We will continue to follow along with you CHARLOTTE SCHUMACHER MD [facility] CHARLOTTE SCHUMACHER MD Jun 10, 2018 10:26
--- NOTE | 2018-06-10 10:51 | CONS ---
Assessment/Plan Assessment/Plan Hospital Course 83 M c/ Hx of epilepsy and other comorbidities, who presents for evaluation following a fall. His Dilantin level was noted to be supratherapeutic, for which neurology is consulted.. Head CT was without obvious acute intracranial pathology...though notable for chronic infarcts. P: Continue Dilantin at lower dose of 50mg bid for now; surveillance levels daily for now (goal level 10-20) Continue Keppra 500mg bid for now Ativan iv prn prolonged seizure of cluster Agree w/ asa daily for secondary stroke prevention PT/OT as tolerated Other management and supportive care per primary Will follow clinically Consultation Date/Type/Reason Admit Date/Time Jun 06, 2018 at 14:17 Type of Consult Neurology Reason for Consultation dilantin management Requesting Provider: JULSIA CONN DO Date/Time of Note DATE: 06/10/18 TIME: 10:50 24 HR Interval Summary Free Text/Dictation Continues acute care Exam Vital Signs Vitals Vital Signs Date Temp Pulse Resp B/P (MAP) Pulse Ox O2 O2 Flow FiO2 Time Delivery Rate 06/10/18 62 08:24 06/10/18 97.9 16 109/54 98 07:09 (72) 06/08/18 Room Air 16:02 Intake and Output 06/09/18 06/09/18 06/10/18 1515:00 23:00 07:00 IntakeIntake Total 950 ml 350 ml OutputOutput Total 1100 ml 1525 ml BalanceBalance -150 ml -1175 ml Exam PE: Gen Appearance: No Apparent Distress HEENT: Normocephalic Cardiovascular: Regular rate Abdomen: Soft Extremities: Dry NE: The patient was alert and oriented. Language was normal. Fund of knowledge was adequate. Pupils were equal and reactive to light. There was no afferent pupillary defect. Visual moncada were normal. Funduscopic examination was limited. Extra-ocular movements were full. Ptosis was absent. There was no nystagmus. Facial sensation was normal. Face was symmetric with normal strength. Hearing was intact. Palate movements were normal. Neck strength was normal. There was normal tongue bulk and speed of movement. Tone was normal. Muscle bulk was normal. I did not see fasciculations. Arms and legs were symmetric. Vibration sensation was reduced distally. Temperature and pinprick sensation was normal. Rapid alternating movements were normal. There was no dysmetria. There was no intention tremor. Gait was deferred due to bedrest. Arm and leg reflexes were symmetric. Pérez's sign was absent. Plantar responses were flexor. CHRISTA ARCHER Jun 10, 2018 10:51 QUOC MENDEZ NP Jun 10, 2018 14:43
[2018-06-10] MEDS: PHENYTOIN (100 MG/4 ML) CUP PO SCH ×2 (12:06→21:01)
--- NOTE | 2018-06-10 12:14 | RADRPT ---
Echocardiogram Report Patient Name: JAIME YOUNGPatient ID: [id number] : [id number] (83y 5m)Study Date: 06/09/2018 6:17:50 PM Gender: MAccession #: [id number] Tech: TRACI Location: Ref.Physician: CHARLOTTE EAST Height(Cm): 173 BSA: 1.81Weight(Kg): 68 Quality: Technically Difficult StudyAccount #: Procedures: Echocardiographic Report: Transthoracic echocardiogram examination, no subcostal images. Indications: Congestive Heart Failure. Measurements: 2D/M Mode Doppler Measurement Value Normal Range Measurement Value Normal Range LVIDd 2D 4.5 [ 4.2 - 5.8 ] cm AV Peak Elliott 1.4 [ 100.0 - 170.0 ] cm/se c LVIDs 2D 2.4 [ 2.5 - 4.0 ] cm AV Peak PG 7.0 [ 2.0 - 9.0 ] mmHg LVPWd 2D 1.0 [ 0.6 - 1.0 ] cm LVOT Peak Elliott 1.0 [ 70.0 - 110.0 ] cm/sec IVSd 2D 0.9 [ 0.6 - 1.0 ] cm LVOT Peak PG 4.0 [ 2.0 - 6.0 ] mmHg AoR Diam 2D 3.6 [ 2.6 - 3.4 ] cm MV E Peak Elliott 0.6 [ 60.0 - 130.0 ] cm/sec EDV 2D 92.0 [ 62.0 - 150.0 ] ml MV A Peak Elliott 0.6 [ 100.0 - 120.0 ] cm/se c ESV 2D 20.4 [ 21.0 - 61.0 ] ml MV E/A 1.1 [ 0.8 - 1.5 ] ratio EF 2D 77.8 [ 52.0 - 72.0 ] percent MV PHT 80.0 [ 20.0 - 100.0 ] msec LA Dimen 2D 4.1 [ 3.0 - 4.0 ] cm MV Decel Time 275 [ 104 - 258 ] msec MV Decel Lyon 2 Lat E` Elliott 0.1 [ 10.0 - 15.0 ] cm/sec Lateral E/E` 7.4 [ 1.0 - 2.0 ] ratio Med E` Elliott 0.1 cm/sec MV E/A 1.1 [ 0.8 - 1.5 ] ratio MV PHT 80.0 [ 20.0 - 100.0 ] msec MVA PHT 2.8 [ 2.0 - 4.0 ] cm2 TR Peak Elliott 2.7 [ 100.0 - 280.0 ] cm/se c TR Peak PG 28.0 mmHg PV Peak Elliott 1.2 [ 40.0 - 80.0 ] cm/sec PV Peak PG 6.0 mmHg RVSP 31.0 [ 10.0 - 36.0 ] mmHg RA Pressure 3.0 mmHg Findings: Left Ventricle: Normal left ventricular cavity size, wall thickness and systolic function. Paradoxical septal motion consistent with IVCD or left bundle branch block. The left ventricular ejection fraction is visually estimated at 65 %. Right Ventricle: Normal right ventricular size. Normal right ventricular systolic function. Left Atrium: There is mild enlargement of left atrium. Right Atrium: The right atrium is normal in size and appearance. Atrial Septum: The atrial septum is not well visualized. Mitral Valve: Normal appearance of the mitral valve leaflets. Mild mitral regurgitation. Aortic Valve: No hemodynamically significant aortic stenosis by Doppler. Aortic cusps appear mildly calcified. Trileaflet aortic valve. Trace to mild aortic regurgitation. Tricuspid Valve: Normal appearance of the tricuspid valve. The estimated Peak RVSP is 31 mmHg. There is mild tricuspid regurgitation. Pulmonic Valve: Normal pulmonic valve appearance and function with trivial (physiologic) regurgitation. There is trace pulmonic regurgitation. Pericardium: Normal pericardium with no significant pericardial effusion. Aorta: Normal aortic root. IVC: The inferior vena cava is not well visualized. Pulmonary Artery: Normal pulmonary artery size. Conclusions: Normal left ventricular cavity size, wall thickness and systolic function. Paradoxical septal motion consistent with IVCD or left bundle branch block. The left ventricular ejection fraction is visually estimated at 65 %. Normal appearance of the mitral valve leaflets. Mild mitral regurgitation. No hemodynamically significant aortic stenosis by Doppler. Aortic cusps appear mildly calcified. Trileaflet aortic valve. Trace to mild aortic regurgitation. Normal appearance of the tricuspid valve. The estimated Peak RVSP is 31 mmHg. There is mild tricuspid regurgitation. Electronically Signed By: Charlotte East 2018-06-10 12:13:02 PDT
[2018-06-10] MEDS ORDERED: NA PHOSPHATE/BIPHOS 133 ML ENEMA PR PRN (14:00)
[2018-06-10] MEDS: TAMSULOSIN (SR) 0.4 MG CAP PO SCH (21:03)
[2018-06-10] MEDS: ATORVASTATIN 10 MG TAB PO SCH (21:03)
[2018-06-11] VITALS (11 sets, daily range): BP systolic 97–139; BP diastolic 52–69; PULSE 55–73; RESP 18
[2018-06-11] MEDS: FUROSEMIDE 20 MG TAB PO SCH ×2 (06:40→17:49)
[2018-06-11] MEDS: DOCUSATE SODIUM 100 MG CAP PO SCH (08:28)
[2018-06-11] MEDS: FAMOTIDINE 20 MG TAB PO SCH ×2 (08:28→21:29)
[2018-06-11] MEDS: LEVETIRACETAM 500 MG TAB PO SCH ×2 (08:28→21:30)
[2018-06-11] MEDS: ASCORBIC ACID 500 MG TAB PO SCH (08:28)
[2018-06-11] MEDS: ASPIRIN (EC) 81 MG TAB PO SCH (08:28)
[2018-06-11] MEDS: DONEPEZIL 5 MG TAB PO SCH (08:29)
[2018-06-11] MEDS: METOPROLOL 25 MG TAB PO SCH ×2 (08:29→21:30)
[2018-06-11] MEDS: PHENYTOIN (100 MG/4 ML) CUP PO SCH ×2 (08:30→21:28)
--- NOTE | 2018-06-11 09:33 | CONS ---
Consult Date/Type/Reason Admit Date/Time Jun 06, 2018 at 14:17 Initial Consult Date 06/09/18 Type of Consultation: cv Requesting Provider: JULISA CONN DO Date/Time of Note DATE: 06/11/18 TIME: 09:31 Subjective Cardiology follow-up progress note Objective: Discussed with the staff and telemetry was reviewed patient remained sinus rhythm /sinus bradycardia. No chest pain or pressure no palpitation pt is feeling better no falls Denies any active bleeding to me Objective: General: no acute distress HEENT: NC/AT. pupils are equal. round. NECK: NO JVD. no stridor. CV: RRR. systolic murmur; no gallop or rubs. PULM: no wheezing or rhonchi. GI: SOFT, NT, ND, no rebound or guarding Extremity: trace B/L LE edema. no clubbing. neuro: awake and alert, OX3. Psych: calm and pleasant rectal: deferred : normal male. EKG done in the emergency room shows normal sinus rhythm with first-degree AV block Chest x-ray done shows: Mild bibasilar partial atelectasis or scarring. Old right-sided rib fractures. Echocardiogram shows: Normal left ventricular cavity size, wall thickness and systolic function. Paradoxical septal motion consistent with IVCD or left bundle branch block. The left ventricular ejection fraction is visually estimated at 65 %. Normal appearance of the mitral valve leaflets. Mild mitral regurgitation. No hemodynamically significant aortic stenosis by Doppler. Aortic cusps appear mildly calcified. Trileaflet aortic valve. Trace to mild aortic regurgitation. Normal appearance of the tricuspid valve. The estimated Peak RVSP is 31 mmHg. There is mild tricuspid regurgitation. Objective Vitals Vital Signs Date Temp Pulse Resp B/P (MAP) Pulse Ox O2 O2 Flow FiO2 Time Delivery Rate 06/11/18 65 08:33 06/11/18 98.0 18 139/69 96 Room Air 07:36 (92) Intake and Output 06/10/18 06/10/18 06/11/18 1515:00 23:00 07:00 IntakeIntake Total 950 ml 350 ml OutputOutput Total 900 ml 1100 ml BalanceBalance 50 ml -750 ml Results/Medications Result Diagram: 06/10/18 0440 06/10/18439 Results 24 hrs Laboratory Tests Test 06/11/18 05:21 Phenytoin (Dilantin) Level 14.4 Home Meds Reported Medications Ascorbic Acid* (Vitamin C*) 500 Mg Capsule.sa, 500 MG PO DAILY, CAP 06/06/18 Gabapentin (Gabapentin) 1,000 Gm Powder, 300 GM MC 06/06/18 Phenytoin* Sodium Extended (Dilantin*) 100 Mg Capsule, 100 MG PO BID, CAP 06/06/18 Atorvastatin Calcium (Atorvastatin Calcium) 10 Mg Tablet, 10 MG PO QHS, #30 TAB 06/06/18 Donepezil* (Donepezil*) 5 Mg Tablet, 5 MG PO DAILY, #30 TAB 06/06/18 Docusate Sodium* (Colace*) 100 Mg Capsule, 100 MG PO DAILY, #30 CAP 06/06/18 Aspirin* (Aspirin* EC) 81 Mg Tablet.dr, 81 MG PO DAILY, TAB 06/06/18 Metoprolol Tartrate* (Lopressor*) 50 Mg Tab, 50 MG PO BID, #60 TAB 06/06/18 Levetiracetam* (Levetiracetam*) 500 Mg Tablet, 500 MG PO BID, TAB 06/06/18 Tamsulosin Hcl* (Tamsulosin Hcl*) 0.4 Mg Cap.er.24h, 0.4 MG PO HS, CAP 06/06/18 Furosemide* (Furosemide*) 40 Mg Tablet, 40 MG PO BID, TAB 06/06/18 Phenobarbital* (Phenobarbital*) 15 Mg Tablet, 15 MG PO BID, TAB 06/06/18 Digoxin* (Digitek*) 250 Mcg Tablet, 0.25 MG PO DAILY, TAB 06/06/18 Discontinued Reported Medications Aspirin (Low Dose Aspirin) 81 Mg Tablet.dr, 81 MG PO DAILY, #30 TAB 03/08/16 Simvastatin (Simvastatin) 20 Mg Tablet, 20 MG PO HS, TAB 09/16/14 Calcitriol* (Rocaltrol*) 0.25 Mcg Capsule, 0.25 MCG PO QAM, CAP 09/16/14 Phenytoin* Sodium Extended (Dilantin*) 300 Mg Capsule, 300 MG PO BID, CAP 09/16/14 Phenobarbital* (Phenobarbital*) 32.4 Mg Tab, 64.8 MG PO BID, TAB 09/16/14 Discontinued Scripts Ibuprofen* (Motrin*) 400 Mg Tab, 400 MG PO Q8 PRN for PAIN AND/OR INFLAMMATION, #30 TAB Prov:SHNADRA LAMAR MD 08/30/17 Neomycin Fischer/Bacitrac Zn/Poly (Triple Antibiotic Ointment) 1 Each Oint.pack, 1 EACH TP BID for 7 Days Prov:JUAN SALAZAR PA-C 11/17/16 Ibuprofen* (Motrin*) 600 Mg Tab, 600 MG PO Q6, #30 TAB Prov:CARLINE HERNANDEZ 11/10/16 Cephalexin* (Keflex*) 500 Mg Capsule, 500 MG PO BID for 7 Days, CAP Prov:CARLINE HERNANDEZ 11/10/16 Medications Current Medications Ascorbic Acid (Vitamin C) 500 mg DAILY PO Last administered on 06/11/18 08:28; Admin Dose 500 MG; Start 06/07/18 at 09:00 Aspirin (Halfprin) 81 mg DAILY PO Last administered on 06/11/18 08:28; Admin Dose 81 MG; Start 06/07/18 at 09:00 Atorvastatin Calcium (Lipitor) 10 mg QHS PO Last administered on 06/10/18 21:03; Admin Dose 10 MG; Start 06/06/18 at 21:00 Docusate Sodium (Colace) 100 mg DAILY PO Last administered on 06/11/18 08:28; Admin Dose 100 MG; Start 06/07/18 at 09:00 Donepezil HCl (Aricept) 5 mg DAILY PO Last administered on 06/11/18 08:29; Admin Dose 5 MG; Start 06/07/18 at 09:00 Levetiracetam (Keppra) 500 mg BID PO Last administered on 06/11/18 08:28; Admin Dose 500 MG; Start 06/06/18 at 21:00 Tamsulosin HCl (Flomax) 0.4 mg HS PO Last administered on 06/10/18 21:03; Admin Dose 0.4 MG; Start 06/06/18 at 21:00 Famotidine (Pepcid) 20 mg BID PO Last administered on 06/11/18 08:28; Admin Dose 20 MG; Start 06/06/18 at 21:00 Furosemide (Lasix) 20 mg BID DIURETICS PO Last administered on 06/11/18 06:40; Admin Dose 20 MG; Start 4/8/19 at 09:00 Metoprolol Tartrate (Lopressor) 25 mg BID PO Last administered on 06/11/18at 08:29; Admin Dose 25 MG; Start 06/09/18 at 21:00 Phenytoin (Dilantin Susp Cup) 50 mg BID PO Last administered on 06/11/18at 08:30; Admin Dose 50 MG; Start 06/10/18 at 11:30 Digoxin (Digoxin) 0.125 mg DAILY@13 PO ; Start 06/11/18 at 13:00 Sodium Biphosphate/ Sodium Phosphate (Fleet Enema) 133 ml DAILY PRN [place] CONSTIPATION; Start 06/10/18 at 14:00 Assessment/Plan Hospital Course (Demo Recall) 1. Status post fall: Clinically does not appear to be related to syncope. 4 no significant arrhythmia is noted on the telemetry 2. Bradycardia with first-degree AV block on high dose of digoxin 3. History of congestive heart failure: Currently appears to be euvolemic 4. History of Parkinson disease and poor by 5. History of hypertension 6. dyslipidemia on statin Recommendations: decrease the digoxin dose to 0.125 once a day only Very low-dose metoprolol given his marked bradycardic episodes Statin to be continued and adjusted as needed Thank you for his referral. We will continue to follow along with you CHARLOTTE SCHUMACHER MD [facility] CHARLOTTE SCHUMACHER MD Jun 11, 2018 09:33
--- NOTE | 2018-06-11 11:25 | CONS ---
Assessment/Plan Assessment/Plan Hospital Course 83 M c/ Hx of epilepsy and other comorbidities, who presents for evaluation following a fall. His Dilantin level was noted to be supratherapeutic, for which neurology is consulted.. Head CT was without obvious acute intracranial pathology...though notable for chronic infarcts. P: Clarify Phenobarbital medication use as an outpatient when able Continue Dilantin at lower dose of 50mg bid for now; repeat level in ~ 1 week Continue Keppra 500mg bid for now Ativan iv prn prolonged seizure of cluster Agree w/ asa daily for secondary stroke prevention PT/OT as tolerated Aricept OK Other management and supportive care per primary Will follow with you Consultation Date/Type/Reason Admit Date/Time Jun 06, 2018 at 14:17 Type of Consult Neurology Reason for Consultation dilantin management Requesting Provider: JULISA CONN DO Date/Time of Note DATE: 06/11/18 TIME: 11:23 24 HR Interval Summary Free Text/Dictation Continues acute care No new neurologic complaints Exam Vital Signs Vitals Vital Signs Date Temp Pulse Resp B/P (MAP) Pulse Ox O2 O2 Flow FiO2 Time Delivery Rate 06/11/18 65 08:33 06/11/18 98.0 18 139/69 96 Room Air 07:36 (92) Intake and Output 06/10/18 06/10/18 06/11/18 1515:00 23:00 07:00 IntakeIntake Total 950 ml 350 ml OutputOutput Total 900 ml 1100 ml BalanceBalance 50 ml -750 ml CHRISTA ARCHER Jun 11, 2018 11:25
[2018-06-11] MEDS ORDERED: DIGOXIN 0.125 MG TAB PO SCH (13:00)
[2018-06-11] MEDS: ATORVASTATIN 10 MG TAB PO SCH (21:29)
[2018-06-11] MEDS: TAMSULOSIN (SR) 0.4 MG CAP PO SCH (21:30)
[2018-06-12] VITALS (8 sets, daily range): BP systolic 112–123; BP diastolic 58–61; PULSE 53–75; RESP 18–20
--- NOTE | 2018-06-12 02:06 | DS ---
DATE OF ADMISSION: 06/06/2018 DATE OF DISCHARGE: 06/11/2018 HOSPITAL COURSE: This is an 83-year-old male with a past medical history of seizure disorder, dyslip idemia, peripheral neuropathy, history of heart failure, hypertension, who presented to [facility] with mechanical fall. The patient was subsequently admitted. A CT scan of brain was performed, which showed no evidence of intracranial hemorrhage. The patient did have possible hemat bill which has been resolving. The patient, however, was noted to have Dilantin toxicity and was seen by neurologist. The patient's Dilantin medication was adjusted and levels have improved. The patie nt, however, had significant peripheral neuropathy and gait imbalance and was seen by physical therap y, but a recommendation was made for continued rehabilitation. The patient will subsequently be luong sferred to [facility] for continued physical therapy and rehabilitation . The patient's other medical problems including seizure disorder, CHF, BPH have been stable. The patient currently at this time will be transferred to [facility]. At the time of transfer, the patient is stable, in no acute distress. FINAL DIAGNOSES: 1. Mechanical fall with occipital hematoma, resolving. 2. Dilantin toxicity, resolved. 3. Peripheral neuropathy. 4. Hypertension. 5. Seizure disorder. 6. Congestive heart failure. 7. Benign prostatic hypertrophy. 8. Cognitive decline. 9. Sinus arrhythmia. 10. Anemia. 11. Gastrointestinal and deep venous thrombosis prophylaxis. CONDITION ON DISCHARGE: At the time of transfer, the patient is stable, in no acute distress. FINAL MEDICATIONS: See reconciliation list. Dictated By: JULISA DOSS/ZECHARIAH Conf#: [id number] DID#: [id number]
[2018-06-12] MEDS: FUROSEMIDE 20 MG TAB PO SCH (06:01)
--- NOTE | 2018-06-12 07:51 | CONS ---
Consult Date/Type/Reason Admit Date/Time Jun 06, 2018 at 14:17 Initial Consult Date 06/09/18 Type of Consultation: cv Requesting Provider: JULISA CONN DO Date/Time of Note DATE: 06/12/18 TIME: 07:50 Subjective Cardiology follow-up progress note Objective: Discussed with the staff and telemetry was reviewed patient remained sinus rhythm /sinus bradycardia. No chest pain or pressure no palpitation pt is feeling fine now no falls Denies any active bleeding to me Objective: General: no acute distress HEENT: NC/AT. pupils are equal. round. NECK: NO JVD. no stridor. CV: RRR. systolic murmur; no gallop or rubs. PULM: no wheezing or rhonchi. GI: SOFT, NT, ND, no rebound or guarding Extremity: trace B/L LE edema. no clubbing. neuro: awake and alert, OX3. Psych: calm and pleasant rectal: deferred : normal male. EKG done in the emergency room shows normal sinus rhythm with first-degree AV block Chest x-ray done shows: Mild bibasilar partial atelectasis or scarring. Old right-sided rib fractures. Echocardiogram shows: Normal left ventricular cavity size, wall thickness and systolic function. Paradoxical septal motion consistent with IVCD or left bundle branch block. The left ventricular ejection fraction is visually estimated at 65 %. Normal appearance of the mitral valve leaflets. Mild mitral regurgitation. No hemodynamically significant aortic stenosis by Doppler. Aortic cusps appear mildly calcified. Trileaflet aortic valve. Trace to mild aortic regurgitation. Normal appearance of the tricuspid valve. The estimated Peak RVSP is 31 mmHg. There is mild tricuspid regurgitation. Objective Vitals Vital Signs Date Temp Pulse Resp B/P (MAP) Pulse Ox O2 O2 Flow FiO2 Time Delivery Rate 06/12/18 97.4 56 20 123/58 98 Room Air 07:09 (79) Intake and Output 06/11/18 06/11/18 06/12/18 1515:00 23:00 07:00 IntakeIntake Total 1140 ml 400 ml OutputOutput Total 1300 ml 3100 ml BalanceBalance -160 ml -2700 ml Results/Medications Result Diagram: 06/10/1843906/10/18 0440 Home Meds Reported Medications Ascorbic Acid* (Vitamin C*) 500 Mg Capsule.sa, 500 MG PO DAILY, CAP 06/06/18 Gabapentin (Gabapentin) 1,000 Gm Powder, 300 GM MC 06/06/18 Phenytoin* Sodium Extended (Dilantin*) 100 Mg Capsule, 100 MG PO BID, CAP 06/06/18 Atorvastatin Calcium (Atorvastatin Calcium) 10 Mg Tablet, 10 MG PO QHS, #30 TAB 06/06/18 Donepezil* (Donepezil*) 5 Mg Tablet, 5 MG PO DAILY, #30 TAB 06/06/18 Docusate Sodium* (Colace*) 100 Mg Capsule, 100 MG PO DAILY, #30 CAP 06/06/18 Aspirin* (Aspirin* EC) 81 Mg Tablet.dr, 81 MG PO DAILY, TAB 06/06/18 Metoprolol Tartrate* (Lopressor*) 50 Mg Tab, 50 MG PO BID, #60 TAB 06/06/18 Levetiracetam* (Levetiracetam*) 500 Mg Tablet, 500 MG PO BID, TAB 06/06/18 Tamsulosin Hcl* (Tamsulosin Hcl*) 0.4 Mg Cap.er.24h, 0.4 MG PO HS, CAP 06/06/18 Furosemide* (Furosemide*) 40 Mg Tablet, 40 MG PO BID, TAB 06/06/18 Phenobarbital* (Phenobarbital*) 15 Mg Tablet, 15 MG PO BID, TAB 06/06/18 Digoxin* (Digitek*) 250 Mcg Tablet, 0.25 MG PO DAILY, TAB 06/06/18 Discontinued Reported Medications Aspirin (Low Dose Aspirin) 81 Mg Tablet.dr, 81 MG PO DAILY, #30 TAB 03/08/16 Simvastatin (Simvastatin) 20 Mg Tablet, 20 MG PO HS, TAB 09/16/14 Calcitriol* (Rocaltrol*) 0.25 Mcg Capsule, 0.25 MCG PO QAM, CAP 09/16/14 Phenytoin* Sodium Extended (Dilantin*) 300 Mg Capsule, 300 MG PO BID, CAP 09/16/14 Phenobarbital* (Phenobarbital*) 32.4 Mg Tab, 64.8 MG PO BID, TAB 09/16/14 Discontinued Scripts Ibuprofen* (Motrin*) 400 Mg Tab, 400 MG PO Q8 PRN for PAIN AND/OR INFLAMMATION, #30 TAB Prov:SHANDRA LAMAR MD 08/30/17 Neomycin Fischer/Bacitrac Zn/Poly (Triple Antibiotic Ointment) 1 Each Oint.pack, 1 EACH TP BID for 7 Days Prov:JUAN SALAZAR PA-C 11/17/16 Ibuprofen* (Motrin*) 600 Mg Tab, 600 MG PO Q6, #30 TAB Prov:CARLINE HERNANDEZ Larissa 11/10/16 Cephalexin* (Keflex*) 500 Mg Capsule, 500 MG PO BID for 7 Days, CAP Prov:CARLINE HERNANDEZ Larissa 11/10/16 Medications Current Medications Ascorbic Acid (Vitamin C) 500 mg DAILY PO Last administered on 06/11/18 08:28; Admin Dose 500 MG; Start 06/07/18 at 09:00 Aspirin (Halfprin) 81 mg DAILY PO Last administered on 06/11/18 08:28; Admin Dose 81 MG; Start 06/07/18 at 09:00 Atorvastatin Calcium (Lipitor) 10 mg QHS PO Last administered on 06/11/18 21:29; Admin Dose 10 MG; Start 06/06/18 at 21:00 Docusate Sodium (Colace) 100 mg DAILY PO Last administered on 06/11/18 08:28; Admin Dose 100 MG; Start 06/07/18 at 09:00 Donepezil HCl (Aricept) 5 mg DAILY PO Last administered on 06/11/18 08:29; Admin Dose 5 MG; Start 06/07/18 at 09:00 Levetiracetam (Keppra) 500 mg BID PO Last administered on 06/11/18 21:30; Admin Dose 500 MG; Start 06/06/18 at 21:00 Tamsulosin HCl (Flomax) 0.4 mg HS PO Last administered on 06/11/18 21:30; Admin Dose 0.4 MG; Start 06/06/18 at 21:00 Famotidine (Pepcid) 20 mg BID PO Last administered on 06/11/18 21:29; Admin Dose 20 MG; Start 06/06/18 at 21:00 Furosemide (Lasix) 20 mg BID DIURETICS PO Last administered on 06/12/18 06:01; Admin Dose 20 MG; Start 06/09/18 at 09:00 Metoprolol Tartrate (Lopressor) 25 mg BID PO Last administered on 06/11/18 21:30; Admin Dose 25 MG; Start 06/09/18 at 21:00 Phenytoin (Dilantin Susp Cup) 50 mg BID PO Last administered on 06/11/18at 21:28; Admin Dose 50 MG; Start 06/10/18 at 11:30 Digoxin (Digoxin) 0.125 mg DAILY@13 PO ; Start 06/11/18 at 13:00 Sodium Biphosphate/ Sodium Phosphate (Fleet Enema) 133 ml DAILY PRN [place] CONSTIPATION; Start 06/10/18 at 14:00 Assessment/Plan Hospital Course (Demo Recall) 1. Status post fall: Clinically does not appear to be related to syncope. 4 no significant arrhythmia is noted on the telemetry 2. Bradycardia with first-degree AV block on high dose of digoxin 3. History of congestive heart failure: Currently appears to be euvolemic 4. History of Parkinson disease and poor by 5. History of hypertension 6. dyslipidemia on statin Recommendations: low dose digoxin only Very low-dose metoprolol given his marked bradycardic episodes Statin to be continued and adjusted as needed dc planning is in process Thank you for his referral. We will continue to follow along with you CHARLOTTE SCHUMACHER MD [facility] CHARLOTTE SCHUMACHER MD Jun 12, 2018 07:51
[2018-06-12] MEDS: LEVETIRACETAM 500 MG TAB PO SCH (08:24)
[2018-06-12] MEDS: ASPIRIN (EC) 81 MG TAB PO SCH (08:28)
[2018-06-12] MEDS: FAMOTIDINE 20 MG TAB PO SCH (08:28)
[2018-06-12] MEDS: METOPROLOL 25 MG TAB PO SCH (08:28)
[2018-06-12] MEDS: PHENYTOIN (100 MG/4 ML) CUP PO SCH (08:29)
[2018-06-12] MEDS: DONEPEZIL 5 MG TAB PO SCH (08:29)
--- NOTE | 2018-06-12 09:25 | PN ---
DATE: 06/12/2018 SUBJECTIVE: The patient is stable. No events overnight. The patient is pending transfer to skilled nurse facility once bed is available. OBJECTIVE: VITAL SIGNS: Blood pressure is 123/58, respirations 20, pulse 56, temperature 97.4. HEENT: Head is normocephalic. NECK: Supple. HEART: Regular rate. LUNGS: Show diminished breath sounds at the base. ABDOMEN: Soft, nontender to palpation without rebound or guarding. EXTREMITIES: Negative for clubbing, cyanosis, no edema. DERMATOLOGIC: No rashes. MUSCULOSKELETAL: No joint effusion. NEUROLOGIC: No change in exam. MEDICATIONS: Reviewed. LABORATORY DATA: Has been reviewed. ASSESSMENT AND PLAN: 1. Mechanical fall with occipital hematoma. The patient is clinically improving. Continue to monit or. 2. Dilantin toxicity, improved. The patient's Dilantin dose has been adjusted. Continue to monitor . 3. Peripheral neuropathy with gait imbalance. Etiology is multifactorial secondary neuropathy, poss ible Dilantin toxicity. Continue to monitor. Continue physical therapy. 4. Hypertension. Continue current blood pressure regimen. 5. Seizure disorder. Continue current medical management with Keppra and Dilantin. Appreciate neur ology evaluation. 6. History of congestive heart failure. Continue current treatment plan. 7. Benign prostatic hypertrophy. Continue Flomax. 8. History of cognitive decline. Continue Donepezil. 9. History of arrhythmia. Continue to monitor. Follow up with cardiology. 10. Anemia. Monitor hemoglobin and hematocrit levels. 11. Gastrointestinal and deep vein thrombosis prophylaxis. DISPOSITION: The patient is pending transfer to intermediate facility once a bed is available. Dictated By: JULISA DOSS/ZECHARIAH Conf#: [id number] DID#: [id number]
--- NOTE | 2018-06-12 11:42 | CONS ---
Assessment/Plan Assessment/Plan Hospital Course 83 M c/ Hx of epilepsy and other comorbidities, who presents for evaluation following a fall. His Dilantin level was noted to be supratherapeutic, for which neurology is consulted.. Head CT was without obvious acute intracranial pathology...though notable for chronic infarcts. P: Clarify outpatient Phenobarbital medication with outpatient pharmacy when able Continue Dilantin at lower dose of 50mg bid; repeat level in ~ 1 week (goal 10- 20) Continue Keppra 500mg bid Ativan iv prn prolonged seizure of cluster Agree w/ asa daily for secondary stroke prevention PT/OT as tolerated Aricept OK Other management and supportive care per primary Will sign off for now; please call w/ adnl ?s Consultation Date/Type/Reason Admit Date/Time Jun 06, 2018 at 14:17 Type of Consult Neurology Reason for Consultation dilantin toxicity Requesting Provider: JULISA CONN DO Date/Time of Note DATE: 06/12/18 TIME: 11:41 24 HR Interval Summary Free Text/Dictation Continues acute care. Exam Vital Signs Vitals Vital Signs Date Temp Pulse Resp B/P (MAP) Pulse Ox O2 O2 Flow FiO2 Time Delivery Rate 06/12/18 98.2 54 20 112/58 100 Room Air 11:08 (76) Intake and Output 06/11/18 06/11/18 06/12/18 1515:00 23:00 07:00 IntakeIntake Total 1140 ml 400 ml OutputOutput Total 1300 ml 3100 ml BalanceBalance -160 ml -2700 ml Exam PE: Gen Appearance: No Apparent Distress HEENT: Normocephalic Cardiovascular: Regular rate Abdomen: Soft Extremities: Dry NE: The patient was alert and oriented. Language was normal. Fund of knowledge was adequate. Pupils were equal and reactive to light. There was no afferent pupillary defect. Visual moncada were normal. Funduscopic examination was limited. Extra-ocular movements were full. Ptosis was absent. There was no nystagmus. Facial sensation was normal. Face was symmetric with normal strength. Hearing was intact. Palate movements were normal. Neck strength was normal. There was normal tongue bulk and speed of movement. Tone was normal. Muscle bulk was normal. I did not see fasciculations. Arms and legs were symmetric. Vibration sensation was reduced distally. Temperature and pinprick sensation was normal. Rapid alternating movements were normal. There was no dysmetria. There was no intention tremor. Gait was deferred due to bedrest. Arm and leg reflexes were symmetric. Pérez's sign was absent. Plantar responses were flexor. QUOC MENDEZ NP Jun 12, 2018 11:42 CHRISTA ARCHER Jun 12, 2018 14:14
== END 2018-06-12 13:56 | DRG 310 ==
LOC: E/R 11:56 → PP2 14:17 → 6WM 06-08 15:39
PROVIDERS: ADMIT Internal Medicine; ATTEND Internal Medicine
DX: I44.0 Atrioventricular block, first degree (principal); R00.1 Bradycardia, unspecified; T42.0X5A Adverse effect of hydantoin derivatives, initial encounter; S00.03XA Contusion of scalp, initial encounter; W19.XXXA Unspecified fall, initial encounter; G40.909 Epilepsy, unspecified, not intractable, without status epilepticus; E78.5 Hyperlipidemia, unspecified; I11.0 Hypertensive heart disease with heart failure; I50.9 Heart failure, unspecified; F42.9 Obsessive-compulsive disorder, unspecified; G62.9 Polyneuropathy, unspecified; R26.89 Other abnormalities of gait and mobility; N40.0 Benign prostatic hyperplasia without lower urinary tract symptoms; D64.9 Anemia, unspecified
CPT/HCPCS: 36415; 70450; 71045; 80048; 80053; 80061; 80162; 80185; 81003; 82043; 83735; 83880; 84100; 84155; 84300; 84439; 84443; 84484; 85025; 85610; 85730; 93005; 93306; 97162; J7030

== ENCOUNTER 2018-08-05 19:22 | Emergency (ER) | payer MEDICARE, OTHER ==
[~2018-08-05] VITALS: Ht 175.3 cm; Wt 65.0 kg
[~2018-08-05 19:22] MED LIST changes: +ASCO500C7 PO; +ASPI-817 PO; -ASPI81TA52 PO; +ATOR10TA65 PO; -CALC0.255 PO; -CEPH-443 PO; +DIGO250T PO; +DOCU-144 PO; +DONE5TAB7 PO; +FURO40TA4 PO; -IBUP-1542 PO; -IBUP-1561 PO; +LEVE500T8 PO; +METO-429 PO; -NEOM1PAC TP; -PHE30 PO; +PHEN100C PO; +PHEN15TA PO; -PHEN300C2 PO; -SIMV20TA2 PO; +TAMS0.4C2 PO; +[UNRECOGNIZED DRUG - CODE] MC
[2018-08-05 19:31] VITALS: Ht 175.3 cm; Wt 65.0 kg
--- NOTE | 2018-08-05 19:39 | ERD ---
ER Documentation Chief Complaint Chief Complaint FOCAL SEIZURE LASTING APPROX 7 MIN. WAS NOT TAKING DILANTIN HPI The patient is a 83-year-old male, presenting to the ER because he had recurrent seizure at home around 6:15 PM, witnessed by his caregiver. He was admitted recently in June 06, 2018 due to Dilantin toxicity, his Dilantin was decreased down to 50 mg twice daily. However the caregiver has not been able to give it to him because she received suspension and did not know how to do it. He also take Keppra 750 mg twice daily. The history is obtained from the caregiver and medical medical because he is unable to provide significant history He does not have tongue bite/incontinence Medical history: Epilepsy, dyslipidemia, dementia, hypertension, BPH, peripheral neuropathy, gait impairment, history of CHF Past surgical history/SH/ROS: Unable due to his condition Medications Home Meds Active Scripts Phenytoin* (Dilantin* Chew) 50 Mg Tab.chew, 50 MG PO BID, #20 TAB.CHEW Prov:WHITNEY AVENDAÑO MD 08/05/18 Reported Medications Mineral Oil* (Fleet* Mineral Oil Enema) 133 Ml Oil, 133 ML ID NEEDED PRN for CONSTIPATION, ENEMA 08/05/18 Bisacodyl (Dulcolax) 10 Mg Supp.rect, 10 MG RC DAILY, SUPP.RECT 08/05/18 Magnesium Hydroxide* (Milk Of Magnesia*) 400 Mg/5 Ml Oral.susp, 30 ML PO BID, ML 08/05/18 Metoprolol Tartrate* (Lopressor*) 25 Mg Tab, 25 MG PO BID for 30 Days, #60 08/05/18 Furosemide* (Furosemide*) 20 Mg Tablet, 20 MG PO BID for 30 Days, #60 08/05/18 Ascorbic Acid* (Vitamin C*) 500 Mg Capsule.sa, 500 MG PO DAILY, CAP 06/06/18 Gabapentin (Gabapentin) 1,000 Gm Powder, 300 GM MC 06/06/18 Phenytoin* Sodium Extended (Dilantin*) 100 Mg Capsule, 50 MG PO BID, CAP 06/06/18 Atorvastatin Calcium (Atorvastatin Calcium) 10 Mg Tablet, 10 MG PO QHS, #30 TAB 06/06/18 Donepezil* (Donepezil*) 5 Mg Tablet, 5 MG PO DAILY, #30 TAB 06/06/18 Docusate Sodium* (Colace*) 100 Mg Capsule, 100 MG PO DAILY, #30 CAP 06/06/18 Aspirin* (Aspirin* EC) 81 Mg Tablet.dr, 81 MG PO DAILY, TAB 06/06/18 Levetiracetam* (Levetiracetam*) 500 Mg Tablet, 500 MG PO BID, TAB 06/06/18 Tamsulosin Hcl* (Tamsulosin Hcl*) 0.4 Mg Cap.er.24h, 0.4 MG PO HS, CAP 06/06/18 Digoxin* (Digitek*) 250 Mcg Tablet, 0.25 MG PO DAILY, TAB 06/06/18 Discontinued Reported Medications Metoprolol Tartrate* (Lopressor*) 50 Mg Tab, 50 MG PO BID, #60 TAB 06/06/18 Furosemide* (Furosemide*) 40 Mg Tablet, 40 MG PO BID, TAB 06/06/18 Phenobarbital* (Phenobarbital*) 15 Mg Tablet, 15 MG PO BID, TAB 06/06/18 Allergies Allergies: Coded Allergies: No Known Allergy (Unverified , 08/05/18) PMhx/Soc History of Surgery: No Anesthesia Reaction: No Hx Neurological Disorder: No (HX OF SEISURES) Hx Respiratory Disorders: No Hx Cardiac Disorders: No Hx Psychiatric Problems: No Hx Miscellaneous Medical Probl: Yes (Peripheral neuropathy with gait imbalance, HTN, Seizure disorder, CHF, BPH) Hx Alcohol Use: No Hx Substance Use: No Hx Tobacco Use: No Physical Exam Vitals Vital Signs Date Temp Pulse Resp B/P (MAP) Pulse Ox O2 O2 Flow FiO2 Time Delivery Rate 08/05/18 98.0 69 14 122/63 99 22:56 (82) 08/05/18 98.0 65 17 135/69 99 20:15 (91) 08/05/18 98.0 73 17 153/80 99 19:31 (104) Physical Exam Const: No acute distress. Head: Atraumatic. Eyes: Normal Conjunctiva. ENT: Normal External Ears, Nose and Mouth. Neck: Full range of motion. No meningismus. Resp: Clear to auscultation bilaterally. Cardio: Regular rate and rhythm. Abd: Soft, non distended, normal bowel sounds, non tender. Skin: No petechiae or rashes. Back: No midline or flank tenderness. Ext: No cyanosis, or edema. Neur: Awake and alert. No focal deficit. No tongue bite/incontinence Psych: Demented Result Diagram: 08/05/18200008/05/182000 Results 24 hrs Laboratory Tests Test 08/05/18 20:01 White Blood Count 6.1 10^3/ul Red Blood Count 3.82 10^6/ul Hemoglobin 11.9 g/dl Hematocrit 36.7 % Mean Corpuscular Volume 96.1 fl Mean Corpuscular Hemoglobin 31.2 pg Mean Corpuscular Hemoglobin Concent 32.4 g/dl Red Cell Distribution Width 12.4 % Platelet Count 208 10^3/UL Mean Platelet Volume 10.0 fl Immature Granulocytes % 0.300 % Neutrophils % 63.0 % Lymphocytes % 26.1 % Monocytes % 8.3 % Eosinophils % 1.6 % Basophils % 0.7 % Nucleated Red Blood Cells % 0.3 /100WBC Immature Granulocytes # 0.020 10^3/ul Neutrophils # 3.9 10^3/ul Lymphocytes # 1.6 10^3/ul Monocytes # 0.5 10^3/ul Eosinophils # 0.1 10^3/ul Basophils # 0.0 10^3/ul Nucleated Red Blood Cells # 0.0 10^3/ul Sodium Level 141 mmol/L Potassium Level 4.0 mmol/L Chloride Level 104 mmol/L Carbon Dioxide Level 29 mmol/L Anion Gap 8 Blood Urea Nitrogen 20 mg/dl Creatinine 0.97 mg/dl Est Glomerular Filtrat Rate mL/min mL/min Glucose Level 110 mg/dl Calcium Level 8.6 mg/dl Digoxin Level < 0.4 ng/ml Phenytoin (Dilantin) Level < 3.0 ug/ml Current Medications Medications Dose Sig/Steve Start Time Status Last (Trade) Ordered Route PRN Stop Time Admin Dose Reason Admin 100 ml @ ONCE ONCE 08/05/18 DC 08/05/18 Levetiracetam 400 mls/hr IVPB 20:00 08/05/18 20:07 20:14 100 ml @ ONCE ONCE 08/05/18 Cancel Levetiracetam 400 mls/hr IVPB 21:30 08/05/18 21:44 102.5 ml @ Q12 IVPB 08/05/18 08/05/18 Levetiracetam 430 mls/hr 21:30 22:53 250 mg/Dextrose Phenytoin 100 mg ONCE ONCE 08/05/18 DC 08/05/18 (Dilantin) PO 23:00 08/05/18 22:56 23:01 Procedures/MDM MEDICAL MAKING DECISION: The patient is a 83-year-old male, presenting with acute recurrent seizure due to medical noncompliance. He was treated with Dilantin 100 mg p.o., Keppra 750 mg IV for recurrent seizure. Phenobard level is a sent-out lab and is pending The differential diagnoses considered include but are not limited to medical noncompliance, anxiety attack, panic attack, electrolyte imbalance Departure Diagnosis: Primary Impression: Recurrent seizures Additional Impressions: Anemia Subtherapeutic phenytoin level Condition: Good Comments He was discharged with Dilantin 50 mg tablet twice a day and stop the suspension I discussed the findings with the patient. I advised the patient to follow-up with neurologist in about 1-2 days, sooner if needed and return if any concern. Disclaimer: Inadvertent spelling and grammatical errors are likely due to EHR/dictation software use and do not reflect on the overall quality of patient care. Also, please note that the electronic time recorded on this note does not necessarily reflect the actual time of the patient encounter. WHITNEY AVENDAÑO MD Aug 05, 2018 19:39
[2018-08-05] MEDS ORDERED: LEVETIRACETAM 500 MG (PMX) 100 ML IVPB ONE ×2 (20:00→21:30)
[2018-08-05] MEDS ORDERED: LEVETIRACETAM IV 250 MG in DEXTROSE 5% 100 ML IVPB SCH (21:30)
[2018-08-05] MEDS ORDERED: FURO20TA3 PO (21:56)
[2018-08-05] MEDS ORDERED: METO-448 PO (21:56)
[2018-08-05] MEDS ORDERED: BISA10SU55 RC (21:58)
[2018-08-05] MEDS ORDERED: MINE133E23 PR (21:58)
[2018-08-05] MEDS ORDERED: MAGN400O19 PO (21:58)
[2018-08-05] MEDS ORDERED: PHEN50TA3 PO (22:53)
[2018-08-05] MEDS ORDERED: PHENYTOIN 100 MG CAP PO ONE (23:00)
[2018-08-06 00:10] VITALS: BP 141/75; PULSE 79; RESP 23
== END 2018-08-06 02:30 | disposition home or self-care (01) ==
LOC: E/R 19:22
DX: G40.909 Epilepsy, unspecified, not intractable, without status epilepticus (principal); D64.9 Anemia, unspecified; R89.2 Abnormal level of other drugs, medicaments and biological substances in specimens from other organs, systems and tissues; R40.2142 Coma scale, eyes open, spontaneous, at arrival to emergency department; R40.2252 Coma scale, best verbal response, oriented, at arrival to emergency department; R40.2362 Coma scale, best motor response, obeys commands, at arrival to emergency department; I50.9 Heart failure, unspecified; Z79.82 Long term (current) use of aspirin
CPT/HCPCS: 36415; 80048; 80162; 80184; 80185; 85025; 96374; 96376; 99284; J1953